=== PATIENT | male | born 1970 | race Caucasian/White ===

== ENCOUNTER 2019-06-14 08:45 | Outpatient (RCR) | payer MEDICAID, OTHER, SELFPAY ==
--- NOTE | 2019-03-23 14:20 | PTOPEVAL ---
PHYSICAL THERAPY EVALUATION AND PLAN OF CARE Thank you for referring this patient to [facility]. Rivera is scheduled to be seen 2x/week for 4 weeks to participated in PT. Please review, sign, date and return this plan of care ELIZABETH. I agree with and certify that the following plan of care is medically necessary. Referring Physician Date Attending Provider: Isidro Gupta MD Therapy Assessment Status Assessment Status Assessment Status Evaluation Outpatient Past Medical History Cardiovascular History Hx Hypercholesterolemia Yes: adverstatin Hx Other Cardiac Disorders Yes: pericardectomy Musculoskeletal History Hx Joint Replacement Yes: bilateral hip and right knee 2019 Evaluation Information Problem Diagnosis right TKA Onset 03/08/19 Subjective Information Rivera is here following right Query Text:As Reported By Patient/ TKA s/p 2 weeks. He is here Family today with a straight cane, but agrees he could probably continue to use his wheeled walker. He had both hips replaced within the year. He does have a home exercise program from the hospital that he has been performing but it is very painful to do. Self Report Pain Assessment Right Knee(s) Reported Pain Level 8 Radicular Pain Location stiff Pain Frequency Acute Other Pain Description 8 Current Pain Intensity 3 Lowest Pain Intensity 9 Pain Relief Interventions Used By Ice Patient Knee Range of Motion Right Knee Flexion Range of Motion - Active 76 Knee Flexion Range of Motion - Passive 89 Knee Extension Range of Motion - Active -15 Query Text: Hip Strength Right Hip Flexion Strength 4+ Good + Hip Extension Strength 4- Good - Hip Abduction Strength 4- Good - Knee Strength Right Knee Flexion Strength 3- Fair - Knee Extension Strength 4- Good - Edema Assessment Location Right Knee(s) Type Non-Pitting Edema Degree 2+ (2-4 mm) Extremity Circumference Assessment Location Right Body Part Knee Site Descriptor ([place]) suprapatellar Circumference (cm) 45 Noninvolved Side Circumference (cm) 44 Gait Assessment Ambulation Assistive Devices Cane Weight Bearing Status - Left Full Weight Bearing Status - Right As Tolerated Maintains Weight Bearing Status Yes Ambulation Distance throughout gym, states easier Query
--- NOTE | 2019-04-03 10:22 | PCPTNOTE ---
Patient called & cancelled scheduled appointment this date due to weather.
--- NOTE | 2019-04-13 11:25 | PCPTNOTE ---
Patient called & cancelled scheduled appointment this date stating he was unable to make it
--- NOTE | 2019-04-20 10:13 | PTOPEVAL ---
PHYSICAL THERAPY PLAN OF CARE UPDATE AND PROGRESS REPORT Thank you for referring this patient to [facility]. Rivera is progressing toward his goals. He will continue PT 2x/week for 3 weeks with reassess. Please review, sign, date and return this plan of care ELIZABETH. I agree with and certify that the following plan of care is medically necessary. Referring Physician Date Attending Provider: Isidro Gupta MD Re-evaluation Outpatient Past Medical History Cardiovascular History Hx Hypercholesterolemia Yes: adverstatin Hx Other Cardiac Disorders Yes: pericardectomy Musculoskeletal History Hx Joint Replacement Yes: bilateral hip and right knee 2019 Evaluation Information Problem Diagnosis right TKA Onset 03/08/19 Subjective Information Rivera is here following right Query Text:As Reported By Patient/ TKA s/p 6 weeks. Continues to Family report significant pain, especially medial aspect of knee and either side of knee cap. States he no longer uses cane or walker. due to severe morning pain with inability to bear weight without forcing it, I recommend using a walker or a cane for the first several minutes in the morning while the knee pain eases. Pain Scale Pain Scale Used Numeric (1 - 10) Self Report Pain Assessment Right Knee(s) Reported Pain Level 6 Pain Description Aching,Soreness,Tightness Pain Aggravating Factors Exercise/Activity Pain Behaviors Grimacing,Guarding Pain Score Pain Score 6: Self Report Knee Range of Motion Right Knee Flexion Range of Motion - Active 102 Knee Flexion Range of Motion - Passive 104 Knee Extension Range of Motion - Active -10 Query Text: Hip Strength Right Hip Flexion Strength 4+ Good + Hip Extension Strength 4- Good - Hip Abduction Strength 4- Good - Knee Strength Right Knee Flexion Strength 3- Fair - Knee Extension Strength 4+ Good + Palpation Assessment Palpation Palpation significant myofascial restrction throughout right knee, especially medial aspect of knee and medial gastroc head Gait Assessment Gait Pattern Assessment Gait Pattern Trendelenburg Gait Other Gait Observations decreased right knee extension ; improves
--- NOTE | 2019-05-10 09:55 | PTOPEVAL ---
PHYSICAL THERAPY PLAN OF CARE UPDATE AND PROGRESS REPORT Thank you for referring this patient to [facility]. Hold PT at this time. Consult with surgeon for further goals to be addressed. Please review, sign, date and return this plan of care ELIZABETH. I agree with and certify that the following plan of care is medically necessary. Referring Physician Date Attending Provider: Isidro Gupta MD Re-evaluation Outpatient Past Medical History Cardiovascular History Hx Hypercholesterolemia Yes: adverstatin Hx Other Cardiac Disorders Yes: pericardectomy Musculoskeletal History Hx Joint Replacement Yes: bilateral hip and right knee 2019 Evaluation Information Problem Diagnosis right TKA Onset 03/08/19 Subjective Information Rivera is here following right Query Text:As Reported By Patient/ TKA s/p 9 weeks. Reports that Family most functional tasks are becoming easier with only limitation to function in decreased right knee flexion. Significant amount of pain and stiffness reported in the morning that eases throughout the day. Right Knee(s) Reported Pain Level 4 Pain Description Aching,Soreness,Tightness Pain Aggravating Factors Exercise/Activity Pain Behaviors Grimacing Interventions Used By Clinicians Exercise,Joint Mobilization, Mobilization,Myofascial Release Pain Score 4: Self Report Additional Pain Score Comments still really stiff in the mornings, but after a few hours it eases and feels better. Knee Range of Motion Right Knee Flexion Range of Motion - Active 107 Knee Flexion Range of Motion - Passive 111 Knee Extension Range of Motion - Active -5 Query Text: Hip Strength Right Hip Flexion Strength 5 Normal Hip Extension Strength 4 Good Hip Abduction Strength 4+ Good + Knee Strength Right Knee Flexion Strength 4+ Good + Knee Extension Strength 4- Good - Knee Strength Comments continues to have fair to moderate right quadriceps contraction; increases contraction with looking at leg; instructed to perform toe walking and heel walking Palpation moderate myofascial restrction of right qudariceps and
--- NOTE | 2019-05-23 15:31 | PCPTNOTE ---
It has been 2 weeks since patient's last re-assessment. He was to return to surgeon to determine if further goals needed to be met. We have not heard from surgeon or from patient and this account will be discharged.
--- NOTE | 2019-06-05 16:46 | PTOPEVAL ---
PHYSICAL THERAPY PLAN OF CARE UPDATE AND PROGRESS REPORT Thank you for referring this patient to [facility]. Rivera will be seen in PT 1x/week for 3 week for emphasis on right quadriceps strengthening. Please review, sign, date and return this plan of care ELIZABETH. I agree with and certify that the following plan of care is medically necessary. Referring Physician Date Attending Provider: Isidro Gupta MD Re-evaluation Outpatient Past Medical History Cardiovascular History Hx Hypercholesterolemia Yes: adverstatin Hx Other Cardiac Disorders Yes: pericardectomy Musculoskeletal History Hx Joint Replacement Yes: bilateral hip and right knee 2019 Evaluation Information Problem Diagnosis right TKA Onset 03/08/19 Subjective Information Rivera is here following right Query Text:As Reported By Patient/ TKA s/p 13 weeks. 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 Reports feeling sharp pains or other discomfort in the knee when carrying moderate to heavy items. Self Report Pain Assessment Right Knee(s) Reported Pain Level 3 Pain Description Aching,Tightness Pain Aggravating Factors Exercise/Activity Pain Behaviors Grimacing Interventions Used By Clinicians Dry Needling,Exercise,Joint Mobilization Additional Pain Comments pain is mostly at left of patella Knee Range of Motion Right Knee Flexion Range of Motion - Active 102 Knee Extension Range of Motion - Active -5 Query Text: Hip Strength Right Hip Flexion Strength 5 Normal Hip Extension Strength 4+ Good + Hip Abduction Strength 4+ Good + Knee Strength Right Knee Flexion Strength 4+ Good + Knee Extension Strength 4 Good Palpation Assessment Palpation Palpation moderate myofascial restrction of right qudariceps and anterior tibialis - no change Gait Assessment Ambulation Assistive Devices Cane Weight Bearing Status - Left Full Weight Bearing Status - Right As Tolerated Maintains Weight Bearing Status Yes Ambulation Distance throughout gym, states easier Query Text:(Feet) to walk after treatment Gait Pattern Assessment Gait Pattern Trendelenburg Gait Other Gait Observations decreased right knee extension
--- NOTE | 2019-06-19 07:53 | PCPTNOTE ---
Patient called & cancelled scheduled appointment this date due to fever.
--- NOTE | 2019-06-28 08:35 | PCPTNOTE ---
This treatment is being continued on visit number [id number]. Please see documentation on both accounts to view progress. Completed interventions, outcomes, and problems have been marked as Inactive to facilitate the copying of the Care plan routine for recurring accounts.
== END 2019-06-14 23:59 | disposition home or self-care (01) ==
LOC: ANHPT 08:45
PROVIDERS: PCP Internal Medicine; Visit Provider Orthopaedic Surgery
DX: Z47.1 Aftercare following joint replacement surgery (principal); Z96.651 Presence of right artificial knee joint; G89.29 Other chronic pain
CPT/HCPCS: 97110; 97112; 97140; 97161

== ENCOUNTER 2019-06-28 08:00 | Outpatient (RCR) | payer OTHER, SELFPAY ==
--- NOTE | 2019-06-28 08:32 | PTOPEVAL ---
PHYSICAL THERAPY DISCHARGE REPORT Thank you for referring this patient to [facility]. Please review, sign, date and return this discharge report. I agree with and certify that the following plan of care is medically necessary. Referring Physician Date Attending Provider: Isidro Gupta MD Outpatient Past Medical History Cardiovascular History Hx Hypercholesterolemia Yes: adverstatin Hx Other Cardiac Disorders Yes: pericardectomy Musculoskeletal History Hx Joint Replacement Yes: bilateral hip and right knee 2019 Diagnosis right TKA Onset 03/08/19 Subjective Information Rivera reports today that he Query Text:As Reported By Patient/ feels great. He is ready for Family discharge at this time. Pain Assessment Right Knee Reported Pain Level 2 Current Pain Intensity 2 Lowest Pain Intensity 0 Greatest Pain Intensity 4 Knee Range of Motion Right Knee Flexion Range of Motion - Active 108 Knee Extension Range of Motion - Active 5 Query Text: Lower Extremity Muscle Strength Testing Hip Strength Right Hip Flexion Strength 5 Normal Hip Extension Strength 4+ Good + Hip Abduction Strength 4+ Good + Knee Strength Right Knee Flexion Strength 5 Normal Knee Extension Strength 5 Normal Gait Assessment Ambulation Assistive Devices None Weight Bearing Status - Left Full Weight Bearing Status - Right Full Gait Pattern Trendelenburg Gait Gait Pattern Observed Trunk Lateral Lean - Right Other Gait Observations continues to have mild right Trendelenburg - could be residual effect of right OSKAR Stair Climbing Assessment Stair Climbing Assessment Stair Climbing Assistive Devices None Maintains Weight Bearing Status Yes Number of Steps Climbed (Steps) 4 Number of Repetitions (Repetitions) 7 Technique Alternating Steps Stair Climbing Direction Both Up and Down Stair Climbing Ability Independent Clinical Summary Rivera is a 48 yo male 15 weeks s/p right TKA. Rivera demonstrates today that his strength has improved significantly in the last several weeks in that he is able to use the RLE more independently of the left. He is able to perform right unilateral sit>stand with small assist of hand, whereas 3 weeks ago he was unble at
--- NOTE | 2019-06-28 08:34 | PCPTNOTE ---
The treatment documented on this account is a continuation of the treatment documented on visit number [id number]. Please see documentation on both accounts to view progress. The Plan of Care has been transitioned and updated within the new V#. I have addressed and agree with the discipline specific Problems, Interventions, and Goals for the current certification period. Completed interventions, outcomes, and problems have been marked as Inactive to facilitate the copying of the Care plan routine for recurring accounts.
== END 2019-06-29 10:03 | disposition home or self-care (01) ==
LOC: ANHPT 08:00
PROVIDERS: PCP Internal Medicine; Visit Provider Orthopaedic Surgery
DX: M17.11 Unilateral primary osteoarthritis, right knee (principal)
CPT/HCPCS: 97110

== ENCOUNTER 2020-02-16 09:27 | Outpatient (CLI) | payer OTHER, SELFPAY ==
[2020-02-16 10:02] LABS: Alanine Aminotransferase 37 U/L (4-50); Albumin Level 4.2 g/dL (3.5-5.1); Alkaline Phosphatase 143 U/L (38-126); Anion Gap 11 mmol/L (8-16); Aspartate Amino Transferase 33 U/L (17-59); Bilirubin,Total 0.5 mg/dL (0.2-1.3); Blood Urea Nitrogen 17 mg/dL (9-20); Carbon Dioxide 25 mmol/L (22-30); Chloride 103 mmol/L (98-107); Cholesterol 133 mg/dL (0-200); Estimated Glomerular Filt Rate > 60; Glucose 109 mg/dL (75-110); HDL Direct 42 mg/dL; Potassium 3.9 mmol/L (3.4-5.0); Sodium 139 mmol/L (137-145); Triglycerides 132 mg/dL (<150)
[2020-02-16 10:12] LABS: LDL Cholesterol Direct 66 mg/dL
== END 2020-02-16 09:28 | disposition home or self-care (01) ==
PROVIDERS: PCP Internal Medicine; Visit Provider Internal Medicine Cardiovascular Disease
DX: E78.49 Other hyperlipidemia (principal)
CPT/HCPCS: 36415; 80053; 80061

== ENCOUNTER 2021-12-15 16:48 | Inpatient (IN) | payer MEDICARE, MEDICAID, SELFPAY ==
--- NOTE | ~2021-12-15 | US_ITS ---
EXAMINATION: US venous doppler [facility] DATE: 12/18/2021 13:04 INDICATION: Lower limb pain TECHNIQUE: Grayscale ultrasound images without and with compression and Doppler ultrasound images of the bilateral lower extremity veins were obtained. COMPARISON: None. FINDINGS: The visualized portions of right common femoral vein, profunda (deep) femoral vein, femoral vein, pop liteal vein, posterior tibial veins, peroneal veins, gastrocnemius vein and greater saphenous vein ou tflow are patent. The visualized portions of left common femoral vein, profunda femoral vein, femoral vein, popliteal v ein, posterior tibial veins, peroneal veins, gastrocnemius vein and greater saphenous vein outflow ar e patent. IMPRESSION: 1. No deep venous thrombosis in either lower limb. Reviewed, dictated and finalized at location A.
--- NOTE | ~2021-12-15 | CT_ITS ---
EXAMINATION: CT drain retroperitoneal DATE: 12/16/2021 14:54 INDICATION: Left psoas muscle abscess. TECHNIQUE: The procedure including the risks, benefits, and alternatives was discussed with the patie nt. Risks discussed included bleeding and infection. The patient understood the risks and benefits an d agreed to proceed. The patient was confirmed to be receiving appropriate antibiotic coverage. The skin overlying the abdomen was prepped and draped in usual sterile fashion. Anesthetic was administe red with 1% lidocaine subcutaneously. The patient slept throughout the procedure, and sedation was no t administered. An 18 gauge trochar needle was inserted into the left psoas abscess with CT guidance. The needle was exchanged over a wire for 6 Georgian, 8 Georgian, and 9 Georgian dilators and then for an 8 .5 Georgian pigtail catheter. The catheter was stitched to the skin, and a sterile dressing was applied . The mA was adjusted according to patient size. Iterative reconstruction technique was employed. The dose-length product was 327.83 mGy-cm. There were no immediate complications. FINDINGS: CT images demonstrate the catheter within the left psoas abscess. 7 mL fluid was aspirated for testing. IMPRESSION: 1. Successful CT-guided left psoas abscess drainage. 2. 7 mL opaque, pink fluid was sent for aerobic and anaerobic cultures. Reviewed, dictated and finalized at location A.
--- NOTE | ~2021-12-15 | XR_ITS ---
EXAM: XR hip BI 2V w AP pelvis DATE: 12/15/2021 20:07 HISTORY: back/hip pain since wednesday last week,pain more to rt side . COMPARISON: None available. FINDINGS: Bilateral uncomplicated hip arthroplasties. Normal mineralization. No fracture or dislocati on. Heterotopic bone adjacent to the right greater trochanter. Heterotopic bone versus old fracture o r postsurgical fragment adjacent to the left acetabulum. No lytic or blastic lesion. Degenerative patt nges in the lower lumbar spine. No erosion or periosteal change. Soft tissues within normal limits. IMPRESSION: No acute osseous finding in the pelvis or bilateral hips. Uncomplicated bilateral hip art hroplasties. Reviewed, dictated and finalized at location K. IMPRESSION: No acute osseous finding in the pelvis or bilateral hips. Uncomplic ated bilateral hip arthroplasties.
--- NOTE | ~2021-12-15 | CT_ITS ---
EXAMINATION: CTA chest DATE: 12/17/2021 10:37 INDICATION: Leukocytosis. TECHNIQUE: Computed tomographic angiography (CTA) of the chest was performed with 100 mL Omnipaque-35 0 intravenous contrast. Automated exposure control and iterative reconstruction technique were employ ed. The dose-length product was 638.77 mGy-cm. Maximum intensity projection 3D-reconstructions of the aorta and other arteries were constructed by the technologist on a separate workstation. COMPARISON: Chest CT 07/12/2016 FINDINGS: There is mild emphysema. The lungs demonstrate mild atelectasis. No pleural effusion. There is right atrial and right ventricular enlargement of the heart. There are coronary artery calcificat ions. No pericardial effusion. There are pericardial calcifications. There is mild aortic atheroscler osis. Main pulmonary artery is enlarged, consistent with pulmonary arterial hypertension. There is a small sliding hiatal hernia. There is a 2.4 cm mass containing fat in right adrenal gland, consistent with a myelolipoma. Median sternotomy wires are noted. There is bilateral gynecomastia. There is a s ubxiphoid ventral hernia containing fat. There is mild thoracic spondylosis. IMPRESSION: 1. Mild emphysema. 2. Chronic calcific pericarditis. 3. Right ventricular and right atrial enlargement of the heart. Reviewed, dictated and finalized at location A.
--- NOTE | ~2021-12-15 | CT_ITS ---
EXAMINATION: CT abdomen pelvis w con DATE: 12/15/2021 21:51 INDICATION: psoas abscess? TECHNIQUE: Computed tomography (CT) of the abdomen and pelvis was performed with 100 mL Omnipaque-350 intravenous contrast. Automated exposure control and iterative reconstruction technique were employe d. The dose-length product was 1347.11 mGy-cm. COMPARISON: CT lumbar spine, same date. FINDINGS: Lower thorax: Lungs are mostly obscured by motion artifact. Pericardial calcification. Coronary arter y calcification. Bilateral gynecomastia. Small hiatal hernia. Liver: Normal. Biliary/Gallbladder: No bile duct dilation. Pancreas: No mass or duct dilation. Spleen: Normal. Adrenals:No mass. Kidneys: Bilateral perinephric stranding. No suspicious mass or hydronephrosis. GI tract: No small or large bowel dilation. Normal appendix. Diverticulosis without diverticulitis. Mesentery/Peritoneum: No ascites, mass, or free air. Retroperitoneum: No mass. Atherosclerotic abdominal aortic and/or arterial calcifications. Pelvis: Left iliac lymphadenopathy. Otherwise the pelvic organs are within normal limits. Soft Tissues: 3.0 x 2.4 x 5.1 cm lobular low-density collection in the left inferior psoas muscle at the level of the sacroiliac joints with subtle rim enhancement. Bones: No acute osseous finding. IMPRESSION: 3.0 x 2.4 x 5.1 cm left psoas muscle abscess, with adjacent lymphadenopathy. Reviewed, dictated and finalized at [facility] K.
--- NOTE | ~2021-12-15 | CT_ITS ---
EXAMINATION: CT lumbar spine wo con DATE: 12/15/2021 20:18 INDICATION: low back pain radiating down the left leg . TECHNIQUE: Computed tomography (CT) of the lumbar spine was performed without intravenous contrast. A utomated exposure control and iterative reconstruction technique were employed. The dose-length produ ct was 1383.95 mGy-cm. COMPARISON: None. FINDINGS: Small hiatal hernia. Asymmetric enlargement and surrounding inflammatory change of the left psoas muscle. Enlarged left iliac lymph nodes. Prominent right pelvic lymph nodes. Adrenal hyperplas ia. Atherosclerotic calcifications. 5 nonrib-bearing lumbar-type vertebral bodies. Pedicles intact. N ormal vertebral body alignment. Vertebral body heights preserved. Multilevel degenerative disc diseas e. Multilevel moderate and severe facet arthropathy in the lower lumbar spine. IMPRESSION: 1. No acute fracture or traumatic malalignment in the lumbar spine. 2. Left psoas enlargement and inflammation with adjacent lymphadenopathy. Recommend CT abdomen pelvis with contrast to exclude psoas abscess. Reviewed, dictated and finalized at location K. IMPRESSION: 1. No acute fracture or traumatic malalignment in the lumbar spine. 2. Left psoas enlargement and inflammation with adjacent lymphadenopathy. Recom mend CT abdomen pelvis with contrast to exclude psoas abscess.
--- NOTE | ~2021-12-15 | CT_ITS ---
EXAMINATION: CT pelvis w con DATE: 12/18/2021 14:03 INDICATION: Left lower quadrant abdominal pain. TECHNIQUE: Computed tomography (CT) of the pelvis was performed with 100 mL Omnipaque 350 intravenous contrast. Automated exposure control and iterative reconstruction technique were employed. The dose- length product was 875.34 mGy-cm. COMPARISON: CT abdomen and pelvis 12/15/2021 FINDINGS: There are no dilated loops of bowel. There is diverticulosis of the colon without evidence of diverticulitis. Left iliopsoas muscle is larger than the right. There is a percutaneous drain in l eft psoas muscle. There are mildly enlarged bilateral common iliac and right external iliac lymph nod es. There is an umbilical hernia containing fat. There is no free intraperitoneal fluid. There are bi lateral total hip arthroplasties. IMPRESSION: 1. Asymmetric enlargement of left iliopsoas muscle with percutaneous drain in left psoas muscle. No s ignificant residual drainable fluid identified. 2. Mild pelvic lymphadenopathy, likely reactive. Reviewed, dictated and finalized at location A. IMPRESSION: 1. Asymmetric enlargement of left iliopsoas muscle with percutaneous drain in l eft psoas muscle. No significant residual drainable fluid identified. 2. Mild pelvic lymphadenopathy, likely reactive.
--- NOTE | ~2021-12-15 | MR_ITS ---
EXAMINATION: MR lumbar spine wo/w con, MR pelvis wo/w con DATE: 12/18/2021 18:33 INDICATION: Psoas abscess with worsening bacteremia. Weak legs. TECHNIQUE: 1. Magnetic resonance imaging (MRI) of the lumbar spine was performed without and with 20 mL Multihan ce intravenous contrast. Sequences included sagittal T2-weighted FSE, sagittal T2-weighted FS FSE, an d sagittal and axial T1-weighted FSE. Postcontrast sequences included axial T2-weighted FSE, sagittal T1-weighted FSE, and axial and sagittal T1-weighted FS FSE. 2. MRI of the pelvis performed without and with the identical 20 mL MultiHance intravenous contrast b olus. Sequences included axial, sagittal and coronal T1-weighted FSE and fluid sensitive FSE STIR, ax ial T1-weighted FS FSE and postcontrast axial, sagittal and coronal T1-weighted FS FSE. COMPARISON: Lumbar spine CT dated 12/15/[address] pelvis dated 12/18/2021 FINDINGS: Evaluation is limited by breathing degrees of motion artifact and the majority of the sequences of lilia th the lumbar spine and pelvis. Lumbar spine: 2 mm retrolisthesis L3 on L4 and L4 on L5 vertebral body heights are normal. Mild disc height loss at L3-L4 and L4-L5. No abnormal increased is signal or enhancement to suggest discitis. The conus medul lance terminates at T12. There is normal signal in the caudal spinal cord. Prominent epidural lipomatosis throughout the mid to lower lumbar spine. There is edema and enhanceme nt throughout the epidural fat. This results in severe central canal stenosis with effacement of the CSF signal surrounding the nerve roots beginning at L2 and extending throughout the remainder of the more caudal central canal. There are small nonenhancing regions within the posterior epidural fat, th e largest at the level of L3 which measures 1.5 cm craniocaudally and 6 x 6 mm maximal orthogonal dim ensions suspicious for either epidural abscess or fat necrosis. Smaller potential abscesses are seen more caudally in the posterior epidural fat at the level of L4 measuring 1.5 cm craniocaudally by 4 x 4 mm and 9 x 3 x 3 mm at the level of L5-S1. Aside from the thickened and edematous epidural there is only a mild contribution to the stenosis res ulting from disc bulges at L3-L4 and L4-L5. Multilevel moderate to severe lumbar facet osteoarthritis . There is moderate neural from stenosis bilaterally at L3-L4, mild to moderate bilateral neural fora oleg stenosis at L4-L5 and mild bilateral neural foraminal stenosis at L1-L2 and L2-L3. There is asymmetric enlargement of the left psoas muscle with prominent edema and enhancement extendi ng along the medial side of the muscle belly surrounding a collapsed nonenhancing abscess cavity with in which is coiled the loop of a left lower quadrant abscess drain. This is better appreciated on the images of the pelvis. There is additional prominent muscular edema and enhancement bilateral lower l umbar paraspinal musculature. On the right this surrounds a nonenhancing T2 hyperintense abscess loca erica along the posterior margin of the right L4-L5 facet joint. The abscess measures 4.8 cm craniocaud ally and 2.7 x 1.3 cm in maximal transaxial dimensions. On the left this surrounds an additional 2.1 x 1.1 x 1.0 cm abscess positioned slightly lateral to the left L4-L5 facet joint. There are small landry nt effusions at the bilateral L4-L5 facet joints. There is marrow edema and enhancement involving the articular processes at both sides of both the left and right L4-L5 facet joints and extending into t he left and right pedicles of both L4 and L5 which along with erosion of the articular cortices at th e left L4-L5 facet joint evident on prior CT is concerning for osteomyelitis. Edema and enhancement c onsistent with myositis involving small portions of the contralateral right psoas muscle in the bilat eral iliac is muscles but without additional abscesses. Mild rim enhancement surro
[2021-12-15 16:50] VITALS: BP 111/74; PULSE 98; RESP 20; TEMP 36.7; O2SAT 99
[2021-12-15] MEDS: diazePAM INJ (*CRX) 10 MG/2 ML SYRINGE 5 MG IV PUSH (19:18)
[2021-12-15] MEDS: KETOROLAC 15 MG/ML VIAL (*BKC) IV PUSH (19:19)
--- NOTE | 2021-12-15 19:31 | ED.BACK ---
HPI - Back Pain/Injury General Chief Complaint: Back Pain/Injury Stated Complaint: back pain Time Seen by Provider: 12/15/21 18:31 Source: patient Mode of arrival: EMS Limitations: no limitations History of Present Illness HPI Narrative: This is a 51 year old male that presents to the ER for low back pain x 5 days. Reports last Wednesday he was lifting a lot of logs. Reports he has had low back pain radiating into the left leg since. Denies bowel/bladder incontinence, or saddle anesthesia. Related Data Home Medications Medication Instructions Recorded Confirmed sertraline 100 mg tablet 100 mg PO DAILY 04/17/19 12/16/21 bupropion HCl 200 mg tablet,12 hr 200 mg PO DAILY 12/16/21 12/16/21 sustained-release diazepam 5 mg tablet 10 mg PO BID 12/16/21 12/16/21 lamotrigine 200 mg tablet 200 mg PO DAILY 12/16/21 12/16/21 trazodone 50 mg tablet 50 mg PO PRN insomnia 12/16/21 12/16/21 Allergies Allergy/AdvReac Type Severity Reaction Status Date / Time No Known Allergies Allergy Verified 12/15/21 19:20 [facility] Past Medical History Medical History COPD (chronic obstructive pulmonary disease) Drug addiction Hyperlipidemia due to dietary fat intake Liver cirrhosis Measles uncomplicated Mumps uncomplicated Osteoarthritis involving multiple joints on both sides of body Pericarditis in diseases classified elsewhere Sleep apnea Surgical History Surgical History H/O hernia repair Hip joint replacement status History of total right knee replacement Total knee replacement status Family History Family History (Updated 12/16/21 @ 00:53 by Leigha Valadez RN) Other Adopted Social History Social History Smoking status: Current every day smoker Tobacco type: cigarettes Additional smoking assessment comments: smokes a pack a week, smoked since 13 years old Alcohol intake: never Substance use: current Substance use type: marijuana Spiritual care concerns: No Course Consultations Consultation #1: Spoke with hospitalist about patient and work-up who accepts admission Date: 12/15/21 Vital Signs Vital signs: Vital Signs Temperature 98.0 F 12/15/21 16:50 Pulse Rate 98 12/15/21 16:50 Respiratory Rate 20 12/15/21 16:50 Blood Pressure 111/74 12/15/21 16:50 Pulse Oximetry 99 12/15/21 16:50 Oxygen Delivery Room Air 12/15/21 16:50 Temperature 102.7 F H 12/16/21 00:55 Pulse Rate 98 12/16/21 00:55 Respiratory Rate 18 12/16/21 00:55 Blood Pressure 126/70 12/16/21 00:55 Pulse Oximetry 97 12/16/21 00:55 Oxygen Delivery Room Air 12/15/21 16:50 MDM - Back Pain/Injury MDM Narrative Medical decision making narrative: Patient presents to the ER for low back pain present over the last 5 days. Patient is afebrile and nontoxic appearing. He is neurologically intact. CT scan of the lumbar spine was obtained to further evaluation due to patient's level of pain. This showed findings concerning for a psoas abscess. Blood work was obtained. CBC showed leukocytosis to 20.2. Inflammatory markers were quite elevated as well. Patient was also noted to be hyponatremic with sodium of 124. Patient was hydrated with IV fluids. Blood cultures were drawn. Patient started on IV antibiotics. Patient will be admitted for further management with IV antibiotics and possible drainage by IR. Spoke with hospitalist about patient and work-up who accepts admission Lab Data Attestation: I reviewed the patient's lab results. Result diagrams: 12/15/21 20:54 12/15/21 20:54 Labs: Lab Results 12/15/21 12/15/21 Range/Units 20:54 20:54 WBC 20.2 H (4.5-10.0) K/mm3 RBC 4.42 L (4.6-6.20) M/mm3 Hgb 13.5 L (14.0-18.0) g/dL Hct 38.4 L (42.0-52.0) % MCV 86.9 (80-100) fl MCH 30.5 (26-34
[2021-12-15 21:08] LABS: Basophils Absolute Auto 0.1 K/mm3 (0.0-0.1); Basophils Percent Auto 0.4 % (0.2-1.2); Eosinophils Percent Auto 0.2 % (0-4.4); Hematocrit 38.4 % (42.0-52.0); Hemoglobin 13.5 g/dL (14.0-18.0); Immature Granulocyte Absolute 0.19 K/mm3 (0.00-0.031); Immature Granulocyte Percent A 0.9 % (0-0.5); Lymphocytes Absolute Auto 1.64 K/mm3 (0.9-3.2); Lymphocytes Percent Auto 8.1 % (18.3-44.2); Mean Corpuscular HGB Conc 35.2 g/dl (32-36); Mean Corpuscular Hemoglobin 30.5 pg (26-34); Mean Corpuscular Volume 86.9 fl (80-100); Mean Platelet Volume 10.6 fl (7.4-10.4); Monocytes Absolute Auto 2.9 K/mm3 (0.1-0.6); Monocytes Percent Auto 14.2 % (2.6-8.5); Neutrophils Absolute Auto 15.3 K/mm3 (1.3-6.7); Neutrophils Percent Auto 76.2 % (45.5-73.1); Platelet Count Result 225 k/mm3 (150-375); Red Blood Count 4.42 M/mm3 (4.6-6.20); Red Cell Distribution Width 14.3 % (11.5-14.5); White Blood Count 20.2 K/mm3 (4.5-10.0)
[2021-12-15 21:22] LABS: Alanine Aminotransferase 41 U/L (6-50); Albumin Level 3.6 g/dL (3.5-5.1); Alkaline Phosphatase 162 U/L (38-126); Anion Gap 11 mmol/L (8-16); Aspartate Amino Transferase 37 U/L (17-59); Bilirubin,Total 1.6 mg/dL (0.2-1.3); Blood Urea Nitrogen 23 mg/dL (9-20); Calcium 8.7 mg/dL (8.4-10.2); Carbon Dioxide 26 mmol/L (22-30); Chloride 87 mmol/L (98-107); Estimated CRCL calculation 88 ml/min; Estimated Glomerular Filt Rate > 60; Glucose 118 mg/dL (65-110); Potassium 3.5 mmol/L (3.4-5.0); Sodium 124 mmol/L (137-145)
[2021-12-15 21:34] LABS: CRP 26.5 mg/dL (<1.0); Creatine Kinase 108 U/L (55-170)
[2021-12-15 21:49] LABS: Erythrocyte Sedimentation Rate 80 mm/hr (0-20)
[2021-12-15] MEDS: SODIUM CHLORIDE 0.9% IV 1,000 ML 999 ML IV CONT (22:24)
--- NOTE | 2021-12-15 23:10 | PC.NURSE ---
report given to KELIN Mcdowell
[2021-12-15] MEDS: MORPHINE SULFATE (*CRX) 4 MG/ML INJ IV PUSH (23:47)
[2021-12-16] VITALS (7 sets, daily range): BP systolic 126–154; BP diastolic 70–93; PULSE 80–143; RESP 14–20; TEMP 36.3–39.3; O2SAT 91–100
--- NOTE | 2021-12-16 | ECHO_ITS ---
Patient Info Name: Rivera Aguilar Age: 51 years : 1970 Gender: Male Ht: 68 in Wt: 230 lbs BSA: 2.28 m2 HR: 97 bpm BP: 143 / 71 mmHg Technical Quality: Fair Exam Date: 12/16/2021 1:16 PM Exam Location: [facility] Patient Status: Inpatient Admit Date: 12/15/2021 Staff Ordering Physician: Gordo Renteria Business Systems Analyst: Zaynab Nguyen RDCS Attending Provider: Cecilia Dodge MD Referring Physician: Dexter ALVARES; Exam Type: CA echo doppler color flow Study Info Indications R00.0 - Tachycardia, unspecified Complete two-dimensional, color flow and Doppler transthoracic echocardiogram is performed. Summary 1. Complete two-dimensional, color flow and Doppler transthoracic echocardiogram is performed. 2. Left ventricular chamber dimension is normal. 3. Left ventricular systolic function is normal, estimated at 65-70%. 4. The left ventricular diastolic function is normal. 5. E/e' 8 is minimally elevated. 6. There is trace tricuspid valve regurgitation. Left Ventricle E/e' 8 is minimally elevated. Left ventricular chamber dimension is normal. Left ventricular systolic function is normal, estimated at 65-70%. The left ventricular diastolic function is normal. Right Ventricle Right ventricular systolic function is normal and with normal TAPSE 1.7 cm.. Right ventricular chamber dimension is normal. Left Atria Left atrial chamber dimension is normal. Right Atria Right atrial chamber dimension is normal. Aortic Valve The aortic valve is trileaflet. There is no aortic valve stenosis. There is no aortic valve regurgitation. Pulmonic Valve There is no pulmonic regurgitation. Mitral Valve There is no mitral valve stenosis. There is no mitral valve regurgitation. Tricuspid Valve RVSP is not calculated due to an inadequate TR jet. There is trace tricuspid valve regurgitation. Pericardium/Pleural There is no pericardial effusion. Inferior Vena Cava Normal inferior vena cava with >50% collapse upon inspiration consistent with normal right atrial pressure, 5 mmHg. Aorta The aortic root size at the sinus of Valsalva is normal. Left Ventricular Outflow Tract Name Value Normal LVOT 2D LVOT Diameter 2.3 cm Mitral Valve Name Value Normal MV Doppler MV Decel [place] 499 cm/s2 MV PHT 49 ms MV Area (PHT) 4.5 cm2 4.0-5.0 MV Diastolic Function MV E Peak Velocity 84 cm/s MV A Peak Velocity 79 cm/s MV E/A 1.1 MV Decel Time 168 ms MV Annular TDI MV E/e' (Septal) 7.8 <=8.0 MV E/e' (Lateral)
--- NOTE | 2021-12-16 00:38 | PM.IMHP ---
H&P: HPI History of Present Illness Date/Time: 12/16/21 00:38 Chief Complaint: lower back pain Narrative: This is a 51-year-old male with past medical history significant for tobacco dependence, COPD/ emphysema, dyslipidemia, liver cirrhosis, degenerative joint disease. patient presents to the emergency room due to lower back pain with radiation bilaterally down to his calves, patient denies any fevers, rigors, chills, night sweats, denies any incontinence or urinary retention or fecal retention, no gait instability, no focal weakness, no area of numbness, patient has been his usual state of health up to until this point this has been going on now for the last 2-3 days. Preliminary workup was significant for a leukocyte count of 20,000. lumbar x-ray: IMPRESSION: 1. No acute fracture or traumatic malalignment in the lumbar spine. 2. Left psoas enlargement and inflammation with adjacent lymphadenopathy. Recommend CT abdomen pelvis with contrast to exclude psoas abscess. CT abdomen and pelvis: IMPRESSION: 3.0 x 2.4 x 5.1 cm left psoas muscle abscess, with adjacent lymphadenopathy. Review of Systems Review of Systems: lower back pain with radiation bilaterally to the Botox and then down to his calves Constitutional: Constitutional: Denies body ache(s), Denies chills, Denies fever(s), Denies malaise, Denies night sweats, Denies poor appetite and Denies weakness Eyes: Eyes: Denies change in vision ENT: Denies dysphagia, Denies vertigo, Denies dizziness, Denies odynophagia and Denies sore throat Cardiovascular: Cardiovascular: Denies chest pain, Denies syncope, Denies irregular heart rhythm, Denies lightheadedness, Denies palpitations and Denies dyspnea on exertion Respiratory: Respiratory: Denies chest congestion, Denies cough, Denies excessive phlegm production, Denies pain on inspiration, Denies dyspnea, Denies dyspnea on exertion and Denies wheezing Gastrointestinal: Gastrointestinal: Denies abdominal pain, Denies dyspepsia, Denies heartburn, Denies diarrhea, Denies nausea and Denies vomiting Genitourinary: Genitourinary: Denies dysuria Musculoskeletal: Musculoskeletal: Reports abnormal gait, Reports back pain, Reports muscle cramps and Denies muscle weakness Integumentary/Breasts: Skin/Breast: Denies rash Neurologic: Denies abnormal gait, Denies vertigo, Denies dizziness, Denies frequent falls, Denies focal weakness, Denies Sensory deficit (Neuro) and Denies paresthesias Psychiatric: Psychiatric: Reports no additional psychiatric complaints and Reports as per HPI Endocrine: Endocrine: Denies cold intolerance, Denies flushing, Denies heat intolerance, Denies polyphagia, Denies polydipsia, Denies polyuria and Denies palpitations Hematologic/Lymphatic: Hematologic/Lymphatic: Reports no additional hematologic/lymphatic complaints and Reports as per HPI Allergic/Immunologic: Allergic/Immunologic: Reports no additional allergic/immunologic complaints and Reports as per HPI PMFSH Past Medical History Medical History (Updated 12/16/21 @ 04:32 by Cecilia Dodge MD) COPD (chronic obstructive pulmonary disease) Drug addiction Hyperlipidemia due to dietary fat intake Liver cirrhosis Measles uncomplicated Mumps uncomplicated Osteoarthritis involving multiple joints on both sides of body Pericarditis in diseases classified elsewhere Sleep apnea Surgical History Surgical History H/O hernia repair Hip joint replacement status History of total right knee replacement Total knee replacement status Family History Family History (Updated 12/16/21 @ 00:53 by Leigha Valadez RN) Other Adopted Social History Social History Smoking status: Current every day smoker Tobacco type: cigarettes Additional smoking assessment comments: smokes a pack a week, smoked since 13 years old Alcohol intake: never
--- NOTE | 2021-12-16 00:50 | ADMGEN ---
This patient, Rivera Aguilar, was admitted to 3 [facility] Surg Room 302-01. Patient/family oriented to hospital policies and general routines including ID bracelet, bed and alarms, visiting hours, pain management, procedures, bathroom and other care routines, personal items, smoking policy, room service/diet, and visiting hours. Information on how to activate the Rapid Response Team has been discussed. Patient/Family are encouraged to report perceived risks to care and to ask questions if they do not understand what they are told or what they should do.
[2021-12-16] MEDS: HYDROmorphone HCL INJ (*CRX) 1 MG/ML SYR IV PUSH ×4 (01:09→20:28)
[2021-12-16] MEDS: ACETAMINOPHEN 500 MG TABLET 1000 MG PO (01:09)
[2021-12-16 01:44] LABS: Lactic Acid Reflex 1.1 mmol/L (0.7-2.0)
[2021-12-16 05:45] LABS: Basophils Absolute Auto 0.1 K/mm3 (0.0-0.1); Basophils Percent Auto 0.4 % (0.2-1.2); Eosinophils Absolute Auto 0.1 K/mm3 (0-0.3); Eosinophils Percent Auto 0.6 % (0-4.4); Hematocrit 38.3 % (42.0-52.0); Hemoglobin 13.2 g/dL (14.0-18.0); Immature Granulocyte Absolute 0.29 K/mm3 (0.00-0.031); Immature Granulocyte Percent A 1.4 % (0-0.5); Lymphocytes Absolute Auto 1.69 K/mm3 (0.9-3.2); Lymphocytes Percent Auto 8.3 % (18.3-44.2); Mean Corpuscular HGB Conc 34.5 g/dl (32-36); Mean Corpuscular Hemoglobin 30.3 pg (26-34); Mean Corpuscular Volume 87.8 fl (80-100); Mean Platelet Volume 10.9 fl (7.4-10.4); Monocytes Percent Auto 14.9 % (2.6-8.5); Neutrophils Absolute Auto 15.1 K/mm3 (1.3-6.7); Neutrophils Percent Auto 74.4 % (45.5-73.1); Platelet Count Result 229 k/mm3 (150-375); Red Blood Count 4.36 M/mm3 (4.6-6.20); Red Cell Distribution Width 14.4 % (11.5-14.5); White Blood Count 20.3 K/mm3 (4.5-10.0)
[2021-12-16 06:01] LABS: Anion Gap 12 mmol/L (8-16); Blood Urea Nitrogen 20 mg/dL (9-20); Calcium 8.7 mg/dL (8.4-10.2); Carbon Dioxide 26 mmol/L (22-30); Chloride 90 mmol/L (98-107); Estimated CRCL calculation 98 ml/min; Estimated Glomerular Filt Rate > 60; Glucose 96 mg/dL (65-110); Potassium 3.5 mmol/L (3.4-5.0); Sodium 128 mmol/L (137-145)
[2021-12-16] MEDS: HYDROmorphone HCL INJ (*CRX) 1 MG/ML SYR IM (06:09)
[2021-12-16] MEDS: SERTRALINE HCL 50 MG TABLET 200 MG PO (08:42)
[2021-12-16] MEDS: diazePAM (*CRX) 5 MG TABLET PO ×2 (08:42→17:27)
[2021-12-16] MEDS: lamoTRIgine 100 MG TABLET 200 MG PO (08:43)
[2021-12-16] MEDS: buPROPion HCL SR (12HR) 100 MG TABCR 200 MG PO (08:43)
--- NOTE | 2021-12-16 10:05 | PM.CNGS ---
Assessment and Plan Assessment and plan (1) Psoas abscess, left: Code(s): K68.12 - Psoas muscle abscess Status: Acute Assessment and Plan: CT scan reviewed with the Radiologist. There is a small fluid collection in the left psoas muscle that could be an abscess or hematoma or a sterile fluid collection. There is adjacent iliac lymphadenopathy that is likely reactive, but no adjacent sources of infection that would suggest this is a secondary abscess. There is high suspicion for infection considering his significant leukocytosis and fever. The Radiologist feels this is amenable to drainage and they will attempt aspirating the fluid and potentially putting a drain in place if possible. He will send cultures if possible. Agree with IV Primaxin and Vancomycin for empiric therapy. Etiology for the primary psoas abscess is still unclear. He denies trauma to this area. He denies IV drug use or any known immunocompromising conditions. Discussed with Hospitalist that they could consider evaluating him for immunocompromising conditions. No obvious risk factors noted. (2) Sepsis: Code(s): A41.9 - Sepsis, unspecified organism Status: Acute Assessment and Plan: Criteria met with tachycardia, fever, and leukocytosis. Source possibly psoas abscess. Echo also ordered. Continue with IV abx and plan as mentioned above. Blood cultures pending. Trend labs. (3) COPD (chronic obstructive pulmonary disease): Code(s): J44.9 - Chronic obstructive pulmonary disease, unspecified Status: Acute (4) Smoking: Code(s): F17.200 - Nicotine dependence, unspecified, uncomplicated Status: Acute Assessment and Plan: Encouraged cessation. (5) Sleep apnea: Code(s): G47.30 - Sleep apnea, unspecified Status: Acute (6) Coronary artery disease: Code(s): I25.10 - Atherosclerotic heart disease of [place] coronary artery without angina pectoris Status: Acute (7) Acute hyponatremia: Code(s): E87.1 - Hypo-osmolality and hyponatremia Status: Acute (8) Obesity: Code(s): E66.9 - Obesity, unspecified Status: Acute Plan I have discussed the patient's case and plan of care with Dr. Alba. Thank you for allowing us to see the patient in consultation and we will continue to follow along with you. History of Present Illness Consult details Consult date: 12/16/21 Reason for consult: other (Psoas abscess) Requesting physician: Gordo Renteria APN-C Narrative: This is a 51-year-old man with a history of COPD, ALFRED, tobacco abuse, and osteoarthritis involving multiple joints, who presented to the ER last night with complaints of left hip pain radiating down his left leg. He reports 6 days ago he did a lot of manual labor outside helping cut down a tree and move limbs/branches. He primarily was dragging and lifting branches and limbs to move them on the ground. Later that night, he noticed left hip pain and was walking with a limp. He reports this felt worse into the following day and his friend even reported his left back appeared swollen. He was unable to help with the manual labor the next day due to the pain. His pain progressively worsened. He did feel feverish, but did not take his temperature, 4-5 days ago. To note, the patient had received Valium, Lamictal and IV Dilaudid prior to my arrival and is drowsy. He can answer questions appropriately, but would fall asleep multiple times during our conversation. He also stated he hasn't slept well in multiple days due to the pain. Last night, he eventually came into the ER because the pain was progressively worsening and he was no longer able to get in or out of a car or walk without significant pain. Labs showed a WBC count 20,200 and CRP 26.5. hip and pelvis x-ray show no acute osseous findings in the pelvis or bilateral hips. Uncomplicated bilateral hip arthroplasties noted. CT of the lumbar spine shows no acute fracture or
[2021-12-16 10:29] LABS: INR 1.3; Prothrombin Time 15.6 Seconds (11.1-14.7)
[2021-12-16] MEDS: HYDROmorphone HCL INJ (*CRX) 1 MG/ML SYR 0.5 MG IV PUSH (10:32)
--- NOTE | 2021-12-16 11:09 | ECG_ITS ---
Measurements Intervals [place] Rate: 104 P: 61 LA: 148 QRS: 84 QRSD: 101 T: 27 QT: 325 QTc: 428 Interpretive Statements SINUS TACHYCARDIA ABNORMAL RHYTHM ECG NO PREVIOUS ECG AVAILABLE FOR COMPARISON Electronically Signed On 12-16-2021 11:44:24 CDT by Carlos Valencia M.D.
--- NOTE | 2021-12-16 11:30 | PM.IMPN ---
Progress Note: A&P Assessment and Plan (1) Psoas abscess, left: Code(s): K68.12 - Psoas muscle abscess Status: Acute Assessment and Plan: CT shows 3.0 x 2.4 x 5.1 cm left psoas muscle abscess, with adjacent lymphadenopathy. IV antibiotics vancomycin, change to pramaxin Q6H cultures in progress, need to consult the drainage as well IR to drain abscess in a.m. General surgery consult thank you for your help WBC elevated at 20.3 Trend labs De-escalate as cultures result Pain medication on board supportive care ESR 45, CRP 30.9, HIV pending echo EF of 65-70% with diastolic dysfunction (2) Acute hyponatremia: Code(s): E87.1 - Hypo-osmolality and hyponatremia Status: Acute Assessment and Plan: Na 124 on arrival, currently 128 IV fluids given in the ED hypovolemic hyponatremia Trend labs continue to monitor (3) Sepsis: Code(s): A41.9 - Sepsis, unspecified organism Status: Acute Assessment and Plan: Patient meets SIRS criteria with tachycardia, leukocytosis, fever Source of infection is an abscess in the hip Blood cultures pending White blood cell count 20.3 Trend labs Fluids given in the ED and continuous fluids Antibiotics: Primaxin and vanc Deescalate per culture results (4) Obesity: Code(s): E66.9 - Obesity, unspecified Status: Acute Assessment and Plan: lifestyle and diet modifications Technical Sales Consultant consult (5) Coronary artery disease: Code(s): I25.10 - Atherosclerotic heart disease of [place] coronary artery without angina pectoris Status: Acute Assessment and Plan: No chest pain Stable (6) Smoking: Code(s): F17.200 - Nicotine dependence, unspecified, uncomplicated Status: Acute Assessment and Plan: nicotine patch as needed Smoking cessation education (7) Sleep apnea: Code(s): G47.30 - Sleep apnea, unspecified Status: Acute Assessment and Plan: unclear if patient uses CPAP at nighttime Trend resp status (8) COPD (chronic obstructive pulmonary disease): Code(s): J44.9 - Chronic obstructive pulmonary disease, unspecified Status: Acute Assessment and Plan: stable Consider nebs if indicated (9) Osteoarthritis involving multiple joints on both sides of body: Code(s): M15.9 - Polyosteoarthritis, unspecified Status: Acute Assessment and Plan: Tylenol p.r.n. Time Spent With Patient Time with patient: Greater than 35 minutes Subjective Date/time seen: 12/16/21 1130 Interval history: 12/16/211129 Patient is a lot of pain today. Patient is thrashing around the bed and just very upset. He states that he is having a lot of pain in his back. He does have an open wound to his sternum which she stated has been like that since he had open-heart surgery in 2017. He denies any trauma or injection in his hip that would cause the abscess. 12/16/21? 00:38 ?This is a 51-year-old male with past medical history significant for tobacco dependence, COPD/ emphysema, dyslipidemia, liver cirrhosis, degenerative joint disease. patient presents to the emergency room due to lower back pain with radiation bilaterally down to his calves,? patient denies any fevers, rigors, chills, night sweats,? denies any incontinence or urinary retention or fecal retention, no gait instability, no focal weakness, no area of numbness, patient has been his usual state of health up to? until this point this has been going on now for the last 2-3 days.? Preliminary workup was significant for a leukocyte count of 20,000. ?lumbar x-ray: IMPRESSION: 1. No acute fracture or traumatic malalignment in the lumbar spine. 2. Left psoas enlargement and inflammation with adjacent lymphadenopathy. Recommend CT abdomen pelvis with contrast to exclude psoas absc
--- NOTE | 2021-12-16 11:30 | P.PNIM_ITS ---
Progress Note: A&P Assessment and Plan (1) Psoas abscess, left: Code(s): K68.12 - Psoas muscle abscess Status: Acute Assessment and Plan: * CT shows 3.0 x 2.4 x 5.1 cm left psoas muscle abscess, with adjacent lymphadenopathy. * IV antibiotics vancomycin, change to pramaxin Q6H * cultures in progress, need to consult the drainage as well * IR to drain abscess in a.m. * General surgery consult thank you for your help * WBC elevated at 20.3 * Trend labs * De-escalate as cultures result * Pain medication on board * supportive care * ESR 45, CRP 30.9, HIV pending * echo EF of 65-70% with diastolic dysfunction (2) Acute hyponatremia: Code(s): E87.1 - Hypo-osmolality and hyponatremia Status: Acute Assessment and Plan: * Na 124 on arrival, currently 128 * IV fluids given in the ED * hypovolemic hyponatremia * Trend labs * continue to monitor (3) Sepsis: Code(s): A41.9 - Sepsis, unspecified organism Status: Acute Assessment and Plan: * Patient meets SIRS criteria with tachycardia, leukocytosis, fever * Source of infection is an abscess in the hip * Blood cultures pending * White blood cell count 20.3 * Trend labs * Fluids given in the ED and continuous fluids * Antibiotics: Primaxin and vanc * Deescalate per culture results (4) Obesity: Code(s): E66.9 - Obesity, unspecified Status: Acute Assessment and Plan: * lifestyle and diet modifications * Environmental Conflict Manager consult (5) Coronary artery disease: Code(s): I25.10 - Atherosclerotic heart disease of [place] coronary artery without angina pectoris Status: Acute Assessment and Plan: * No chest pain * Stable (6) Smoking: Code(s): F17.200 - Nicotine dependence, unspecified, uncomplicated Status: Acute Assessment and Plan: * nicotine patch as needed * Smoking cessation education (7) Sleep apnea: Code(s): G47.30 - Sleep apnea, unspecified Status: Acute Assessment and Plan: * unclear if patient uses CPAP at nighttime * Trend resp status (8) COPD (chronic obstructive pulmonary disease): Code(s): J44.9 - Chronic obstructive pulmonary disease, unspecified Status: Acute Assessment and Plan: * stable * Consider nebs if indicated (9) Osteoarthritis involving multiple joints on both sides of body: Code(s): M15.9 - Polyosteoarthritis, unspecified Status: Acute Assessment and Plan: * Tylenol p.r.n. Time Spent With Patient Time with patient: Greater than 35 minutes Subjective Date/time seen: 12/16/21 1130 Interval history: 12/16/21 113 Patient is a lot of pain today. Patient is thrashing around the bed and just very upset. He states that he is having a lot of pain in his back. He does hav e an open wound to his sternum which she stated has been like that since he had open-heart surgery in 2017. He denies any trauma or injection in his hip that would cause the abscess. 12/16/21? 00:38 ?This is a 51-year-old male with past medical history significant for tobacco dependence, COPD/ emphysema, dyslipidemia, liver cirrhosis, degenerative joint disease. patient presents to the emergency room due to lower back pain with radiation bilaterally d
[2021-12-16] MEDS: KETOROLAC 30 MG/ML VIAL (*BKC) IV PUSH ×2 (12:14→19:36)
[2021-12-16 12:16] LABS: Erythrocyte Sedimentation Rate 45 mm/hr (0-20)
[2021-12-16 12:51] LABS: CRP 30.9 mg/dL (<1.0)
--- NOTE | 2021-12-16 13:56 | WPDMODSED ---
Moderate Sedation Note-Pt Data Patient Data Diagnosis: Left psoas abscess. Present Complaint: Left psoas abscess. Procedure to be performed/Plan: CT-guided left psoas abscess drainage. Allergies Allergy/AdvReac Type Severity Reaction Status Date / Time No Known Allergies Allergy Verified 12/16/21 03:17 Home Medications Medication Instructions Recorded Confirmed Type sertraline 100 mg tablet 200 mg PO DAILY 04/17/19 12/16/21 History bupropion HCl 200 mg tablet,12 hr 200 mg PO DAILY 12/16/21 12/16/21 History sustained-release diazepam 5 mg tablet 5 mg PO BID 12/16/21 12/16/21 History lamotrigine 200 mg tablet 200 mg PO DAILY 12/16/21 12/16/21 History trazodone 50 mg tablet 50 mg PO PRN insomnia 12/16/21 12/16/21 History Current Medications: Active Medications Bupropion HCl (Bupropion Hcl Sr (12hr) 100 Mg Tabcr) 200 mg PO DAILY [facility] Last Admin: 12/16/21 08:43 Dose: 200 mg Diazepam (Diazepam (*Crx) 5 Mg Tablet) 5 mg PO BID [facility] Last Admin: 12/16/21 08:42 Dose: 5 mg Hydromorphone HCl (Hydromorphone Hcl Inj (*Crx) 1 Mg/Ml Syr) 0.5 mg IV PUSH Q3H PRN PRN Reason: Pain Rated 7-10 Vancomycin HCl (Vancomycin 1,500 Mg/D5w 500 Ml) 1,500 mg in 500 mls @ 333.333 mls/hr IVPB Q12H [facility] Last Admin: 12/16/21 12:17 Dose: 333.33 mls/hr Imipenem/Cilastatin Sodium (Primaxin 500 Mg/Ns 100 Ml) 500 mg in 100 mls @ 300 mls/hr IVPB Q6H [facility] Lamotrigine (Lamotrigine 100 Mg Tablet) 200 mg PO DAILY [facility] Last Admin: 12/16/21 08:43 Dose: 200 mg Perflutren Lipid Microsphere (Perflutren Lipid Microspheres 1.5 Ml Vial Diluted To 10 Ml Total Volume) 0 ml IV PUSH ONCE PRN; Protocol PRN Reason: adequate visualization Sertraline HCl (Sertraline Hcl 50 Mg Tablet) 200 mg PO DAILY [facility] Last Admin: 12/16/21 08:42 Dose: 200 mg Trazodone HCl (Trazodone Hcl 50 Mg Tablet) 50 mg PO HS PRN PRN Reason: Sleep Sedation/Anesthesia: No previous sedation/anesthesia problems (including family history). [facility] Past Medical History Medical History COPD (chronic obstructive pulmonary disease) Drug addiction Hyperlipidemia due to dietary fat intake Liver cirrhosis Measles uncomplicated Mumps uncomplicated Osteoarthritis involving multiple joints on both sides of body Pericarditis in diseases classified elsewhere Sleep apnea Surgical History Surgical History H/O hernia repair Right inguinal hernia repair Hip joint replacement status Bilateral total hip arthroplasty 2017 History of pericardiectomy History of total right knee replacement 2019 Family History Family History Other Adopted Social History Social History Smoking status: Current every day smoker Tobacco type: cigarettes Additional smoking assessment comments: smokes a pack a week, smoked since 13 years old Alcohol intake: never Substance use: current Substance use type: marijuana Other substance usage details: Hx polysubstance drug use over 20 yrs ago, no IV drug use Spiritual care concerns: No Mod Sed Physical Exam Physical Exam Pre Procedural Exam: Normal: Lungs, Heart Rate, Heart Rhythm and Abdomen and Variation: Appearance (Obese.) Hours since solid foods: 2 Hours since liquid intake: 2 Mallampati Classification: class II Internal Medicine - PN: Obj Da Vital Signs Vital Signs: Vital Signs - 24 hr 12/15/21 16:50 12/16/21 01:09 12/16/21 00:55 Temperature 36.7 C 39.3 C H 39.3 C H Pulse Rate 98 98 Respiratory Rate 20 18 Blood Pressure 111/74 126/70 Pulse Oximetry 99 97 Oxygen Delivery Room Air 12/16/21 02:09 12/16/21 02:15 12/16/21 05:25 Temperature 37.6 C H 37.4 C Pulse Rate 143 H Respiratory Rate 18 Blood Pressure 143/71 H Pulse Oximetry 94 Oxygen Delivery Room Air 12/16/21 08:0
--- NOTE | 2021-12-16 15:44 | SUR.OPER ---
1345: This Rn in for moderate sedation for radiology. Pt intermittently falling asleep. 1400. Time Out completed. 1431. Procedure started. Pt in attitude of sleep, snoring loudly. Dr injecting lidocaine, pt does not arouse. 1433. This rn requested by physician to stay down in procedure area. 1445. Pt continues to require no medication for pain.
[2021-12-16] MEDS: polyethylene glycoL 3350 17 GM POWD.PACK PO (16:38)
[2021-12-17] VITALS (7 sets, daily range): BP systolic 123–164; BP diastolic 73–101; PULSE 83–90; RESP 14–25; TEMP 35.9–37.1; O2SAT 91–95
[2021-12-17] MEDS: HYDROmorphone HCL INJ (*CRX) 1 MG/ML SYR IV PUSH ×5 (00:39→22:59)
[2021-12-17] MEDS: KETOROLAC 30 MG/ML VIAL (*BKC) IV PUSH ×4 (02:05→22:40)
[2021-12-17 06:32] LABS: Basophils Absolute Auto 0.1 K/mm3 (0.0-0.1); Basophils Percent Auto 0.4 % (0.2-1.2); Eosinophils Absolute Auto 0.2 K/mm3 (0-0.3); Eosinophils Percent Auto 0.8 % (0-4.4); Hematocrit 35.9 % (42.0-52.0); Hemoglobin 12.3 g/dL (14.0-18.0); Immature Granulocyte Absolute 0.78 K/mm3 (0.00-0.031); Immature Granulocyte Percent A 3.5 % (0-0.5); Lymphocytes Absolute Auto 1.62 K/mm3 (0.9-3.2); Lymphocytes Percent Auto 7.3 % (18.3-44.2); Mean Corpuscular HGB Conc 34.3 g/dl (32-36); Mean Corpuscular Hemoglobin 30.4 pg (26-34); Mean Corpuscular Volume 88.6 fl (80-100); Monocytes Absolute Auto 2.2 K/mm3 (0.1-0.6); Monocytes Percent Auto 9.8 % (2.6-8.5); Neutrophils Absolute Auto 17.5 K/mm3 (1.3-6.7); Neutrophils Percent Auto 78.2 % (45.5-73.1); Platelet Count Result 248 k/mm3 (150-375); Red Blood Count 4.05 M/mm3 (4.6-6.20); Red Cell Distribution Width 14.6 % (11.5-14.5); White Blood Count 22.3 K/mm3 (4.5-10.0)
[2021-12-17 07:00] LABS: Alanine Aminotransferase 30 U/L (6-50); Albumin Level 3.1 g/dL (3.5-5.1); Alkaline Phosphatase 180 U/L (38-126); Anion Gap 11 mmol/L (8-16); Aspartate Amino Transferase 32 U/L (17-59); Bilirubin,Total 1.1 mg/dL (0.2-1.3); Blood Urea Nitrogen 17 mg/dL (9-20); Calcium 8.4 mg/dL (8.4-10.2); Carbon Dioxide 28 mmol/L (22-30); Chloride 88 mmol/L (98-107); Estimated CRCL calculation 123 ml/min; Estimated Glomerular Filt Rate > 60; Glucose 102 mg/dL (65-110); Magnesium 2.5 mg/dL (1.6-2.3); Potassium 3.4 mmol/L (3.4-5.0); Sodium 127 mmol/L (137-145)
[2021-12-17 07:35] LABS: CRP 29.4 mg/dL (<1.0)
[2021-12-17 07:48] LABS: Erythrocyte Sedimentation Rate 133 mm/hr (0-20)
[2021-12-17] MEDS: lamoTRIgine 100 MG TABLET 200 MG PO (08:52)
[2021-12-17] MEDS: SERTRALINE HCL 50 MG TABLET 200 MG PO (08:52)
[2021-12-17] MEDS: diazePAM (*CRX) 5 MG TABLET PO ×2 (08:52→16:37)
[2021-12-17] MEDS: buPROPion HCL SR (12HR) 100 MG TABCR 200 MG PO (08:52)
--- NOTE | 2021-12-17 09:51 | PM.PNGS ---
Progress Note: A&P Assessment and Plan (1) Psoas abscess, left: Code(s): K68.12 - Psoas muscle abscess Status: Acute Assessment and Plan: S/p perc drainage by Radiology yesterday. Minimal output, as expected. Cultures pending. Continue IV Primaxin/Vancomycin. Monitor drain output. (2) Sepsis: Code(s): A41.9 - Sepsis, unspecified organism Status: Acute Assessment and Plan: WBC up to 22,000. No fevers overnight. Blood cx pending. Abscess cx pending. Discussed with the Hospitalist evaluating for other potential sources of his sepsis. Continue broad-spectrum IV antibiotics. Subjective Subjective Date/Time Seen: 12/17/21 09:51 Patient reports: no new complaints, still having pain (Left lower back and hip pain), flatus, no bowel movement and afebrile (since 1:00 am 12/16/21) Interval history: Patient seen and examined. Sleeping when entering the room but arousable. Still having same pain as yesterday. Feels the Dilaudid is not helping, but toradol is giving some relief. No fevers overnight. Review of Systems Review of Systems: All systems reviewed & are unremarkable except as noted in HPI and below Exam Const: General: no acute distress and diaphoretic Orientation/consciousness: patient oriented x3 GI: Inspection: non-distended GI Palp: Yes Soft to palpation, Yes Tenderness to palpation present (GI) (LLQ), No Guarding due to palpation present (GI) and No Rebound tenderness present Auscultation: normal bowel sounds Other: LLQ perc drain with [place]/pink drainage Objective Data Vital Signs Vital Signs: Vital Signs - 24 hr 12/16/21 16:51 12/16/21 21:41 12/16/21 20:00 Temperature 97.3 F L 99.0 F Pulse Rate 80 95 Respiratory Rate 20 14 Blood Pressure 139/93 H 154/93 H Pulse Oximetry 100 91 Oxygen Delivery Room Air 12/16/21 22:00 12/17/21 01:50 12/17/21 05:00 Temperature Pulse Rate 95 88 84 Respiratory Rate 17 16 16 Blood Pressure Pulse Oximetry 94 92 92 Oxygen Delivery Autopap Autopap Autopap 12/17/21 05:42 12/17/21 08:00 Temperature 98.0 F Pulse Rate 83 Respiratory Rate 14 Blood Pressure 123/73 Pulse Oximetry 94 Oxygen Delivery Room Air Intake/Output Intake/Output: Intake & Output 12/14/21 12/15/21 12/16/21 12/17/21 23:59 23:59 23:59 23:59 Intake Total 1100 3700 1370 Output Total 300 400 Balance 1100 3400 970 Meds/Results Medications: Active Medications Generic Name Dose Route Start Last Admin Trade Name Freq PRN Reason Stop Dose Admin Hydrocodone Bitart/Acetaminophen 1 tab 12/17/21 09:49 Hydrocodone/Acetaminophen (*Crx) 5-325 Mg Tablet PO Q4H PRN Pain Rated 4-6 Hydrocodone Bitart/Acetaminophen 1 tab 12/17/21 09:49 Hydrocodone/Acetaminophen (*Crx) 7.5-325 Mg Tablet PO Q4H PRN Pain Rated 7-10 Bupropion HCl 200 mg 12/16/21 09:00 12/17/21 08:52 Bupropion Hcl Sr (12hr) 100 Mg Tabcr PO 200 mg DAILY [facility] Administration Diazepam 5 mg 12/16/21 09:00 12/17/21 08:52 Diazepam (*Crx) 5 Mg Tablet PO 5 mg BID [facility] Administration Vancomycin HCl 1,500 mg in 500 mls @ 333.333 mls/hr 12/16/21 11:00 12/16/21 23:46 Vancomycin 1,500 Mg/D5w 500 Ml IVPB Infused Q12H [facility] Infusion Imipenem/Cilastatin Sodium 500 mg in 100 mls @ 300 mls/hr 12/16/21 12:00 12/17/21 05:29 Primaxin 500 Mg/Ns 100 Ml IVPB Infused Q6H [facility] Infusion Ketorolac Tromethamine 30 mg 12/16/21 16:54 12/17/21 08:53 Ketorolac 30 Mg/Ml Vial (*Bkc) IV PUSH 30 mg Q6H PRN Administration Pain Rated 4-6 Lamotrigine 200 mg 12/16/21 09:00 12/17/21 08:52 Lamotrigine 100 Mg Tablet PO 200 mg DAILY [facility] Administration Perflutren Lipid Microsphere 0 ml 12/16/21 11:09 Perflutren Lipid Microspheres 1.5 Ml Vial Diluted To 10 Ml Total Volume IV PUSH ONCE PRN adequate visualization Protocol Sertraline HCl 200 mg 12/16/21 09:00 12/17/21 08:52 Sertraline Hcl 50 Mg Tabl
--- NOTE | 2021-12-17 10:00 | PM.IMPN ---
Progress Note: A&P Assessment and Plan (1) Psoas abscess, left: Code(s): K68.12 - Psoas muscle abscess Status: Acute Assessment and Plan: CT shows 3.0 x 2.4 x 5.1 cm left psoas muscle abscess, with adjacent lymphadenopathy. IV antibiotics vancomycin, change to pramaxin Q6H cultures in progress, need to consult the drainage as well Drain placed and draining a brown/reddish fluid General surgery consult thank you for your help WBC elevated at 22.3 Trend labs De-escalate as cultures result Pain medication on board supportive care ESR 45, CRP 30.9, HIV pending echo EF of 65-70% with diastolic dysfunction (2) Sepsis: Code(s): A41.9 - Sepsis, unspecified organism Status: Acute Assessment and Plan: Patient meets SIRS criteria with tachycardia, leukocytosis, fever Source of infection is an abscess in the hip Blood cultures gram positive cocci in clusters in both bottles Abscess drainage culture preliminary moderate gram positive cocci in cluster White blood cell count 22.3 Trend labs Fluids given in the ED and continuous fluids Antibiotics: Primaxin and vanc continued Deescalate per culture results (3) Bacteremia: Code(s): R78.81 - Bacteremia Status: Acute Assessment and Plan: Blood cultures show gram positive cocci in clusters both bottles Continue IV antibiotics Change IV antibiotics to sensitivities Will need termite treater antibiotics Trend labs Get repeat blood cultures in the am Probably need a picc line (4) Acute hyponatremia: Code(s): E87.1 - Hypo-osmolality and hyponatremia Status: Acute Assessment and Plan: Na 124 on arrival, currently 12 IV fluids given in the ED hypovolemic hyponatremia Trend labs continue to monitor Consider fluids (5) Obesity: Code(s): E66.9 - Obesity, unspecified Status: Acute Assessment and Plan: lifestyle and diet modifications [place] consult (6) Coronary artery disease: Code(s): I25.10 - Atherosclerotic heart disease of [place] coronary artery without angina pectoris Status: Acute Assessment and Plan: No chest pain Stable (7) Smoking: Code(s): F17.200 - Nicotine dependence, unspecified, uncomplicated Status: Acute Assessment and Plan: nicotine patch as needed Smoking cessation education (8) Sleep apnea: Code(s): G47.30 - Sleep apnea, unspecified Status: Acute Assessment and Plan: unclear if patient uses CPAP at nighttime Trend resp status (9) COPD (chronic obstructive pulmonary disease): Code(s): J44.9 - Chronic obstructive pulmonary disease, unspecified Status: Acute Assessment and Plan: stable Consider nebs if indicated (10) Osteoarthritis involving multiple joints on both sides of body: Code(s): M15.9 - Polyosteoarthritis, unspecified Status: Acute Assessment and Plan: Tylenol p.r.n. Time Spent With Patient Time with patient: Greater than 35 minutes Subjective Date/time seen: 12/17/21 10:00 Interval history: 12/17/21 1000 Patient was resting when he was talked to. He stated that he is still having a lot of pain. He also is diaphoretic, however does not seem to be a problem that was noted. CTA of the chest does not show any abnormalities. that would introduce an infection. Blood cultures appear to be positive. Will repeat cultures in the am. ESR and CRP are elevated. He did state that he is having some thigh pain. 12/16/21 1130 Patient is a lot of pain today. Patient is thrashing around the bed and just very upset. He states that he is having a lot of pain in his back. He does have an open wound to his sternum which she stated has been like that since he had open-heart surgery in 2017. He denies any tr
--- NOTE | 2021-12-17 10:00 | P.PNIM_ITS ---
Progress Note: A&P Assessment and Plan (1) Psoas abscess, left: Code(s): K68.12 - Psoas muscle abscess Status: Acute Assessment and Plan: * CT shows 3.0 x 2.4 x 5.1 cm left psoas muscle abscess, with adjacent lymphadenopathy. * IV antibiotics vancomycin, change to pramaxin Q6H * cultures in progress, need to consult the drainage as well * Drain placed and draining a brown/reddish fluid * General surgery consult thank you for your help * WBC elevated at 22.3 * Trend labs * De-escalate as cultures result * Pain medication on board * supportive care * ESR 45, CRP 30.9, HIV pending * echo EF of 65-70% with diastolic dysfunction (2) Sepsis: Code(s): A41.9 - Sepsis, unspecified organism Status: Acute Assessment and Plan: * Patient meets SIRS criteria with tachycardia, leukocytosis, fever * Source of infection is an abscess in the hip * Blood cultures gram positive cocci in clusters in both bottles * Abscess drainage culture preliminary moderate gram positive cocci in cluster * White blood cell count 22.3 * Trend labs * Fluids given in the ED and continuous fluids * Antibiotics: Primaxin and vanc continued * Deescalate per culture results (3) Bacteremia: Code(s): R78.81 - Bacteremia Status: Acute Assessment and Plan: * Blood cultures show gram positive cocci in clusters both bottles * Continue IV antibiotics * Change IV antibiotics to sensitivities * Will need [facility] antibiotics * Trend labs * Get repeat blood cultures in the am * Probably need a picc line (4) Acute hyponatremia: Code(s): E87.1 - Hypo-osmolality and hyponatremia Status: Acute Assessment and Plan: * Na 124 on arrival, currently 12 * IV fluids given in the ED * hypovolemic hyponatremia * Trend labs * continue to monitor * Consider fluids (5) Obesity: Code(s): E66.9 - Obesity, unspecified Status: Acute Assessment and Plan: * lifestyle and diet modifications * [employer] consult (6) Coronary artery disease: Code(s): I25.10 - Atherosclerotic heart disease of [place] coronary artery without angina pectoris Status: Acute Assessment and Plan: * No chest pain * Stable (7) Smoking: Code(s): F17.200 - Nicotine dependence, unspecified, uncomplicated Status: Acute Assessment and Plan: * nicotine patch as needed * Smoking cessation education (8) Sleep apnea: Code(s): G47.30 - Sleep apnea, unspecified Status: Acute Assessment and Plan: * unclear if patient uses CPAP at nighttime * Trend resp status (9) COPD (chronic obstructive pulmonary disease): Code(s): J44.9 - Chronic obstructive pulmonary disease, unspecified Status: Acute Assessment and Plan: * stable * Consider nebs if indicated (10) Osteoarthritis involving multiple joints on both sides of body: Code(s): M15.9 - Polyosteoarthritis, unspecified Status: Acute Assessment and Plan: * Tylenol p.r.n. Time Spent With Patient Time with patient: Greater than 35 minutes Subjective Date/time seen: 12/17/21 10:00 Interval history: 12/17/21 1000 Patient was resting when he was talk
[2021-12-17 10:57] LABS: Vancomycin Trough 5.1 ug/mL (10.0-20.0)
[2021-12-17] MEDS: polyethylene glycoL 3350 17 GM POWD.PACK PO (11:07)
[2021-12-17 12:44] LABS: Hepatitis B Surface Antigen Negative (Negative)
[2021-12-17 12:50] LABS: HAV RESULT Negative (Negative); Hepatitis B Core IgM Result Negative (Negative)
[2021-12-17 13:01] LABS: Hepatitis C Virus Antibody Negative (Negative)
[2021-12-17] MEDS: HYDROcodone/acetaminophen (*CRX) 7.5-325 MG TABLET 1 TAB PO ×2 (13:49→21:31)
[2021-12-17] MEDS: MORPHINE SULFATE (*CRX) 2 MG/ML INJ IV PUSH ×2 (16:37→20:18)
--- NOTE | 2021-12-17 21:27 | PC.NURSE ---
called pharmacy for pt trazodone 50 mg po HS
[2021-12-17] MEDS: traZODone HCL 50 MG TABLET PO (22:41)
--- NOTE | 2021-12-17 22:55 | PC.NURSE ---
MD Lopez called r/t pt pain and restlessness, pt has had multiple medication for pain and restlessness without relief, MD Lopez to place hydromorphone order. Awaiting order from MD Lopez.
--- NOTE | 2021-12-17 23:34 | PC.NURSE ---
pt declining cpap, placed on 2l nc r/t sleep apnea
[2021-12-18] VITALS (12 sets, daily range): BP systolic 130–179; BP diastolic 78–107; PULSE 88–95; RESP 16–24; TEMP 36.4–37.6; O2SAT 92–99
[2021-12-18] MEDS: MORPHINE SULFATE (*CRX) 2 MG/ML INJ IV PUSH ×3 (04:23→20:32)
[2021-12-18] MEDS: HYDROmorphone HCL INJ (*CRX) 1 MG/ML SYR IV PUSH (05:23)
[2021-12-18 05:44] LABS: Basophils Absolute Auto 0.1 K/mm3 (0.0-0.1); Basophils Percent Auto 0.4 % (0.2-1.2); Eosinophils Absolute Auto 0.1 K/mm3 (0-0.3); Eosinophils Percent Auto 0.5 % (0-4.4); Hematocrit 34.9 % (42.0-52.0); Hemoglobin 12.4 g/dL (14.0-18.0); Immature Granulocyte Absolute 1.25 K/mm3 (0.00-0.031); Immature Granulocyte Percent A 4.9 % (0-0.5); Lymphocytes Absolute Auto 1.61 K/mm3 (0.9-3.2); Lymphocytes Percent Auto 6.4 % (18.3-44.2); Mean Corpuscular HGB Conc 35.5 g/dl (32-36); Mean Corpuscular Hemoglobin 30.9 pg (26-34); Mean Platelet Volume 10.6 fl (7.4-10.4); Monocytes Absolute Auto 1.7 K/mm3 (0.1-0.6); Monocytes Percent Auto 6.6 % (2.6-8.5); Neutrophils Absolute Auto 20.5 K/mm3 (1.3-6.7); Neutrophils Percent Auto 81.2 % (45.5-73.1); Platelet Count Result 310 k/mm3 (150-375); Red Blood Count 4.01 M/mm3 (4.6-6.20); Red Cell Distribution Width 14.3 % (11.5-14.5); White Blood Count 25.3 K/mm3 (4.5-10.0)
[2021-12-18 06:02] LABS: Alanine Aminotransferase 28 U/L (6-50); Albumin Level 3.2 g/dL (3.5-5.1); Alkaline Phosphatase 203 U/L (38-126); Anion Gap 11 mmol/L (8-16); Aspartate Amino Transferase 27 U/L (17-59); Bilirubin,Total 0.9 mg/dL (0.2-1.3); Blood Urea Nitrogen 13 mg/dL (9-20); Calcium 8.3 mg/dL (8.4-10.2); Carbon Dioxide 28 mmol/L (22-30); Chloride 87 mmol/L (98-107); Estimated CRCL calculation 142 ml/min; Estimated Glomerular Filt Rate > 60; Glucose 117 mg/dL (65-110); Magnesium 2.3 mg/dL (1.6-2.3); Potassium 3.6 mmol/L (3.4-5.0); Sodium 126 mmol/L (137-145)
--- NOTE | 2021-12-18 06:04 | PC.NURSE ---
called to report Na 126 to MD Lopez this morning awaiting call back
[2021-12-18] MEDS: ACETAMINOPHEN 325 MG TABLET 650 MG PO ×2 (06:32→22:52)
--- NOTE | 2021-12-18 06:45 | PC.NURSE ---
wbc trending up Md Jose to review chair
[2021-12-18] MEDS: polyethylene glycoL 3350 17 GM POWD.PACK PO (09:25)
[2021-12-18] MEDS: lamoTRIgine 100 MG TABLET 200 MG PO (09:25)
[2021-12-18] MEDS: diazePAM (*CRX) 5 MG TABLET PO ×2 (09:25→16:45)
[2021-12-18] MEDS: SODIUM CHLORIDE 0.9% IV 1,000 ML 100 ML IV CONT (09:26)
[2021-12-18] MEDS: buPROPion HCL SR (12HR) 100 MG TABCR 200 MG PO (09:26)
[2021-12-18] MEDS: KETOROLAC 30 MG/ML VIAL (*BKC) IV PUSH ×2 (09:26→20:35)
[2021-12-18] MEDS: SERTRALINE HCL 50 MG TABLET 200 MG PO (09:26)
[2021-12-18] MEDS: TOLNAFTATE 1% POWDER 45 GM BTL 1 APPLIC TOPICAL ×2 (09:29→20:31)
--- NOTE | 2021-12-18 11:52 | PM.PNGS ---
Progress Note: A&P Assessment and Plan (1) Psoas abscess, left: Code(s): K68.12 - Psoas muscle abscess Status: Acute Assessment and Plan: S/p perc drainage by Radiology yesterday. Minimal output, may be able to remove drain in the next few days. Overall left lower back and LLQ abdominal tenderness resolved. Cultures showing staph aureus, sensitivities pending. Continue IV Primaxin/Vancomycin. Monitor drain output. (2) Sepsis: Code(s): A41.9 - Sepsis, unspecified organism Status: Acute Assessment and Plan: WBC slightly up again today. Discussed with Hospitalist who plans to consult ID pharmacist for recommendations. Vancomycin trough also noted to be subtherapeutic. Abscess and blood cx showing staph aureus, sens. pending. Continue broad-spectrum IV antibiotics. Plan I have discussed the patient's case and plan of care with Dr. Alba. Additional Plan Also recommended Orthopedic consultation given the bacteremia with his joint arthroplasties and continued severe joint pain. She plans to consult with ortho. Subjective Subjective Date/Time Seen: 12/18/21 11:52 Patient reports: no new complaints, still having pain (bilateral hips and legs), flatus and afebrile Interval history: Patient seen and examined. Still with complaints of bilateral hip pain and bilateral legs. Previously he felt it was more on the left hip but now feels it is severe bilaterally. Denies any abdominal pain or back pain. Review of Systems Review of Systems: All systems reviewed & are unremarkable except as noted in HPI and below Exam Const: General: comfortable and no acute distress Orientation/consciousness: patient oriented x3 GI: Inspection: non-distended, obesity and visible herniation (soft reducible umbilical hernia) GI Palp: Yes Soft to palpation, No Tenderness to palpation present (GI) and No Guarding due to palpation present (GI) Auscultation: normal bowel sounds Other: LLQ perc drain with serosanguineous drainage Extrem: General: calf tenderness bilaterally and no edema Psych: Mental Status: mental status grossly normal Insight: Fair insight present (Psych) Objective Data Vital Signs Vital Signs: Vital Signs - 24 hr 12/17/21 14:00 12/17/21 22:00 12/17/21 22:40 Temperature 96.6 F L 98.7 F Pulse Rate 85 90 89 Respiratory Rate 18 22 H 25 H Blood Pressure 164/78 H 157/101 H Pulse Oximetry 95 91 93 Oxygen Delivery Autopap Oxygen Flow Rate 12/17/21 20:00 12/18/21 06:32 12/18/21 05:43 Temperature 99.3 F 99.3 F Pulse Rate 89 92 Respiratory Rate 25 H 24 H Blood Pressure 130/104 H Pulse Oximetry 93 99 Oxygen Delivery Nasal Cannula Oxygen Flow Rate 2 12/18/21 06:05 12/18/21 06:27 12/18/21 07:02 Temperature 99.3 F 99.3 F 98.7 F Pulse Rate 92 92 Respiratory Rate 24 H 24 H Blood Pressure 130/104 H 130/104 H Pulse Oximetry 99 99 Oxygen Delivery Autopap Autopap Oxygen Flow Rate 12/18/21 08:00 Temperature Pulse Rate Respiratory Rate Blood Pressure Pulse Oximetry Oxygen Delivery Room Air Oxygen Flow Rate Intake/Output Intake/Output: Intake & Output 12/15/21 12/16/21 12/17/21 12/18/21 23:59 23:59 23:59 23:59 Intake Total 1100 3700 2620 800 Output Total 300 412 525 Balance 1100 3400 2208 275 Meds/Results Medications: Active Medications Generic Name Dose Route Start Last Admin Trade Name Freq PRN Reason Stop Dose Admin Acetaminophen 650 mg 12/18/21 06:09 12/18/21 06:32 Acetaminophen 325 Mg Tablet PO 650 mg Q4H PRN Administration Headache Hydrocodone Bitart/Acetaminophen 1 tab 12/17/21 09:49 Hydrocodone/Acetaminophen (*Crx) 5-325 Mg Tablet PO Q4H PRN Pain Rated 4-6 Hydrocodone Bitart/Acetaminophen 1 tab 12/17/21 09:49 12/17/21 21:31 Hydrocodone/Acetaminophen (*Crx) 7.5-325 Mg Tablet PO 1 tab Q4H PRN Administration Pain Rated 7-10 Bupropion HCl 200 mg 12/16/21 09:00
[2021-12-18] MEDS: fentaNYL CITRATE INJ (*CRX) 100 MCG/2 ML VIAL 50 MCG IV PUSH ×2 (12:22→19:05)
[2021-12-18 13:43] LABS: HIV 1/2 Ab P24 Ag Result Negative (Negative)
--- NOTE | 2021-12-18 15:29 | P.PNIM_ITS ---
Progress Note: A&P Assessment and Plan (1) Psoas abscess, left: Code(s): K68.12 - Psoas muscle abscess Status: Acute Assessment and Plan: * CT shows 3.0 x 2.4 x 5.1 cm left psoas muscle abscess, with adjacent lymphadenopathy. Drained on 12/17/2021, has now grew out Staph aureus. * IV antibiotics vancomycin, and primaxin. Current Vanc is subtherapeutic. * 3 of 4 bottles of blood cultures from the 30 are positive for staph aureus as is the abscess drainage. * Drain placed and draining a brown/reddish fluid, continuing to drain. * General surgery managing. * WBC elevated at 25.3 with left shifted neutrophils. * Trend labs * De-escalate as cultures result * Pain medication on board * supportive care * Elevated CRP, Hepatitis and HIV negative. * echo EF of 65-70% with diastolic dysfunction * Consider TERRI in setting of acute Bacteremia * MRI Pelvis and Lumbar spine are ordered to rule out any further abscess, osteo or diskitis. (2) Sepsis: Code(s): A41.9 - Sepsis, unspecified organism Status: Acute Assessment and Plan: * See plan above in #1. * Not meeting shock. (3) Bacteremia: Code(s): R78.81 - Bacteremia Status: Acute Assessment and Plan: * Will need longterm antibiotics * Trend labs * Get repeat blood cultures in the am * Probably need a picc line * See plan above and interval assessement. (4) Acute hyponatremia: Code(s): E87.1 - Hypo-osmolality and hyponatremia Status: Acute Assessment and Plan: * Na 126 * IV fluids continued * Trend labs * continue to monitor * Consider fluids (5) Obesity: Code(s): E66.9 - Obesity, unspecified Status: Acute Assessment and Plan: * lifestyle and diet modifications * [employer] consult (6) Coronary artery disease: Code(s): I25.10 - Atherosclerotic heart disease of [place] coronary artery without angina pectoris Status: Acute Assessment and Plan: * No chest pain * Stable (7) Smoking: Code(s): F17.200 - Nicotine dependence, unspecified, uncomplicated Status: Acute Assessment and Plan: * nicotine patch as needed * Smoking cessation education (8) Sleep apnea: Code(s): G47.30 - Sleep apnea, unspecified Status: Acute Assessment and Plan: * unclear if patient uses CPAP at nighttime * Trend resp status (9) COPD (chronic obstructive pulmonary disease): Code(s): J44.9 - Chronic obstructive pulmonary disease, unspecified Status: Acute Assessment and Plan: * stable * Consider nebs if indicated (10) Osteoarthritis involving multiple joints on both sides of body: Code(s): M15.9 - Polyosteoarthritis, unspecified Status: Acute Assessment and Plan: * PRN pain meds. Time Spent With Patient Time with patient: Greater than 35 minutes Subjective Date/time seen: 12/18/21 1000 This pt. was examined at the bedside today in interval assessment. Pt. 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 Pt denies any recent drug use and he has negative Hepatitis screen and
--- NOTE | 2021-12-18 15:29 | PM.IMPN ---
Progress Note: A&P Assessment and Plan (1) Psoas abscess, left: Code(s): K68.12 - Psoas muscle abscess Status: Acute Assessment and Plan: CT shows 3.0 x 2.4 x 5.1 cm left psoas muscle abscess, with adjacent lymphadenopathy. Drained on 12/17/2021, has now grew out Staph aureus. IV antibiotics vancomycin, and primaxin. Current Vanc is subtherapeutic. 3 of 4 bottles of blood cultures from the are positive for staph aureus as is the abscess drainage. Drain placed and draining a brown/reddish fluid, continuing to drain. General surgery managing. WBC elevated at 25.3 with left shifted neutrophils. Trend labs De-escalate as cultures result Pain medication on board supportive care Elevated CRP, Hepatitis and HIV negative. echo EF of 65-70% with diastolic dysfunction Consider TERRI in setting of acute Bacteremia MRI Pelvis and Lumbar spine are ordered to rule out any further abscess, osteo or diskitis. (2) Sepsis: Code(s): A41.9 - Sepsis, unspecified organism Status: Acute Assessment and Plan: See plan above in #1. Not meeting shock. (3) Bacteremia: Code(s): R78.81 - Bacteremia Status: Acute Assessment and Plan: Will need correction antibiotics Trend labs Get repeat blood cultures in the am Probably need a picc line See plan above and interval assessement. (4) Acute hyponatremia: Code(s): E87.1 - Hypo-osmolality and hyponatremia Status: Acute Assessment and Plan: Na 126 IV fluids continued Trend labs continue to monitor Consider fluids (5) Obesity: Code(s): E66.9 - Obesity, unspecified Status: Acute Assessment and Plan: lifestyle and diet modifications School Examiner consult (6) Coronary artery disease: Code(s): I25.10 - Atherosclerotic heart disease of [place] coronary artery without angina pectoris Status: Acute Assessment and Plan: No chest pain Stable (7) Smoking: Code(s): F17.200 - Nicotine dependence, unspecified, uncomplicated Status: Acute Assessment and Plan: nicotine patch as needed Smoking cessation education (8) Sleep apnea: Code(s): G47.30 - Sleep apnea, unspecified Status: Acute Assessment and Plan: unclear if patient uses CPAP at nighttime Trend resp status (9) COPD (chronic obstructive pulmonary disease): Code(s): J44.9 - Chronic obstructive pulmonary disease, unspecified Status: Acute Assessment and Plan: stable Consider nebs if indicated (10) Osteoarthritis involving multiple joints on both sides of body: Code(s): M15.9 - Polyosteoarthritis, unspecified Status: Acute Assessment and Plan: PRN pain meds. Time Spent With Patient Time with patient: Greater than 35 minutes Subjective Date/time seen: 12/18/21 1000 This pt. was examined at the bedside today in interval assessment. Pt. 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 Pt denies any recent drug use and he has negative Hepatitis screen and HIV screen. He is in severe distress today in the back of his legs and cannot sit comfortably. He has no loss of bowel or bladder control and no saddle anesthesia, but is screaming out in pain. He currently has a staph aureus bacteremia and abscess of psoas muscle. Cultures have grown out Staph Aureus with Further identification and sensitivity pending. He has been started on Imipenem and Vancomycin, but his Vanc trough is low at 5.1. I have spoken with Samuel, the infectious disease pharmacist and he increased the patient's dose of Vancomycin to 1750 mg Q12, which is more than the 1500 mg daily. In addition, we are still awaiting the
[2021-12-18] MEDS: HYDROcodone/acetaminophen (*CRX) 7.5-325 MG TABLET 1 TAB PO (16:44)
[2021-12-18 18:59] LABS: Appearance Urine Clear (Clear); Bilirubin Urine Negative (Negative); Blood Urine Negative (Negative); Color Urine Yellow (Yellow); Glucose Urine UA Negative (Negative); Ketones Urine Negative (Negative); Leukocyte Esterase Ur Negative LEU/UL (Negative); Nitrate Urine Negative (Negative); Protein Urine Trace mg/dL (Negative)
[2021-12-18 19:05] LABS: Bacteria Urine Trace /hpf; RBC Urine 0-2 /hpf (0-2); WBC Urine 0-3 /hpf
[2021-12-18 19:13] LABS: Add Urine Microscopic? YES
[2021-12-18] MEDS: traZODone HCL 50 MG TABLET PO (20:32)
--- NOTE | 2021-12-18 23:08 | PC.NURSE ---
MD Wong radiology reported pt MRI stating pt has several small abscess with osteomyelitis present as well, recommended neurosurgical consulted, reported MRI finding to MD Hopen this shift. Pt make need transferred to higher level of care hospital.
[2021-12-18 23:15] LABS: Vancomycin Trough < 5.0 ug/mL (10.0-20.0)
--- NOTE | 2021-12-18 23:22 | PC.NURSE ---
report to Isabella in pharmacy that pt vancomycin trough is <5.0
[2021-12-19] VITALS (12 sets, daily range): BP systolic 141–188; BP diastolic 78–107; PULSE 80–92; RESP 17–20; TEMP 35.8–37.2; O2SAT 92–96
--- NOTE | 2021-12-19 00:04 | PC.NURSE ---
called Hopen to report Bc results gram + cocci in anaeorbic bottle.
[2021-12-19] MEDS: KETOROLAC 30 MG/ML VIAL (*BKC) IV PUSH ×3 (02:23→14:18)
[2021-12-19] MEDS: MORPHINE SULFATE (*CRX) 2 MG/ML INJ IV PUSH (02:24)
--- NOTE | 2021-12-19 05:08 | PC.NURSE ---
Hopen to start arranging transfer for pt to another hospital, reported elevated bp 188/92 still after fentyl 50 mcg given, pt c/o pain that radiates to bilateral lower extremities. Hopen to adjust pain medication. Instructed to given hydromorphone 1 mg IV push with oxy IR 10mg po
[2021-12-19] MEDS: oxyCODONE HCL (*CRX) 5 MG TAB IR 10 MG PO ×4 (05:17→20:08)
[2021-12-19] MEDS: HYDROmorphone HCL INJ (*CRX) 1 MG/ML SYR IV PUSH ×3 (05:17→13:06)
--- NOTE | 2021-12-19 05:21 | PC.NURSE ---
pt to transfer to [facility] per MD Doss
[2021-12-19] MEDS: SODIUM CHLORIDE 0.9% IV 1,000 ML 100 ML IV CONT ×2 (05:33→17:32)
--- NOTE | 2021-12-19 06:01 | PC.NURSE ---
bp 187/86 92 hr reported to MD Doss requesting prn hydralizine, pt resting comfortably in bed.
[2021-12-19] MEDS: hydrALAZINE HCL 20 MG/ML VIAL 10 MG IV PUSH ×2 (06:19→20:33)
--- NOTE | 2021-12-19 06:35 | PC.NURSE ---
current bp 182/90 hr 92, pt resting peaceful in bed.
[2021-12-19 06:44] LABS: Basophils Absolute Auto 0.1 K/mm3 (0.0-0.1); Basophils Percent Auto 0.6 % (0.2-1.2); Eosinophils Absolute Auto 0.2 K/mm3 (0-0.3); Eosinophils Percent Auto 0.8 % (0-4.4); Hematocrit 35.2 % (42.0-52.0); Hemoglobin 11.9 g/dL (14.0-18.0); Immature Granulocyte Percent A 4.7 % (0-0.5); Lymphocytes Absolute Auto 2.04 K/mm3 (0.9-3.2); Lymphocytes Percent Auto 9.5 % (18.3-44.2); Mean Corpuscular HGB Conc 33.8 g/dl (32-36); Mean Corpuscular Hemoglobin 30.1 pg (26-34); Mean Corpuscular Volume 88.9 fl (80-100); Mean Platelet Volume 10.5 fl (7.4-10.4); Monocytes Absolute Auto 1.4 K/mm3 (0.1-0.6); Monocytes Percent Auto 6.5 % (2.6-8.5); Neutrophils Absolute Auto 16.7 K/mm3 (1.3-6.7); Neutrophils Percent Auto 77.9 % (45.5-73.1); Platelet Count Result 395 k/mm3 (150-375); Red Blood Count 3.96 M/mm3 (4.6-6.20); Red Cell Distribution Width 14.6 % (11.5-14.5); White Blood Count 21.4 K/mm3 (4.5-10.0)
--- NOTE | 2021-12-19 06:46 | PC.NURSE ---
rechecked bp now 167/83 hr 90
--- NOTE | 2021-12-19 06:48 | PM.EVENT ---
Event Note Event Note Event Note: 12/19/2021 at 6:50 a.m. Nursing staff has called me around 11:00 p.m. to notify me that the patient had epidural abscesses and osteomyelitis on MRI in that radiology recommended neurology consult. Nursing staff then called me back around 430 in the morning stating that the patient was having uncontrolled blood pressures with blood pressures in the 180 systolic. They are requesting antihypertensive medications. On further questioning nursing staff told me that the patient was having intractable back pain and was writhing in bed. The patient was on fentanyl 15 mcg Q 3 hours and morphine 2 mg IV Q 4 hours as well as Toradol. The patient's pain was still intractable at that time. I felt the patient's blood pressure is likely elevated due to his uncontrolled pain. I entered orders for dilaudid 1 mg q.2 hours and oxycodone 10 mg p.o. q.4 hours. Given the patient's intractable pain I did review the MRI which actually stated multiple epidural abscesses. However there was a mention of severe central canal stenosis which was not communicated to me. The radiologist had actually recommended neurosurgery evaluation. We do have neuro surgical services here but typically we do not have the capability of handling this type of case here intervention. I subsequently began working on possible transfer to [facility]. I was able to discuss patient's case with Dr. Wallace from the neurosurgical service and Dr. Leiva from the hospitalist service. The hospitalist service has accepted the patient in transfer however a waiting list is approximately 30 patient's lung in it may take couple of days for the patient to be transferred. The patient's blood pressures did remain elevated despite adequate pain control with patient resting comfortably after oxycodone and Dilaudid. Subsequently hydralazine 10 mg q.4 hours has been ordered as needed for systolic blood pressures greater than 160. 30 minutes spent in critical care activities. This case had a high probability of a clinically significant, sudden, or life threatening deterioration of this patient's condition which required my full and direct attention, intervention and personal management.
--- NOTE | 2021-12-19 06:50 | PC.NURSE ---
informed DO Doss of pt current bp 167/83 after hydralazine, DO Doss stated pt has accepting physician at [facility]. DO Doss state [facility] might take several days for transfer.
[2021-12-19 07:01] LABS: Lactic Acid Reflex 0.8 mmol/L (0.7-2.0)
[2021-12-19 07:16] LABS: Alanine Aminotransferase 26 U/L (6-50); Alkaline Phosphatase 191 U/L (38-126); Anion Gap 7 mmol/L (8-16); Aspartate Amino Transferase 30 U/L (17-59); Bilirubin,Total 0.7 mg/dL (0.2-1.3); Blood Urea Nitrogen 13 mg/dL (9-20); Calcium 8.2 mg/dL (8.4-10.2); Carbon Dioxide 30 mmol/L (22-30); Chloride 92 mmol/L (98-107); Estimated CRCL calculation 142 ml/min; Estimated Glomerular Filt Rate > 60; Glucose 131 mg/dL (65-110); Magnesium 2.5 mg/dL (1.6-2.3); Potassium 3.5 mmol/L (3.4-5.0); Sodium 129 mmol/L (137-145)
[2021-12-19 07:29] LABS: CRP 21.1 mg/dL (<1.0)
[2021-12-19 07:38] LABS: Erythrocyte Sedimentation Rate 93 mm/hr (0-20)
--- NOTE | 2021-12-19 07:46 | PM.PNGS ---
Progress Note: A&P Assessment and Plan (1) Psoas abscess, left: Code(s): K68.12 - Psoas muscle abscess Status: Acute Assessment and Plan: Drain in place with minimal output. Follow up imaging shows psoas abscess adequately drained. I reviewed the MRI, agree with Neurosurgery eval. Continue antibiotics per Hospitalist. Will see prn for drain care/removal. (2) Sepsis: Code(s): A41.9 - Sepsis, unspecified organism Status: Acute (3) Bacteremia: Code(s): R78.81 - Bacteremia Status: Acute Subjective Subjective Date/Time Seen: 12/19/21 07:46 Interval history: Still having hip and leg pain. Says he feels miserable. Exam GI: Inspection: non-distended and obesity GI Palp: Yes Soft to palpation, No Tenderness to palpation present (GI), No Guarding due to palpation present (GI) and No Rebound tenderness present Auscultation: normal bowel sounds Other: Pigtail drain with minimal purulent output. No abdominal pain. Objective Data Vital Signs Vital Signs: Vital Signs - 24 hr 12/18/21 08:00 12/18/21 14:00 12/18/21 19:23 Temperature 36.4 C L Pulse Rate 94 94 Respiratory Rate 18 18 Blood Pressure 153/78 H Pulse Oximetry 96 96 Oxygen Delivery Room Air Room Air 12/18/21 20:25 12/18/21 22:28 12/18/21 22:52 Temperature 37.6 C H 37.6 C H Pulse Rate 95 88 Respiratory Rate 16 17 Blood Pressure 179/107 H Pulse Oximetry 97 92 Oxygen Delivery Autopap 12/18/21 23:11 12/18/21 23:24 12/19/21 00:06 Temperature 37.6 C H 37.2 C 37.2 C Pulse Rate 88 88 Respiratory Rate 17 17 Blood Pressure 179/107 H 179/107 H Pulse Oximetry 92 92 Oxygen Delivery Autopap Autopap 12/19/21 04:54 12/19/21 05:12 12/19/21 06:00 Temperature 37.0 C 37.0 C Pulse Rate 89 89 92 Respiratory Rate 18 18 Blood Pressure 188/92 H 188/92 H 187/86 H Pulse Oximetry 96 96 Oxygen Delivery Autopap 12/19/21 06:07 12/19/21 06:34 12/19/21 06:46 Temperature 37.0 C Pulse Rate 92 92 90 Respiratory Rate 18 Blood Pressure 187/86 H 182/90 H 167/83 H Pulse Oximetry 96 Oxygen Delivery Autopap Intake/Output Intake/Output: Intake & Output 12/16/21 12/17/21 12/18/21 12/19/21 23:59 23:59 23:59 23:59 Intake Total 3700 2620 2540 1450 Output Total 204 252 1349 1030 Balance 3400 2208 915 420 Meds/Results Medications: Active Medications Generic Name Dose Route Start Last Admin Trade Name Freq PRN Reason Stop Dose Admin Acetaminophen 650 mg 12/18/21 06:09 12/18/21 22:52 Acetaminophen 325 Mg Tablet PO 650 mg Q4H PRN Administration Headache Bupropion HCl 200 mg 12/16/21 09:00 12/18/21 09:26 Bupropion Hcl Sr (12hr) 100 Mg Tabcr PO 200 mg DAILY FRANTZ Administration Diazepam 5 mg 12/16/21 09:00 12/18/21 16:45 Diazepam (*Crx) 5 Mg Tablet PO 5 mg BID FRANTZ Administration Hydralazine HCl 10 mg 12/19/21 06:04 12/19/21 06:19 Hydralazine Hcl 20 Mg/Ml Vial IV PUSH 10 mg Q4H PRN Administration Blood Pressure - High Hydromorphone HCl 1 mg 12/19/21 05:09 12/19/21 05:17 Hydromorphone Hcl Inj (*Crx) 1 Mg/Ml Syr IV PUSH 1 mg Q2H PRN Administration Pain Rated 7-10 Imipenem/Cilastatin Sodium 500 mg in 100 mls @ 300 mls/hr 12/16/21 12:00 12/19/21 05:00 Primaxin 500 Mg/Ns 100 Ml IVPB 300 mls/hr Q6H FRANTZ Administration Sodium Chloride 1,000 mls @ 100 mls/hr 12/18/21 08:30 12/19/21 05:33 Normal Saline Iv IV CONT 100 mls/hr .Q10H RFANTZ Administration Vancomycin HCl 1,750 mg in 500 mls @ 250 mls/hr 12/19/21 06:00 12/19/21 05:33 Vancomycin 1,750 Mg/D5w 500 Ml IVPB 250 mls/hr Q8H FRANTZ Administration Ketorolac Tromethamine 30 mg 12/16/21 16:54 12/19/21 02:23 Ketorolac 30 Mg/Ml Vial (*[facility]) IV PUSH 30 mg Q6H PRN Administration Pain Rated 4-6 Lamotrigine 200 mg 12/16/21 09:00 12/18/21 09:25 Lamotrigine 100 Mg Tablet PO 200 mg DAILY FRANTZ Administration Morphine Sulfat
[2021-12-19] MEDS: buPROPion HCL SR (12HR) 100 MG TABCR 200 MG PO (08:07)
[2021-12-19] MEDS: diazePAM (*CRX) 5 MG TABLET PO ×2 (08:12→17:32)
[2021-12-19] MEDS: SERTRALINE HCL 50 MG TABLET 200 MG PO (08:12)
[2021-12-19] MEDS: lamoTRIgine 100 MG TABLET 200 MG PO (08:12)
[2021-12-19] MEDS: polyethylene glycoL 3350 17 GM POWD.PACK PO (08:12)
[2021-12-19] MEDS: TOLNAFTATE 1% POWDER 45 GM BTL 1 APPLIC TOPICAL ×2 (08:13→20:09)
--- NOTE | 2021-12-19 08:14 | P.PNIM_ITS ---
Progress Note: A&P Assessment and Plan (1) Psoas abscess, left: Code(s): K68.12 - Psoas muscle abscess Status: Acute Assessment and Plan: * CT shows 3.0 x 2.4 x 5.1 cm left psoas muscle abscess, with adjacent lymphadenopathy. Drained on 12/17/2021, has now grew out Staph aureus. * IV antibiotics vancomycin, and primaxin. Current Vanc is subtherapeutic. * 3 of 4 bottles of blood cultures from the 30 are positive for staph aureus as is the abscess drainage. * Drain placed and draining a brown/reddish fluid, continuing to drain. * General surgery managing. * WBC elevated at 25.3 with left shifted neutrophils. * Trend labs * De-escalate as cultures result * Pain medication on board * supportive care * Elevated CRP, Hepatitis and HIV negative. * echo EF of 65-70% with diastolic dysfunction * Consider TERRI in setting of acute Bacteremia * MRI Pelvis and Lumbar spine are ordered to rule out any further abscess, osteo or diskitis. 12/19: change abx to oxacillin, d/c vanc + primaxin, repeat blood cultures in 1-2 days (2) Sepsis: Code(s): A41.9 - Sepsis, unspecified organism Status: Acute Assessment and Plan: * See plan above in #1. * Not meeting shock criteria (3) Bacteremia: Code(s): R78.81 - Bacteremia Status: Acute Assessment and Plan: * Will need long term care pharmacist antibiotics * Trend labs * Get repeat blood cultures * Probably need a picc line * See plan above and interval assessement. (4) Acute hyponatremia: Code(s): E87.1 - Hypo-osmolality and hyponatremia Status: Acute Assessment and Plan: Sodium improved to 129, continue to monitor (5) Obesity: Code(s): E66.9 - Obesity, unspecified Status: Acute Assessment and Plan: * lifestyle and diet modifications * Manager Plan consult (6) Coronary artery disease: Code(s): I25.10 - Atherosclerotic heart disease of [place] coronary artery without angina pectoris Status: Acute Assessment and Plan: * No chest pain * Stable (7) Smoking: Code(s): F17.200 - Nicotine dependence, unspecified, uncomplicated Status: Acute Assessment and Plan: * nicotine patch as needed * Smoking cessation education (8) Sleep apnea: Code(s): G47.30 - Sleep apnea, unspecified Status: Acute Assessment and Plan: Stable (9) COPD (chronic obstructive pulmonary disease): Code(s): J44.9 - Chronic obstructive pulmonary disease, unspecified Status: Acute Assessment and Plan: * stable * Consider nebs if indicated (10) Osteoarthritis involving multiple joints on both sides of body: Code(s): M15.9 - Polyosteoarthritis, unspecified Status: Acute Assessment and Plan: * PRN pain meds. Subjective Date/time seen: 12/19/21 08:14 Interval history: Patient states he is still in significant back and lower extremity pain. No overnight events noted. No chest pain or shortness of breath. No nausea, vomiting or diarrhea. No fevers or chills. Review of Systems Review of Systems: 12 point review of systems was assessed and was negative except as noted in the HPI Exam Narrative: General: No acute distress, alert an
--- NOTE | 2021-12-19 08:14 | PM.IMPN ---
Progress Note: A&P Assessment and Plan (1) Psoas abscess, left: Code(s): K68.12 - Psoas muscle abscess Status: Acute Assessment and Plan: CT shows 3.0 x 2.4 x 5.1 cm left psoas muscle abscess, with adjacent lymphadenopathy. Drained on 12/17/2021, has now grew out Staph aureus. IV antibiotics vancomycin, and primaxin. Current Vanc is subtherapeutic. 3 of 4 bottles of blood cultures from the are positive for staph aureus as is the abscess drainage. Drain placed and draining a brown/reddish fluid, continuing to drain. General surgery managing. WBC elevated at 25.3 with left shifted neutrophils. Trend labs De-escalate as cultures result Pain medication on board supportive care Elevated CRP, Hepatitis and HIV negative. echo EF of 65-70% with diastolic dysfunction Consider TERRI in setting of acute Bacteremia MRI Pelvis and Lumbar spine are ordered to rule out any further abscess, osteo or diskitis. 12/19: change abx to oxacillin, d/c vanc + primaxin, repeat blood cultures in 1-2 days (2) Sepsis: Code(s): A41.9 - Sepsis, unspecified organism Status: Acute Assessment and Plan: See plan above in #1. Not meeting shock criteria (3) Bacteremia: Code(s): R78.81 - Bacteremia Status: Acute Assessment and Plan: Will need press tender long goods antibiotics Trend labs Get repeat blood cultures Probably need a picc line See plan above and interval assessement. (4) Acute hyponatremia: Code(s): E87.1 - Hypo-osmolality and hyponatremia Status: Acute Assessment and Plan: Sodium improved to 129, continue to monitor (5) Obesity: Code(s): E66.9 - Obesity, unspecified Status: Acute Assessment and Plan: lifestyle and diet modifications Assistance Coordinator consult (6) Coronary artery disease: Code(s): I25.10 - Atherosclerotic heart disease of [place] coronary artery without angina pectoris Status: Acute Assessment and Plan: No chest pain Stable (7) Smoking: Code(s): F17.200 - Nicotine dependence, unspecified, uncomplicated Status: Acute Assessment and Plan: nicotine patch as needed Smoking cessation education (8) Sleep apnea: Code(s): G47.30 - Sleep apnea, unspecified Status: Acute Assessment and Plan: Stable (9) COPD (chronic obstructive pulmonary disease): Code(s): J44.9 - Chronic obstructive pulmonary disease, unspecified Status: Acute Assessment and Plan: stable Consider nebs if indicated (10) Osteoarthritis involving multiple joints on both sides of body: Code(s): M15.9 - Polyosteoarthritis, unspecified Status: Acute Assessment and Plan: PRN pain meds. Subjective Date/time seen: 12/19/21 08:14 Interval history: Patient states he is still in significant back and lower extremity pain. No overnight events noted. No chest pain or shortness of breath. No nausea, vomiting or diarrhea. No fevers or chills. Review of Systems Review of Systems: 12 point review of systems was assessed and was negative except as noted in the HPI Exam Narrative: General: No acute distress, alert and oriented per baseline HEENT: Atraumatic, normocephalic, mucous membranes moist CV: Regular rate and rhythm, S1, S2 Lungs: Clear to auscultation bilaterally, no rales or crackles noted, no wheezes, good air entry Abdomen: Soft, nontender, nondistended Extremities: Normal to inspection Skin: No rashes noted, no lesions or wounds seen Psych: Euthymic, normal affect Objective Data Vital Signs Vital Signs: Vital Signs - 24 hr 12/18/21 14:00 12/18/21 19:23 12/18/21 20:25 Temperature 97.5 F L 99.7 F H Pulse Rate 94 94 95 Respiratory Rate 18 18 16 Blood Pressure 153/78 H 179/107 H Pulse Oximetry 96 96 97 Oxygen Delivery Room Air
--- NOTE | 2021-12-19 08:57 | IDPHARM ---
Subjective Pharmacy was consulted by Lennie Doss regarding infectious diseases for Rivera Aguilar. Rivera Aguilar is a 51 year old M with concerns regarding an MSSA bloodstream infection. Background The patient is currently receiving Imipenem/cilastatin and Vancomycin. The patient's blood cultures show MSSA and repeat blood cultures remain positive. The source may be an SSTI and echo did not show vegetation per recent discussion with previous provider, but psoas abscess is also positive for staphylococcus aureus (sensitivities pending). Patient's Vancomycin troughs are currently subtherapeutic. Assessment/Recommendation/Discussion Discussed with provider about switching therapy to target MSSA with oxacillin which has been seen to be more effective than vancomycin to clear MSSA infections. Oxacillin IVPB 2g q4h. Repeat bcx this weekend perhaps after 24-48 hour of oxacillin to see this agent's efficacy. Thank you for the interesting consult. Danny Peoples, PharmD Infectious Disease/Antimicrobial Stewardship Pharmacist 12/19/21; 0857
[2021-12-19] MEDS: OXACILLIN SODIUM 2 GM in SODIUM CHLORIDE 0.9% IV 100 ML IVPB ×4 (10:31→20:09)
--- NOTE | 2021-12-19 12:16 | PM.CNCAR ---
Assessment and Plan Assessment and plan (1) Bacteremia: Code(s): R78.81 - Bacteremia Status: Acute Assessment and Plan: On antibiotics as per hospitalist. Echo on 12/16/21 does not show any obvious valve infection or valve involvement but it is not the best images either. Obtain TERRI on Wednesday (Wednesday is Labor day) if he is still present as he may be transferred to [facility] due to osteomyelitis and nerve root involvement with abscess. (2) Coronary artery disease: Code(s): I25.10 - Atherosclerotic heart disease of [place] coronary artery without angina pectoris Status: Acute Assessment and Plan: Stable. (3) Smoking: Code(s): F17.200 - Nicotine dependence, unspecified, uncomplicated Status: Acute Assessment and Plan: Counseled regarding smoking cessation. (4) Hyperlipidemia due to dietary fat intake: Code(s): E78.49 - Other hyperlipidemia Status: Acute Assessment and Plan: Advise to maintain a low saturated fat diet. (5) Sepsis: Code(s): A41.9 - Sepsis, unspecified organism Status: Acute Assessment and Plan: Management as per hospitalist. History of Present Illness History of Present Illness Consult date/time: 12/19/21 12:16 Reason For Visit: Psoas abscess Narrative: Patient is a 51 yr old man who is my regular cardiology patient presents to ER for back pain. He has a history of CAD, constrictive pericarditis s/p pericardiectomy, dyslipidemia, ALFRED on CPAP, COPD, smoking. States that 9 days ago he was helping a friend chop wood and loading it up when he noted lower back pain. He thought it was just because of activity itself. But discomfort increased and different from his usual lower back pains. It was found he has a left psoas abscess that appears to extend involving his facet joints and nerve root. Catheter drain left lower quadrant in place. Blood cultures show staph aureus. He is using CPAP every night for entire night and sleeping well with it and has no daytime sleepiness. He had both hips replaced in last 12 months and right knee replaced in Feb 2019.? He is able to walk 1000 feet now after knee surgery. He is down to 2 cigarettes per day from 2 ppd.? Nicotine patches caused a rash. He is taking Welbutrin. Denies chest pain, sob, palpitations, edema. Cardiovascular Procedures Furnishings Conservator:: Cath (BJC: LM 30-35%, LAD 30-35% prox-mid portion, LCx <30% stenosis and has 60% bridging mid and mild briding in distal portion, RCA with <30% stenosis; constrictive pericarditis physiology.) - 01/18/2017 CV Surgery (BJC: Pericardiectomy for constrictive pericarditis.) - 01/2017 Echo/MUGA:: Echo (EF 55%, occ bowing of septum toward LV, grade I diastolic dysfunction, mild TR.) - 08/10/2016 Electrophysiology:: EKG (Sinus rhythm, RAD, rsr' in v1 or v2, consider rvh or right vcd, borderline st-t wave abnormality- inferior leads.) - 12/13/2017 Stress Tests:: MPI (Lexiscan myoview: Negative for ischemia.) - 02/17/2018 Sleep Study (Titration study for ALFRED.) - 01/19/2018 Review of Systems Review of Systems: All systems reviewed & are unremarkable except as noted in HPI and below Constitutional: Constitutional: Reports as per HPI and Reports fatigue Cardiovascular: Cardiovascular: Reports as per HPI, Denies chest pain and Denies leg edema Respiratory: Respiratory: Reports as per HPI and Denies dyspnea Gastrointestinal: Gastrointestinal: Reports as per HPI and Denies abdominal pain Genitourinary: Genitourinary: Reports as per HPI and Denies dysuria Musculoskeletal: Musculoskeletal: Reports as per HPI and Reports back pain Neurologic: Reports as per HPI, Denies dizziness and Denies syncope [facility] Past Medical History Medical History COPD (chronic obstructive pulmonary disease) Drug addiction Hyperlipidemia due to dietary fat intake Liver cirrhosis Measles uncomplicated Mumps uncomplicated Osteoa
--- NOTE | 2021-12-19 16:37 | WPDCN ---
Assessment and Plan Assessment and plan (1) Psoas abscess, left: Code(s): K68.12 - Psoas muscle abscess Status: Acute Plan Rivera Aguilar is a very pleasant 51-year-old male who presents with sepsis, bacteremia, multifocal psoas abscess as well as concern for spinal epidural abscess. The patient has severe low back and lower extremity pain consistent with the finding of multifocal spinal stenosis. The patient has at least some degree of epidural lipomatosis which is likely chronic. His infection is likely aggravating claudicatory and radicular findings. Fortunately the patient has no objective weakness on examination and that there is no urgent need for consideration of surgery. The patient's symptoms will likely improve with intravenous antibiotic management I fully agree with the current plans that include percutaneous drainage of the larger psoas abscess. I agree with intravenous antibiotics. I agree that the infectious disease team should be consulted to optimize dosing with attention paid to involvement of the neuro axis. I support consideration of transfer to a [facility] particularly for consultation with Infectious Disease as well as Infectious Disease for follow-up as the patient will likely need long-term intravenous antibiotic management and follow-up serial clinical radiographic assessment. The patient has had white blood cell count and ESR testing. His white blood cell count is trending downward which is promising. Plans for [facility] on Wednesday if the patient has not been transferred are appropriate. Patient would likely benefit for from LSO brace placement. if this cannot be obtained over the holiday weekend please consult our service and we can assist with obtaining a brace for the patient. As the patient has been in the hospital for now 4 days and has a normal neurological exam and has been on intravenous antibiotics for several days, the likelihood of acute neurological deterioration is small but serial neurological examination should still be performed on at least a daily basis. Please contact our team if the patient remains in the hospital and experiences any significant deterioration over the coming days. Dr. Kelli Saucedo will be covering on-call for our team over the weekend HPI Data of Consult Date/Time: 12/19/21 16:37 Requesting Physician: Shavonne Lopez DO Primary Care Provider: Terrell Muñoz DO Consult Narrative Narrative: Rivera Aguilar is a 51-year-old man who presented to the emergency department with left back and left hip pain on December 15, 2021.? At presentation the patient noted low back and lower extremity pain. A CT showed evidence of a left psoas abscess.? He had signs of sepsis with tachycardia, elevated white blood count, and fevers.? He has been admitted to the hospital for further treatment.? He was started on broad-spectrum IV antibiotics and staph aureus has been isolated from his blood.? The patient was found to have a psoas abscess on imaging and general surgery was consulted. Ultimately he underwent a percutaneous drainage of the psoas abcess. He has also had MR imaging of the [facility] spine performed on December 18, 2021. I have personally reviewed this study as well as its report. There are changes with multifocal psoas abscesses. There is also multifocal spinal stenosis in the setting of congenital spinal stenosis and significant epidural lipomatosis. There are some enhancing changes that are concerning for at least some degree of epidural abscess as well. There is significant motion artifact on the MRI study, however, it is difficult to determine the extent, fully, of abscess involvement versus epidural lipomatosis. Importantly the patient does not note lower extremity weakness. He has significant low back pain, particularly with motion, and he notes severe pain in both lower extremities. He denies lower extremity sensory change. He denies lower extremity w
[2021-12-20] MEDS: oxyCODONE HCL (*CRX) 5 MG TAB IR 10 MG PO ×4 (00:05→12:11)
[2021-12-20] MEDS: OXACILLIN SODIUM 2 GM in SODIUM CHLORIDE 0.9% IV 100 ML IVPB ×5 (00:06→16:43)
[2021-12-20] MEDS: traZODone HCL 50 MG TABLET PO (00:06)
[2021-12-20 04:20] VITALS: PULSE 76; RESP 16; O2SAT 94
[2021-12-20] MEDS: SODIUM CHLORIDE 0.9% IV 1,000 ML 100 ML IV CONT ×2 (04:21→16:18)
[2021-12-20 04:27] VITALS: BP 138/93; PULSE 86; RESP 16; TEMP 36.5; O2SAT 96
[2021-12-20] MEDS: KETOROLAC 30 MG/ML VIAL (*BKC) IV PUSH ×3 (04:45→18:34)
[2021-12-20] MEDS: HYDROmorphone HCL INJ (*CRX) 2 MG/ML VIAL 1.5 MG IV PUSH ×3 (04:45→09:33)
--- NOTE | 2021-12-20 04:52 | PC.NURSE ---
[facility] Rn at transfer center informed this shift, pt remains on waiting list at this time. [phone]
[2021-12-20] MEDS: diazePAM (*CRX) 5 MG TABLET PO ×2 (07:55→16:42)
[2021-12-20] MEDS: SERTRALINE HCL 50 MG TABLET 200 MG PO (07:55)
[2021-12-20] MEDS: lamoTRIgine 100 MG TABLET 200 MG PO (07:55)
[2021-12-20] MEDS: buPROPion HCL SR (12HR) 100 MG TABCR 200 MG PO (07:55)
[2021-12-20] MEDS: polyethylene glycoL 3350 17 GM POWD.PACK PO (07:56)
[2021-12-20] MEDS: TOLNAFTATE 1% POWDER 45 GM BTL 1 APPLIC TOPICAL ×2 (07:56→21:30)
[2021-12-20] MEDS: LOSARTAN POTASSIUM 25 MG TABLET PO (08:42)
--- NOTE | 2021-12-20 08:43 | PM.PNCARD ---
Progress Note: A&P Assessment and Plan (1) Bacteremia: Code(s): R78.81 - Bacteremia Status: Acute Assessment and Plan: On antibiotics as per hospitalist. Transthoracic echo on 12/16/21 does not show any obvious valve infection or valve involvement but it is not the best images either. Obtain TERRI on Wednesday (Wednesday is Labor day) if he is still present as he may be transferred to [facility] due to osteomyelitis and nerve root involvement with abscess. (2) Sepsis: Code(s): A41.9 - Sepsis, unspecified organism Status: Acute (3) Psoas abscess, left: Code(s): K68.12 - Psoas muscle abscess Status: Acute Assessment and Plan: He is having severe pain in his back. Nurse is aware. Needs immediate evaluation by neurosurgeon if it is due to osteomyelitis/nerve involvement. (4) Coronary artery disease: Code(s): I25.10 - Atherosclerotic heart disease of [place] coronary artery without angina pectoris Status: Acute Assessment and Plan: Stable. (5) Smoking: Code(s): F17.200 - Nicotine dependence, unspecified, uncomplicated Status: Acute Assessment and Plan: Counseled regarding smoking cessation. (6) Hyperlipidemia due to dietary fat intake: Code(s): E78.49 - Other hyperlipidemia Status: Acute Assessment and Plan: Advise to maintain a low saturated fat diet. (7) Hypertension: Code(s): I10 - Essential (primary) hypertension Status: Acute Assessment and Plan: He has been hypertensive for last several days. Start Losartan 25 mg daily. Subjective Date/time seen: 12/20/21 08:43 Patient is having severe lower back pain currently, writhing in bed. No chest pain or sob. Exam Const: General: cooperative, in distress and anxious Resp: Auscultation: clear to auscultation bilaterally, no crackles, no rales, no rhonchi and no wheezes Cardio: Jugular venous distension: no JVD Rate: regular rate Rhythm: regular rhythm Heart sounds: no murmurs GI: GI Palp: No abdominal tenderness and Yes Soft to palpation Neuro: General: oriented to person, oriented to place and oriented to time Extrem: Right lower extremity: no edema Left lower extremity: no edema Objective Data Vital Signs Vital Signs: Vital Signs - 24 hr 12/19/21 14:00 12/19/21 19:01 12/19/21 20:34 Temperature 96.4 F L Pulse Rate 92 92 90 Respiratory Rate 18 18 Blood Pressure 150/78 H 166/82 H Pulse Oximetry 94 94 Oxygen Delivery Room Air 12/19/21 22:00 12/19/21 23:45 12/20/21 04:27 Temperature 97.0 F L 97.7 F Pulse Rate 80 80 86 Respiratory Rate 20 17 16 Blood Pressure 141/81 H 138/93 H Pulse Oximetry 94 94 96 Oxygen Delivery Autopap 12/20/21 04:20 Temperature Pulse Rate 76 Respiratory Rate 16 Blood Pressure Pulse Oximetry 94 Oxygen Delivery Autopap Intake/Output Intake/Output: Intake & Output 12/17/21 12/18/21 12/19/21 12/20/21 23:59 23:59 23:59 23:59 Intake Total 2620 2540 3250 1750 Output Total 412 1625 2480 400 Balance 2208 653 232 2400 Meds/Results Medications: Active Medications Generic Name Dose Route Start Last Admin [facility] PRN Reason Stop Dose Admin Acetaminophen 650 mg 12/18/21 06:09 12/18/21 22:52 Acetaminophen 325 Mg Tablet PO 650 mg Q4H PRN Administration Headache Bupropion HCl 200 mg 12/16/21 09:00 12/20/21 07:55 Bupropion Hcl Sr (12hr) 100 Mg Tabcr PO 200 mg DAILY FRANTZ Administration Diazepam 5 mg 12/16/21 09:00 12/20/21 07:55 Diazepam (*Crx) 5 Mg Tablet PO 5 mg BID FRANTZ Administration Hydralazine HCl 10 mg 12/19/21 06:04 12/19/21 20:33 Hydralazine Hcl 20 Mg/Ml Vial IV PUSH 10 mg Q4H PRN Administration Blood Pressure - High Hydromorphone HCl 1.5 mg 12/19/21 13:30 12/20/21 06:21 Hydromorphone Hcl Inj (*Crx) 2 Mg/Ml Vial IV PUSH 1.5 mg Q2H PRN Administration Pain Rated 7-10 Sodium Chloride 1,000 mls @ 100 mls
[2021-12-20 14:00] VITALS: BP 156/80; PULSE 84; RESP 20; TEMP 36.4; O2SAT 96
--- NOTE | 2021-12-20 15:06 | P.PNIM_ITS ---
Progress Note: A&P Assessment and Plan (1) Psoas abscess, left: Code(s): K68.12 - Psoas muscle abscess Status: Acute Assessment and Plan: * CT shows 3.0 x 2.4 x 5.1 cm left psoas muscle abscess, with adjacent lymphadenopathy. Drained on 12/17/2021, has now grew out Staph aureus. * IV antibiotics vancomycin, and primaxin. Current Vanc is subtherapeutic. * 3 of 4 bottles of blood cultures from the 30 are positive for staph aureus as is the abscess drainage. * Drain placed and draining a brown/reddish fluid, continuing to drain. * General surgery managing. * WBC elevated at 25.3 with left shifted neutrophils. * Trend labs * De-escalate as cultures result * Pain medication on board * supportive care * Elevated CRP, Hepatitis and HIV negative. * echo EF of 65-70% with diastolic dysfunction * Consider TERRI in setting of acute Bacteremia * MRI Pelvis and Lumbar spine are ordered to rule out any further abscess, osteo or diskitis. 12/19: Change abx to oxacillin, d/c vanc + primaxin, repeat blood cultures in 1-2 days 12/20: Leukocytosis increasing after switching to oxacillin, will switch back to vancomycin and reassess tomorrow. Patient experiencing significant pain, will schedule Percocet 10 mg every 8 hours and have Dilaudid 1 mg every 2 hours for breakthrough pain available, also added a Lidoderm patch today. (2) Sepsis: Code(s): A41.9 - Sepsis, unspecified organism Status: Acute Assessment and Plan: * See plan above in #1. * Not meeting shock criteria (3) Bacteremia: Code(s): R78.81 - Bacteremia Status: Acute Assessment and Plan: * Will need adjunct faculty for medical terminology antibiotics * Trend labs * Get repeat blood cultures * Probably need a picc line * See plan above and interval assessement. (4) Acute hyponatremia: Code(s): E87.1 - Hypo-osmolality and hyponatremia Status: Acute Assessment and Plan: BMP pending (5) Obesity: Code(s): E66.9 - Obesity, unspecified Status: Acute Assessment and Plan: * lifestyle and diet modifications * [employer] consult (6) Coronary artery disease: Code(s): I25.10 - Atherosclerotic heart disease of [place] coronary artery without angina pectoris Status: Acute Assessment and Plan: * No chest pain * Stable (7) Smoking: Code(s): F17.200 - Nicotine dependence, unspecified, uncomplicated Status: Acute Assessment and Plan: * nicotine patch as needed * Smoking cessation education (8) Sleep apnea: Code(s): G47.30 - Sleep apnea, unspecified Status: Acute Assessment and Plan: Stable (9) COPD (chronic obstructive pulmonary disease): Code(s): J44.9 - Chronic obstructive pulmonary disease, unspecified Status: Acute Assessment and Plan: * stable * Consider nebs if indicated (10) Osteoarthritis involving multiple joints on both sides of body: Code(s): M15.9 - Polyosteoarthritis, unspecified Status: Acute Assessment and Plan: * PRN pain meds. Plan DVT prophylaxis with SCDs GI prophylaxis not indicated Code status full code Subjective Date/time seen: 12/20/21 15:06 Interval history: Patient states he is still in significant back and lo
--- NOTE | 2021-12-20 15:06 | PM.IMPN ---
Progress Note: A&P Assessment and Plan (1) Psoas abscess, left: Code(s): K68.12 - Psoas muscle abscess Status: Acute Assessment and Plan: CT shows 3.0 x 2.4 x 5.1 cm left psoas muscle abscess, with adjacent lymphadenopathy. Drained on 12/17/2021, has now grew out Staph aureus. IV antibiotics vancomycin, and primaxin. Current Vanc is subtherapeutic. 3 of 4 bottles of blood cultures from the are positive for staph aureus as is the abscess drainage. Drain placed and draining a brown/reddish fluid, continuing to drain. General surgery managing. WBC elevated at 25.3 with left shifted neutrophils. Trend labs De-escalate as cultures result Pain medication on board supportive care Elevated CRP, Hepatitis and HIV negative. echo EF of 65-70% with diastolic dysfunction Consider TERRI in setting of acute Bacteremia MRI Pelvis and Lumbar spine are ordered to rule out any further abscess, osteo or diskitis. 12/19: Change abx to oxacillin, d/c vanc + primaxin, repeat blood cultures in 1-2 days 12/20: Leukocytosis increasing after switching to oxacillin, will switch back to vancomycin and reassess tomorrow. Patient experiencing significant pain, will schedule Percocet 10 mg every 8 hours and have Dilaudid 1 mg every 2 hours for breakthrough pain available, also added a Lidoderm patch today. (2) Sepsis: Code(s): A41.9 - Sepsis, unspecified organism Status: Acute Assessment and Plan: See plan above in #1. Not meeting shock criteria (3) Bacteremia: Code(s): R78.81 - Bacteremia Status: Acute Assessment and Plan: Will need local intermodal truck driver antibiotics Trend labs Get repeat blood cultures Probably need a picc line See plan above and interval assessement. (4) Acute hyponatremia: Code(s): E87.1 - Hypo-osmolality and hyponatremia Status: Acute Assessment and Plan: BMP pending (5) Obesity: Code(s): E66.9 - Obesity, unspecified Status: Acute Assessment and Plan: lifestyle and diet modifications Tailor Helper consult (6) Coronary artery disease: Code(s): I25.10 - Atherosclerotic heart disease of [place] coronary artery without angina pectoris Status: Acute Assessment and Plan: No chest pain Stable (7) Smoking: Code(s): F17.200 - Nicotine dependence, unspecified, uncomplicated Status: Acute Assessment and Plan: nicotine patch as needed Smoking cessation education (8) Sleep apnea: Code(s): G47.30 - Sleep apnea, unspecified Status: Acute Assessment and Plan: Stable (9) COPD (chronic obstructive pulmonary disease): Code(s): J44.9 - Chronic obstructive pulmonary disease, unspecified Status: Acute Assessment and Plan: stable Consider nebs if indicated (10) Osteoarthritis involving multiple joints on both sides of body: Code(s): M15.9 - Polyosteoarthritis, unspecified Status: Acute Assessment and Plan: PRN pain meds. Plan DVT prophylaxis with SCDs GI prophylaxis not indicated Code status full code Subjective Date/time seen: 12/20/21 15:06 Interval history: Patient states he is still in significant back and lower extremity pain. No overnight events noted. No chest pain or shortness of breath. No nausea, vomiting or diarrhea. No fevers or chills. Review of Systems Review of Systems: 12 point review of systems was assessed and was negative except as noted in the HPI Exam Narrative: General: Slurred speech, still in acute pain, alert and oriented per baseline HEENT: Atraumatic, normocephalic, mucous membranes moist CV: Regular rate and rhythm, S1, S2 Lungs: Clear to auscultation bilaterally, no rales or crackles noted, no wheezes, good air entry Abdomen: Soft, nontender, nondistended Extremities: Normal to inspect
[2021-12-20] MEDS: oxyCODONE/ACETAMINOPHEN (*CRX) 10-325 MG TABLET 1 TAB PO ×2 (15:14→21:29)
[2021-12-20] MEDS: LIDOCAINE 5% PATCH 1 PATCH TRANSDERM (15:14)
[2021-12-20 16:14] LABS: Basophils Absolute Auto 0.2 K/mm3 (0.0-0.1); Basophils Percent Auto 0.6 % (0.2-1.2); Eosinophils Absolute Auto 0.2 K/mm3 (0-0.3); Eosinophils Percent Auto 0.9 % (0-4.4); Hematocrit 35.9 % (42.0-52.0); Immature Granulocyte Absolute 1.33 K/mm3 (0.00-0.031); Immature Granulocyte Percent A 5.2 % (0-0.5); Lymphocytes Absolute Auto 1.97 K/mm3 (0.9-3.2); Lymphocytes Percent Auto 7.7 % (18.3-44.2); Mean Corpuscular HGB Conc 33.4 g/dl (32-36); Mean Corpuscular Hemoglobin 29.6 pg (26-34); Mean Corpuscular Volume 88.6 fl (80-100); Mean Platelet Volume 9.9 fl (7.4-10.4); Monocytes Absolute Auto 1.7 K/mm3 (0.1-0.6); Monocytes Percent Auto 6.6 % (2.6-8.5); Neutrophils Absolute Auto 20.3 K/mm3 (1.3-6.7); Platelet Count Result 439 k/mm3 (150-375); Red Blood Count 4.05 M/mm3 (4.6-6.20); Red Cell Distribution Width 14.9 % (11.5-14.5); White Blood Count 25.7 K/mm3 (4.5-10.0)
[2021-12-20 16:27] LABS: Alanine Aminotransferase 26 U/L (6-50); Albumin Level 2.9 g/dL (3.5-5.1); Alkaline Phosphatase 181 U/L (38-126); Anion Gap 7 mmol/L (8-16); Aspartate Amino Transferase 36 U/L (17-59); Bilirubin,Total 0.6 mg/dL (0.2-1.3); Blood Urea Nitrogen 13 mg/dL (9-20); Calcium 8.1 mg/dL (8.4-10.2); Carbon Dioxide 28 mmol/L (22-30); Chloride 95 mmol/L (98-107); Estimated CRCL calculation 123 ml/min; Estimated Glomerular Filt Rate > 60; Glucose 114 mg/dL (65-110); Potassium 3.9 mmol/L (3.4-5.0); Sodium 130 mmol/L (137-145)
[2021-12-20] MEDS: HYDROmorphone HCL INJ (*CRX) 2 MG/ML VIAL 1 MG IV PUSH ×2 (18:34→21:29)
[2021-12-20 21:35] VITALS: BP 177/86; PULSE 84; RESP 16; TEMP 37.1; O2SAT 98
[2021-12-20 23:00] VITALS: PULSE 80; RESP 14; O2SAT 97
[2021-12-21] MEDS: HYDROmorphone HCL INJ (*CRX) 2 MG/ML VIAL 1 MG IV PUSH ×6 (00:59→20:42)
[2021-12-21] MEDS: KETOROLAC 30 MG/ML VIAL (*BKC) IV PUSH ×4 (02:38→20:43)
[2021-12-21] MEDS: oxyCODONE/ACETAMINOPHEN (*CRX) 10-325 MG TABLET 1 TAB PO ×3 (05:15→22:17)
[2021-12-21] MEDS: hydrALAZINE HCL 20 MG/ML VIAL 10 MG IV PUSH (05:42)
[2021-12-21 06:00] VITALS: BP 209/109; PULSE 88; RESP 20; TEMP 36.9; O2SAT 93
[2021-12-21 06:21] LABS: Basophils Absolute Auto 0.1 K/mm3 (0.0-0.1); Basophils Percent Auto 0.6 % (0.2-1.2); Eosinophils Absolute Auto 0.2 K/mm3 (0-0.3); Eosinophils Percent Auto 1.1 % (0-4.4); Hematocrit 36.6 % (42.0-52.0); Immature Granulocyte Absolute 1.13 K/mm3 (0.00-0.031); Immature Granulocyte Percent A 5.8 % (0-0.5); Lymphocytes Percent Auto 8.7 % (18.3-44.2); Mean Corpuscular HGB Conc 32.8 g/dl (32-36); Mean Corpuscular Hemoglobin 30.3 pg (26-34); Mean Corpuscular Volume 92.4 fl (80-100); Mean Platelet Volume 10.1 fl (7.4-10.4); Monocytes Absolute Auto 1.1 K/mm3 (0.1-0.6); Monocytes Percent Auto 5.5 % (2.6-8.5); Neutrophils Absolute Auto 15.3 K/mm3 (1.3-6.7); Neutrophils Percent Auto 78.3 % (45.5-73.1); Platelet Count Result 446 k/mm3 (150-375); Red Blood Count 3.96 M/mm3 (4.6-6.20); White Blood Count 19.5 K/mm3 (4.5-10.0)
[2021-12-21 06:35] LABS: Alanine Aminotransferase 26 U/L (6-50); Albumin Level 3.1 g/dL (3.5-5.1); Alkaline Phosphatase 179 U/L (38-126); Anion Gap 12 mmol/L (8-16); Aspartate Amino Transferase 40 U/L (17-59); Bilirubin,Total 0.7 mg/dL (0.2-1.3); Blood Urea Nitrogen 11 mg/dL (9-20); Calcium 7.8 mg/dL (8.4-10.2); Carbon Dioxide 31 mmol/L (22-30); Chloride 90 mmol/L (98-107); Estimated CRCL calculation 142 ml/min; Estimated Glomerular Filt Rate > 60; Glucose 105 mg/dL (65-110); Potassium 3.8 mmol/L (3.4-5.0); Sodium 133 mmol/L (137-145)
--- NOTE | 2021-12-21 07:25 | PM.IMPN ---
Progress Note: A&P Assessment and Plan (1) Psoas abscess, left: Code(s): K68.12 - Psoas muscle abscess Status: Acute Assessment and Plan: Left psoas abscess with epidural lipomatosis (suspected to be chronic), cx showing zavala sensitive s. aureus, s/p perc drain placement 12/17 by IR, seen by general surgery + neurosurgery who recommended LSO brace. MRI showed possible osteomyelitis, septic arthritis at L4-L5, with extension of infection into S1 nerve root and into right piriformis muscle. 12/19: Change abx to oxacillin, d/c vanc + primaxin, repeat blood cultures in 1-2 days 12/20: Leukocytosis increasing after switching to oxacillin, will switch back to vancomycin and reassess tomorrow. Patient experiencing significant pain, will schedule Percocet 10 mg every 8 hours and have Dilaudid 1 mg every 2 hours for breakthrough pain available, also added a Lidoderm patch today. 12/21: Still awaiting bed at [facility], accepted by Dr Wallace, neurosurgery, and Dr Garcia, hospitalist, confirmed patient still on waiting list. Seen by our NS team, ok to wait, MRI reviewed, cont current management with vanc. Repeat blood cx ordered yesterday are pending. Pelvic/Lumbar MRI Findings: 1. Left lower quadrant percutaneous abscess drain catheter within a collapsed abscess cavity in the medial aspect of the left psoas muscle with prominent surrounding myositis. Line 2. Additional small abscesses in the posterior paraspinal musculature of both the left and right at the level of the L4-L5 facet joints where there are small effusions, cortical erosions at the left facet joint and marrow signal changes at the bilateral posterior elements and extending to bilateral pedicles of both L4 and L5 concerning for associated septic arthritis and osteomyelitis. 3. Severe central canal stenosis with effacement of the CSF signal surrounding the central canal beginning at L2 and extending caudally with only mild contribution from the small disc bulges at L3-L4 and L4-L5 and due primarily to epidural lipomatosis likely accentuated by edema within the epidural fat. There are also likely small epidural abscesses in the epidural fat posterior to the thecal sac at the level of L3 through L5-S1. 4. Additional extension of infection along the right S1 nerve root with additional small abscess surrounding the exiting nerve root anterior to the right S1 neural foramen and with additional masses extend caudally along the right piriformis muscle. (2) Bacteremia: Code(s): R78.81 - Bacteremia Status: Acute Assessment and Plan: See above (3) Acute hyponatremia: Code(s): E87.1 - Hypo-osmolality and hyponatremia Status: Acute Assessment and Plan: Stable, sodium 133 today (4) Obesity: Code(s): E66.9 - Obesity, unspecified Status: Acute Assessment and Plan: Outpatient management recommended (5) Coronary artery disease: Code(s): I25.10 - Atherosclerotic heart disease of [place] coronary artery without angina pectoris Status: Acute Assessment and Plan: Stable (6) Smoking: Code(s): F17.200 - Nicotine dependence, unspecified, uncomplicated Status: Acute Assessment and Plan: Nicotine patch prn, smoking cessation encouraged (7) Sleep apnea: Code(s): G47.30 - Sleep apnea, unspecified Status: Acute Assessment and Plan: Stable (8) COPD (chronic obstructive pulmonary disease): Code(s): J44.9 - Chronic obstructive pulmonary disease, unspecified Status: Acute Assessment and Plan: Stable, continue nebs (9) Osteoarthritis involving multiple joints on both sides of body: Code(s): M15.9 - Polyosteoarthritis, unspecified Status: Acute Assessment and Plan: Cont pain meds, pain moderately controlled 12/21: Currently taking percocet 10 mg Q8h scheduled + dilaudid 1 mg Q2h prn breakthrough
[2021-12-21 07:41] VITALS: BP 171/89; PULSE 87; O2SAT 93
[2021-12-21] MEDS: LIDOCAINE 5% PATCH 1 PATCH TRANSDERM (08:17)
[2021-12-21] MEDS: polyethylene glycoL 3350 17 GM POWD.PACK PO (08:21)
[2021-12-21] MEDS: buPROPion HCL SR (12HR) 100 MG TABCR 200 MG PO (08:22)
[2021-12-21] MEDS: SERTRALINE HCL 50 MG TABLET 200 MG PO (08:23)
[2021-12-21] MEDS: lamoTRIgine 100 MG TABLET 200 MG PO (08:23)
[2021-12-21] MEDS: TOLNAFTATE 1% POWDER 45 GM BTL 1 APPLIC TOPICAL ×2 (08:24→22:17)
[2021-12-21] MEDS: LOSARTAN POTASSIUM 100 MG TABLET PO (08:24)
[2021-12-21] MEDS: diazePAM (*CRX) 5 MG TABLET PO ×2 (08:26→16:55)
--- NOTE | 2021-12-21 08:29 | PM.PNCARD ---
Progress Note: A&P Assessment and Plan (1) Bacteremia: Code(s): R78.81 - Bacteremia Status: Acute Assessment and Plan: On antibiotics as per hospitalist. Transthoracic echo on 12/16/21 does not show any obvious valve infection or valve involvement but it is not the best images either. Obtain TERRI on Wednesday (Wednesday is Labor day) if he is still present as he may be transferred to [facility] due to osteomyelitis and nerve root involvement with abscess. (2) Sepsis: Code(s): A41.9 - Sepsis, unspecified organism Status: Acute (3) Psoas abscess, left: Code(s): K68.12 - Psoas muscle abscess Status: Acute Assessment and Plan: He is having severe pain in his back. Nurse is aware. Needs immediate evaluation by neurosurgeon if it is due to osteomyelitis/nerve involvement. (4) Coronary artery disease: Code(s): I25.10 - Atherosclerotic heart disease of [place] coronary artery without angina pectoris Status: Acute Assessment and Plan: Stable. (5) Smoking: Code(s): F17.200 - Nicotine dependence, unspecified, uncomplicated Status: Acute Assessment and Plan: Counseled regarding smoking cessation. (6) Hyperlipidemia due to dietary fat intake: Code(s): E78.49 - Other hyperlipidemia Status: Acute Assessment and Plan: Advise to maintain a low saturated fat diet. (7) Hypertension: Code(s): I10 - Essential (primary) hypertension Status: Acute Assessment and Plan: very high BP likely due to severe back pain. He has been hypertensive for last several days. Started Losartan 25 mg daily. Increase Losartan 100 mg daily. Hydralazine 10 mg IV q 4 HR prn for SBP>160. Subjective Date/time seen: 12/21/21 08:29 He has 10/10 lower back pain but looks more comfortable today than yesterday. No chest pain or sob. Exam Const: General: cooperative, in distress and anxious Resp: Auscultation: clear to auscultation bilaterally, no crackles, no rales, no rhonchi and no wheezes Cardio: Jugular venous distension: no JVD Rate: regular rate Rhythm: regular rhythm Heart sounds: no murmurs GI: GI Palp: No abdominal tenderness and Yes Soft to palpation Neuro: General: oriented to person, oriented to place and oriented to time Extrem: Right lower extremity: no edema Left lower extremity: no edema Objective Data Vital Signs Vital Signs: Vital Signs - 24 hr 12/20/21 14:00 12/20/21 21:35 12/20/21 23:00 Temperature 97.6 F 98.7 F Pulse Rate 84 84 80 Respiratory Rate 20 16 14 Blood Pressure 156/80 H 177/86 H Pulse Oximetry 96 98 97 Oxygen Delivery Autopap 12/21/21 06:00 12/21/21 07:41 Temperature 98.4 F Pulse Rate 88 87 Respiratory Rate 20 Blood Pressure 209/109 H 171/89 H Pulse Oximetry 93 93 Oxygen Delivery Intake/Output Intake/Output: Intake & Output 12/18/21 12/19/21 12/20/21 12/21/21 23:59 23:59 23:59 23:59 Intake Total 2540 3250 3990 Output Total 1625 2480 400 2400 Balance 120 438 0721 -2400 Meds/Results Medications: Active Medications Generic Name Dose Route Start Last Admin Trade Name Freq PRN Reason Stop Dose Admin Bupropion HCl 200 mg 12/16/21 09:00 12/21/21 08:22 Bupropion Hcl Sr (12hr) 100 Mg Tabcr PO 200 mg DAILY FRANTZ Administration Diazepam 5 mg 12/16/21 09:00 12/21/21 08:26 Diazepam (*Crx) 5 Mg Tablet PO 5 mg BID FRANTZ Administration Hydralazine HCl 10 mg 12/19/21 06:04 12/21/21 05:42 Hydralazine Hcl 20 Mg/Ml Vial IV PUSH 10 mg Q4H PRN Administration Blood Pressure - High Hydromorphone HCl 1 mg 12/20/21 14:51 12/21/21 08:13 Hydromorphone Hcl Inj (*Crx) 2 Mg/Ml Vial IV PUSH 1 mg Q2H PRN Administration Pain Rated 7-10 Sodium Chloride 1,000 mls @ 100 mls/hr 12/18/21 08:30 12/20/21 16:18 Normal Saline Iv IV CONT 100 mls/hr .Q10H FRANTZ Administration Vancomycin HCl 1,750 mg in 500 mls @ 250 mls/hr 12/20/21 18:00
--- NOTE | 2021-12-21 11:36 | PC.NURSE ---
Called Dr. Orellana to let her know about Toradol needing renewed on 12/21/21 at 1130. Over the phone told me to renew medication. Kidney function looks stable at this time.
[2021-12-21] MEDS: SODIUM CHLORIDE 0.9% IV 1,000 ML 100 ML IV CONT (13:51)
[2021-12-21 14:10] VITALS: BP 119/78; PULSE 86; RESP 18; TEMP 36.4; O2SAT 95
[2021-12-21 16:56] LABS: Vancomycin Trough 14.2 ug/mL (10.0-20.0)
[2021-12-21 21:52] VITALS: BP 181/92; PULSE 83; RESP 16; TEMP 36.6; O2SAT 96
[2021-12-22] MEDS: traZODone HCL 50 MG TABLET PO ×2 (00:21→23:18)
[2021-12-22] MEDS: HYDROmorphone HCL INJ (*CRX) 2 MG/ML VIAL 1 MG IV PUSH ×7 (00:22→23:20)
[2021-12-22 01:08] VITALS: PULSE 72; RESP 15; O2SAT 96
[2021-12-22] MEDS: KETOROLAC 30 MG/ML VIAL (*BKC) IV PUSH ×3 (02:49→14:38)
[2021-12-22 03:28] VITALS: PULSE 72; RESP 16; O2SAT 94
[2021-12-22 05:36] VITALS: BP 149/68; PULSE 82; RESP 14; TEMP 36.1; O2SAT 94
[2021-12-22 06:04] LABS: Basophils Absolute Auto 0.1 K/mm3 (0.0-0.1); Basophils Percent Auto 0.5 % (0.2-1.2); Eosinophils Absolute Auto 0.3 K/mm3 (0-0.3); Eosinophils Percent Auto 1.9 % (0-4.4); Hematocrit 33.8 % (42.0-52.0); Hemoglobin 11.3 g/dL (14.0-18.0); Immature Granulocyte Absolute 0.97 K/mm3 (0.00-0.031); Immature Granulocyte Percent A 5.9 % (0-0.5); Lymphocytes Absolute Auto 2.03 K/mm3 (0.9-3.2); Lymphocytes Percent Auto 12.3 % (18.3-44.2); Mean Corpuscular HGB Conc 33.4 g/dl (32-36); Mean Corpuscular Hemoglobin 29.9 pg (26-34); Mean Corpuscular Volume 89.4 fl (80-100); Mean Platelet Volume 9.7 fl (7.4-10.4); Monocytes Percent Auto 6.3 % (2.6-8.5); Neutrophils Absolute Auto 12.1 K/mm3 (1.3-6.7); Neutrophils Percent Auto 73.1 % (45.5-73.1); Platelet Count Result 474 k/mm3 (150-375); Red Blood Count 3.78 M/mm3 (4.6-6.20); Red Cell Distribution Width 14.7 % (11.5-14.5); White Blood Count 16.6 K/mm3 (4.5-10.0)
[2021-12-22] MEDS: oxyCODONE/ACETAMINOPHEN (*CRX) 10-325 MG TABLET 1 TAB PO ×3 (06:12→20:25)
[2021-12-22 06:23] LABS: Alanine Aminotransferase 22 U/L (6-50); Albumin Level 2.8 g/dL (3.5-5.1); Alkaline Phosphatase 162 U/L (38-126); Anion Gap 6 mmol/L (8-16); Aspartate Amino Transferase 49 U/L (17-59); Bilirubin,Total 0.5 mg/dL (0.2-1.3); Blood Urea Nitrogen 13 mg/dL (9-20); Calcium 8.3 mg/dL (8.4-10.2); Carbon Dioxide 28 mmol/L (22-30); Chloride 95 mmol/L (98-107); Estimated CRCL calculation 123 ml/min; Estimated Glomerular Filt Rate > 60; Glucose 130 mg/dL (65-110); Potassium 3.6 mmol/L (3.4-5.0); Sodium 129 mmol/L (137-145)
[2021-12-22] MEDS: SODIUM CHLORIDE 0.9% IV 1,000 ML 100 ML IV CONT (08:10)
[2021-12-22] MEDS: LIDOCAINE 5% PATCH 1 PATCH TRANSDERM (08:17)
--- NOTE | 2021-12-22 08:17 | PM.PNCARD ---
Progress Note: A&P Assessment and Plan (1) Bacteremia: Code(s): R78.81 - Bacteremia Status: Acute Assessment and Plan: On antibiotics as per hospitalist. Transthoracic echo on 12/16/21 does not show any obvious valve infection or valve involvement but it is not the best images either. Obtain TERRI on Wednesday (Wednesday is Labor day) if he is still present as he may be transferred to [facility] due to osteomyelitis and nerve root involvement with abscess. Obtain TERRI in AM to r/o endocarditis. (2) Sepsis: Code(s): A41.9 - Sepsis, unspecified organism Status: Acute (3) Psoas abscess, left: Code(s): K68.12 - Psoas muscle abscess Status: Acute Assessment and Plan: He is having severe pain in his back. Nurse is aware. Needs immediate evaluation by neurosurgeon if it is due to osteomyelitis/nerve involvement. (4) Coronary artery disease: Code(s): I25.10 - Atherosclerotic heart disease of [place] coronary artery without angina pectoris Status: Acute Assessment and Plan: Stable. (5) Smoking: Code(s): F17.200 - Nicotine dependence, unspecified, uncomplicated Status: Acute Assessment and Plan: Counseled regarding smoking cessation. (6) Hyperlipidemia due to dietary fat intake: Code(s): E78.49 - Other hyperlipidemia Status: Acute Assessment and Plan: Advise to maintain a low saturated fat diet. (7) Hypertension: Code(s): I10 - Essential (primary) hypertension Status: Acute Assessment and Plan: Very high BP likely due to severe back pain. He has been hypertensive for last several days. Started Losartan 25 mg daily. Increase Losartan 100 mg daily. Increase Hydralazine 12 mg IV q 4 HR prn for SBP>160. Subjective Date/time seen: 12/22/21 08:17 Reports lower back pain is slightly better at 9/10 intensity. No chest pain or sob. Exam Const: General: cooperative, in distress and anxious Resp: Auscultation: clear to auscultation bilaterally, no crackles, no rales, no rhonchi and no wheezes Cardio: Jugular venous distension: no JVD Rate: regular rate Rhythm: regular rhythm Heart sounds: no murmurs GI: GI Palp: No abdominal tenderness and Yes Soft to palpation Neuro: General: oriented to person, oriented to place and oriented to time Extrem: Right lower extremity: no edema Left lower extremity: no edema Objective Data Vital Signs Vital Signs: Vital Signs - 24 hr 12/21/21 14:10 12/21/21 21:52 12/22/21 01:08 Temperature 97.5 F L 97.9 F Pulse Rate 86 83 72 Respiratory Rate 18 16 15 Blood Pressure 119/78 181/92 H Pulse Oximetry 95 96 96 Oxygen Delivery Autopap 12/22/21 03:28 12/22/21 05:36 Temperature 96.9 F L Pulse Rate 72 82 Respiratory Rate 16 14 Blood Pressure 149/68 H Pulse Oximetry 94 94 Oxygen Delivery Autopap Intake/Output Intake/Output: Intake & Output 12/19/21 12/20/21 12/21/21 12/22/21 23:59 23:59 23:59 23:59 Intake Total 3250 3990 4650 750 Output Total 2480 400 3175 800 Balance 770 3590 1475 -50 Meds/Results Medications: Active Medications Generic Name Dose Route Start Last Admin Trade Name Freq PRN Reason Stop Dose Admin Bupropion HCl 200 mg 12/16/21 09:00 12/21/21 08:22 Bupropion Hcl Sr (12hr) 100 Mg Tabcr PO 200 mg DAILY FRANTZ Administration Diazepam 5 mg 12/16/21 09:00 12/21/21 16:55 Diazepam (*Crx) 5 Mg Tablet PO 5 mg BID FRANTZ Administration Hydralazine HCl 10 mg 12/19/21 06:04 12/21/21 05:42 Hydralazine Hcl 20 Mg/Ml Vial IV PUSH 10 mg Q4H PRN Administration Blood Pressure - High Hydromorphone HCl 1 mg 12/20/21 14:51 12/22/21 06:13 Hydromorphone Hcl Inj (*Crx) 2 Mg/Ml Vial IV PUSH 1 mg Q2H PRN Administration Pain Rated 7-10 Sodium Chloride 1,000 mls @ 100 mls/hr 12/18/21 08:30 12/22/21 08:10 Normal Saline Iv IV CONT 100 mls/hr .Q10H FRANTZ Administration Vancomycin HCl 2,000 mg in 5
[2021-12-22] MEDS: polyethylene glycoL 3350 17 GM POWD.PACK PO (08:20)
[2021-12-22] MEDS: SERTRALINE HCL 50 MG TABLET 200 MG PO (08:22)
[2021-12-22] MEDS: diazePAM (*CRX) 5 MG TABLET PO ×2 (08:22→16:39)
[2021-12-22] MEDS: LOSARTAN POTASSIUM 100 MG TABLET PO (08:22)
[2021-12-22] MEDS: buPROPion HCL SR (12HR) 100 MG TABCR 200 MG PO (08:22)
[2021-12-22] MEDS: TOLNAFTATE 1% POWDER 45 GM BTL 1 APPLIC TOPICAL ×2 (08:23→20:25)
[2021-12-22] MEDS: lamoTRIgine 100 MG TABLET 200 MG PO (08:23)
--- NOTE | 2021-12-22 09:13 | PM.IMPN ---
Progress Note: A&P Assessment and Plan (1) Psoas abscess, left: Code(s): K68.12 - Psoas muscle abscess Status: Acute Assessment and Plan: Left psoas abscess with epidural lipomatosis (suspected to be chronic), cx showing zavala sensitive s. aureus, s/p perc drain placement 12/17 by IR, seen by general surgery + neurosurgery who recommended LSO brace. MRI showed possible osteomyelitis, septic arthritis at L4-L5, with extension of infection into S1 nerve root and into right piriformis muscle. 12/19: Change abx to oxacillin, d/c vanc + primaxin, repeat blood cultures in 1-2 days 12/20: Leukocytosis increasing after switching to oxacillin, will switch back to vancomycin and reassess tomorrow. Patient experiencing significant pain, will schedule Percocet 10 mg every 8 hours and have Dilaudid 1 mg every 2 hours for breakthrough pain available, also added a Lidoderm patch today. 12/21: Still awaiting bed [facility], accepted by Dr Wallace, neurosurgery, and Dr Garcia, hospitalist, confirmed patient still on waiting list. Seen by our NS team, ok to wait, MRI reviewed, cont current management with vanc. Repeat blood cx ordered yesterday are pending. 12/22: Bed pending at [facility]. Cont current management, no changes in patient status. Leuk continues to improve on vancomycin. Trough 14.2. Previous trough was 5 and less than 5, leukocytosis seems to be improving with adequate vanc coverage for now. Pelvic/Lumbar MRI Findings: 1. Left lower quadrant percutaneous abscess drain catheter within a collapsed abscess cavity in the medial aspect of the left psoas muscle with prominent surrounding myositis. Line 2. Additional small abscesses in the posterior paraspinal musculature of both the left and right at the level of the L4-L5 facet joints where there are small effusions, cortical erosions at the left facet joint and marrow signal changes at the bilateral posterior elements and extending to bilateral pedicles of both L4 and L5 concerning for associated septic arthritis and osteomyelitis. 3. Severe central canal stenosis with effacement of the CSF signal surrounding the central canal beginning at L2 and extending caudally with only mild contribution from the small disc bulges at L3-L4 and L4-L5 and due primarily to epidural lipomatosis likely accentuated by edema within the epidural fat. There are also likely small epidural abscesses in the epidural fat posterior to the thecal sac at the level of L3 through L5-S1. 4. Additional extension of infection along the right S1 nerve root with additional small abscess surrounding the exiting nerve root anterior to the right S1 neural foramen and with additional masses extend caudally along the right piriformis muscle. (2) Bacteremia: Code(s): R78.81 - Bacteremia Status: Acute Assessment and Plan: See above (3) Acute hyponatremia: Code(s): E87.1 - Hypo-osmolality and hyponatremia Status: Acute Assessment and Plan: Sodium decreased to 129 from 133 yesterday, suspect patient is a little on the dry side, will give gentle hydration today and recheck tomorrow (4) Obesity: Code(s): E66.9 - Obesity, unspecified Status: Acute Assessment and Plan: Outpatient management recommended (5) Coronary artery disease: Code(s): I25.10 - Atherosclerotic heart disease of [place] coronary artery without angina pectoris Status: Acute Assessment and Plan: Stable (6) Smoking: Code(s): F17.200 - Nicotine dependence, unspecified, uncomplicated Status: Acute Assessment and Plan: Nicotine patch prn, smoking cessation encouraged (7) Sleep apnea: Code(s): G47.30 - Sleep apnea, unspecified Status: Acute Assessment and Plan: Stable (8) COPD (chronic obstructive pulmonary disease): Code(s): J44.9 - Chronic obstructive pulmonary disease, unspecified Status: Acute Ass
[2021-12-22] MEDS: SODIUM CHLORIDE 0.9% IV 1,000 ML 75 ML IV CONT (13:17)
[2021-12-22 14:11] VITALS: BP 150/84; PULSE 85; RESP 18; TEMP 36.8; O2SAT 97
[2021-12-22 17:58] LABS: Vancomycin Trough 20.8 ug/mL (10.0-20.0)
[2021-12-22 21:28] VITALS: BP 158/90; PULSE 90; RESP 16; TEMP 36.4; O2SAT 95
[2021-12-22 22:50] VITALS: PULSE 88; RESP 17; O2SAT 95
[2021-12-23] VITALS (12 sets, daily range): BP systolic 146–169; BP diastolic 68–98; PULSE 81–93; RESP 13–24; TEMP 36.1–36.6; O2SAT 92–98
[2021-12-23] MEDS: KETOROLAC 30 MG/ML VIAL (*BKC) IV PUSH ×3 (00:56→20:12)
[2021-12-23] MEDS: HYDROmorphone HCL INJ (*CRX) 2 MG/ML VIAL 1 MG IV PUSH ×3 (02:34→12:07)
[2021-12-23] MEDS: SODIUM CHLORIDE 0.9% IV 1,000 ML 75 ML IV CONT ×2 (02:35→09:14)
[2021-12-23] MEDS: oxyCODONE/ACETAMINOPHEN (*CRX) 10-325 MG TABLET 1 TAB PO ×4 (02:35→20:12)
[2021-12-23 05:53] LABS: Basophils Absolute Auto 0.1 K/mm3 (0.0-0.1); Basophils Percent Auto 0.4 % (0.2-1.2); Eosinophils Absolute Auto 0.3 K/mm3 (0-0.3); Eosinophils Percent Auto 1.7 % (0-4.4); Hemoglobin 11.7 g/dL (14.0-18.0); Immature Granulocyte Absolute 0.57 K/mm3 (0.00-0.031); Immature Granulocyte Percent A 3.5 % (0-0.5); Lymphocytes Absolute Auto 1.81 K/mm3 (0.9-3.2); Lymphocytes Percent Auto 11.3 % (18.3-44.2); Mean Corpuscular HGB Conc 32.5 g/dl (32-36); Mean Corpuscular Hemoglobin 29.9 pg (26-34); Mean Corpuscular Volume 92.1 fl (80-100); Mean Platelet Volume 9.7 fl (7.4-10.4); Monocytes Absolute Auto 1.1 K/mm3 (0.1-0.6); Neutrophils Absolute Auto 12.2 K/mm3 (1.3-6.7); Neutrophils Percent Auto 76.1 % (45.5-73.1); Platelet Count Result 497 k/mm3 (150-375); Red Blood Count 3.91 M/mm3 (4.6-6.20); Red Cell Distribution Width 14.8 % (11.5-14.5); White Blood Count 16.1 K/mm3 (4.5-10.0)
[2021-12-23 06:09] LABS: Alanine Aminotransferase 23 U/L (6-50); Albumin Level 2.9 g/dL (3.5-5.1); Alkaline Phosphatase 160 U/L (38-126); Anion Gap 11 mmol/L (8-16); Aspartate Amino Transferase 33 U/L (17-59); Bilirubin,Total 0.4 mg/dL (0.2-1.3); Blood Urea Nitrogen 15 mg/dL (9-20); Calcium 8.2 mg/dL (8.4-10.2); Carbon Dioxide 31 mmol/L (22-30); Chloride 94 mmol/L (98-107); Estimated CRCL calculation 98 ml/min; Estimated Glomerular Filt Rate > 60; Glucose 93 mg/dL (65-110); Potassium 4.2 mmol/L (3.4-5.0); Sodium 136 mmol/L (137-145)
--- NOTE | 2021-12-23 08:02 | PM.IMPN ---
Progress Note: A&P Assessment and Plan (1) Psoas abscess, left: Code(s): K68.12 - Psoas muscle abscess Status: Acute Assessment and Plan: Left psoas abscess with epidural lipomatosis (suspected to be chronic), cx showing zavala sensitive s. aureus, s/p perc drain placement 12/17 by IR, seen by general surgery + neurosurgery who recommended LSO brace. MRI showed possible osteomyelitis, septic arthritis at L4-L5, with extension of infection into S1 nerve root and into right piriformis muscle. 12/19: Change abx to oxacillin, d/c vanc + primaxin, repeat blood cultures in 1-2 days 12/20: Leukocytosis increasing after switching to oxacillin, will switch back to vancomycin and reassess tomorrow. Patient experiencing significant pain, will schedule Percocet 10 mg every 8 hours and have Dilaudid 1 mg every 2 hours for breakthrough pain available, also added a Lidoderm patch today. 12/21: Still awaiting bed at [facility], accepted by Dr Wallace, neurosurgery, and Dr Garcia, hospitalist, confirmed patient still on waiting list. Seen by our NS team, ok to wait, MRI reviewed, cont current management with vanc. Repeat blood cx ordered yesterday are pending. 12/22: Bed pending at [facility]. Cont current management, no changes in patient status. Leuk continues to improve on vancomycin. Trough 14.2. Previous trough was 5 and less than 5, leukocytosis seems to be improving with adequate vanc coverage for now. 12/23: Bed pending at [facility], confirmed still on waiting list. TERRI planned for today. Cont current management, improving. Pelvic/Lumbar MRI Findings: 1. Left lower quadrant percutaneous abscess drain catheter within a collapsed abscess cavity in the medial aspect of the left psoas muscle with prominent surrounding myositis. Line 2. Additional small abscesses in the posterior paraspinal musculature of both the left and right at the level of the L4-L5 facet joints where there are small effusions, cortical erosions at the left facet joint and marrow signal changes at the bilateral posterior elements and extending to bilateral pedicles of both L4 and L5 concerning for associated septic arthritis and osteomyelitis. 3. Severe central canal stenosis with effacement of the CSF signal surrounding the central canal beginning at L2 and extending caudally with only mild contribution from the small disc bulges at L3-L4 and L4-L5 and due primarily to epidural lipomatosis likely accentuated by edema within the epidural fat. There are also likely small epidural abscesses in the epidural fat posterior to the thecal sac at the level of L3 through L5-S1. 4. Additional extension of infection along the right S1 nerve root with additional small abscess surrounding the exiting nerve root anterior to the right S1 neural foramen and with additional masses extend caudally along the right piriformis muscle. (2) Bacteremia: Code(s): R78.81 - Bacteremia Status: Acute Assessment and Plan: See above (3) Acute hyponatremia: Code(s): E87.1 - Hypo-osmolality and hyponatremia Status: Acute Assessment and Plan: 12/22: Sodium decreased to 129 from 133 yesterday, suspect patient is a little on the dry side, will give gentle hydration today and recheck tomorrow 12/23: Sodium improved to 136 with cont IVF, monitor (4) Obesity: Code(s): E66.9 - Obesity, unspecified Status: Acute Assessment and Plan: Outpatient management recommended (5) Coronary artery disease: Code(s): I25.10 - Atherosclerotic heart disease of [place] coronary artery without angina pectoris Status: Acute Assessment and Plan: Stable (6) Smoking: Code(s): F17.200 - Nicotine dependence, unspecified, uncomplicated Status: Acute Assessment and Plan: Nicotine patch prn, smoking cessation encouraged (7) Sleep apnea: Code(s): G47.30 - Sleep apnea, unspecified Status: Acute Assessment and
[2021-12-23] MEDS: LIDOCAINE 5% PATCH 1 PATCH TRANSDERM (08:04)
[2021-12-23] MEDS: diazePAM (*CRX) 5 MG TABLET PO ×2 (09:14→17:41)
[2021-12-23] MEDS: SERTRALINE HCL 50 MG TABLET 200 MG PO (09:14)
[2021-12-23] MEDS: buPROPion HCL SR (12HR) 100 MG TABCR 200 MG PO (09:15)
[2021-12-23] MEDS: LOSARTAN POTASSIUM 100 MG TABLET PO (09:15)
[2021-12-23] MEDS: lamoTRIgine 100 MG TABLET 200 MG PO (09:15)
--- NOTE | 2021-12-23 09:24 | PM.PNCARD ---
Progress Note: A&P Assessment and Plan (1) Bacteremia: Code(s): R78.81 - Bacteremia Status: Acute Assessment and Plan: On antibiotics as per hospitalist. Transthoracic echo on 12/16/21 does not show any obvious valve infection or valve involvement but it is not the best images either. TERRI on 12/23/21 shows no endocarditis. (2) Sepsis: Code(s): A41.9 - Sepsis, unspecified organism Status: Acute (3) Psoas abscess, left: Code(s): K68.12 - Psoas muscle abscess Status: Acute Assessment and Plan: He is having severe pain in his back. Needs immediate evaluation by neurosurgeon if it is due to osteomyelitis/nerve involvement. (4) Coronary artery disease: Code(s): I25.10 - Atherosclerotic heart disease of [place] coronary artery without angina pectoris Status: Acute Assessment and Plan: Stable. (5) Smoking: Code(s): F17.200 - Nicotine dependence, unspecified, uncomplicated Status: Acute Assessment and Plan: Counseled regarding smoking cessation. (6) Hyperlipidemia due to dietary fat intake: Code(s): E78.49 - Other hyperlipidemia Status: Acute Assessment and Plan: Advise to maintain a low saturated fat diet. (7) Hypertension: Code(s): I10 - Essential (primary) hypertension Status: Acute Assessment and Plan: High BP likely due to severe back pain. He has been hypertensive for last several days. On Losartan 100 mg daily. Increased Hydralazine 12 mg IV q 4 HR prn for SBP>160. Subjective Date/time seen: 12/23/21 09:24 Reports 10/10 lower back pain. No chest pain or sob. Exam Const: General: cooperative, in distress and anxious Resp: Auscultation: clear to auscultation bilaterally, no crackles, no rales, no rhonchi and no wheezes Cardio: Jugular venous distension: no JVD Rate: regular rate Rhythm: regular rhythm Heart sounds: no murmurs GI: GI Palp: No abdominal tenderness and Yes Soft to palpation Neuro: General: oriented to person, oriented to place and oriented to time Extrem: Right lower extremity: no edema Left lower extremity: no edema Objective Data Vital Signs Vital Signs: Vital Signs - 24 hr 12/22/21 14:11 12/22/21 21:28 12/23/21 06:00 Temperature 98.3 F 97.5 F L 97.9 F Pulse Rate 85 90 81 Respiratory Rate 18 16 18 Blood Pressure 150/84 H 158/90 H 154/89 H Pulse Oximetry 97 95 95 Oxygen Delivery Oxygen Flow Rate 12/23/21 08:25 12/23/21 08:15 12/23/21 08:30 Temperature Pulse Rate 82 88 85 Respiratory Rate 13 17 19 Blood Pressure 164/87 H 163/89 H 165/92 H Pulse Oximetry 98 98 98 Oxygen Delivery Nasal Cannula Room Air Nasal Cannula Oxygen Flow Rate 3 3 12/23/21 08:36 12/23/21 08:58 12/23/21 08:45 Temperature Pulse Rate 83 84 88 Respiratory Rate 14 14 15 Blood Pressure 159/82 H 169/93 H 156/98 H Pulse Oximetry 98 95 97 Oxygen Delivery Nasal Cannula Room Air Room Air Oxygen Flow Rate 3 Intake/Output Intake/Output: Intake & Output 12/20/21 12/21/21 12/22/21 12/23/21 23:59 23:59 23:59 23:59 Intake Total 3990 4650 3760 2300 Output Total 400 3175 2225 2175 Balance 3590 1475 1535 125 Meds/Results Medications: Active Medications Generic Name Dose Route Start Last Admin Trade Name Freq PRN Reason Stop Dose Admin Bupropion HCl 200 mg 12/16/21 09:00 12/23/21 09:15 Bupropion Hcl Sr (12hr) 100 Mg Tabcr PO 200 mg DAILY FRANTZ Administration Diazepam 5 mg 12/16/21 09:00 12/23/21 09:14 Diazepam (*Crx) 5 Mg Tablet PO 5 mg BID FRANTZ Administration Hydralazine HCl 20 mg 12/22/21 08:19 Hydralazine Hcl 20 Mg/Ml Vial IV PUSH Q4H PRN Blood Pressure - High Hydromorphone HCl 1 mg 12/20/21 14:51 12/23/21 07:49 Hydromorphone Hcl Inj (*Crx) 2 Mg/Ml Vial IV PUSH 1 mg Q2H PRN Administration Pain Rated 7-10 Sodium Chloride 1,000 mls @ 75 mls/hr 12/22/21 09:30 12/23/21 09:14 Normal Saline
--- NOTE | 2021-12-23 09:28 | PC.NURSE ---
Patient to Cardiac labor relations worker for TERRI on 12/23/21 at 0800.
--- NOTE | 2021-12-23 09:30 | ECHO_ITS ---
Patient Info Name: Rivera Aguilar Age: 51 years : 1970 Gender: Male Ht: 68 in Wt: 230 lbs BSA: 2.28 m2 HR: 78 bpm BP: 163 / 89 mmHg Heart Rhythm: Sinus Rhythm Technical Quality: Good Exam Date: 12/23/2021 7:39 AM Exam Location: [facility] Patient Status: Inpatient Admit Date: 12/16/2021 Staff Ordering Physician: Nj Conte DO Riddler Operator: Conchita Diaz RDCS Attending Provider: Shavonne Lopez DO Referring Physician: Dg YANEZ; Exam Type: CA echo transesophageal Study Info Indications - Bacteremia Complete two-dimensional, color flow and Doppler transesophageal study is performed. Procedure Details Risks/benefits/alternative treatment to TERRI discuss with patient and he is agreeable to procedure. He was monitored electrocardiographically, BP, HR and pulse ox throughout the procedure. BP 160's SBP, HR 68 bpm, pulse ox at >95%. He was in sinus rhythm. Cetacaine spray x 2 given to posterior oropharynx. Fentanyl 25 mcg and Versed 1 mg IV given. TERRI probe advanced to oropharynx and he swallowed probe without incident. Agitated saline given x 1. Multiple images at various levels in esophagus obtained. TERRI probe without and no blood noted on TERRI probe tipe. Patient tolerated procedure well with no complications. Summary 1. Transesophageal echocardiogram to assess for endocarditis. 2. Left ventricular chamber dimension is normal. 3. Left ventricular systolic function is normal with an ejection fraction of 60-65%. 4. The left ventricular diastolic function is indeterminate as it was not assessed.. 5. There is trace aortic valve regurgitation. 6. There is mild mitral valve regurgitation. Left Ventricle Left ventricular systolic function is normal with an ejection fraction of 60-65%. The left ventricular diastolic function is indeterminate as it was not assessed.. Transesophageal echocardiogram to assess for endocarditis. Left ventricular chamber dimension is normal. Right Ventricle Right ventricular chamber dimension is normal. Right ventricular systolic function is normal. Left Atria Left atrial chamber dimension is normal. Right Atria Right atrial chamber dimension is normal. Aortic Valve The aortic valve is trileaflet. There is no aortic valve stenosis. There is trace aortic valve regurgitation. No aortic valve vegetation visualized. Pulmonic Valve There is no pulmonic regurgitation. No pulmonic valve vegetation visualized. Mitral Valve There is no mitral valve stenosis. There is mild mitral valve regurgitation. No mitral valve vegetation visualized. Tricuspid Valve There is no tricuspid valve regurgitation. No tricuspid valve vegetation visualized. Pericardium/Pleural There is no pericardial effusion. Inferior Vena Cava Inferior vena cava is not well visualized. Aorta The aortic root size at the sinus of Valsalva is normal. Report Signatures
--- NOTE | 2021-12-23 09:31 | PC.NURSE ---
Patient returned to room from cardiac cathead operator at 0906.
[2021-12-23] MEDS: TOLNAFTATE 1% POWDER 45 GM BTL 1 APPLIC TOPICAL ×2 (11:05→20:12)
[2021-12-23] MEDS: polyethylene glycoL 3350 17 GM POWD.PACK PO (11:06)
--- NOTE | 2021-12-23 11:19 | PCNWS ---
Weekly nutritional screen. Patient is tolerating current heart healthy diet with adequate intake at 75-100% all meals. No weight loss reported. No nutritional needs at this time.
[2021-12-23] MEDS: LORATADINE 10 MG TABLET PO ×2 (14:45→17:41)
[2021-12-23] MEDS: BETAMETHASONE/CLOTRIMAZOLE CR 15 GM TUBE 1 APPLIC TOPICAL ×2 (14:45→20:12)
[2021-12-23] MEDS: traZODone HCL 50 MG TABLET PO (20:13)
[2021-12-23 21:45] LABS: Vancomycin Trough 24.6 ug/mL (10.0-20.0)
[2021-12-24] MEDS: SODIUM CHLORIDE 0.9% IV 1,000 ML 75 ML IV CONT ×2 (00:59→18:12)
[2021-12-24] MEDS: HYDROmorphone HCL INJ (*CRX) 2 MG/ML VIAL 1 MG IV PUSH ×4 (03:08→17:33)
[2021-12-24] MEDS: oxyCODONE/ACETAMINOPHEN (*CRX) 10-325 MG TABLET 1 TAB PO ×4 (03:09→20:53)
[2021-12-24 05:56] LABS: Basophils Absolute Auto 0.1 K/mm3 (0.0-0.1); Basophils Percent Auto 0.4 % (0.2-1.2); Eosinophils Absolute Auto 0.3 K/mm3 (0-0.3); Hematocrit 35.7 % (42.0-52.0); Hemoglobin 11.4 g/dL (14.0-18.0); Immature Granulocyte Absolute 0.36 K/mm3 (0.00-0.031); Immature Granulocyte Percent A 2.4 % (0-0.5); Lymphocytes Absolute Auto 1.87 K/mm3 (0.9-3.2); Lymphocytes Percent Auto 12.6 % (18.3-44.2); Mean Corpuscular HGB Conc 31.9 g/dl (32-36); Mean Corpuscular Hemoglobin 29.6 pg (26-34); Mean Corpuscular Volume 92.7 fl (80-100); Mean Platelet Volume 9.4 fl (7.4-10.4); Neutrophils Absolute Auto 11.2 K/mm3 (1.3-6.7); Neutrophils Percent Auto 75.6 % (45.5-73.1); Platelet Count Result 541 k/mm3 (150-375); Red Blood Count 3.85 M/mm3 (4.6-6.20); Red Cell Distribution Width 14.7 % (11.5-14.5); White Blood Count 14.8 K/mm3 (4.5-10.0)
[2021-12-24 06:00] VITALS: BP 166/96; PULSE 83; RESP 18; TEMP 37.2; O2SAT 96
--- NOTE | 2021-12-24 06:00 | PC.NURSE ---
Pt had complaints of pain most of the night. Pt has rash on bottom of unknown origin. Pt restless early on. Will continue to monitor pt.
[2021-12-24 06:30] LABS: Alanine Aminotransferase 21 U/L (6-50); Albumin Level 2.9 g/dL (3.5-5.1); Alkaline Phosphatase 183 U/L (38-126); Anion Gap 8 mmol/L (8-16); Aspartate Amino Transferase 26 U/L (17-59); Bilirubin,Total 0.3 mg/dL (0.2-1.3); Blood Urea Nitrogen 12 mg/dL (9-20); Calcium 8.4 mg/dL (8.4-10.2); Carbon Dioxide 27 mmol/L (22-30); Chloride 99 mmol/L (98-107); Estimated CRCL calculation 98 ml/min; Estimated Glomerular Filt Rate > 60; Glucose 118 mg/dL (65-110); Sodium 134 mmol/L (137-145)
--- NOTE | 2021-12-24 07:56 | PM.PNCARD ---
Progress Note: A&P Assessment and Plan (1) Bacteremia: Code(s): R78.81 - Bacteremia Status: Acute Assessment and Plan: On antibiotics as per hospitalist. Transthoracic echo on 12/16/21 does not show any obvious valve infection or valve involvement but it is not the best images either. TERRI on 12/23/21 shows no endocarditis. (2) Sepsis: Code(s): A41.9 - Sepsis, unspecified organism Status: Acute (3) Psoas abscess, left: Code(s): K68.12 - Psoas muscle abscess Status: Acute Assessment and Plan: He is having severe pain in his back. (4) Coronary artery disease: Code(s): I25.10 - Atherosclerotic heart disease of [place] coronary artery without angina pectoris Status: Acute Assessment and Plan: Stable. (5) Smoking: Code(s): F17.200 - Nicotine dependence, unspecified, uncomplicated Status: Acute Assessment and Plan: Counseled regarding smoking cessation. (6) Hyperlipidemia due to dietary fat intake: Code(s): E78.49 - Other hyperlipidemia Status: Acute Assessment and Plan: Advise to maintain a low saturated fat diet. (7) Hypertension: Code(s): I10 - Essential (primary) hypertension Status: Acute Assessment and Plan: High BP likely due to severe back pain. Does not normally have hypertension prior to admission. On Losartan 100 mg daily. Increased Hydralazine 12 mg IV q 4 HR prn for SBP>160. Subjective Date/time seen: 12/24/21 07:56 Reports lower back pain at 9/10 in intensity. No chest pain or sob. Exam Const: General: cooperative, in distress and anxious Resp: Auscultation: clear to auscultation bilaterally, no crackles, no rales, no rhonchi and no wheezes Cardio: Jugular venous distension: no JVD Rate: regular rate Rhythm: regular rhythm Heart sounds: no murmurs GI: GI Palp: No abdominal tenderness and Yes Soft to palpation Neuro: General: oriented to person, oriented to place and oriented to time Extrem: Right lower extremity: no edema Left lower extremity: no edema Objective Data Vital Signs Vital Signs: Vital Signs - 24 hr 12/23/21 08:25 12/23/21 08:15 12/23/21 08:30 Temperature Pulse Rate 82 88 85 Respiratory Rate 13 17 19 Blood Pressure 164/87 H 163/89 H 165/92 H Pulse Oximetry 98 98 98 Oxygen Delivery Nasal Cannula Room Air Nasal Cannula Oxygen Flow Rate 3 3 12/23/21 08:36 12/23/21 08:58 12/23/21 08:45 Temperature Pulse Rate 83 84 88 Respiratory Rate 14 14 15 Blood Pressure 159/82 H 169/93 H 156/98 H Pulse Oximetry 98 95 97 Oxygen Delivery Nasal Cannula Room Air Room Air Oxygen Flow Rate 3 12/23/21 09:32 12/23/21 14:00 12/23/21 20:12 Temperature 96.9 F L 97.7 F Pulse Rate 87 88 Respiratory Rate 24 H 14 Blood Pressure 169/85 H 146/68 H Pulse Oximetry 96 92 Oxygen Delivery Room Air Oxygen Flow Rate 12/23/21 22:00 12/23/21 23:15 12/24/21 06:00 Temperature 97.5 F L 98.9 F Pulse Rate 93 86 83 Respiratory Rate 16 18 18 Blood Pressure 166/87 H 166/96 H Pulse Oximetry 98 96 96 Oxygen Delivery Autopap Oxygen Flow Rate Intake/Output Intake/Output: Intake & Output 12/21/21 12/22/21 12/23/21 12/24/21 23:59 23:59 23:59 23:59 Intake Total 4650 3760 6090 550 Output Total 3175 2225 3825 1600 Balance 1475 4707 2265 1050 Meds/Results Medications: Active Medications Generic Name Dose Route Start Last Admin Trade Name Freq PRN Reason Stop Dose Admin Bupropion HCl 200 mg 12/16/21 09:00 12/23/21 09:15 Bupropion Hcl Sr (12hr) 100 Mg Tabcr PO 200 mg DAILY FRANTZ Administration Clotrimazole 1 applic 12/23/21 12:55 12/23/21 20:12 Betamethasone/Clotrimazole Cr 15 Gm Tube TOPICAL 1 applic Q12HR FRANTZ Administration Diazepam 5 mg 12/16/21 09:00 12/23/21 17:41 Diazepam (*Crx) 5 Mg Tablet PO 5 mg BID FRANTZ Administration Hydralazine HCl 20 mg 12/22/21 08:19 Hydralazine Hcl 20 Mg/Ml Via
[2021-12-24] MEDS: polyethylene glycoL 3350 17 GM POWD.PACK PO (08:07)
[2021-12-24] MEDS: SERTRALINE HCL 50 MG TABLET 200 MG PO (08:08)
[2021-12-24] MEDS: BETAMETHASONE/CLOTRIMAZOLE CR 15 GM TUBE 1 APPLIC TOPICAL ×2 (08:08→20:54)
[2021-12-24] MEDS: LORATADINE 10 MG TABLET PO ×2 (08:09→16:42)
[2021-12-24] MEDS: buPROPion HCL SR (12HR) 100 MG TABCR 200 MG PO (08:09)
[2021-12-24] MEDS: LOSARTAN POTASSIUM 100 MG TABLET PO (08:09)
[2021-12-24] MEDS: diazePAM (*CRX) 5 MG TABLET PO ×2 (08:09→16:42)
[2021-12-24] MEDS: lamoTRIgine 100 MG TABLET 200 MG PO (08:09)
[2021-12-24] MEDS: TOLNAFTATE 1% POWDER 45 GM BTL 1 APPLIC TOPICAL ×2 (08:10→20:54)
[2021-12-24] MEDS: KETOROLAC 30 MG/ML VIAL (*BKC) IV PUSH ×2 (09:53→17:33)
[2021-12-24 14:08] VITALS: BP 164/95; PULSE 88; RESP 16; TEMP 36.9; O2SAT 95
--- NOTE | 2021-12-24 19:17 | PM.IMPN ---
Progress Note: A&P Assessment and Plan (1) Psoas abscess, left: Code(s): K68.12 - Psoas muscle abscess Status: Acute (2) Bacteremia: Code(s): R78.81 - Bacteremia Status: Acute (3) Acute hyponatremia: Code(s): E87.1 - Hypo-osmolality and hyponatremia Status: Acute (4) Obesity: Code(s): E66.9 - Obesity, unspecified Status: Acute (5) Coronary artery disease: Code(s): I25.10 - Atherosclerotic heart disease of [place] coronary artery without angina pectoris Status: Acute (6) Smoking: Code(s): F17.200 - Nicotine dependence, unspecified, uncomplicated Status: Acute (7) Sleep apnea: Code(s): G47.30 - Sleep apnea, unspecified Status: Acute (8) COPD (chronic obstructive pulmonary disease): Code(s): J44.9 - Chronic obstructive pulmonary disease, unspecified Status: Acute (9) Osteoarthritis involving multiple joints on both sides of body: Code(s): M15.9 - Polyosteoarthritis, unspecified Status: Acute (10) Morbilliform rash: Code(s): R21 - Rash and other nonspecific skin eruption Status: Acute Plan 12/24/21 improving cont abx drain w minimal output elevated bp persistently since admission despite Losartan add amlodipine 5 improve pain control tylenol/5/10 cont pt/ot am labs Subjective Date/time seen: 12/24/21 19:17 pain improved since admission but still present and severe, no other complaints Review of Systems Review of Systems: All systems reviewed & are unremarkable except as noted in HPI and below Exam Narrative: General: Resting comfortably, alert and oriented x3 HEENT: Atraumatic, normocephalic, mucous membranes moist CV: Regular rate and rhythm, S1, S2 Lungs: Clear to auscultation bilaterally, no rales or crackles noted, no wheezes, good air entry Abdomen: Soft, nontender, nondistended, L sided drain present w serosanguineous output Extremities: Normal to inspection Psych: Euthymic, normal affect Objective Data Vital Signs Vital Signs: Vital Signs - 24 hr 12/23/21 20:12 12/23/21 22:00 12/23/21 23:15 Temperature 97.5 F L Pulse Rate 93 86 Respiratory Rate 16 18 Blood Pressure 166/87 H Pulse Oximetry 98 96 Oxygen Delivery Room Air Autopap 12/24/21 06:00 12/24/21 14:08 Temperature 98.9 F 98.5 F Pulse Rate 83 88 Respiratory Rate 18 16 Blood Pressure 166/96 H 164/95 H Pulse Oximetry 96 95 Oxygen Delivery Intake/Output Intake/Output: Intake & Output 12/21/21 12/22/21 12/23/21 12/24/21 23:59 23:59 23:59 23:59 Intake Total 4650 3760 6090 4180 Output Total 3175 2225 3825 3810 Balance 1475 1535 2265 370 Meds/Results Medications: Active Medications Generic Name Dose Route Start Last Admin Trade Name Freq PRN Reason Stop Dose Admin Bupropion HCl 200 mg 12/16/21 09:00 12/24/21 08:09 Bupropion Hcl Sr (12hr) 100 Mg Tabcr PO 200 mg DAILY FRANTZ Administration Clotrimazole 1 applic 12/23/21 12:55 12/24/21 08:08 Betamethasone/Clotrimazole Cr 15 Gm Tube TOPICAL 1 applic Q12HR FRANTZ Administration Diazepam 5 mg 12/16/21 09:00 12/24/21 16:42 Diazepam (*Crx) 5 Mg Tablet PO 5 mg BID FRANTZ Administration Hydralazine HCl 20 mg 12/22/21 08:19 Hydralazine Hcl 20 Mg/Ml Vial IV PUSH Q4H PRN Blood Pressure - High Hydromorphone HCl 1 mg 12/20/21 14:51 12/24/21 17:33 Hydromorphone Hcl Inj (*Crx) 2 Mg/Ml Vial IV PUSH 1 mg Q2H PRN Administration Pain Rated 7-10 Sodium Chloride 1,000 mls @ 75 mls/hr 12/22/21 09:30 12/24/21 18:12 Normal Saline Iv IV CONT 75 mls/hr .[id number] FRANTZ Administration Vancomycin HCl 2,000 mg in 500 mls @ 250 mls/hr 12/24/21 04:00 12/24/21 17:08 Vancomycin 2,000 Mg/D5w 500 Ml IVPB Infused Q12H FRANTZ Infusion Ketorolac Tromethamine 30 mg 12/16/21 16:54 12/24/21 17:33 Ketorolac 30 Mg/Ml Vial (*Bk) IV PUSH 30 mg Q6H PRN Administration
[2021-12-24] MEDS: traZODone HCL 50 MG TABLET PO (20:53)
[2021-12-24 21:09] VITALS: BP 164/87; PULSE 88; RESP 17; TEMP 36.1; O2SAT 99
[2021-12-24 22:30] VITALS: PULSE 88; RESP 14; O2SAT 98
[2021-12-25 02:35] VITALS: PULSE 81; RESP 17; O2SAT 98
[2021-12-25] MEDS: oxyCODONE/ACETAMINOPHEN (*CRX) 10-325 MG TABLET 1 TAB PO ×4 (03:04→15:17)
--- NOTE | 2021-12-25 04:51 | PC.NURSE ---
Pt continues to have pain. Pt slept for about 4 hours and then woke up in pain. Pt was given PO pain medication. Pt was upset that IV pain medication had been discontinued. Will continue to monitor pt.
[2021-12-25 06:00] VITALS: BP 174/86; PULSE 85; RESP 17; TEMP 36.4; O2SAT 100
[2021-12-25 06:15] LABS: Basophils Absolute Auto 0.1 K/mm3 (0.0-0.1); Basophils Percent Auto 0.4 % (0.2-1.2); Eosinophils Absolute Auto 0.2 K/mm3 (0-0.3); Eosinophils Percent Auto 1.7 % (0-4.4); Hematocrit 34.2 % (42.0-52.0); Hemoglobin 11.2 g/dL (14.0-18.0); Immature Granulocyte Absolute 0.19 K/mm3 (0.00-0.031); Immature Granulocyte Percent A 1.4 % (0-0.5); Lymphocytes Absolute Auto 1.74 K/mm3 (0.9-3.2); Lymphocytes Percent Auto 13.2 % (18.3-44.2); Mean Corpuscular HGB Conc 32.7 g/dl (32-36); Mean Corpuscular Hemoglobin 29.6 pg (26-34); Mean Corpuscular Volume 90.5 fl (80-100); Mean Platelet Volume 9.5 fl (7.4-10.4); Monocytes Percent Auto 7.5 % (2.6-8.5); Neutrophils Percent Auto 75.8 % (45.5-73.1); Platelet Count Result 554 k/mm3 (150-375); Red Blood Count 3.78 M/mm3 (4.6-6.20); Red Cell Distribution Width 14.5 % (11.5-14.5); White Blood Count 13.2 K/mm3 (4.5-10.0)
[2021-12-25 06:26] LABS: Alanine Aminotransferase 21 U/L (6-50); Albumin Level 3.2 g/dL (3.5-5.1); Alkaline Phosphatase 153 U/L (38-126); Anion Gap 12 mmol/L (8-16); Aspartate Amino Transferase 26 U/L (17-59); Bilirubin,Total 0.3 mg/dL (0.2-1.3); Blood Urea Nitrogen 10 mg/dL (9-20); Calcium 8.6 mg/dL (8.4-10.2); Carbon Dioxide 28 mmol/L (22-30); Chloride 97 mmol/L (98-107); Estimated CRCL calculation 88 ml/min; Estimated Glomerular Filt Rate > 60; Glucose 123 mg/dL (65-110); Potassium 4.3 mmol/L (3.4-5.0); Sodium 137 mmol/L (137-145)
--- NOTE | 2021-12-25 08:14 | PM.PNCARD ---
Progress Note: A&P Assessment and Plan (1) Bacteremia: Code(s): R78.81 - Bacteremia Status: Acute Assessment and Plan: On antibiotics as per hospitalist. Transthoracic echo on 12/16/21 does not show any obvious valve infection or valve involvement but it is not the best images either. TERRI on 12/23/21 shows no endocarditis. Await transfer to U once bed available. (2) Sepsis: Code(s): A41.9 - Sepsis, unspecified organism Status: Acute (3) Psoas abscess, left: Code(s): K68.12 - Psoas muscle abscess Status: Acute Assessment and Plan: He is having severe pain in his back. (4) Coronary artery disease: Code(s): I25.10 - Atherosclerotic heart disease of [place] coronary artery without angina pectoris Status: Acute Assessment and Plan: Stable. (5) Smoking: Code(s): F17.200 - Nicotine dependence, unspecified, uncomplicated Status: Acute Assessment and Plan: Counseled regarding smoking cessation. (6) Hyperlipidemia due to dietary fat intake: Code(s): E78.49 - Other hyperlipidemia Status: Acute Assessment and Plan: Advise to maintain a low saturated fat diet. (7) Hypertension: Code(s): I10 - Essential (primary) hypertension Status: Acute Assessment and Plan: High BP likely due to severe back pain. Does not normally have hypertension prior to admission. On Losartan 100 mg daily. Started on Amlodipine 5 mg daily. Increased Hydralazine 12 mg IV q 4 HR prn for SBP>160. Monitor BP closely as BP may drop once back pain relieved. Subjective Date/time seen: 12/25/21 08:14 Reports severe lower back pain at 9/10. No chest pain or sob. Exam Const: General: cooperative, in distress and anxious Resp: Auscultation: clear to auscultation bilaterally, no crackles, no rales, no rhonchi and no wheezes Cardio: Jugular venous distension: no JVD Rate: regular rate Rhythm: regular rhythm Heart sounds: no murmurs GI: GI Palp: No abdominal tenderness and Yes Soft to palpation Neuro: General: oriented to person, oriented to place and oriented to time Extrem: Right lower extremity: no edema Left lower extremity: no edema Objective Data Vital Signs Vital Signs: Vital Signs - 24 hr 12/24/21 14:08 12/24/21 21:09 12/24/21 22:01 Temperature 98.5 F 96.9 F L Pulse Rate 88 88 Respiratory Rate 16 17 Blood Pressure 164/95 H 164/87 H Pulse Oximetry 95 99 Oxygen Delivery Autopap 12/24/21 22:30 12/25/21 02:35 12/25/21 06:00 Temperature 97.6 F Pulse Rate 88 81 85 Respiratory Rate 14 17 17 Blood Pressure 174/86 H Pulse Oximetry 98 98 100 Oxygen Delivery Autopap Autopap Intake/Output Intake/Output: Intake & Output 12/22/21 12/23/21 12/24/21 12/25/21 23:59 23:59 23:59 23:59 Intake Total 3760 6090 4180 1600 Output Total 2225 3825 3810 2700 Balance 1535 2265 370 -1100 Meds/Results Medications: Active Medications Generic Name Dose Route Start Last Admin Trade Name Freq PRN Reason Stop Dose Admin Amlodipine Besylate 5 mg 12/25/21 09:00 Amlodipine Besylate 5 Mg Tablet PO QAM FRANTZ Bupropion HCl 200 mg 12/16/21 09:00 12/24/21 08:09 Bupropion Hcl Sr (12hr) 100 Mg Tabcr PO 200 mg DAILY FRANTZ Administration Clotrimazole 1 applic 12/23/21 12:55 12/24/21 20:54 Betamethasone/Clotrimazole Cr 15 Gm Tube TOPICAL 1 applic Q12HR FRANTZ Administration Diazepam 5 mg 12/16/21 09:00 12/24/21 16:42 Diazepam (*Crx) 5 Mg Tablet PO 5 mg BID FRANTZ Administration Hydralazine HCl 10 mg 12/24/21 19:29 Hydralazine Hcl 20 Mg/Ml Vial IV PUSH Q4H PRN Blood Pressure - High SBP>180 Sodium Chloride 1,000 mls @ 75 mls/hr 12/22/21 09:30 12/24/21 18:12 Normal Saline Iv IV CONT 75 mls/hr .[id number] FRANTZ Administration Vancomycin HCl 2,000 mg in 500 mls @ 250 mls/hr 12/24/21 04:00 12/25/21 05:04 Vancomycin 2,000 Mg/D5w 500 Ml IVPB Infused
[2021-12-25] MEDS: amLODIPine BESYLATE 5 MG TABLET PO (08:58)
[2021-12-25] MEDS: SERTRALINE HCL 50 MG TABLET 200 MG PO (08:59)
[2021-12-25] MEDS: BETAMETHASONE/CLOTRIMAZOLE CR 15 GM TUBE 1 APPLIC TOPICAL ×2 (08:59→20:47)
[2021-12-25] MEDS: LOSARTAN POTASSIUM 100 MG TABLET PO (08:59)
[2021-12-25] MEDS: LORATADINE 10 MG TABLET PO ×2 (08:59→16:19)
[2021-12-25] MEDS: lamoTRIgine 100 MG TABLET 200 MG PO (08:59)
[2021-12-25] MEDS: buPROPion HCL SR (12HR) 100 MG TABCR 200 MG PO (08:59)
[2021-12-25] MEDS: diazePAM (*CRX) 5 MG TABLET PO ×2 (08:59→16:19)
[2021-12-25] MEDS: polyethylene glycoL 3350 17 GM POWD.PACK PO (09:00)
[2021-12-25] MEDS: TOLNAFTATE 1% POWDER 45 GM BTL 1 APPLIC TOPICAL ×2 (09:00→20:47)
[2021-12-25] MEDS: SODIUM CHLORIDE 0.9% IV 1,000 ML 75 ML IV CONT (09:06)
[2021-12-25] MEDS: MORPHINE SULFATE (*CRX) 2 MG/ML INJ IV PUSH ×2 (13:18→23:24)
[2021-12-25 14:00] VITALS: BP 163/90; PULSE 96; RESP 17; TEMP 36.2; O2SAT 97
[2021-12-25 15:50] LABS: Vancomycin Trough 17.8 ug/mL (10.0-20.0)
--- NOTE | 2021-12-25 15:50 | PM.IMPN ---
Progress Note: A&P Assessment and Plan (1) Psoas abscess, left: Code(s): K68.12 - Psoas muscle abscess Status: Acute (2) Bacteremia: Code(s): R78.81 - Bacteremia Status: Acute (3) Acute hyponatremia: Code(s): E87.1 - Hypo-osmolality and hyponatremia Status: Acute (4) Obesity: Code(s): E66.9 - Obesity, unspecified Status: Acute (5) Coronary artery disease: Code(s): I25.10 - Atherosclerotic heart disease of [place] coronary artery without angina pectoris Status: Acute (6) Smoking: Code(s): F17.200 - Nicotine dependence, unspecified, uncomplicated Status: Acute (7) Sleep apnea: Code(s): G47.30 - Sleep apnea, unspecified Status: Acute (8) COPD (chronic obstructive pulmonary disease): Code(s): J44.9 - Chronic obstructive pulmonary disease, unspecified Status: Acute (9) Osteoarthritis involving multiple joints on both sides of body: Code(s): M15.9 - Polyosteoarthritis, unspecified Status: Acute (10) Morbilliform rash: Code(s): R21 - Rash and other nonspecific skin eruption Status: Acute Plan 12/24/21 improving cont abx drain w minimal output elevated bp persistently since admission despite Losartan add amlodipine 5 improve pain control tylenol/5/10 cont pt/ot am labs 12/25/21 pt remains on wait list, POC reviewed w in house neurosurgeon tx is TSLO brace better pain control muscle relaxer + high potency narcotic and may require DEXTRINE MIXER PT/OT encourage mobilization cont current care neuro checks q shift Subjective Date/time seen: 12/25/21 15:50 pt in excruciating pain, morphine 2mg IV x now dose given pt on percocet 5/10 regimen w morphine x Breakthrough call placed to neurosurg to review POC in light of failed transfer Review of Systems Review of Systems: All systems reviewed & are unremarkable except as noted in HPI and below Exam Narrative: General: Resting comfortably, alert and oriented x3 HEENT: Atraumatic, normocephalic, mucous membranes moist CV: Regular rate and rhythm, S1, S2 Lungs: Clear to auscultation bilaterally, no rales or crackles noted, no wheezes, good air entry Abdomen: Soft, nontender, nondistended, L sided drain present w serosanguineous output Extremities: Normal to inspection Psych: Euthymic, normal affect Objective Data Vital Signs Vital Signs: Vital Signs - 24 hr 12/24/21 21:09 12/24/21 22:01 12/24/21 22:30 Temperature 96.9 F L Pulse Rate 88 88 Respiratory Rate 17 14 Blood Pressure 164/87 H Pulse Oximetry 99 98 Oxygen Delivery Autopap Autopap 12/25/21 02:35 12/25/21 06:00 12/25/21 14:00 Temperature 97.6 F 97.2 F L Pulse Rate 81 85 96 Respiratory Rate 17 17 17 Blood Pressure 174/86 H 163/90 H Pulse Oximetry 98 100 97 Oxygen Delivery Autopap Intake/Output Intake/Output: Intake & Output 12/22/21 12/23/21 12/24/21 12/25/21 23:59 23:59 23:59 23:59 Intake Total 3760 6090 4180 3062 Output Total 2225 3825 3810 4600 Balance 1535 2263 370 1536 Meds/Results Medications: Active Medications Generic Name Dose Route Start Last Admin Trade Name Freq PRN Reason Stop Dose Admin Amlodipine Besylate 5 mg 12/25/21 09:00 12/25/21 08:58 Amlodipine Besylate 5 Mg Tablet PO 5 mg QAM FRANTZ Administration Bupropion HCl 200 mg 12/16/21 09:00 12/25/21 08:59 Bupropion Hcl Sr (12hr) 100 Mg Tabcr PO 200 mg DAILY FRANTZ Administration Clotrimazole 1 applic 12/23/21 12:55 12/25/21 08:59 Betamethasone/Clotrimazole Cr 15 Gm Tube TOPICAL 1 applic Q12HR FRANTZ Administration Diazepam 5 mg 12/16/21 09:00 12/25/21 08:59 Diazepam (*Crx) 5 Mg Tablet PO 5 mg BID FRANTZ Administration Hydralazine HCl 10 mg 12/24/21 19:29 Hydralazine Hcl 20 Mg/Ml Vial IV PUSH Q4H PRN Blood Pressure - High SBP>180 Hydromorphone HCl 2 mg 12/25/21 15:47 Hydromorphone Hcl (*Crx) 2 Mg T
--- NOTE | 2021-12-25 15:53 | PM.PNGS ---
Progress Note: A&P Assessment and Plan (1) Psoas abscess, left: Code(s): K68.12 - Psoas muscle abscess Status: Acute Assessment and Plan: Adequately drained. Most recent CT scan showing no residual fluid collection in this area. Minimal drain output over the past few days. I removed the percutaneous drain at the bedside today. Will sign off at this point. Call with any surgical questions or concerns. (2) Sepsis: Code(s): A41.9 - Sepsis, unspecified organism Status: Acute (3) Bacteremia: Code(s): R78.81 - Bacteremia Status: Acute Plan I have discussed the patient's case and plan of care with Dr. Alba. Subjective Subjective Date/Time Seen: 12/25/21 14:53 Patient reports: afebrile Interval history: Patient complaining of left lower back pain. Reports some soreness near the left lower quadrant perc drain. No other complaints at this time. Review of Systems Review of Systems: All systems reviewed & are unremarkable except as noted in HPI and below Exam Const: General: no acute distress Orientation/consciousness: patient oriented x3 GI: Inspection: non-distended GI Palp: Yes Soft to palpation, No Tenderness to palpation present (GI) and No Guarding due to palpation present (GI) Auscultation: normal bowel sounds Other: LLQ Pigtail drain with scant serosanguineous drainage in bag. Dressing and suture removed. I then removed the percutaneous drain at the bedside with no complications. Gauze and Tegaderm dressing applied. Extrem: General: normal to inspection Psych: Mental Status: mental status grossly normal Objective Data Vital Signs Vital Signs: Vital Signs - 24 hr 12/24/21 21:09 12/24/21 22:01 12/24/21 22:30 Temperature 96.9 F L Pulse Rate 88 88 Respiratory Rate 17 14 Blood Pressure 164/87 H Pulse Oximetry 99 98 Oxygen Delivery Autopap Autopap 12/25/21 02:35 12/25/21 06:00 12/25/21 14:00 Temperature 97.6 F 97.2 F L Pulse Rate 81 85 96 Respiratory Rate 17 17 17 Blood Pressure 174/86 H 163/90 H Pulse Oximetry 98 100 97 Oxygen Delivery Autopap Intake/Output Intake/Output: Intake & Output 12/22/21 12/23/21 12/24/21 12/25/21 23:59 23:59 23:59 23:59 Intake Total 3760 6082 4180 3062 Output Total 3913 9478 3040 3374 Balance 1534 5026 633 -7739 Meds/Results Medications: Active Medications Generic Name Dose Route Start Last Admin Trade Name Freq PRN Reason Stop Dose Admin Amlodipine Besylate 5 mg 12/25/21 09:00 12/25/21 08:58 Amlodipine Besylate 5 Mg Tablet PO 5 mg QAM FRANTZ Administration Bupropion HCl 200 mg 12/16/21 09:00 12/25/21 08:59 Bupropion Hcl Sr (12hr) 100 Mg Tabcr PO 200 mg DAILY FRANTZ Administration Clotrimazole 1 applic 12/23/21 12:55 12/25/21 08:59 Betamethasone/Clotrimazole Cr 15 Gm Tube TOPICAL 1 applic Q12HR FRANTZ Administration Diazepam 5 mg 12/16/21 09:00 12/25/21 08:59 Diazepam (*Crx) 5 Mg Tablet PO 5 mg BID FRANTZ Administration Hydralazine HCl 10 mg 12/24/21 19:29 Hydralazine Hcl 20 Mg/Ml Vial IV PUSH Q4H PRN Blood Pressure - High SBP>180 Hydromorphone HCl 2 mg 12/25/21 15:47 Hydromorphone Hcl (*Crx) 2 Mg Tablet PO Q4H PRN Pain Rated 7-10 Hydromorphone HCl 1 mg 12/25/21 15:47 Hydromorphone Hcl (*Crx) 1 Mg Tablet PO Q4H PRN Pain Rated 4-6 Sodium Chloride 1,000 mls @ 75 mls/hr 12/22/21 09:30 12/25/21 09:06 Normal Saline Iv IV CONT 75 mls/hr .[id number] FRANTZ Administration Vancomycin HCl 2,000 mg in 500 mls @ 250 mls/hr 12/24/21 04:00 12/25/21 05:04 Vancomycin 2,000 Mg/D5w 500 Ml IVPB Infused Q12H FRANTZ Infusion Lamotrigine 200 mg 12/16/21 09:00 12/25/21 08:59 Lamotrigine 100 Mg Tablet PO 200 mg DAILY FRANTZ Administration Loratadine 10 mg 12/23/21 12:55 12/25/21 08:59 Loratadine 10 Mg Tablet PO 10 mg BID FRANTZ Administration Losartan Potassium 100 mg 12/21/21 09:00
[2021-12-25] MEDS: HYDROmorphone HCL (*CRX) 1 MG TABLET 2 MG PO ×2 (16:25→20:47)
[2021-12-25] MEDS: traZODone HCL 50 MG TABLET PO (20:52)
[2021-12-25 21:28] VITALS: PULSE 82; RESP 13; O2SAT 95
[2021-12-25 22:00] VITALS: BP 170/98; PULSE 90; RESP 16; TEMP 36.4; O2SAT 95
[2021-12-25] MEDS: hydrALAZINE HCL 20 MG/ML VIAL 10 MG IV PUSH (22:52)
[2021-12-26 01:00] VITALS: BP 155/99; PULSE 99; TEMP 36.4; O2SAT 97
[2021-12-26] MEDS: SODIUM CHLORIDE 0.9% IV 1,000 ML 75 ML IV CONT ×2 (01:05→16:34)
[2021-12-26 02:20] VITALS: PULSE 84; RESP 16; O2SAT 96
--- NOTE | 2021-12-26 05:03 | PC.NURSE ---
Pt having pain tonight. Pt was given PO dilaudid and morphine for breakthrough pain. Hospitalist called to notify of pt continuing to have pain. Kpad was suggested and hospitalist agreed. Pt placed on Kpad and decadron was ordered for pain. Pt is resting more comfortably now. Pt wearing CPAP over night. Pt had visitor at beginning of the shift and both visitor and pt asked if he could go outside to smoke. Pt was educated on hospital policy and on the benefits of quitting smoking. Pt verbalized understanding. Will continue to monitor pt.
[2021-12-26 05:47] LABS: Basophils Absolute Auto 0.1 K/mm3 (0.0-0.1); Basophils Percent Auto 0.5 % (0.2-1.2); Eosinophils Absolute Auto 0.1 K/mm3 (0-0.3); Eosinophils Percent Auto 0.7 % (0-4.4); Hematocrit 37.8 % (42.0-52.0); Hemoglobin 12.2 g/dL (14.0-18.0); Immature Granulocyte Absolute 0.16 K/mm3 (0.00-0.031); Immature Granulocyte Percent A 1.3 % (0-0.5); Lymphocytes Absolute Auto 1.09 K/mm3 (0.9-3.2); Lymphocytes Percent Auto 8.6 % (18.3-44.2); Mean Corpuscular HGB Conc 32.3 g/dl (32-36); Mean Corpuscular Volume 92.9 fl (80-100); Mean Platelet Volume 9.4 fl (7.4-10.4); Monocytes Absolute Auto 0.3 K/mm3 (0.1-0.6); Neutrophils Absolute Auto 11.1 K/mm3 (1.3-6.7); Neutrophils Percent Auto 86.9 % (45.5-73.1); Platelet Count Result 587 k/mm3 (150-375); Red Blood Count 4.07 M/mm3 (4.6-6.20); Red Cell Distribution Width 14.5 % (11.5-14.5); White Blood Count 12.7 K/mm3 (4.5-10.0)
[2021-12-26 06:00] VITALS: BP 171/92; PULSE 97; RESP 18; TEMP 35.9; O2SAT 95
[2021-12-26 06:02] LABS: Alanine Aminotransferase 25 U/L (6-50); Albumin Level 3.6 g/dL (3.5-5.1); Alkaline Phosphatase 172 U/L (38-126); Anion Gap 12 mmol/L (8-16); Aspartate Amino Transferase 29 U/L (17-59); Bilirubin,Total 0.5 mg/dL (0.2-1.3); Blood Urea Nitrogen 9 mg/dL (9-20); Calcium 9.4 mg/dL (8.4-10.2); Carbon Dioxide 26 mmol/L (22-30); Chloride 97 mmol/L (98-107); Estimated CRCL calculation 98 ml/min; Estimated Glomerular Filt Rate > 60; Glucose 158 mg/dL (65-110); Potassium 4.3 mmol/L (3.4-5.0); Sodium 135 mmol/L (137-145)
--- NOTE | 2021-12-26 07:52 | PM.PNCARD ---
Progress Note: A&P Assessment and Plan (1) Bacteremia: Code(s): R78.81 - Bacteremia Status: Acute Assessment and Plan: On antibiotics as per hospitalist. Transthoracic echo on 12/16/21 does not show any obvious valve infection or valve involvement but it is not the best images either. TERRI on 12/23/21 shows no endocarditis. Await transfer to U once bed available. (2) Sepsis: Code(s): A41.9 - Sepsis, unspecified organism Status: Acute (3) Psoas abscess, left: Code(s): K68.12 - Psoas muscle abscess Status: Acute Assessment and Plan: He is having moderate pain in his back. (4) Coronary artery disease: Code(s): I25.10 - Atherosclerotic heart disease of [place] coronary artery without angina pectoris Status: Acute Assessment and Plan: Stable. (5) Smoking: Code(s): F17.200 - Nicotine dependence, unspecified, uncomplicated Status: Acute Assessment and Plan: Counseled regarding smoking cessation. (6) Hyperlipidemia due to dietary fat intake: Code(s): E78.49 - Other hyperlipidemia Status: Acute Assessment and Plan: Advise to maintain a low saturated fat diet. (7) Hypertension: Code(s): I10 - Essential (primary) hypertension Status: Acute Assessment and Plan: High BP likely due to severe back pain. Does not normally have hypertension prior to admission. On Losartan 100 mg daily and increased Amlodipine 10 mg daily. On Hydralazine 10 mg IV q 4 HR prn for SBP>160. Monitor BP closely as BP may drop once back pain relieved. If anticipate going home today, then will start a 3rd BP medication. Start Hydralazine 25 mg PO TID in place of IV Hydralazine. Subjective Date/time seen: 12/26/21 07:52 Drained removed yesterday. Lower back pain improved to 6/10 in intensity. No chest pain or sob. Exam Const: General: cooperative, in distress and anxious Resp: Auscultation: clear to auscultation bilaterally, no crackles, no rales, no rhonchi and no wheezes Cardio: Jugular venous distension: no JVD Rate: regular rate Rhythm: regular rhythm Heart sounds: no murmurs GI: GI Palp: No abdominal tenderness and Yes Soft to palpation Neuro: General: oriented to person, oriented to place and oriented to time Extrem: Right lower extremity: no edema Left lower extremity: no edema Objective Data Vital Signs Vital Signs: Vital Signs - 24 hr 12/25/21 14:00 12/25/21 20:42 12/25/21 21:28 Temperature 97.2 F L Pulse Rate 96 82 Respiratory Rate 17 13 Blood Pressure 163/90 H Pulse Oximetry 97 95 Oxygen Delivery Autopap Autopap 12/26/21 02:20 12/25/21 22:00 12/26/21 01:00 Temperature 97.5 F L 97.5 F L Pulse Rate 84 90 99 Respiratory Rate 16 16 Blood Pressure 170/98 H 155/99 H Pulse Oximetry 96 95 97 Oxygen Delivery Autopap 12/26/21 06:00 Temperature 96.6 F L Pulse Rate 97 Respiratory Rate 18 Blood Pressure 171/92 H Pulse Oximetry 95 Oxygen Delivery Intake/Output Intake/Output: Intake & Output 12/23/21 12/24/21 12/25/21 12/26/21 23:59 23:59 23:59 23:59 Intake Total 6090 4180 5402 1600 Output Total 3825 3810 7100 5450 Balance 2267 529 -[phone] -3834 Meds/Results Medications: Active Medications Generic Name Dose Route Start Last Admin Trade Name Freq PRN Reason Stop Dose Admin Amlodipine Besylate 10 mg 12/26/21 09:00 Amlodipine Besylate 5 Mg Tablet PO QAM FRANTZ Bupropion HCl 200 mg 12/16/21 09:00 12/25/21 08:59 Bupropion Hcl Sr (12hr) 100 Mg Tabcr PO 200 mg DAILY FRANTZ Administration Clotrimazole 1 applic 12/23/21 12:55 12/25/21 20:47 Betamethasone/Clotrimazole Cr 15 Gm Tube TOPICAL 1 applic Q12HR FRANTZ Administration Diazepam 5 mg 12/16/21 09:00 12/25/21 16:19 Diazepam (*Crx) 5 Mg Tablet PO 5 mg BID FRANTZ Administration Hydralazine HCl 10 mg 12/24/21 19:29 12/25/21 22:52 Hydralazine Hcl 20 Mg/Ml Vial IV PUSH 10 m
[2021-12-26] MEDS: SERTRALINE HCL 50 MG TABLET 200 MG PO (08:39)
[2021-12-26] MEDS: polyethylene glycoL 3350 17 GM POWD.PACK PO (08:39)
[2021-12-26] MEDS: amLODIPine BESYLATE 5 MG TABLET 10 MG PO (08:39)
[2021-12-26] MEDS: LORATADINE 10 MG TABLET PO ×2 (08:39→16:35)
[2021-12-26] MEDS: lamoTRIgine 100 MG TABLET 200 MG PO (08:39)
[2021-12-26] MEDS: buPROPion HCL SR (12HR) 100 MG TABCR 200 MG PO (08:39)
[2021-12-26] MEDS: LOSARTAN POTASSIUM 100 MG TABLET PO (08:39)
[2021-12-26] MEDS: BETAMETHASONE/CLOTRIMAZOLE CR 15 GM TUBE 1 APPLIC TOPICAL ×2 (08:40→22:33)
[2021-12-26] MEDS: TOLNAFTATE 1% POWDER 45 GM BTL 1 APPLIC TOPICAL ×2 (08:40→21:05)
[2021-12-26] MEDS: diazePAM (*CRX) 5 MG TABLET PO ×2 (08:41→16:35)
--- NOTE | 2021-12-26 09:35 | PM.IMPN ---
Progress Note: A&P Assessment and Plan (1) Psoas abscess, left: Code(s): K68.12 - Psoas muscle abscess Status: Acute (2) Bacteremia: Code(s): R78.81 - Bacteremia Status: Acute (3) Acute hyponatremia: Code(s): E87.1 - Hypo-osmolality and hyponatremia Status: Acute (4) Obesity: Code(s): E66.9 - Obesity, unspecified Status: Acute (5) Coronary artery disease: Code(s): I25.10 - Atherosclerotic heart disease of [place] coronary artery without angina pectoris Status: Acute (6) Smoking: Code(s): F17.200 - Nicotine dependence, unspecified, uncomplicated Status: Acute (7) Sleep apnea: Code(s): G47.30 - Sleep apnea, unspecified Status: Acute (8) COPD (chronic obstructive pulmonary disease): Code(s): J44.9 - Chronic obstructive pulmonary disease, unspecified Status: Acute (9) Osteoarthritis involving multiple joints on both sides of body: Code(s): M15.9 - Polyosteoarthritis, unspecified Status: Acute (10) Morbilliform rash: Code(s): R21 - Rash and other nonspecific skin eruption Status: Acute Plan 12/24/21 improving cont abx drain w minimal output elevated bp persistently since admission despite Losartan add amlodipine 5 improve pain control tylenol/5/10 cont pt/ot am labs 12/25/21 pt remains on wait list, POC reviewed w in house neurosurgeon tx is TSLO brace better pain control muscle relaxer + high potency narcotic and may require COOPERATIVE MANAGER PT/OT encourage mobilization cont current care neuro checks q shift 12/26/21 waiting for brace spoke w OT and pathology secretary staff will need to call [employer] Supervisor to confirm receipt of order x TLSO pain improved cont current pain regimen mobilize pt today call placed to Dr Muñoz to review dc options Subjective Date/time seen: 12/26/21 09:35 pt reports that he is feeling a lot better today. Still with pain but heating pad last night was a game changer. waiting for TLSO brace and is in agreement to get up w PT Review of Systems Review of Systems: All systems reviewed & are unremarkable except as noted in HPI and below Exam Narrative: General: Resting comfortably, alert and oriented x3 HEENT: Atraumatic, normocephalic, mucous membranes moist CV: Regular rate and rhythm, S1, S2 Lungs: Clear to auscultation bilaterally, no rales or crackles noted, no wheezes, good air entry Abdomen: Soft, nontender, nondistended, LLQ gauze Tegaderm clean dry over sight of removed drain Extremities: Normal to inspection skin: papular macular circular rash noted at sites of tele sticker placements Psych: mood and affect congruent calmer today Objective Data Vital Signs Vital Signs: Vital Signs - 24 hr 12/25/21 14:00 12/25/21 20:42 12/25/21 21:28 Temperature 97.2 F L Pulse Rate 96 82 Respiratory Rate 17 13 Blood Pressure 163/90 H Pulse Oximetry 97 95 Oxygen Delivery Autopap Autopap 12/26/21 02:20 12/25/21 22:00 12/26/21 01:00 Temperature 97.5 F L 97.5 F L Pulse Rate 84 90 99 Respiratory Rate 16 16 Blood Pressure 170/98 H 155/99 H Pulse Oximetry 96 95 97 Oxygen Delivery Autopap 12/26/21 06:00 12/26/21 08:45 Temperature 96.6 F L Pulse Rate 97 Respiratory Rate 18 Blood Pressure 171/92 H Pulse Oximetry 95 Oxygen Delivery Room Air Intake/Output Intake/Output: Intake & Output 12/23/21 12/24/21 12/25/21 12/26/21 23:59 23:59 23:59 23:59 Intake Total 6090 4180 5402 1822 Output Total 3828 3550 7100 5950 Balance 1891 549 [phone] -4659 Meds/Results Medications: Active Medications Generic Name Dose Route Start Last Admin Trade Name Freq PRN Reason Stop Dose Admin Amlodipine Besylate 10 mg 12/26/21 09:00 12/26/21 08:39 Amlodipine Besylate 5 Mg Tablet PO 10 mg QAM FRANTZ Administration Bupropion HCl 200 mg 12/16/21 09:00 12/26/21 08:39 Bupropion Hcl Sr (12hr) 100 Mg Tabcr PO 200 mg DAILY SC
[2021-12-26 14:00] VITALS: BP 145/89; PULSE 98; RESP 18; TEMP 36.6; O2SAT 96
[2021-12-26] MEDS: HYDROmorphone HCL (*CRX) 1 MG TABLET 2 MG PO (18:56)
[2021-12-26 20:52] VITALS: BP 152/90; PULSE 91; RESP 18; TEMP 36.6; O2SAT 96
[2021-12-26] MEDS: MORPHINE SULFATE (*CRX) 2 MG/ML INJ IV PUSH (21:03)
[2021-12-27] MEDS: HYDROmorphone HCL (*CRX) 1 MG TABLET 2 MG PO ×2 (03:05→07:59)
[2021-12-27 06:00] VITALS: BP 152/86; PULSE 85; RESP 18; TEMP 36.2; O2SAT 95
[2021-12-27 06:52] LABS: Basophils Absolute Auto 0.1 K/mm3 (0.0-0.1); Basophils Percent Auto 0.5 % (0.2-1.2); Eosinophils Absolute Auto 0.1 K/mm3 (0-0.3); Eosinophils Percent Auto 1.2 % (0-4.4); Hematocrit 36.9 % (42.0-52.0); Hemoglobin 12.1 g/dL (14.0-18.0); Immature Granulocyte Absolute 0.06 K/mm3 (0.00-0.031); Immature Granulocyte Percent A 0.6 % (0-0.5); Lymphocytes Absolute Auto 2.33 K/mm3 (0.9-3.2); Lymphocytes Percent Auto 22.9 % (18.3-44.2); Mean Corpuscular HGB Conc 32.8 g/dl (32-36); Mean Corpuscular Hemoglobin 30.2 pg (26-34); Mean Platelet Volume 9.5 fl (7.4-10.4); Monocytes Absolute Auto 1.1 K/mm3 (0.1-0.6); Monocytes Percent Auto 10.3 % (2.6-8.5); Neutrophils Absolute Auto 6.6 K/mm3 (1.3-6.7); Neutrophils Percent Auto 64.5 % (45.5-73.1); Platelet Count Result 605 k/mm3 (150-375); Red Blood Count 4.01 M/mm3 (4.6-6.20); Red Cell Distribution Width 14.5 % (11.5-14.5); White Blood Count 10.2 K/mm3 (4.5-10.0)
[2021-12-27 07:06] LABS: Alanine Aminotransferase 21 U/L (6-50); Albumin Level 3.4 g/dL (3.5-5.1); Alkaline Phosphatase 142 U/L (38-126); Anion Gap 12 mmol/L (8-16); Aspartate Amino Transferase 43 U/L (17-59); Bilirubin,Total 0.4 mg/dL (0.2-1.3); Blood Urea Nitrogen 15 mg/dL (9-20); Calcium 8.8 mg/dL (8.4-10.2); Carbon Dioxide 29 mmol/L (22-30); Chloride 97 mmol/L (98-107); Estimated CRCL calculation 81 ml/min; Estimated Glomerular Filt Rate > 60; Glucose 116 mg/dL (65-110); Potassium 3.5 mmol/L (3.4-5.0); Sodium 138 mmol/L (137-145)
[2021-12-27] MEDS: diazePAM (*CRX) 5 MG TABLET PO (07:59)
[2021-12-27] MEDS: lamoTRIgine 100 MG TABLET 200 MG PO (07:59)
[2021-12-27] MEDS: LOSARTAN POTASSIUM 100 MG TABLET PO (07:59)
[2021-12-27] MEDS: LORATADINE 10 MG TABLET PO (08:00)
[2021-12-27] MEDS: amLODIPine BESYLATE 5 MG TABLET 10 MG PO (08:00)
[2021-12-27] MEDS: BETAMETHASONE/CLOTRIMAZOLE CR 15 GM TUBE 1 APPLIC TOPICAL (08:00)
[2021-12-27] MEDS: SERTRALINE HCL 50 MG TABLET 200 MG PO (08:00)
[2021-12-27] MEDS: TOLNAFTATE 1% POWDER 45 GM BTL 1 APPLIC TOPICAL (08:00)
[2021-12-27] MEDS: polyethylene glycoL 3350 17 GM POWD.PACK PO (08:00)
[2021-12-27] MEDS: buPROPion HCL SR (12HR) 100 MG TABCR 200 MG PO (08:00)
--- NOTE | 2021-12-27 09:29 | PM.DS ---
DS: Admitting Diagnosis Discharge Date 12/27/21 Admitting Diagnosis (1) Psoas abscess, left: ?Code(s): K68.12 - Psoas muscle abscess ? ? ? (2) Acute hyponatremia: ?Code(s): E87.1 - Hypo-osmolality and hyponatremia (3) Obesity: ?Code(s): E66.9 - Obesity, unspecified (4) Coronary artery disease: ?Code(s): I25.10 - Atherosclerotic heart disease of [place] coronary artery without angina pectoris (5) Smoking: ?Code(s): F17.200 - Nicotine dependence, unspecified, uncomplicated (6) Sleep apnea: ?Code(s): G47.30 - Sleep apnea, unspecified (7) COPD (chronic obstructive pulmonary disease): ?Code(s): J44.9 - Chronic obstructive pulmonary disease, unspecified (8) Osteoarthritis involving multiple joints on both sides of body: ?Code(s): M15.9 - Polyosteoarthritis, unspecified DS: Discharge Diagnosis Discharge Diagnosis (1) Psoas abscess, left: Code(s): K68.12 - Psoas muscle abscess Status: Acute (2) Bacteremia: Code(s): R78.81 - Bacteremia Status: Acute (3) Acute hyponatremia: Code(s): E87.1 - Hypo-osmolality and hyponatremia Status: Acute (4) Obesity: Code(s): E66.9 - Obesity, unspecified Status: Acute (5) Coronary artery disease: Code(s): I25.10 - Atherosclerotic heart disease of [place] coronary artery without angina pectoris Status: Acute (6) Smoking: Code(s): F17.200 - Nicotine dependence, unspecified, uncomplicated Status: Acute (7) Sleep apnea: Code(s): G47.30 - Sleep apnea, unspecified Status: Acute (8) COPD (chronic obstructive pulmonary disease): Code(s): J44.9 - Chronic obstructive pulmonary disease, unspecified Status: Acute (9) Osteoarthritis involving multiple joints on both sides of body: Code(s): M15.9 - Polyosteoarthritis, unspecified Status: Acute (10) Morbilliform rash: Code(s): R21 - Rash and other nonspecific skin eruption Status: Acute DS: Summary Hospital Course Reason for hospitalization: Chief Complaint: ?lower back pain Narrative: ?This is a 51-year-old male with past medical history significant for tobacco dependence, COPD/ emphysema, dyslipidemia, liver cirrhosis, degenerative joint disease. patient presents to the emergency room due to lower back pain with radiation bilaterally down to his calves,? patient denies any fevers, rigors, chills, night sweats,? denies any incontinence or urinary retention or fecal retention, no gait instability, no focal weakness, no area of numbness, patient has been his usual state of health up to? until this point this has been going on now for the last 2-3 days.? Preliminary workup was significant for a leukocyte count of 20,000. Hospital Course: 12/16/21 ?patient has been started on broad-spectrum antibiotics vancomycin and Zosyn ?cultures in progress ?IR to drain abscess in a.m. ?supportive care ?hypovolemic hyponatremia ?serial BMP ?continue to monitor ?lifestyle and diet modifications ?unchanged ?nicotine patch as needed ?unclear if patient uses CPAP at nighttime ?stable ?Tylenol p.r.n. 12/17/21 CT shows?3.0 x 2.4 x 5.1 cm left psoas muscle abscess, with adjacent lymphadenopathy. IV antibiotics vancomycin, change to pramaxin Q6H cultures in progress, need to consult the drainage as well IR to drain abscess in a.m. General surgery consult thank you for your help WBC elevated at 20.3 Trend labs De-escalate as cultures result Pain medication on board supportive care ESR 45, CRP 30.9, HIV pending echo EF of 65-70% with diastolic dysfunction Patient meets SIRS criteria with tachycardia, leukocytosis, fever Source of infection is an abscess in the hip Blood cultures gram positive cocci in clusters in both bottles Abscess drainage culture preliminary moderate gram positive cocci in cluster White blood cell count 22.3 Trend labs Fluids given in the ED and continuo
--- NOTE | 2021-12-27 11:55 | PC.NURSE ---
pt is wanting to leave [facility] due to a friends as stated by pt. MD Elizabeth made aware. this nurse and spoke with pt on concerns for leaving AMA. pt states he is complying but really needs to leave and will be back.
--- NOTE | 2021-12-27 12:53 | PC.NURSE ---
Patient was notified per floor RN that medications were left prior to leaving facility. Patient returned call. This nurse verified with patient the medications that were left behind. 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 This nurse notified patient medications would be locked medication room in a sealed bag. Patient voiced understanding.
== END 2021-12-27 11:54 | disposition left against medical advice (07) | DRG 871 ==
LOC: ANHED 19:05 → ANH3MEDSUR 23:39
PROVIDERS: Internal Medicine Cardiovascular Disease; Nurse Practitioner; Nurse Practitioner Adult Health; Nurse Practitioner Family; Physician Assistant; Student in an Organized Health Care Education/Training Program; Admitting Provider Internal Medicine; Emergency Provider Emergency Medicine; PCP Internal Medicine; Visit Provider Hospitalist
PROC: (CPT 93312; principal; 2021-12-23 08:15)
DX: A41.01 Sepsis due to Methicillin susceptible Staphylococcus aureus (principal); K68.12 Psoas muscle abscess; E87.1 Hypo-osmolality and hyponatremia; E66.9 Obesity, unspecified; Z68.35 Body mass index [BMI] 35.0-35.9, adult; I25.10 Atherosclerotic heart disease of native coronary artery without angina pectoris; G47.30 Sleep apnea, unspecified; M15.9 Polyosteoarthritis, unspecified; K74.60 Unspecified cirrhosis of liver; J43.9 Emphysema, unspecified; E78.5 Hyperlipidemia, unspecified; Z96.651 Presence of right artificial knee joint; Z96.643 Presence of artificial hip joint, bilateral; F17.210 Nicotine dependence, cigarettes, uncomplicated; L25.1 Unspecified contact dermatitis due to drugs in contact with skin; T49.8X5A Adverse effect of other topical agents, initial encounter
CPT/HCPCS: 36415; 49406; 71275; 72131; 72158; 72193; 72197; 73521; 74177; 80048; 80053; 80074; 80202; 81001; 82550; 83605; 83735; 85025; 85610; 85652; 85730; 86140; 86703; 87040; 87070; 87075; 87147; 87186; 87205; 93005; 93306; 93312; 93320; 93325; 93970; 96365; 96367; 96372; 96375; 96376; 99285; A9270; A9577; C1729; C1769; G0378; G0432; J0131; J0360; J0692; J0743; J1100; J1170; J1885; J2250; J2270; J2310; J2543; J2700; J3010; J3360; J3370; J7030; J7040; Q9967

== ENCOUNTER 2021-12-29 10:44 | Inpatient (IN) | payer MEDICARE, MEDICAID, SELFPAY ==
--- NOTE | ~2021-12-29 | XR_ITS ---
EXAMINATION: XR chest PICC line DATE: 12/31/2021 14:36 INDICATION: PICC line placement TECHNIQUE: frontal view of the chest was obtained. COMPARISON: Chest radiograph dated 11/15/2016 FINDINGS: Left upper extremity peripherally inserted central venous catheter (PICC) tip at the caudal superior vena cava. Lungs are clear with no focal airspace opacities, pulmonary edema, pleural effusion or pn eumothorax. Heart size is normal. Curvilinear pericardial calcification projecting along the pulmonar y outflow tract. Median sternotomy wires and mediastinal surgical clips are seen, likely from prior c oronary artery bypass grafting. Old healed lateral left clavicle fracture. IMPRESSION: 1. Left PICC line tip at the caudal superior vena cava. 2. No acute cardiopulmonary disease. Reviewed, dictated and finalized at location A.
[2021-12-29 10:57] VITALS: BP 166/98; PULSE 113; RESP 15; TEMP 36.3; O2SAT 100
--- NOTE | 2021-12-29 11:35 | ED.SKABFB ---
HPI - Skin/Abscess/Foreign Bdy General Chief complaint: Skin/Abscess/Foreign Body Stated complaint: absess on back- recently admitted Time Seen by Provider: 12/29/21 11:35 Source: patient Mode of arrival: ambulatory Limitations: no limitations History of Present Illness HPI narrative: The patient is a 51-year-old male with a PMH of psoas abscess, osteomyelitis, COPD/ emphysema, liver cirrhosis, degenerative joint disease, presenting to the emergency department after he left AMA from this facility 2 days previous due to a family emergency. Patient states that he has been doing well past 48 hours. Patient denies any fever, chills, nausea or vomiting. He states he has been wearing his brace since discharge. Related Data Home Medications Medication Instructions Recorded Confirmed sertraline 100 mg tablet 200 mg PO DAILY 04/17/19 12/29/21 bupropion HCl 200 mg tablet,12 hr 200 mg PO DAILY 12/16/21 12/29/21 sustained-release diazepam 5 mg tablet 5 mg PO BID 12/16/21 12/16/21 lamotrigine 200 mg tablet 200 mg PO DAILY 12/16/21 12/29/21 trazodone 50 mg tablet 50 mg PO PRN insomnia 12/16/21 12/29/21 Allergies Allergy/AdvReac Type Severity Reaction Status Date / Time No Known Allergies Allergy Verified 12/16/21 03:17 Review of Systems Review of Systems: CONSTITUTIONAL: Denies fever, chills, or sweats. EYES: Denies visual changes, redness, or discharge. ENT: Denies rhinorrhea, congestion, sore throat, or otalgia. CARDIOVASCULAR: Denies chest pain, palpitations, or edema. RESPIRATORY: Denies cough or dyspnea. GASTROINTESTINAL: Denies abdominal pain, nausea, vomiting, or diarrhea. GENITOURINARY: Denies dysuria or hematuria. SKIN: Denies rash or itching. MUSCULOSKELETAL: Reports back pain without significant joint pain or myalgias NEUROLOGIC: Denies headache, numbness, or weakness. [facility] Past Medical History Medical History Anxiety Bipolar disorder Chronic obstructive pulmonary disease Drug addiction Hyperlipidemia Liver cirrhosis Osteoarthritis involving multiple joints on both sides of body Pericarditis in diseases classified elsewhere Sleep apnea Tobacco use Surgical History Surgical History (Updated 12/29/21 @ 14:35 by Tequila Rees PA-C) History of arthroplasty of right knee History of bilateral hip arthroplasty (2017) History of pericardiectomy (2017) History of right inguinal hernia repair (2019) Family History Family History Other Adopted Social History Social History (Updated 12/29/21 @ 14:36 by Tequila Rees PA-C) Social History: Surrogate medical decision maker: Code status: Full code. Smoking status: Current every day smoker Tobacco type: cigarettes Additional smoking assessment comments: smokes a pack a week, smoked since 13 years old Alcohol intake: never Substance use: current Substance use type: marijuana Other substance usage details: Hx polysubstance drug use over 20 yrs ago, no IV drug use Spiritual care concerns: No Exam Narrative: GENERAL: Awake, alert, conversant HEAD: Normocephalic, atraumatic. EYES: PERRLA and EOMI. ENT: Nares clear, no rhinorrhea or epistaxis. Mucous membranes moist. NECK: Supple. CHEST: No respiratory distress, breathing even and non labored HEART: Regular rate, sinus rhythm Thorax: TLSO brace in place ABDOMEN:Non distended, non tender EXTREMITIES: Normal range of motion. No edema. SKIN: Warm, dry, no rash. NEURO:No focal deficits. Alert and oriented x3 Course Vital Signs Vital signs: Vital Signs Temperature 36.3 C L 12/29/21 10:57 Pulse Rate 113 H 12/29/21 10:57 Respiratory Rate 15 12/29/21 10:57 Blood Pressure 166/98 H 12/29/21 10:57 Pulse Oximetry 100 12/29/21 10:57 Temperature 36.3 C L 12/29/21 10:57 Pulse Rate 102 H 12/29/21 15:08 Respiratory Rate 16 12/29/21 15:08 Blood Pressure 152/89 H 12/29/21 15:08 Pulse Oxi
[2021-12-29 13:27] LABS: Basophils Absolute Auto 0.1 K/mm3 (0.0-0.1); Basophils Percent Auto 0.7 % (0.2-1.2); Eosinophils Absolute Auto 0.1 K/mm3 (0-0.3); Eosinophils Percent Auto 0.5 % (0-4.4); Hematocrit 41.6 % (42.0-52.0); Hemoglobin 13.6 g/dL (14.0-18.0); Immature Granulocyte Absolute 0.06 K/mm3 (0.00-0.031); Immature Granulocyte Percent A 0.5 % (0-0.5); Lymphocytes Percent Auto 21.2 % (18.3-44.2); Mean Corpuscular HGB Conc 32.7 g/dl (32-36); Mean Corpuscular Hemoglobin 29.9 pg (26-34); Mean Corpuscular Volume 91.4 fl (80-100); Mean Platelet Volume 9.2 fl (7.4-10.4); Monocytes Absolute Auto 1.1 K/mm3 (0.1-0.6); Monocytes Percent Auto 8.3 % (2.6-8.5); Neutrophils Absolute Auto 8.8 K/mm3 (1.3-6.7); Neutrophils Percent Auto 68.8 % (45.5-73.1); Platelet Count Result 661 k/mm3 (150-375); Red Blood Count 4.55 M/mm3 (4.6-6.20); Red Cell Distribution Width 14.6 % (11.5-14.5); White Blood Count 12.7 K/mm3 (4.5-10.0)
[2021-12-29 13:41] LABS: Anion Gap 16 mmol/L (8-16); Blood Urea Nitrogen 24 mg/dL (9-20); CRP 7.3 mg/dL (<1.0); Calcium 10.1 mg/dL (8.4-10.2); Carbon Dioxide 25 mmol/L (22-30); Chloride 98 mmol/L (98-107); Estimated CRCL calculation 70 ml/min; Estimated Glomerular Filt Rate 58; Glucose 125 mg/dL (65-110); Potassium 3.9 mmol/L (3.4-5.0); Sodium 139 mmol/L (137-145)
[2021-12-29 14:14] LABS: Erythrocyte Sedimentation Rate 74 mm/hr (0-20)
[2021-12-29 15:08] VITALS: BP 152/89; PULSE 102; RESP 16; O2SAT 98
--- NOTE | 2021-12-29 15:40 | ADMGEN ---
This patient, Rivera Aguilar, was admitted to Medical Room 349-01. Patient/family oriented to hospital policies and general routines including ID bracelet, bed and alarms, visiting hours, pain management, procedures, bathroom and other care routines, personal items, smoking policy, room service/diet, and visiting hours. Information on how to activate the Rapid Response Team has been discussed. Patient/Family are encouraged to report perceived risks to care and to ask questions if they do not understand what they are told or what they should do.
[2021-12-29 15:54] VITALS: BMI 33.0
[2021-12-29 15:55] VITALS: BP 147/92; PULSE 101; RESP 18; TEMP 36.6; O2SAT 100
--- NOTE | 2021-12-29 16:00 | PM.IMHP ---
H&P: HPI History of Present Illness Date/Time: 12/29/21 16:00 Chief Complaint: Needs IV antibiotics. Narrative: This is a pleasant 51-year-old male with obstructive sleep apnea, anxiety, bipolar disorder, and remote history of polysubstance abuse (he was never an IV drug user) who was recently admitted to the hospital with left iliopsoas abscess and methicillin sensitive Staph aureus bacteremia who presented to the emergency department via private vehicle with reports that he needs IV antibiotics. He left against medical advice 2 days ago on 12/27/2021 due to a family emergency. He returned today as he knows he needs to have long-term antibiotics to clear the infection. His chart was reviewed and during his stay he underwent percutaneous drainage of that abscess which grew out MSSA, also found in blood cultures obtained on admission. The drain was removed several days ago and he has had no complications with regards to that. He was evaluated by Dr. Kelli Mccray (neurosurgery) who reviewed the MRI of his lumbar spine with findings of multifocal psoas abscesses, multifocal spinal stenosis in the setting of congenital spinal stenosis, and significant epidural lipomatosis. She remarks that there were some enhancing changes concerning for at least some degree of epidural abscess as well though there was significant motion artifact. the patient gives no history to suggest the exact source of infection; no joint pain or swelling.TERRI was unremarkable. Given the complexity of his case, she suggested he be transferred to [facility] to be evaluated by the neurosurgical team there and he remained on the waiting list until he left against medical advice. he has been doing quite well the last couple of days and is managing his pain with doses of Tylenol here and there. He has not had any fever, chills, or sweats. His appetite has been good without nausea and vomiting. He is ambulating without issue and he has no lower extremity weakness or sensory changes. He is voiding and having regular bowel movements without issue although he has occasional constipation. Review of Systems Review of Systems: Twelve systems were reviewed and are negative except for as per HPI. [facility] Past Medical History Medical History Anxiety Bipolar disorder Chronic obstructive pulmonary disease Hyperlipidemia Liver cirrhosis Obstructive sleep apnea on CPAP Osteoarthritis involving multiple joints on both sides of body Pericarditis (2017) Status post pericardiectomy at [facility]. Polysubstance abuse Clean for over 20 years. No history of IV drug use. Tobacco use Surgical History Surgical History (Updated 12/29/21 @ 14:35 by Tequila Rees PA-C) History of arthroplasty of right knee History of bilateral hip arthroplasty (2017) History of pericardiectomy (2017) History of right inguinal hernia repair (2019) Family History Family History Other Adopted Social History Social History (Updated 12/29/21 @ 14:36 by Tequila Rees PA-C) Social History: Surrogate medical decision maker: Code status: Full code. Smoking status: Current every day smoker Additional smoking assessment comments: smokes a pack a week, smoked since 13 years old Alcohol intake: never Substance use: current Substance use type: marijuana Other substance usage details: Hx polysubstance drug use over 20 yrs ago, no IV drug use Spiritual care concerns: No Meds Home Medications and Allergies Home Medications Medication Instructions Recorded Confirmed Type sertraline 100 mg tablet 200 mg PO DAILY 04/17/19 12/29/21 History bupropion HCl 200 mg tablet,12 hr 200 mg PO DAILY 12/16/21 12/29/21 History sustained-release diazepam 5 mg tablet 5 mg PO BID 12/16/21 12/16/21 History lamotrigine 200 mg tablet 200 mg PO DAILY 12/16/21 12/29/21 History trazodone 50 mg tablet 50 mg PO PRN
[2021-12-29] MEDS: OXACILLIN SODIUM 2 GM in SODIUM CHLORIDE 0.9% IV 100 ML IVPB ×3 (16:19→23:26)
[2021-12-29 16:39] VITALS: BMI 33.0
--- NOTE | 2021-12-29 17:28 | PCRCNOTE ---
Rt spoke with patient abut home CPAP. Patient states they have a home CPAP unit they use, however they do not want to use our in house CPAP unit tonight. RT informed patient to call if mind was changed.
[2021-12-29 22:00] VITALS: BP 163/97; PULSE 110; RESP 18; TEMP 37; O2SAT 100
[2021-12-29] MEDS: diazePAM (*CRX) 5 MG TABLET PO (22:22)
[2021-12-29] MEDS: traZODone HCL 50 MG TABLET PO (22:43)
[2021-12-30] MEDS: OXACILLIN SODIUM 2 GM in SODIUM CHLORIDE 0.9% IV 100 ML IVPB (03:57)
[2021-12-30 06:00] VITALS: BP 121/68; PULSE 89; RESP 16; TEMP 37; O2SAT 96
[2021-12-30] MEDS: lamoTRIgine 100 MG TABLET 200 MG PO (08:30)
[2021-12-30] MEDS: SERTRALINE HCL 50 MG TABLET 200 MG PO (08:30)
[2021-12-30] MEDS: buPROPion HCL SR (12HR) 100 MG TABCR 200 MG PO (08:30)
[2021-12-30 10:04] LABS: Basophils Absolute Auto 0.1 K/mm3 (0.0-0.1); Basophils Percent Auto 0.9 % (0.2-1.2); Eosinophils Absolute Auto 0.2 K/mm3 (0-0.3); Eosinophils Percent Auto 1.8 % (0-4.4); Hematocrit 37.4 % (42.0-52.0); Hemoglobin 12.2 g/dL (14.0-18.0); Immature Granulocyte Absolute 0.05 K/mm3 (0.00-0.031); Immature Granulocyte Percent A 0.6 % (0-0.5); Lymphocytes Absolute Auto 1.69 K/mm3 (0.9-3.2); Lymphocytes Percent Auto 20.7 % (18.3-44.2); Mean Corpuscular HGB Conc 32.6 g/dl (32-36); Mean Corpuscular Volume 92.1 fl (80-100); Mean Platelet Volume 9.2 fl (7.4-10.4); Monocytes Absolute Auto 0.7 K/mm3 (0.1-0.6); Monocytes Percent Auto 8.1 % (2.6-8.5); Neutrophils Absolute Auto 5.5 K/mm3 (1.3-6.7); Neutrophils Percent Auto 67.9 % (45.5-73.1); Platelet Count Result 545 k/mm3 (150-375); Red Blood Count 4.06 M/mm3 (4.6-6.20); Red Cell Distribution Width 14.5 % (11.5-14.5); White Blood Count 8.2 K/mm3 (4.5-10.0)
[2021-12-30 10:13] LABS: Anion Gap 10 mmol/L (8-16); Blood Urea Nitrogen 17 mg/dL (9-20); Calcium 9.4 mg/dL (8.4-10.2); Carbon Dioxide 25 mmol/L (22-30); Chloride 99 mmol/L (98-107); Creatine Kinase < 20 U/L (55-170); Estimated CRCL calculation 85 ml/min; Estimated Glomerular Filt Rate > 60; Glucose 186 mg/dL (65-110); Potassium 3.8 mmol/L (3.4-5.0); Sodium 134 mmol/L (137-145)
--- NOTE | 2021-12-30 11:06 | PM.IMPN ---
Progress Note: A&P Assessment and Plan (1) Psoas abscess, left: Code(s): K68.12 - Psoas muscle abscess Status: Acute (2) Bacteremia: Code(s): R78.81 - Bacteremia Status: Acute (3) Acute hyponatremia: Code(s): E87.1 - Hypo-osmolality and hyponatremia Status: Acute (4) Obesity: Code(s): E66.9 - Obesity, unspecified Status: Acute (5) Coronary artery disease: Code(s): I25.10 - Atherosclerotic heart disease of [place] coronary artery without angina pectoris Status: Acute (6) Smoking: Code(s): F17.200 - Nicotine dependence, unspecified, uncomplicated Status: Acute (7) Sleep apnea: Code(s): G47.30 - Sleep apnea, unspecified Status: Acute (8) COPD (chronic obstructive pulmonary disease): Code(s): J44.9 - Chronic obstructive pulmonary disease, unspecified Status: Acute (9) Osteoarthritis involving multiple joints on both sides of body: Code(s): M15.9 - Polyosteoarthritis, unspecified Status: Acute (10) Morbilliform rash: Code(s): R21 - Rash and other nonspecific skin eruption Status: Acute Plan 12/24/21 improving cont abx drain w minimal output elevated bp persistently since admission despite Losartan add amlodipine 5 improve pain control tylenol/5/10 cont pt/ot am labs 12/25/21 pt remains on wait list, POC reviewed w in house neurosurgeon tx is TSLO brace better pain control muscle relaxer + high potency narcotic and may require PIGSKIN TRIMMER PT/OT encourage mobilization cont current care neuro checks q shift 12/26/21 waiting for brace spoke w OT and administrative secretary staff will need to call [employer] to confirm receipt of order x TLSO pain improved cont current pain regimen mobilize pt today call placed to Dr Muñoz to review dc options 12/27/21 repeat blood cultures negative since 12/20/21 TSLO brace delivered and fitted on pt pt has decided to leave AMA this morning because he has urgent matters he must attend to he is requested to return to ER for readmission because he needs abx x 6 weeks, and pain management to improve 12/29/21 PT RETURNED TO ER FOR PICC AND ABX Case was discussed with Danny Peoples, PharmD and after reviewing previous cultures and sensitivities, he recommends oxacillin 200 milligrams q.4 hours for 6 weeks. He will need a PICC line placed tomorrow and I have asked care coordination to help get him set up with the appropriate outpatient antibiotics. It may be prudent to discuss case with Neurosurgery to see if they recommend follow-up imaging though at this time he seems to be much improved. His home medications will be reviewed and resumed as appropriate. 12/30/21 repeat BCx NGTD at 24hrs, PICC line nurse managing timing of line placement spoke w pharm ID pt will be treated w Dapto while inpt, plan was to dc him on this medications but CC has been able to successfully arrange continuous infusion of oxacillin for dc. ABX through 01/29/22 back pain improved but becomes 9/10 at night while sleeping in the uncomfortable hospital bed percocet 10/325 q HS PRN pt has appointment w Dr Chaudhry at 12:30pm and will be referred to Dr Rey castrejon pending PICC line placement Subjective Date/time seen: 12/30/21 11:06 feeling much better but back pain improved but becomes 9/10 at night while sleeping in the uncomfortable hospital bed Review of Systems Review of Systems: All systems reviewed & are unremarkable except as noted in HPI and below Exam Narrative: General:? Resting comfortably, alert and oriented x3 HEENT:? Atraumatic, normocephalic, mucous membranes moist CV:? Regular rate and rhythm, S1, S2 Lungs:? Clear to auscultation bilaterally, no rales or crackles noted, no wheezes, good air entry Abdomen:? Soft, nontender, nondistended Extremities:? Normal to inspection Psych:? mood and affect congruent calmer today Objective Data Vital Signs Vital Signs: Vital S
[2021-12-30] MEDS: DAPTOmycin 750 MG in SODIUM CHLORIDE 0.9% IV 50 ML 100 MG IVPB (12:42)
[2021-12-30 14:00] VITALS: BP 114/74; PULSE 68; RESP 18; TEMP 36.4; O2SAT 98
[2021-12-30 20:00] VITALS: PULSE 93; RESP 20; O2SAT 98
[2021-12-30] MEDS: oxyCODONE/ACETAMINOPHEN (*CRX) 10-325 MG TABLET 1 TAB PO (20:51)
[2021-12-30] MEDS: traZODone HCL 50 MG TABLET PO (20:51)
[2021-12-30 22:00] VITALS: BP 139/86; PULSE 93; RESP 20; TEMP 36.7; O2SAT 98
[2021-12-31 06:00] VITALS: BP 130/77; PULSE 76; RESP 16; TEMP 36.7; O2SAT 96
[2021-12-31] MEDS: DAPTOmycin 750 MG in SODIUM CHLORIDE 0.9% IV 50 ML 100 MG IVPB (09:23)
[2021-12-31] MEDS: buPROPion HCL SR (12HR) 100 MG TABCR 200 MG PO (09:24)
[2021-12-31] MEDS: lamoTRIgine 100 MG TABLET 200 MG PO (09:24)
[2021-12-31] MEDS: SERTRALINE HCL 50 MG TABLET 200 MG PO (09:24)
[2021-12-31 09:56] LABS: Basophils Absolute Auto 0.1 K/mm3 (0.0-0.1); Eosinophils Absolute Auto 0.1 K/mm3 (0-0.3); Eosinophils Percent Auto 1.6 % (0-4.4); Hematocrit 38.3 % (42.0-52.0); Hemoglobin 12.3 g/dL (14.0-18.0); Immature Granulocyte Absolute 0.03 K/mm3 (0.00-0.031); Immature Granulocyte Percent A 0.4 % (0-0.5); Lymphocytes Absolute Auto 1.58 K/mm3 (0.9-3.2); Lymphocytes Percent Auto 19.6 % (18.3-44.2); Mean Corpuscular HGB Conc 32.1 g/dl (32-36); Mean Corpuscular Hemoglobin 29.6 pg (26-34); Mean Corpuscular Volume 92.3 fl (80-100); Mean Platelet Volume 9.3 fl (7.4-10.4); Monocytes Absolute Auto 0.5 K/mm3 (0.1-0.6); Monocytes Percent Auto 6.2 % (2.6-8.5); Neutrophils Absolute Auto 5.8 K/mm3 (1.3-6.7); Neutrophils Percent Auto 71.2 % (45.5-73.1); Platelet Count Result 552 k/mm3 (150-375); Red Blood Count 4.15 M/mm3 (4.6-6.20); Red Cell Distribution Width 14.5 % (11.5-14.5); White Blood Count 8.1 K/mm3 (4.5-10.0)
[2021-12-31 10:21] LABS: Anion Gap 12 mmol/L (8-16); Blood Urea Nitrogen 17 mg/dL (9-20); Calcium 9.5 mg/dL (8.4-10.2); Carbon Dioxide 24 mmol/L (22-30); Chloride 100 mmol/L (98-107); Estimated CRCL calculation 86 ml/min; Estimated Glomerular Filt Rate > 60; Glucose 214 mg/dL (65-110); Potassium 3.8 mmol/L (3.4-5.0); Sodium 136 mmol/L (137-145)
[2021-12-31 14:00] VITALS: BP 129/87; PULSE 95; RESP 18; TEMP 36.8; O2SAT 97
--- NOTE | 2021-12-31 16:05 | PM.IMPN ---
Progress Note: A&P Assessment and Plan (1) Psoas abscess, left: Code(s): K68.12 - Psoas muscle abscess Status: Acute (2) Bacteremia: Code(s): R78.81 - Bacteremia Status: Acute (3) Acute hyponatremia: Code(s): E87.1 - Hypo-osmolality and hyponatremia Status: Acute (4) Obesity: Code(s): E66.9 - Obesity, unspecified Status: Acute (5) Coronary artery disease: Code(s): I25.10 - Atherosclerotic heart disease of [place] coronary artery without angina pectoris Status: Acute (6) Smoking: Code(s): F17.200 - Nicotine dependence, unspecified, uncomplicated Status: Acute (7) Sleep apnea: Code(s): G47.30 - Sleep apnea, unspecified Status: Acute (8) COPD (chronic obstructive pulmonary disease): Code(s): J44.9 - Chronic obstructive pulmonary disease, unspecified Status: Acute (9) Osteoarthritis involving multiple joints on both sides of body: Code(s): M15.9 - Polyosteoarthritis, unspecified Status: Acute (10) Morbilliform rash: Code(s): R21 - Rash and other nonspecific skin eruption Status: Acute (11) Hyperglycemia: Code(s): R73.9 - Hyperglycemia, unspecified Status: Acute Plan 12/27/21 repeat blood cultures negative since 12/20/21 TSLO brace delivered and fitted on pt pt has decided to leave AMA this morning because he has urgent matters he must attend to he is requested to return to ER for readmission because he needs abx x 6 weeks, and pain management to improve 12/29/21 PT RETURNED TO ER FOR PICC AND ABX Case was discussed with Danny Peoples, RubenD and after reviewing previous cultures and sensitivities, he recommends oxacillin 200 milligrams q.4 hours for 6 weeks. He will need a PICC line placed tomorrow and I have asked care coordination to help get him set up with the appropriate outpatient antibiotics. It may be prudent to discuss case with Neurosurgery to see if they recommend follow-up imaging though at this time he seems to be much improved. His home medications will be reviewed and resumed as appropriate. 12/30/21 repeat BCx NGTD at 24hrs, PICC line nurse managing timing of line placement spoke w pharm ID pt will be treated w Dapto while inpt, plan was to dc him on this medications but CC has been able to successfully arrange continuous infusion of oxacillin for dc. ABX through 01/29/22 back pain improved but becomes 9/10 at night while sleeping in the uncomfortable hospital bed percocet 10/325 q HS PRN pt has appointment w Dr Chaudhry at 12:30pm and will be referred to Dr Rey castrejon pending PICC line placement 12/31/21 Repeat blood cultures remained negative at 48 hours. PICC line has been placed. He received daptomycin this morning. His next dose of antibiotics (oxacillin) will be tomorrow morning. Home health will be delivering antibiotics tomorrow at 3:00 p.m.. Will hold patient tonight with dose of oxacillin at 7:00 a.m. and again at 11:00 a.m.. Discharge after 11:00 a.m. dose. White count is normal. Glucose is elevated. Will check A1c. Will start sliding scale protocol. Discussed with the primary care doctor. Subjective Date/time seen: 12/31/21 16:05 Interval history: 51yo male with bipolar disorder, COPD, ALFRED and tobacco abuse who was recently admitted for iliopsoas muscle and paraspinal abscess and signed out against medical advise who returns for IV antibiotics. Assuming care. Chart reviewed. Patient does have a brace in the room. Oxacillin was approved. He did receive a PICC line today. He feels well. He denies any leg weakness. He has been up ambulating to the bathroom. No back pain. No chest pain or shortness of breath. He has been off antibiotics for about a day and half. Exam Narrative: AF 98.2 129/87 95 18 97% ra Gen - NARD Chest - CTA bilaterally, nml RR CV - RRR S1/S2 Abd - Soft, NT/ND, Positive BS Ext - No pedal edema Neuro
[2021-12-31 16:53] LABS: Glucose Point of Care 100 mg/dl (65-105)
[2021-12-31 19:19] LABS: Hemoglobin A1C 5.8 % (<5.7)
[2021-12-31 19:39] VITALS: BP 133/86; PULSE 89; RESP 18; TEMP 37.2; O2SAT 100
[2021-12-31 20:00] VITALS: PULSE 89; RESP 18; O2SAT 100
[2021-12-31] MEDS: CENTRAL LINE FLUSH 10 ML IV PUSH (20:15)
[2021-12-31] MEDS: traZODone HCL 50 MG TABLET PO (20:15)
[2021-12-31] MEDS: oxyCODONE/ACETAMINOPHEN (*CRX) 10-325 MG TABLET 1 TAB PO (20:15)
[2021-12-31 20:56] LABS: Glucose Point of Care 125 mg/dl (65-105)
[2022-01-01 06:00] VITALS: BP 158/88; PULSE 86; RESP 18; TEMP 36.1; O2SAT 97
[2022-01-01] MEDS: CENTRAL LINE FLUSH 10 ML IV PUSH (06:47)
[2022-01-01] MEDS: OXACILLIN SODIUM 2 GM in SODIUM CHLORIDE 0.9% IV 100 ML IVPB ×2 (06:48→11:05)
[2022-01-01 08:01] LABS: Glucose Point of Care 100 mg/dl (65-105)
[2022-01-01] MEDS: lamoTRIgine 100 MG TABLET 200 MG PO (08:19)
[2022-01-01] MEDS: SERTRALINE HCL 50 MG TABLET 200 MG PO (08:19)
[2022-01-01] MEDS: buPROPion HCL SR (12HR) 100 MG TABCR 200 MG PO (08:19)
--- NOTE | 2022-01-01 10:13 | PM.DS ---
DS: Admitting Diagnosis Discharge Date 01/01/22 Admitting Diagnosis Psoas abscess DS: Discharge Diagnosis Discharge Diagnosis (1) Psoas abscess, left: Code(s): K68.12 - Psoas muscle abscess Status: Acute (2) Paraspinal abscess: Code(s): M46.20 - Osteomyelitis of vertebra, site unspecified Status: Acute (3) Osteomyelitis: Code(s): M86.9 - Osteomyelitis, unspecified Status: Acute (4) Bacteremia due to methicillin susceptible Staphylococcus aureus (MSSA): Code(s): R78.81 - Bacteremia; B95.61 - Methicillin susceptible Staphylococcus aureus infection as the cause of diseases classified elsewhere Status: Acute (5) Acute hyponatremia: Code(s): E87.1 - Hypo-osmolality and hyponatremia Status: Acute (6) Obesity: Code(s): E66.9 - Obesity, unspecified Status: Acute (7) Coronary artery disease: Code(s): I25.10 - Atherosclerotic heart disease of [place] coronary artery without angina pectoris Status: Acute (8) Smoking: Code(s): F17.200 - Nicotine dependence, unspecified, uncomplicated Status: Acute (9) Sleep apnea: Code(s): G47.30 - Sleep apnea, unspecified Status: Acute (10) COPD (chronic obstructive pulmonary disease): Code(s): J44.9 - Chronic obstructive pulmonary disease, unspecified Status: Acute (11) Osteoarthritis involving multiple joints on both sides of body: Code(s): M15.9 - Polyosteoarthritis, unspecified Status: Acute (12) Morbilliform rash: Code(s): R21 - Rash and other nonspecific skin eruption Status: Acute (13) Hyperglycemia: Code(s): R73.9 - Hyperglycemia, unspecified Status: Acute DS: Summary Hospital Course Reason for hospitalization: 51yo male with bipolar disorder, COPD, ALFRED and tobacco abuse who was recently admitted for iliopsoas muscle and paraspinal abscess and signed out against medical advise who returns for IV antibiotics. Please see H&P for details. Hospital Course: Patient was recently admitted to the hospital with left iliopsoas abscess and methicillin sensitive Staph aureus bacteremia who presented to the emergency department via private vehicle with reports that he needs IV antibiotics. He underwent percutaneous drainage of that abscess which grew out MSSA and also found in blood cultures obtained on admission. The drain was removed and he has had no complications with regards to that. He was evaluated by Dr. Kelli Mccray (neurosurgery) who reviewed the MRI of his lumbar spine with findings of multifocal psoas abscesses, multifocal spinal stenosis in the setting of congenital spinal stenosis, and significant epidural lipomatosis. She remarks that there were some enhancing changes concerning for at least some degree of epidural abscess as well though there was significant motion artifact. the patient gives no history to suggest the exact source of infection; no joint pain or swelling.TERRI was unremarkable. Given the complexity of his case, she suggested he be transferred to [facility] to be evaluated by the neurosurgical team there and he remained on the waiting list until he left against medical advice. He did have a LSO brace delivered and fitted before he signed out. He left against medical advice on 12/27/2021 due to a family emergency and returned on 12/29/21 as he knows he needs to have long-term antibiotics to clear the infection. BCx collected and were negative to date. WBC was 12.7K but normalized. Case was discussed with Danny Peoples, RubenD and after reviewing previous cultures and sensitivities, he recommended oxacillin 200 milligrams q.4 hours for 6 weeks. He was on Daptomycin because of frequency required but able to secure oxacillin continuous infusion at home. PICC line was placed. There was an attempt to transfer from the ED but again, no beds available. Patient had minimal back pain. He has been up walking in
== END 2022-01-01 11:45 | disposition home health service (06) | DRG 372 ==
LOC: ANHED 12:54 → ANH3MED 14:14
PROVIDERS: Admitting Provider Hospitalist; Emergency Provider Emergency Medicine; PCP Internal Medicine; Visit Provider Internal Medicine
DX: K68.12 Psoas muscle abscess (principal); E87.1 Hypo-osmolality and hyponatremia; R78.81 Bacteremia; M46.26 Osteomyelitis of vertebra, lumbar region; J44.9 Chronic obstructive pulmonary disease, unspecified; K74.60 Unspecified cirrhosis of liver; E78.5 Hyperlipidemia, unspecified; M15.9 Polyosteoarthritis, unspecified; G47.30 Sleep apnea, unspecified; F17.210 Nicotine dependence, cigarettes, uncomplicated; F41.9 Anxiety disorder, unspecified; F31.9 Bipolar disorder, unspecified; F19.21 Other psychoactive substance dependence, in remission; Z96.643 Presence of artificial hip joint, bilateral; Z96.651 Presence of right artificial knee joint
CPT/HCPCS: 36415; 36569; 80048; 82550; 82948; 83036; 85025; 85652; 86140; 87040; 96365; 96366; 96375; 96376; 99285; A9270; C1751; G0378; J0878; J2700

== ENCOUNTER 2022-01-21 12:37 | Outpatient (RCR) | payer MEDICARE, MEDICAID, SELFPAY ==
[2022-01-07 12:30] LABS: Alanine Aminotransferase 34 U/L (6-50); Alkaline Phosphatase 201 U/L (38-126); Anion Gap 13 mmol/L (8-16); Aspartate Amino Transferase 47 U/L (17-59); Basophils Absolute Auto 0.1 K/mm3 (0.0-0.1); Basophils Percent Auto 1.1 % (0.2-1.2); Bilirubin,Total 0.6 mg/dL (0.2-1.3); Blood Urea Nitrogen 15 mg/dL (9-20); Carbon Dioxide 26 mmol/L (22-30); Chloride 102 mmol/L (98-107); Eosinophils Absolute Auto 0.3 K/mm3 (0-0.3); Eosinophils Percent Auto 4.5 % (0-4.4); Estimated Glomerular Filt Rate > 60; Glucose 106 mg/dL (65-110); Hematocrit 35.9 % (42.0-52.0); Hemoglobin 11.5 g/dL (14.0-18.0); Immature Granulocyte Absolute 0.03 K/mm3 (0.00-0.031); Immature Granulocyte Percent A 0.4 % (0-0.5); Lymphocytes Absolute Auto 2.03 K/mm3 (0.9-3.2); Lymphocytes Percent Auto 27.4 % (18.3-44.2); Mean Corpuscular Hemoglobin 29.8 pg (26-34); Mean Platelet Volume 10.2 fl (7.4-10.4); Monocytes Absolute Auto 0.9 K/mm3 (0.1-0.6); Monocytes Percent Auto 12.6 % (2.6-8.5); Platelet Count Result 376 k/mm3 (150-375); Potassium 3.8 mmol/L (3.4-5.0); Red Blood Count 3.86 M/mm3 (4.6-6.20); Red Cell Distribution Width 14.9 % (11.5-14.5); Sodium 141 mmol/L (137-145); White Blood Count 7.4 K/mm3 (4.5-10.0)
[2022-01-14 12:48] LABS: Mean Corpuscular HGB Conc 32.4 g/dl (32-36); Mean Corpuscular Hemoglobin 30.1 pg (26-34); Mean Corpuscular Volume 93.2 fl (80-100); Mean Platelet Volume 10.4 fl (7.4-10.4); Platelet Count Result 419 k/mm3 (150-375); Red Blood Count 3.65 M/mm3 (4.6-6.20); Red Cell Distribution Width 15.3 % (11.5-14.5); White Blood Count 6.5 K/mm3 (4.5-10.0)
[2022-01-14 13:06] LABS: Alanine Aminotransferase 25 U/L (6-50); Albumin Level 3.8 g/dL (3.5-5.1); Alkaline Phosphatase 196 U/L (38-126); Anion Gap 11 mmol/L (8-16); Aspartate Amino Transferase 38 U/L (17-59); Bilirubin,Total 0.5 mg/dL (0.2-1.3); Blood Urea Nitrogen 12 mg/dL (9-20); Calcium 8.7 mg/dL (8.4-10.2); Carbon Dioxide 25 mmol/L (22-30); Chloride 102 mmol/L (98-107); Estimated Glomerular Filt Rate > 60; Glucose 95 mg/dL (65-110); Potassium 3.7 mmol/L (3.4-5.0); Sodium 138 mmol/L (137-145)
[2022-01-16 07:28] LABS: Basophils Absolute Auto 0.1 K/mm3 (0.0-0.1); Basophils Percent Auto 0.8 % (0.2-1.2); Eosinophils Absolute Auto 0.4 K/mm3 (0-0.3); Eosinophils Percent Auto 5.6 % (0-4.4); Immature Granulocyte Absolute 0.01 K/mm3 (0.00-0.031); Immature Granulocyte Percent A 0.2 % (0-0.5); Lymphocytes Absolute Auto 1.73 K/mm3 (0.9-3.2); Lymphocytes Percent Auto 26.7 % (18.3-44.2); Monocytes Absolute Auto 0.8 K/mm3 (0.1-0.6); Monocytes Percent Auto 12.2 % (2.6-8.5); Neutrophils Absolute Auto 3.5 K/mm3 (1.3-6.7); Neutrophils Percent Auto 54.5 % (45.5-73.1)
[2022-01-21 12:59] LABS: Alanine Aminotransferase 21 U/L (6-50); Alkaline Phosphatase 171 U/L (38-126); Anion Gap 10 mmol/L (8-16); Aspartate Amino Transferase 34 U/L (17-59); Bilirubin,Total 0.6 mg/dL (0.2-1.3); Blood Urea Nitrogen 14 mg/dL (9-20); Calcium 9.2 mg/dL (8.4-10.2); Carbon Dioxide 25 mmol/L (22-30); Chloride 102 mmol/L (98-107); Estimated Glomerular Filt Rate > 60; Glucose 102 mg/dL (65-110); Potassium 4.3 mmol/L (3.4-5.0); Sodium 137 mmol/L (137-145)
[2022-01-21 13:00] LABS: Basophils Absolute Auto 0.1 K/mm3 (0.0-0.1); Eosinophils Absolute Auto 0.3 K/mm3 (0-0.3); Eosinophils Percent Auto 4.5 % (0-4.4); Hematocrit 35.1 % (42.0-52.0); Hemoglobin 11.4 g/dL (14.0-18.0); Immature Granulocyte Absolute 0.02 K/mm3 (0.00-0.031); Immature Granulocyte Percent A 0.3 % (0-0.5); Lymphocytes Absolute Auto 2.05 K/mm3 (0.9-3.2); Lymphocytes Percent Auto 29.6 % (18.3-44.2); Mean Corpuscular HGB Conc 32.5 g/dl (32-36); Mean Corpuscular Hemoglobin 30.1 pg (26-34); Mean Corpuscular Volume 92.6 fl (80-100); Mean Platelet Volume 10.5 fl (7.4-10.4); Monocytes Absolute Auto 0.8 K/mm3 (0.1-0.6); Monocytes Percent Auto 10.8 % (2.6-8.5); Neutrophils Absolute Auto 3.7 K/mm3 (1.3-6.7); Neutrophils Percent Auto 53.8 % (45.5-73.1); Platelet Count Result 403 k/mm3 (150-375); Red Blood Count 3.79 M/mm3 (4.6-6.20); Red Cell Distribution Width 15.3 % (11.5-14.5); White Blood Count 6.9 K/mm3 (4.5-10.0)
== END 2022-04-07 23:59 | disposition home or self-care (01) ==
LOC: HOME HLTH 12:37
PROVIDERS: PCP Internal Medicine; Visit Provider Internal Medicine
DX: R78.81 Bacteremia (principal); K86.1 Other chronic pancreatitis
CPT/HCPCS: 80053; 85025

== ENCOUNTER 2022-01-28 13:57 | Emergency (ER) | payer MEDICARE, MEDICAID, SELFPAY ==
--- NOTE | ~2022-01-28 | US_ITS ---
EXAMINATION: US venous doppler UE DATE: 01/28/2022 15:14 INDICATION: Erythema and swelling associated with a left upper extremity PICC TECHNIQUE: Grayscale ultrasound images without and with compression and Doppler ultrasound images of the left upper extremity veins were obtained. COMPARISON: None. FINDINGS: Several images are labeled A such as LEFT SUBCL A PROX which is an annotation error and should be V for vein. Acute thrombus in the left basilic vein. Left upper extremity PICC, likely inserted in to the left basilic vein. The visualized portions of the left internal jugular vein, subclavian vein, axillary vein, brachial veins, cephalic vein, radial vein, and ulnar vein are patent. IMPRESSION: Acute left basilic vein thrombus. Results reported telephonically to Mo Wong APRN by Dr. Gutierres at 3:30 PM on 01/28/2022. Reviewed, dictated and finalized at location K. IMPRESSION: Acute left basilic vein thrombus. Results reported telephonically to Mo Wong APRN by Dr. Gutierres at 3:30 P M on 01/28/2022.
[2022-01-28 13:59] VITALS: BP 174/92; PULSE 101; RESP 16; TEMP 36.8; O2SAT 100
--- NOTE | 2022-01-28 14:27 | ED.GENADULT ---
HPI - General Adult General Chief complaint: Unspecified Stated complaint: infected PICC line Time Seen by Provider: 01/28/22 14:13 Source: patient Mode of arrival: ambulatory Limitations: no limitations History of Present Illness HPI narrative: Patient presents complaints of redness to states redness has been present for approximately 1 week and is slightly sore but states is not painful. He denies difficulty moving his arm or increased pain while doing so. Patient is receiving antibiotic therapy for spinal epidural abscess. Has 1 week denies other problems or complaints at this time. Related Data Home Medications Medication Instructions Recorded Confirmed sertraline 100 mg tablet 200 mg PO DAILY 04/17/19 01/06/22 bupropion HCl 200 mg tablet,12 hr 200 mg PO DAILY 12/16/21 01/06/22 sustained-release lamotrigine 200 mg tablet 200 mg PO DAILY 12/16/21 01/06/22 trazodone 50 mg tablet 50 mg PO PRN insomnia 12/16/21 01/06/22 Allergies Allergy/AdvReac Type Severity Reaction Status Date / Time No Known Allergies Allergy Verified 01/28/22 14:01 Review of Systems Review of Systems: CONSTITUTIONAL: Denies fever, chills, or sweats. EYES: Denies visual changes, redness, or discharge. ENT: Denies rhinorrhea, congestion, sore throat, or otalgia. CARDIOVASCULAR: Denies chest pain, palpitations, or edema. RESPIRATORY: Denies cough or dyspnea. GASTROINTESTINAL: Denies abdominal pain, nausea, vomiting, or diarrhea. GENITOURINARY: Denies dysuria or hematuria. SKIN: Denies rash or itching. Redness to PICC line insertion site. MUSCULOSKELETAL: Denies back pain, joint pain, or myalgia. NEUROLOGIC: Denies headache, numbness, or weakness. PSYCHIATRIC: Denies anxiety or depression. All systems reviewed & are unremarkable except as noted in HPI and below PMFSH Past Medical History Medical History Anxiety Bipolar disorder Chronic obstructive pulmonary disease Hyperlipidemia Liver cirrhosis Obstructive sleep apnea on CPAP Osteoarthritis involving multiple joints on both sides of body Pericarditis (2017) Status post pericardiectomy at [facility]. Polysubstance abuse Clean for over 20 years. No history of IV drug use. Tobacco use Surgical History Surgical History History of arthroplasty of right knee History of bilateral hip arthroplasty (2017) History of pericardiectomy (2017) History of right inguinal hernia repair (2019) Family History Family History Other Adopted Social History Social History Social History: Surrogate medical decision maker: Code status: Full code. Smoking packs per day: 0.5 Smoking cigarettes per day: 10.0 Smoking status: Current every day smoker Alcohol intake: never Substance use: current Substance use type: marijuana Other substance usage details: Hx polysubstance drug use over 20 yrs ago, no IV drug use Spiritual care concerns: No Exam Narrative: GENERAL: Well-appearing, well-nourished, and in no acute distress. HEAD: Normocephalic, atraumatic. EYES: PERRLA and EOMI. ENT: Nares clear, no rhinorrhea or epistaxis. Mucous membranes moist. NECK: Supple. CHEST: Clear to auscultation. No respiratory distress. HEART: Regular rate and rhythm. No murmur heard. Normal peripheral pulses. ABDOMEN: Soft, nontender, nondistended, normal active bowel sounds. EXTREMITIES: Normal range of motion. No edema. PICC line LT medial arm with erythema and nodule localized to insertion site. Slightly tender palpation. No excess heat to palpation. Movement LUE unaffected and causes no pain to area. SKIN: Warm, dry, no rash. NEURO: No focal deficits. Alert and oriented x3. PSYCH: Normal mood and affect. Course Vital Signs Vital signs: Vital Signs Temperature 36.8 C 01/28/22 13:59 Pulse Rate 101 H
[2022-01-28 15:20] LABS: Basophils Absolute Auto 0.1 K/mm3 (0.0-0.1); Basophils Percent Auto 0.9 % (0.2-1.2); Eosinophils Absolute Auto 0.3 K/mm3 (0-0.3); Eosinophils Percent Auto 4.5 % (0-4.4); Hematocrit 33.7 % (42.0-52.0); Hemoglobin 11.2 g/dL (14.0-18.0); Immature Granulocyte Absolute 0.01 K/mm3 (0.00-0.031); Immature Granulocyte Percent A 0.1 % (0-0.5); Lymphocytes Absolute Auto 1.88 K/mm3 (0.9-3.2); Lymphocytes Percent Auto 27.4 % (18.3-44.2); Mean Corpuscular HGB Conc 33.2 g/dl (32-36); Mean Corpuscular Hemoglobin 29.6 pg (26-34); Mean Corpuscular Volume 89.2 fl (80-100); Mean Platelet Volume 9.5 fl (7.4-10.4); Monocytes Percent Auto 15.1 % (2.6-8.5); Neutrophils Absolute Auto 3.6 K/mm3 (1.3-6.7); Platelet Count Result 296 k/mm3 (150-375); Red Blood Count 3.78 M/mm3 (4.6-6.20); Red Cell Distribution Width 15.2 % (11.5-14.5); White Blood Count 6.9 K/mm3 (4.5-10.0)
[2022-01-28 15:30] LABS: Alanine Aminotransferase 23 U/L (6-50); Alkaline Phosphatase 171 U/L (38-126); Anion Gap 12 mmol/L (8-16); Aspartate Amino Transferase 27 U/L (17-59); Bilirubin,Total 0.4 mg/dL (0.2-1.3); Blood Urea Nitrogen 14 mg/dL (9-20); Calcium 8.8 mg/dL (8.4-10.2); Carbon Dioxide 25 mmol/L (22-30); Chloride 102 mmol/L (98-107); Estimated CRCL calculation 109 ml/min; Estimated Glomerular Filt Rate > 60; Glucose 93 mg/dL (65-110); Potassium 3.6 mmol/L (3.4-5.0); Sodium 139 mmol/L (137-145)
== END 2022-01-28 16:05 | disposition home or self-care (01) ==
PROVIDERS: Emergency Provider Nurse Practitioner; PCP Internal Medicine
DX: T82.868A Thrombosis due to vascular prosthetic devices, implants and grafts, initial encounter (principal); I82.622 Acute embolism and thrombosis of deep veins of left upper extremity; E78.5 Hyperlipidemia, unspecified; J44.9 Chronic obstructive pulmonary disease, unspecified; K74.60 Unspecified cirrhosis of liver; I31.9 Disease of pericardium, unspecified; M19.90 Unspecified osteoarthritis, unspecified site; F31.9 Bipolar disorder, unspecified; F41.9 Anxiety disorder, unspecified; Z96.643 Presence of artificial hip joint, bilateral; Z96.651 Presence of right artificial knee joint; F17.210 Nicotine dependence, cigarettes, uncomplicated; Y84.8 Other medical procedures as the cause of abnormal reaction of the patient, or of later complication, without mention of misadventure at the time of the procedure
CPT/HCPCS: 36415; 80053; 85025; 93971; 99284

== ENCOUNTER 2022-02-05 08:12 | Emergency (ER) | payer MEDICARE, MEDICAID, SELFPAY ==
--- NOTE | ~2022-02-05 | US_ITS ---
EXAMINATION: US venous doppler UE LT DATE: 02/05/2022 10:04 INDICATION: Left upper extremity swelling TECHNIQUE: Grayscale ultrasound images without and with compression and Doppler ultrasound images of the left upper extremity veins were obtained. COMPARISON: 01/28/2022. FINDINGS: There is persistent thrombosis of the basilic vein. The left internal jugular vein, subclavian vein, axillary vein, brachial veins, cephalic vein, radial vein, and ulnar vein are patent. IMPRESSION: 1. Persistent thrombosis of the basilic vein. Reviewed, dictated and finalized at location B.
[2022-02-05 08:16] VITALS: BP 153/80; PULSE 92; RESP 18; TEMP 36.5; O2SAT 100
--- NOTE | 2022-02-05 10:07 | ED.GENADULT ---
HPI - General Adult General Chief complaint: Unspecified Stated complaint: infected picc line Time Seen by Provider: 02/05/22 08:52 History of Present Illness HPI narrative: 51-year-old male presents the emergency room for evaluation of purulent drainage around his PICC line. Patient states back in November he was diagnosed with multiple staph infections around his spine, for which she has been receiving regular antibiotic infusions through PICC line that was inserted into his left arm. Reports a week ago was evaluated for a lump at the insertion site of his PICC line, it was determined at that time that he had a blood clot. Patient was started on Eliquis. Patient is now complaining of yellowish-green purulent drainage coming from the PICC line insertion site that began yesterday. Related Data Home Medications Medication Instructions Recorded Confirmed sertraline 100 mg tablet 200 mg PO DAILY 04/17/19 01/06/22 bupropion HCl 200 mg tablet,12 hr 200 mg PO DAILY 12/16/21 01/06/22 sustained-release lamotrigine 200 mg tablet 200 mg PO DAILY 12/16/21 01/06/22 Allergies Allergy/AdvReac Type Severity Reaction Status Date / Time No Known Allergies Allergy Verified 02/05/22 08:21 Review of Systems Review of Systems: CONSTITUTIONAL: Denies fever, chills, or sweats. EYES: Denies visual changes, redness, or discharge. ENT: Denies rhinorrhea, congestion, sore throat, or otalgia. CARDIOVASCULAR: Denies chest pain, palpitations, or edema. RESPIRATORY: Denies cough or dyspnea. GASTROINTESTINAL: Denies abdominal pain, nausea, vomiting, or diarrhea. GENITOURINARY: Denies dysuria or hematuria. SKIN: Denies rash or itching. MUSCULOSKELETAL: Denies back pain, joint pain, or myalgia. NEUROLOGIC: Denies headache, numbness, dizziness, or weakness. PSYCHIATRIC: Denies anxiety or depression. [facility] Past Medical History Medical History Anxiety Bipolar disorder Chronic obstructive pulmonary disease Hyperlipidemia Liver cirrhosis Obstructive sleep apnea on CPAP Osteoarthritis involving multiple joints on both sides of body Pericarditis (2017) Status post pericardiectomy at [facility]. Polysubstance abuse Clean for over 20 years. No history of IV drug use. Tobacco use Surgical History Surgical History History of arthroplasty of right knee History of bilateral hip arthroplasty (2017) History of pericardiectomy (2017) History of right inguinal hernia repair (2019) Family History Family History Other Adopted Social History Social History Social History: Surrogate medical decision maker: Code status: Full code. Smoking packs per day: 0.5 Smoking cigarettes per day: 10.0 Smoking status: Current every day smoker Alcohol intake: former Substance use: current Substance use type: marijuana Other substance usage details: Hx polysubstance drug use over 20 yrs ago, no IV drug use Spiritual care concerns: No Exam Narrative: GENERAL: Well-appearing, well-nourished, no physical limitations, and in no acute distress. HEAD: Normocephalic, atraumatic. EYES: Conjunctivae normal, PERRLA and EOMI. CHEST: Clear to auscultation. No respiratory distress. No wheezes rales or rhonchi. HEART: Regular rate and rhythm. No murmur heard. Normal peripheral pulses. BACK: No CVA tenderness; No cervical/thoracic/lumbar tenderness, step-offs, bony abnormality; FROM EXTREMITIES: Normal range of motion. No edema. No clubbing or cyanosis SKIN: LUE: Yellowish-green drainage noted at the insertion site of the PICC line. Erythematous quarter sized indurated subdermal mass just proximal to the PICC line NEURO: No focal deficits. Alert and oriented x3. MAEW. CN's II-XI intact bilaterally, normal gait PSYCH: Cooperative. Normal mood and affect. Course Vital Signs
--- NOTE | 2022-02-05 10:17 | PC.NURSE ---
ultrasound at bedside for additional images.
[2022-02-05 11:05] LABS: Basophils Absolute Auto 0.1 K/mm3 (0.0-0.1); Basophils Percent Auto 0.7 % (0.2-1.2); Eosinophils Absolute Auto 0.4 K/mm3 (0-0.3); Eosinophils Percent Auto 5.3 % (0-4.4); Hematocrit 39.5 % (42.0-52.0); Hemoglobin 12.8 g/dL (14.0-18.0); Immature Granulocyte Absolute 0.02 K/mm3 (0.00-0.031); Immature Granulocyte Percent A 0.3 % (0-0.5); Lymphocytes Percent Auto 28.9 % (18.3-44.2); Mean Corpuscular HGB Conc 32.4 g/dl (32-36); Mean Corpuscular Volume 92.7 fl (80-100); Mean Platelet Volume 9.6 fl (7.4-10.4); Monocytes Absolute Auto 0.7 K/mm3 (0.1-0.6); Monocytes Percent Auto 10.7 % (2.6-8.5); Neutrophils Absolute Auto 3.8 K/mm3 (1.3-6.7); Neutrophils Percent Auto 54.1 % (45.5-73.1); Platelet Count Result 363 k/mm3 (150-375); Red Blood Count 4.26 M/mm3 (4.6-6.20); Red Cell Distribution Width 15.4 % (11.5-14.5); White Blood Count 6.9 K/mm3 (4.5-10.0)
[2022-02-05 11:19] LABS: Anion Gap 10 mmol/L (8-16); Blood Urea Nitrogen 14 mg/dL (9-20); Calcium 9.2 mg/dL (8.4-10.2); Carbon Dioxide 28 mmol/L (22-30); Chloride 101 mmol/L (98-107); Estimated CRCL calculation 97 ml/min; Estimated Glomerular Filt Rate > 60; Glucose 108 mg/dL (65-110); Potassium 4.2 mmol/L (3.4-5.0); Sodium 139 mmol/L (137-145)
== END 2022-02-05 13:45 | disposition left against medical advice (07) ==
PROVIDERS: Emergency Provider Nurse Practitioner Family; PCP Internal Medicine
DX: T80.212A Local infection due to central venous catheter, initial encounter (principal); K68.12 Psoas muscle abscess; J44.9 Chronic obstructive pulmonary disease, unspecified; E78.5 Hyperlipidemia, unspecified; K74.60 Unspecified cirrhosis of liver; G47.33 Obstructive sleep apnea (adult) (pediatric); F41.9 Anxiety disorder, unspecified; F31.9 Bipolar disorder, unspecified; Z96.651 Presence of right artificial knee joint; Z96.643 Presence of artificial hip joint, bilateral; F17.210 Nicotine dependence, cigarettes, uncomplicated; Z79.01 Long term (current) use of anticoagulants; Y84.8 Other medical procedures as the cause of abnormal reaction of the patient, or of later complication, without mention of misadventure at the time of the procedure
CPT/HCPCS: 36415; 80048; 85025; 87040; 87070; 87077; 87186; 87205; 93971; 99284

== ENCOUNTER 2022-03-16 16:23 | Outpatient (CLI) | payer MEDICARE, MEDICAID, SELFPAY ==
--- NOTE | ~2022-03-16 | CT_ITS ---
EXAMINATION: CT abdomen pelvis w con DATE: 03/16/2022 16:55 INDICATION: pain in buttock, low back TECHNIQUE: Computed tomography (CT) of the abdomen and pelvis was performed with 100 mL Omnipaque-350 intravenous contrast. Automated exposure control and iterative reconstruction technique were employe d. The dose-length product was 1628.00 mGy-cm. COMPARISON: CT abdomen pelvis 12/15/2021, 11/06/2013, and 06/07/2012; CT pelvis 12/18/2021; CT chest 2021. FINDINGS: Lower thorax: 8 mm left lower lobe pulmonary nodule, probably similar in size to the most recent prio r abdomen and pelvis study noting that the prior examination was limited due to motion artifact in th e lungs. Pericardial and coronary artery calcification. Small hiatal hernia. Liver: Normal. Biliary/Gallbladder: Gallbladder is normal. No bile duct dilation. Pancreas: No mass or duct dilation. Spleen: Normal. Adrenals: Stable small right adrenal myolipoma. Stable mild stranding around the left adrenal gland, likely extending from the left renal compartment. Kidneys: No mass, stone, or hydronephrosis. Unchanged mild perinephric stranding, slightly greater on the left. GI tract: No small or large bowel dilation. Normal appendix. Diverticulosis without diverticulitis. Mesentery/Peritoneum: No ascites, mass, or free air. Stable central mesenteric edema. Retroperitoneum: No mass. Atherosclerotic abdominal aortic and/or arterial calcifications. Specifical ly there is no psoas mass or rim-enhancing fluid collection. Pelvis: Pelvic contents obscured by artifact from the bilateral hip arthroplasties. Soft Tissues: Subxiphoid and periumbilical fat-containing hernias. Persistent iliac lymphadenopathy. Bones: No acute osseous finding. Bilateral hip arthroplasties, incompletely visualized, without evid ent complication IMPRESSION: No acute process detected in the abdomen or pelvis. 8mm left lower lobe pulmonary nodule, grossly sta ble over the last 3 months, recommend follow-up low-dose chest CT in 3-9 months. Other chronic and in cidental findings detailed above. Reviewed, dictated and finalized at location K. CTOR INSTRUMENTATION IMPRESSION: No acute process detected in the abdomen or pelvis. 8mm left lower lobe pulmona ry nodule, grossly stable over the last 3 months, recommend follow-up low-dose chest CT in 3-9 months. Other chronic and incidental findings detailed above.
[2022-03-16 17:18] LABS: Basophils Absolute Auto 0.1 K/mm3 (0.0-0.1); Basophils Percent Auto 0.8 % (0.2-1.2); Eosinophils Absolute Auto 0.2 K/mm3 (0-0.3); Eosinophils Percent Auto 2.9 % (0-4.4); Hemoglobin 14.4 g/dL (14.0-18.0); Immature Granulocyte Absolute 0.03 K/mm3 (0.00-0.031); Immature Granulocyte Percent A 0.4 % (0-0.5); Lymphocytes Absolute Auto 2.61 K/mm3 (0.9-3.2); Lymphocytes Percent Auto 31.7 % (18.3-44.2); Mean Corpuscular HGB Conc 32.7 g/dl (32-36); Mean Corpuscular Hemoglobin 29.9 pg (26-34); Mean Corpuscular Volume 91.5 fl (80-100); Neutrophils Absolute Auto 4.3 K/mm3 (1.3-6.7); Neutrophils Percent Auto 52.2 % (45.5-73.1); Platelet Count Result 291 k/mm3 (150-375); Red Blood Count 4.81 M/mm3 (4.6-6.20); Red Cell Distribution Width 14.6 % (11.5-14.5); White Blood Count 8.2 K/mm3 (4.5-10.0)
[2022-03-16 17:45] LABS: Erythrocyte Sedimentation Rate 17 mm/hr (0-20)
== END 2022-03-16 16:24 | disposition home or self-care (01) ==
LOC: ANHIMG 16:24
PROVIDERS: PCP Internal Medicine; Visit Provider Internal Medicine
DX: M54.50 Low back pain, unspecified (principal); K68.12 Psoas muscle abscess
CPT/HCPCS: 36415; 74177; 85025; 85652; Q9967

== ENCOUNTER 2022-04-14 13:54 | Outpatient (CLI) | payer MEDICARE, MEDICAID, SELFPAY ==
--- NOTE | ~2022-04-14 | MR_ITS ---
EXAMINATION: MR pelvis wo/w con DATE: 04/14/2022 14:53 INDICATION: TECHNIQUE: Magnetic resonance imaging (MRI) of the pelvis was performed without intravenous contrast. Sequences of the pelvis included axial and coronal T2-weighted SS FSE, coronal 2D FIESTA, axial T1-w eighted FSPGR, axial dual-echo T1-weighted FSPGR and axial T1 weighted LAVA. Postcontrast sequences i ncluded a time course axial T1-weighted LAVA as well as coronal T1-weighted LAVA. COMPARISON: CT dated 03/16/2022 and MRI dated 12/18/2021 FINDINGS: The previously seen left psoas abscess has resolved, the left psoas muscle now appearing centered raysa ntical to the right. An additional small abscess in the right piriformis muscle along the exiting rig ht S1 nerve root has also resolved and also now appears normal and symmetric with the left piriformis muscle. There is persistent enhancement surrounding the bilateral L3-L4 and L4-L5 facet joints. The prior sma ll periarticular abscesses at the posterior and lateral margins of the right L3-L4 facet joints have resolved as has a likely prior epidural abscess posteriorly at L3. There is residual marrow edema and enhancement involving the superior and inferior articular processes at the right L3-L4 facet joint a nd of the superior and inferior articular processes at the left L4-L5 facet joint. There is associate d cortical erosions and osteolysis evident at both of these facet joints on the prior CT dated 2021 consistent with osteomyelitis. Remaining bone marrow signal in the visualized lumbar spine and t hroughout the pelvis is normal. There is epidural enhancement in the central canal beginning at L3 an d extending caudally into the sacrum and which extends peripherally along the exiting nerve roots at the neural foramina. No epidural abscesses.. Bladder is normal. Prostatomegaly. Visualized portions of the bowels are unremarkable. No free fluid in the pelvis. Postoperative change of bilateral total hip arthroplasties with associated metallic ma gnetic field artifact which obscures the immediately adjacent bone and soft tissues. IMPRESSION: 1. Resolution of prior abscesses in the left psoas muscle and right piriformis muscle. No new abscess es identified. 2. Persistent epidural enhancement in the lower lumbar spine with resolution of a suspected prior epi dural abscess posteriorly at L3. 3. Persistent marrow edema and enhancement along the articular processes at the left L3-L4 and right L4-L5 facet joints where there were no erosions in osteolysis evident on CT dated 03/16/2022 which is equivocal for either treated recent osteolysis versus ongoing osteomyelitis. This would be best asse ssed with serial CT imaging to assess for progressive osteolysis. Reviewed, dictated and finalized at location A. H SUPPORT WORKER IMPRESSION: 1. Resolution of prior abscesses in the left psoas muscle and right piriformis muscle. No new abscesses identified. 2. Persistent epidural enhancement in the lower lumbar spine with resolution of a suspected prior epidural abscess posteriorly at L3. 3. Persistent marrow edema and enhancement along the articular processes at the left L3-L4 and right L4-L5 facet joints where there were no erosions in osteol ysis evident on CT dated 03/16/2022 which is equivocal for either treated recen t osteolysis versus ongoing osteomyelitis. This would be best assessed with ser ial CT imaging to assess for progressive osteolysis.
== END 2022-04-14 13:55 | disposition home or self-care (01) ==
LOC: ANHIMG 13:55
PROVIDERS: PCP Internal Medicine; Visit Provider Internal Medicine
DX: K68.12 Psoas muscle abscess (principal); M79.18 Myalgia, other site
CPT/HCPCS: 72197; A9577

== ENCOUNTER → 2022-05-19 10:35 | Outpatient (CLI) | payer MEDICARE, MEDICAID, SELFPAY ==
--- NOTE | ~2022-05-19 | MR_ITS ---
EXAMINATION: MR lumbar spine wo/w con DATE: 05/19/2022 11:35 INDICATION: Back pain . TECHNIQUE: Magnetic resonance imaging (MRI) of the lumbar spine was performed without and with 20 mL MultiHance intravenous contrast. Sequences included sagittal T2-weighted FSE, sagittal T2-weighted FS FSE, sagittal T1-weighted FSE, and axial T2-weighted FSE. COMPARISON: 12/18/2021 FINDINGS: Interval left psoas drain removal. Interval resolution or near complete resolution of the l eft psoas abscess. Significantly decreased size of the paraspinal abscesses at the level of L4-5. Dec reasing abnormal signal in the posterior elements of L4 and L5 and in the left L4-5 facet capsule. Ne ar-complete interval resolution of the epidural abscesses. Decreased abnormal signal along the S1 ner ve root and interval improvement of the associated right S1 neural foramen and piriformis abscess, no ting this area is less well visualized. The last fully formed and hydrated disc is designated L5-S1. The marrow signal is benign and homogenous. Conus terminates at T12-L1. Epidural lipomatosis, beginni ng at the L2 level and extending inferiorly. Clumping of inferior nerve roots. Multilevel loss of dis c height and hydration. The following disc levels are specifically discussed: T11-T12: Minimal bulge. There is mild facet joint osteoarthritis. There is no neural foraminal stenos is. There is no central canal stenosis. T12-L1: The disc does not extend beyond the endplate margin. There is mild facet joint osteoarthritis . There is no neural foraminal stenosis. There is no central canal stenosis. L1-L2: Minimal disc bulge. There is moderate facet joint osteoarthritis. There is no neural foraminal stenosis. There is no central canal stenosis. L2-L3: Mild diffuse disc bulge. There is mild facet joint osteoarthritis. There is mild bilateral duyen ral foraminal stenosis. There is no central canal stenosis. L3-L4: Moderate diffuse bulge. There is severe facet joint osteoarthritis. There is moderate bilatera l neural foraminal stenosis. There is severe central canal stenosis. L4-L5: Moderate diffuse bulge. There is severe facet joint osteoarthritis. There is severe bilateral neural foraminal stenosis. There is severe central canal stenosis. L5-S1: Mild bulge. There is moderate facet joint osteoarthritis. There is mild bilateral neural daniel inal stenosis. There is no central canal stenosis. IMPRESSION: Overall improving left psoas abscess, epidural abscesses, paraspinal abscesses at L4-5, left L4-5 fac et joint septic arthritis, right S1 nerve root involvement/abscess, and findings of L4 and L5 osteomy elitis Severe central canal stenosis at L3-4 and L4-5. Severe bilateral neural foraminal narrowing at L4-5. Lumbar arachnoiditis. Epidural lipomatosis. Reviewed, dictated and finalized at location K. ING TUB OPERATOR IMPRESSION: Overall improving left psoas abscess, epidural abscesses, paraspinal abscesses at L4-5, left L4-5 facet joint septic arthritis, right S1 nerve root involvemen t/abscess, and findings of L4 and L5 osteomyelitis Severe central canal stenosi s at L3-4 and L4-5. Severe bilateral neural foraminal narrowing at L4-5. Lumbar arachnoiditis. Epidural lipomatosis.
== END ==
PROVIDERS: PCP Internal Medicine; Visit Provider Neurological Surgery
DX: M54.9 Dorsalgia, unspecified (principal); K68.12 Psoas muscle abscess; G06.2 Extradural and subdural abscess, unspecified; M46.56 Other infective spondylopathies, lumbar region; M48.061 Spinal stenosis, lumbar region without neurogenic claudication
CPT/HCPCS: 72158; A9577

== ENCOUNTER 2022-06-10 11:27 | Outpatient (RCR) | payer MEDICARE, MEDICAID, SELFPAY | END 2022-06-10 11:31 | disposition home or self-care (01) | LOC: ANHPT 11:27 | PROVIDERS: PCP Internal Medicine; Visit Provider Internal Medicine | DX: R29.898 Other symptoms and signs involving the musculoskeletal system (principal); K68.12 Psoas muscle abscess | CPT/HCPCS: 99199 ==

== ENCOUNTER 2023-06-17 12:33 | Outpatient (CLI) | payer MEDICARE, MEDICAID, SELFPAY ==
[2023-06-17 13:19] LABS: Basophils Absolute Auto 0.1 K/mm3 (0.0-0.1); Basophils Percent Auto 0.7 % (0.2-1.2); Eosinophils Absolute Auto 0.3 K/mm3 (0-0.3); Eosinophils Percent Auto 3.8 % (0-4.4); Hematocrit 45.4 % (42.0-52.0); Hemoglobin 14.8 g/dL (14.0-18.0); Immature Granulocyte Absolute 0.03 K/mm3 (0.00-0.031); Immature Granulocyte Percent A 0.4 % (0-0.5); Lymphocytes Absolute Auto 2.49 K/mm3 (0.9-3.2); Lymphocytes Percent Auto 35.5 % (18.3-44.2); Mean Corpuscular HGB Conc 32.6 g/dl (32-36); Mean Corpuscular Hemoglobin 30.5 pg (26-34); Mean Corpuscular Volume 93.4 fl (80-100); Mean Platelet Volume 10.4 fl (7.4-10.4); Monocytes Absolute Auto 0.7 K/mm3 (0.1-0.6); Monocytes Percent Auto 10.5 % (2.6-8.5); Neutrophils Absolute Auto 3.4 K/mm3 (1.3-6.7); Neutrophils Percent Auto 49.1 % (45.5-73.1); Platelet Count Result 246 k/mm3 (150-375); Red Blood Count 4.86 M/mm3 (4.6-6.20); Red Cell Distribution Width 13.9 % (11.5-14.5)
[2023-06-17 13:28] LABS: Alanine Aminotransferase 34 U/L (6-50); Albumin Level 4.4 g/dL (3.5-5.1); Alkaline Phosphatase 112 U/L (38-126); Anion Gap 6 mmol/L (8-16); Aspartate Amino Transferase 31 U/L (17-59); Bilirubin,Total 0.7 mg/dL (0.2-1.3); Blood Urea Nitrogen 14 mg/dL (9-20); Calcium 9.2 mg/dL (8.4-10.2); Carbon Dioxide 30 mmol/L (22-30); Chloride 102 mmol/L (98-107); Cholesterol 238 mg/dL (0-200); Estimated Glomerular Filt Rate > 60; Glucose 111 mg/dL (65-110); HDL Direct 45 mg/dL; Potassium 4.2 mmol/L (3.4-5.0); Sodium 138 mmol/L (137-145); Triglycerides 269 mg/dL (<150)
[2023-06-17 13:32] LABS: Hemoglobin A1C 5.8 % (<5.7)
[2023-06-17 13:38] LABS: LDL Cholesterol Direct 138 mg/dL
[2023-06-17 13:46] LABS: Appearance Urine Clear (Clear); Bacteria Urine None Seen /hpf; Bilirubin Urine Negative (Negative); Blood Urine Negative (Negative); Color Urine Yellow (Yellow); Glucose Urine UA Negative (Negative); Ketones Urine Negative (Negative); Leukocyte Esterase Ur Negative LEU/UL (NEGATIVE); Nitrate Urine Negative (Negative); Non Pathogenic Casts 0-2; Protein Urine 2+ mg/dL (Negative); RBC Urine 0-2 /hpf (0-2); Squamous Epithelial Cell Urine None seen /hpf (Few); Urobilinogen Urine 0.2 mg/dL (<2.0); WBC Urine 0-5 /hpf (0-3)
[2023-06-17 13:50] LABS: Add Urine Microscopic? YES
[2023-06-17 13:58] LABS: Prostate Specific Antigen 15.1 ng/mL (< OR = 4.0)
[2023-06-21 22:18] LABS: Apolipoprotein B 124 mg/dL (<90)
== END 2023-06-17 12:34 | disposition home or self-care (01) ==
PROVIDERS: PCP Internal Medicine; Visit Provider Internal Medicine
DX: E78.5 Hyperlipidemia, unspecified (principal); Z12.5 Encounter for screening for malignant neoplasm of prostate; I10 Essential (primary) hypertension; I25.10 Atherosclerotic heart disease of native coronary artery without angina pectoris; R73.9 Hyperglycemia, unspecified; J44.9 Chronic obstructive pulmonary disease, unspecified; R35.81 Nocturnal polyuria; G47.30 Sleep apnea, unspecified; E78.49 Other hyperlipidemia
CPT/HCPCS: 36415; 80053; 80061; 81001; 82172; 83036; 84153; 84443; 85025; G0103

== ENCOUNTER 2023-07-19 09:57 | Outpatient (CLI) | payer MEDICARE, MEDICAID, SELFPAY ==
[2023-07-19 17:42] LABS: Prostate Specific Antigen 15.2 ng/mL (< OR = 4.0)
== END 2023-07-19 09:58 | disposition home or self-care (01) ==
LOC: ANHGOSHLAB 10:00
PROVIDERS: PCP Internal Medicine; Visit Provider Internal Medicine
DX: R97.20 Elevated prostate specific antigen [PSA] (principal)
CPT/HCPCS: 36415; 84153

== ENCOUNTER 2023-07-23 10:04 | Outpatient (CLI) | payer MEDICARE, MEDICAID, SELFPAY ==
--- NOTE | ~2023-07-23 | CT_ITS ---
EXAMINATION: CT lung screening DATE: 07/23/2023 10:27 INDICATION: Z87.891 - Personal history of nicotine dependence TECHNIQUE: Computed tomography (CT) of the chest was performed without intravenous contrast. Addition al 3D reconstructions utilizing coronal maximum intensity projection (MIP) were performed. Automated exposure control and iterative reconstruction technique were employed. The dose-length product was 31 4.29 mGy-cm. COMPARISON: Report from study dated 03/16/2022. No prior images available for comparison. FINDINGS: 7 x 5 mm nodule in the anterobasilar segment of the left lower lobe. Mild discoid atelectasis in the superior segment of the left lower lobe reportedly measuring 8 mm on the prior study. No pneumonia, p ulmonary edema or pleural effusion. Heart size is normal. Pericardial calcifications about the base o f the heart which could be seen with constrictive pericarditis. No pericardial effusion. Atherosclero tic coronary artery calcifications. Prior median sternotomy. Thoracic aorta is normal in caliber. Con cified subcarinal lymph node consistent with old granulomatous disease. No pathologically enlarged th oracic lymphadenopathy. Bilateral gynecomastia. 9 mm macroscopic fat attenuation right adrenal myelol ipoma. Small fat-containing infra xiphoid ventral hernia. Mild thoracic spondylosis. IMPRESSION: 1. Lung-RADS category 2: Benign appearance or behavior. Continue annual screening with noncontrast lo w-dose chest CT in 12 months. 2. Pericardial calcific lesions which can be seen with constrictive pericarditis. Reviewed, dictated and finalized at location A. IMPRESSION: 1. Lung-RADS category 2: Benign appearance or behavior. Continue annual screeni ng with noncontrast low-dose chest CT in 12 months. 2. Pericardial calcific lesions which can be seen with constrictive pericarditi s.
== END 2023-07-23 10:05 | disposition home or self-care (01) ==
PROVIDERS: PCP Internal Medicine; Visit Provider Internal Medicine
DX: Z12.2 Encounter for screening for malignant neoplasm of respiratory organs (principal); Z87.891 Personal history of nicotine dependence
CPT/HCPCS: 71271

== ENCOUNTER 2023-07-28 08:05 | Outpatient (CLI) | payer MEDICARE, MEDICAID, SELFPAY | END 2023-07-28 08:06 | disposition home or self-care (01) | LOC: ANHPFT 08:07 | PROVIDERS: PCP Internal Medicine; Visit Provider Internal Medicine | DX: J44.9 Chronic obstructive pulmonary disease, unspecified (principal) | CPT/HCPCS: 94375; 94726; 94729 ==

== ENCOUNTER 2023-10-27 10:01 | Outpatient (CLI) | payer MEDICARE, MEDICAID, SELFPAY ==
[2023-10-27 10:40] LABS: Alanine Aminotransferase 31 U/L (6-50); Albumin Level 4.3 g/dL (3.5-5.1); Alkaline Phosphatase 108 U/L (38-126); Anion Gap 11 mmol/L (4-12); Aspartate Amino Transferase 31 U/L (17-59); Bilirubin,Total 0.8 mg/dL (0.2-1.3); Blood Urea Nitrogen 15 mg/dL (9-20); Carbon Dioxide 23 mmol/L (22-30); Chloride 103 mmol/L (98-107); Cholesterol 242 mg/dL (0-200); Estimated Glomerular Filt Rate > 60; Glucose 103 mg/dL (65-110); HDL Direct 42 mg/dL; Sodium 137 mmol/L (137-145); Triglycerides 208 mg/dL (<150)
[2023-10-27 10:52] LABS: LDL Cholesterol Direct 147 mg/dL
== END 2023-10-27 10:02 | disposition home or self-care (01) ==
LOC: ANHLAB 10:03
PROVIDERS: PCP Internal Medicine; Visit Provider Internal Medicine Cardiovascular Disease
DX: E78.5 Hyperlipidemia, unspecified (principal)
CPT/HCPCS: 36415; 80053; 80061

== ENCOUNTER 2023-12-09 14:01 | Outpatient (CLI) | payer MEDICARE, MEDICAID, SELFPAY ==
[2023-12-09 14:54] LABS: Alanine Aminotransferase 47 U/L (6-50); Albumin Level 4.2 g/dL (3.5-5.1); Alkaline Phosphatase 130 U/L (38-126); Anion Gap 9 mmol/L (4-12); Aspartate Amino Transferase 35 U/L (17-59); Bilirubin,Total 0.9 mg/dL (0.2-1.3); Blood Urea Nitrogen 15 mg/dL (9-20); Calcium 9.1 mg/dL (8.4-10.2); Carbon Dioxide 25 mmol/L (22-30); Chloride 102 mmol/L (98-107); Cholesterol 106 mg/dL (0-200); Estimated Glomerular Filt Rate > 60; Glucose 101 mg/dL (65-110); HDL Direct 34 mg/dL; Potassium 4.1 mmol/L (3.4-5.0); Sodium 136 mmol/L (137-145); Triglycerides 71 mg/dL (<150)
[2023-12-09 15:04] LABS: LDL Cholesterol Direct 57 mg/dL
== END 2023-12-09 14:02 | disposition home or self-care (01) ==
PROVIDERS: PCP Internal Medicine; Visit Provider Internal Medicine Cardiovascular Disease
DX: E78.5 Hyperlipidemia, unspecified (principal)
CPT/HCPCS: 36415; 80053; 80061

== ENCOUNTER 2025-02-19 07:32 | Outpatient (CLI) | payer MEDICARE, MEDICAID, SELFPAY ==
--- OUTSIDE RECORDS SUMMARY | 2025-02-19 07:35 | XMS_ITS | Patient Health Record ---
Author Organization [facility] Address [address] [place] [address] Care Team Providers Care Program Administrator Name Role Phone Mitchell Schulz Primary Care Provider [phone] Allergies No Known Allergies Reason For Referral No Information Medications Medication SIG (Take, Route, Frequency, Duration) Notes Start Date End Date Status buPROPion HCl ER (SR) 200 MG TAKE 1 TABLET BY MOUTH TWICE DAILY; Duration: 90 days Please remind client to schedule f/u apt. Thanks! Active Topiramate 50 MG TAKE 0.5 TABLET BY MOUTH TWICE A DAY; Duration: 90 days Active diazePAM 5 MG 1 tablet as needed Orally Twice a day; Duration: 90 days 01/05/2023 Active lamoTRIgine 200 MG TAKE 1 TABLET BY MOUTH EVERY DAY; Duration: 90 days Active Sertraline HCl 100 MG 2 tablets Orally Once a day; Duration: 90 days Active traZODone HCl 50 MG TAKE 1 TABLET BY MOUTH EVERY DAY AT BEDTIME NEEDED; Duration: 90 days Active Social History Tobacco Use: Social History Observation Description Date Details (start date - stop date) Current Smoker NA - NA Sex Assigned At : Social History Observation Description Sex Assigned At Male Dont use, Tobacco Use/Smoking Question Answer Notes Are you a current every day smoker Additional Findings: Tobacco User Moderate cigar ette smoker (10-19 cigs/day) Problems Problem Type SNOMED Code ICD Code Onset Dates Problem Status W/U Status Risk Notes Problem Bipolar II disorder (22608726) Bipolar II disorder (F31.81) Active confirmed Problem Generalized anxiety disorder (48229624) TONY (generalized anxiety disorder) (F41.1) Active confirmed Problem Binge eating disorder (858617549) Binge eating disorder (F50.81) Active confirmed Plan Of Treatment No Information Insurance Providers Payer Name Payer Address Payer Phone Subscriber Number Group Number Insured Name Patient Relationship to Insured Coverage Start Date Coverage End Date MEDICARE PART A [address] [place] [phone] [id number] Jeff Rivera Self - patient is the insured 2 MEDICAID [address] [place] [id number] Rivera Aguilar Self - patient is the insured 1 [employer] [address] [place] [address] [id number] Rivera Aguilar Self - patient is the insured 1 [employer] [address] [place] [address] [id number] Rivera Aguilar Self - patient is the insured 1 Medical (General) History Medical History History ICD Code COPD ALFRED with CPAP Surgical History Surgery Date(Month/Year) Open heart surgery (pericardisis) 2017 Hip replacements 2017, 2018 Right knee replacement 2020 Hospitalization History Reason Date(Month/Year) Septic Shock- [facility] 11/2021
--- OUTSIDE RECORDS SUMMARY | 2025-02-19 07:36 | XMS_ITS | Encounter Summary ---
Author Organization [facility] Address [address] [place] [address] Care Team Providers Care Manufacturing Specialist Name Role Phone Terrell Muñoz DO Primary Care Provider Reason for Visit * Reason Comments Refill Request Encounter Details Date Type Department Care Team ([facility] Contact Info) Description 12/24/2024 Refill [facility] [address] [place] [address] Kingsley Hidalgo MD [address] [place], [place] [phone] Refill Request Social History Tobacco Use Types Packs/Day Years Used Date Smoking Tobacco: Some Days Cigarettes Last attempted to quit: 09/24/2016 Smokeless Tobacco: Never Alcohol Use Standard Drinks/Week Comments No 0 (1 standard drink = 0.6 oz pur e alcohol) PHQ-2 Answer Date Recorded Patient Health Questionnaire-2 Score 0 10/13/2024 Sex and Gender Information Value Date Recorded Sex Assigned at Male 09/21/2023 4:20 AM CDT Legal Sex Male 5:25 PM DIATHERMY EQUIPMENT REPAIRER Gender Identity Male 09/21/2023 4:20 AM CDT Sexual Orientation Bisexual 09/21/2023 4: 20 AM CDT documented as of this encounter Plan of Treatment Upcoming Encounters Date Type Department Care Team ([facility] Contact Info) Description 03/07/2025 9:40 AM DIATHERMY EQUIPMENT REPAIRER Hospital Encounter [facility] [address] [place], [place] [phone] 03/27/2025 1:40 PM DIATHERMY EQUIPMENT REPAIRER Office Visit [facility] - Endocrinology [address] [place] [address], [place] [address] Rach Casillas MD [address] [place] [address] [address]L [place] [phone] 05/11/2025 9:20 AM DIATHERMY EQUIPMENT REPAIRER Appointment [facility] [address] [facility], 2nd [place] [address] 05/11/2025 9:40 AM DIATHERMY EQUIPMENT REPAIRER Office Visit [facility] - Hematology/Oncology [address] [place] [phone] Loyd Graham MD [address] [place] [phone] 05/23/2025 10:30 AM DIATHERMY EQUIPMENT REPAIRER Office Visit [facility] - Urology [address] [facility] [address] [place] [phone] Demar Escalante MD [address] [place] [address] 2L [place] [address] 08/07/2025 8:30 AM CDT Appointment [facility] [address] [place] [address] Kingsley Hidalgo MD [address] [place] [address] 12/31/2025 1:40 PM CDT Office Visit [facility] - Endocrinology [address] [place] [address], [place] [phone] Rach Casillas MD [address] [place] [address] [address] [place] [phone] documented as of this encounter Visit Diagnoses Not on filedocumented in this encounter Care Teams Manufacturing Specialist Relationship Specialty Start Date End Date Terrell Muñoz DO PCP - General 08/07/16 documented as of this encounter
--- OUTSIDE RECORDS SUMMARY | 2025-02-19 07:36 | XMS_ITS ---
Author Organization [facility] Address [address] [facility] [place] [address] Care Team Providers Care Ecological Risk Assessor Name Role Phone Terrell Muñoz DO Primary Care Provider Active Problems Problem Noted Date Diagnosed Date Hot flashes 02/09/2025 Male hypogonadism 06/20/2024 Adrenal nodule 03/30/2024 H/O pericardiectomy 03/30/2024 Primary hypertension 03/30/2024 Depression 03/30/2024 Anxiety 03/30/2024 Prostate cancer 03/07/2024 Epidural abscess 12/19/2021 Alcoholic cirrhosis of liver without ascites Current Treatment and Therapy Plans PROSTATE REC (LEUPROLIDE (LUPRON OR ELIGARD)) Q6 MONTHS* Plan Start Date: 03/09/2024 Plan Provider:Loyd Graham MD Linked Problems Prostate cancer (HCC) Treatment Medications Current Day (Day 1 , Cycle 2 - Planned for 02/21/2025) Next Day (Day 1, Cycle 3 - Planned for 08/08/2025) leuprolide (Eligard 6 Month) leuprolide (Eligard 6 Month) injection 45 mg leuprolide (Eligard 6 Month) injection 45 mg Past Treatment and Therapy Plans No past plan information found. Radiation Treatments * Course C1:PROS+LN 03/30/2024 - 05/01/2024 Treatment Period Energy Fraction Dose Fractions Total Dose Plans Planned #Pros+LN 03/30/2024 - 05/01/2024 20 / 2 0 6,000 cGy Reference Points Delivered PTV_6000 03/30/2024 - 05/01/2024 6,000 cGy Lifetime Dose Tracking * Chemical Lifetime Dose Automatic Entry Manual Entr y CTDI(vol) 575 mGy 575 mGy 0 mGy Dose Length Product 1,588 mGy-cm 1,588 mGy-cm 0 mGy-cm
--- OUTSIDE RECORDS SUMMARY | 2025-02-19 07:36 | XMS_ITS | Encounter Summary ---
Author Organization [facility] Address [address] [place] [address] Care Team Providers Care Pulp House Supervisor Name Role Phone Terrell Muñoz DO Primary Care Provider Reason for Visit * Reason Onset Date Comments MEDICATION REFILL 06/28/2024 Encounter Details Date Type Department Care Team (Late Contact Info) Description 06/28/2024 Refill [facility] - Hematology/Oncology [address] [place] [phone] Loyd Graham MD [address] [place] [phone] MEDICATION REFILL Social History Tobacco Use Types Packs/Day Years Used Date Smoking Tobacco: Some Days Cigarettes Last attempted to quit: 09/24/2016 Smokeless Tobacco: Never Alcohol Use Standard Drinks/Week Comments No 0 (1 standard drink = 0.6 oz pur e alcohol) PHQ-2 Answer Date Recorded Patient Health Questionnaire-2 Score 2 01/27/2024 Sex and Gender Information Value Date Recorded Sex Assigned at Male 09/21/2023 4:20 AM CDT Legal Sex Male 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 PM WOOD PRESERVING PLANT LABORER Gender Identity Male 09/21/2023 4:20 AM CDT Sexual Orientation Bisexual 09/21/2023 4: 20 AM CDT documented as of this encounter Plan of Treatment Upcoming Encounters Date Type Department Care Team (Late Contact Info) Description 03/07/2025 9:40 AM WOOD PRESERVING PLANT LABORER Hospital Encounter [facility] [address] [place] [address] 03/27/2025 1:40 PM WOOD PRESERVING PLANT LABORER Office Visit [facility] - Endocrinology [address] [place] [address] Rach Casillas MD [address] [place] [address] 2L [place] [address] 05/11/2025 9:20 AM WOOD PRESERVING PLANT LABORER Appointment [facility] [address] [facility], 2nd [place] [address] 05/11/2025 9:40 AM WOOD PRESERVING PLANT LABORER Office Visit [facility] - Hematology/Oncology [address] [place] [phone] Loyd Graham MD [address] [place] [phone] 05/23/2025 10:30 AM WOOD PRESERVING PLANT LABORER Office Visit [facility] - Urology [address] [place] [phone] Demar Escalante MD [facility] 2L [place] [address] 08/07/2025 8:30 AM CDT Appointment [facility] [address] [place] [address] Kingsley Hidalgo MD [facility] [place] [address] 12/31/2025 1:40 PM CDT Office Visit [facility] - Endocrinology [address] [place] [address], [place] [address] Rach Casillas MD [address] [place] [address] [address] [place] [address] documented as of this encounter Visit Diagnoses Diagnosis Prostate cancer (HCC) Malignant neoplasm of prostate documented in this encounter Care Teams Pulp House Supervisor Relationship Specialty Start Date End Date Terrell Muñoz DO PCP - General 08/07/16 documented as of this encounter
--- OUTSIDE RECORDS SUMMARY | 2025-02-19 07:36 | XMS_ITS | Encounter Summary ---
Author Organization [facility] Address [address] [facility] [facility] [place] [address] Care Team Providers Care Marine Scientist Name Role Phone Terrell Muñoz DO Primary Care Provider [phone] Encounter Details Date Type Department Care Team (Late Contact Info) Description 12/22/2024 Results Follow-Up [facility] - Endocrinology [address] [place] [address], [facility] [place] [phone] Rach Casillas MD [address] [place] [phone] Social History Tobacco Use Types Packs/Day Years [...] AM CDT Legal Sex Male 5:25 PM PLAQUE MAKER Gender Identity Male 09/21/2023 4:20 AM CDT Sexual Orientation Bisexual 09/21/2023 4: 20 AM CDT documented as of this encounter Plan of Treatment Upcoming Encounters Date Type Department Care Team (Late Contact Info) Description 03/07/2025 9:40 AM PLAQUE MAKER Hospital Encounter [facility] [address] [place] [address] 03/27/2025 1:40 PM PLAQUE MAKER [facility] [address] [facility], [place] [address] Rach Casillas MD [address] [place] [address] 2L [place] [phone] 05/11/2025 9:20 AM PLAQUE MAKER Appointment [facility] [address] [facility], 2nd [place] [address] 05/11/2025 9:40 AM PLAQUE MAKER Office Visit [facility] - Hematology/Oncology [address] [place] [phone] Loyd Graham MD [address] [place] [phone] 05/23/2025 10:30 AM PLAQUE MAKER Office Visit [facility] - Urology [address] [facility] [address] [place] [phone] Demar Escalante MD [facility] 2L DIV [place] [address] 08/07/2025 8:30 AM CDT Appointment [facility] [address] [place] [address] Kingsley Hidalgo MD [address] [place] [address] 12/31/2025 1:40 PM CDT [facility] [address] [place] [address], [place] [phone] Rach Casillas MD [address] [place] [address] 2L [place] [phone] documented as of this encounter Visit Diagnoses Not on filedocumented in this encounter Care Teams Marine Scientist Relationship Specialty Start Date End Date Terrell Muñoz DO PCP - General 08/07/16 documented as of this encounter
--- OUTSIDE RECORDS SUMMARY | 2025-02-19 07:36 | XMS_ITS | Clinical Summary ---
Author Organization [facility] Address [address] [place] [address] Care Team Providers Care Transportation Attendant Name Role Phone Unavailable Primary Care Provider Unavailabl e Social History Tobacco Use Types Packs/Day Years Used Date Smoking Tobacco: Never Assessed Sex and Gender Information Value Date Recorded Sex Assigned at Not on file Legal Sex Male 7:07 PM CDT Gender Identity Not on file Sexual Orientation Not on file Plan of Treatment Health Maintenance Due Date Last Done Comments Colorectal Cancer Screening Colonoscopy (10 Years) 1968 Annual Physical 12/10/1971 Hepatitis C 1986 DTaP, Tdap and Td Vaccines ( 1 - Tdap) 12/10/1987 Hepatitis B Vaccines (1 of 3 - 19+ 3-dose series) 12/10/1987 Pneumococcal Vaccine: 50+ Ye ars (1 of 1 - PCV) 2018 Zoster Vaccines (1 of 2) 2018 COVID-19 Vaccine (2024-2 6 season) 2024 Influenza Adult (#1) 2025 Hepatitis A Vaccines Aged Out No long er eligible based on patient's age to complete this topic Meningococcal B Vaccine Aged Out No l onger eligible based on patient's age to complete this topic Meningococcal Vaccine Aged Out No timothy leland eligible based on patient's age to complete this topic RSV Immunizations Under 20 Months Aged Out No longer eligible based on patient's age to complete this topic
--- OUTSIDE RECORDS SUMMARY | 2025-02-19 07:36 | XMS_ITS | Clinical Summary ---
Author Organization [facility] Address [address] [place] [address] Care Team Providers Care Aerospace Project Engineer Name Role Phone Terrell Muñoz DO Primary Care Provider Source Comments [facility],non-owned Affiliates and Associated Physician Practices is amultiple site organization consisting of ambulatory clinics and hospital sitesin [place], [place], [place] and [place]. This disclosure is being madepursuant to the Care Everywhere program and may not contain all information available regarding this patient. Last updated 18.[facility] Allergies No known active allergies Medications * Be aware that medications may not be up to date on this document. Alwaysverify current medications with the patient. tamsulosin (Flomax) 0.4 MG capsule 1 (one) capsule 2 times daily 4 Active atorvastatin (Lipitor) 20 MG tablet 4 Active Calcium Carb-Cholecalci ferol (Calcium + Vitamin D3) 600-10 MG-MCG Take 1 (one) tablet by mouth 2 times daily 180 tablet 2 5 Active polyethylene glycol (Nulytely) 420 g solution TAKE DIRECTED BY OFFICE 5 Active potassium chloride ER (K-TAB) 20 MEQ tabletIndicatio ns:Hypokalemia Take 1 (one) tablet by mouth once daily Reasons: Low Amount of Potassium in the Blood 30 tablet 5 Active venlafaxine XR 24hr (Effexor XR) 75 MG capsule Take 1 (one) capsule by mouth once daily Start at half dose, then go to full dose if tolerating. 90 capsule 2 5 Active lisinopril (Prinivil; Zestril) 20 MG tablet Take 1 (one) tablet by mouth once daily Active predniSONE (Deltasone) 5 MG tabletIndicatio ns:Prostate cancer (HCC) Take 1 (one) tablet by mouth once daily 30 tablet 2 5 Active abiraterone (Zytiga) 250 MG tabletIndicatio ns:Prostate cancer (HCC) Take 4 (four) tablets by mouth once daily on an empty stomach 120 tablet 2 5 05/10/19 26 Active topiramate (Topamax) 50 MG tablet TAKE 0.5 TABLET BY MOUTH TWICE A DAY for 90 days 02/02/20 25 Discontinu ed(List Clean-Up) buPROPion SR 12hr (Wellbutrin SR) 200 MG tablet TAKE 1 TABLET BY MOUTH TWICE DAILY for 90 days 02/02/20 25 Discontinu ed(List Clean-Up) predniSONE (Deltasone) 5 MG tabletIndicatio ns:Prostate cancer (HCC) TAKE 1 TABLET BY MOUTH DAILY 30 tablet 2 5 02/10/20 25 Discontinu ed(Reorder ) abiraterone (Zytiga) 250 MG tabletIndicatio ns:Prostate cancer (HCC) Take 4 (four) tablets by mouth once daily on an empty stomach for 90 days 120 tablet 2 5 02/10/20 25 Discontinu ed(Reorder ) Active Problems Problem Noted Date Diagnosed Date Hot flashes 02/09/2025 Male hypogonadism 06/20/2024 Adrenal nodule 03/30/2024 H/O pericardiectomy 03/30/2024 Primary hypertension 03/30/2024 Depression 03/30/2024 Anxiety 03/30/2024 Prostate cancer 03/07/2024 Epidural abscess 12/19/2021 Alcoholic cirrhosis of liver without ascites Encounters Date Type Department Care Team Description 02/09/2025 9:40 AM CDT Office Visit [facility] - Hematology/Oncolog y [address] [place] [phone] Arelis Hooper, STILL WORKER HELPER-TOOL MACHINIST Prostate cancer (HCC) (Primary Dx); Primary hypertension; Depression, unspecified depression type; Anxiety; Hot flashes 02/09/2025 8:57 AM CDT - 02/09/2025 11:59 PM CDT Hospital Encounter [facility] [address] [facility] 2nd [place] [address] Discharge Disposition: Home or Self Care 02/09/2025 Travel 02/08/2025 Orders Only [facility] - Hematology/Oncolog y [address] [place] [phone] Loyd Graham MD Hyperglycemia 02/06/2025 Orders Only [facility] - Hematology/Oncolog y [address] [place] [phone] Loyd Graham MD Prostate cancer (HCC) 02/01/2025 8:29 AM CDT - 02/01/2025 11:59 PM CDT Hospital Encounter [facility] RAD ONC [address] [place] [address] Kingsley Hidalgo MD Discharge Disposition: Home or Self Care 02/01/2025 Telephone [facility] - Hematology/Oncolog y [address] [place] [phone] Loyd Graham MD Hypertension 01/02/2025 Refill [facility]olog [facility] [address] [place] [address] Loyd Graham MD MEDICATION REFILL 01/02/2025 Refill [facility] - Hematology/Oncolog y [address] [place] [phone] Loyd Graham MD Refill Request 12/26/2024 1:40 PM CDT Office Visit [facility] - Endocrinology [address] [facility] [place] [phone] Rach Casillas MD Adrenal nodule (HCC) (Primary Dx) 12/26/2024 Travel 12/25/2024 Telephone [facility] [address] [place] [address] Georgie Ansari RN General 12/24/2024 Refill [facility] [address] [place] [address] Kingsley Hidalgo MD Refill Request 12/24/2024 Refill [facility] - Hematology/Oncolog y [address] [place] [phone] Loyd Graham MD Refill Request 12/22/2024 Results Follow-Up [facility] - Endocrinology [address] [facility] [place] [address] Rach Casillas MD 12/21/2024 12:58 PM CDT - 12/21/2024 11:59 PM CDT Hospital Encounter [facility] CAT SCAN [address] [place] [phone] Rach Casillas MD Discharge Disposition: Home or Self Care 12/21/2024 Travel 11/28/2024 1:45 PM CDT Procedure visit [facility] - Urology [address] [place] [address] [address] [place] [phone] Demar Escalante MD Microscopic hematuria 11/28/2024 Travel 11/23/2024 Results Follow-Up [facility] - Hematology/Oncolog y [address] [place] [phone] Yael Martinez RN from Last 3 Months Social History Tobacco Use Types Packs/Day Years Used Date Smoking Tobacco: Some Days Cigarettes Last attempted to quit: 09/24/2016 Smokeless Tobacco: Never Tobacco Cessation:Ready to Q uit: Not Asked; Counseling Given: Not Answered Alcohol Use Standard Drinks/Week Comments No 0 (1 standard drink = 0.6 oz pur e alcohol) PHQ-2 Answer Date Recorded Patient Health Questionnaire-2 Score 0 10/13/2024 Sex and Gender Information Value Date Recorded Sex Assigned at Male 09/21/2023 4:20 AM CDT 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 Gender Identity Male 09/21/2023 4:20 AM CDT Sexual Orientation Bisexual 09/21/2023 4: 20 AM CDT Last Filed Vital Signs Vital Sign Reading Time Taken Comments Blood Pressure 162/95 02/09/2025 9:34 AM CDT Pulse 94 02/09/2025 9:34 AM CDT Temperature 36.9 C (98.5 F) 02/09/2025 9:34 AM CDT Respiratory Rate 18 02/09/2025 9:34 AM CDT Oxygen Saturation 95% 02/09/2025 9:34 AM CDT Inhaled Oxygen Concentration - - Weight 117.1 kg (258 lb 1.6 oz) 02/09/2025 9:34 AM CDT Height 175.3 cm (5' 9) 11/28/2024 1:30 PM CDT Body Mass Index 38.11 11/28/2024 1:30 PM CDT Plan of Treatment Upcoming Encounters Date Type Department Care Team (Late st Contact Info) Description 03/07/2025 9:40 AM BOOK JACKET COVER MACHINE OPERATOR Hospital Encounter [facility] [address] [place] [address] 03/27/2025 1:40 PM BOOK JACKET COVER MACHINE OPERATOR Office Visit [facility] - Endocrinology [address] [facility] [place] [phone] Rach Casillas MD [address] [place] [address] [address] [place] [phone] 05/11/2025 9:20 AM BOOK JACKET COVER MACHINE OPERATOR Appointment [facility] [address] [place] [address], 2nd [place] [address] 05/11/2025 9:40 AM BOOK JACKET COVER MACHINE OPERATOR [facility] Hematology/Oncology [address] [place] [phone] Loyd Graham MD [facility] [place] [address] 05/23/2025 10:30 AM BOOK JACKET COVER MACHINE OPERATOR Office Visit [facility] - Urology [address] [place] [address] [address] [place] [phone] Demar Escalante MD [facility] 2L [place] [address] 08/07/2025 8:30 AM CDT Appointment [facility] ONC [address] [place], [place] [phone] Kingsley Hidalgo MD [address] [place] [address] 12/31/2025 1:40 PM CDT Office Visit [facility] - Endocrinology [address] [place] [address], [place] [address] Rach Casillas MD [facility] [place] [phone] Health Maintenance Due Date Last Done Comments COLOGUARD (AGES 45-75) - COLON CA SCREENING 1968 COLON MONITORING 1968 COLONOSCOPY - COLON CA SCREENING 1968 CT COLONOGRAPHY - COLON CA SCREENING 1968 Colorectal Cancer Screening 1968 FIT - COLON CA SCREENING 1968 FLEX SIG - COLON CA SCREENING 1968 MEDICARE AWV 12 MONTHS 1968 HIV SCREENING 12/10/1983 DTAP/TDAP/TD VACCINES (1 - Tdap) 12/10/1987 HEPATITIS B VACCINE (1 of 3 - 19+ 3-dose series) 12/10/1987 PNEUMOCOCCAL VACCINE 50+ (1 of 2 - PCV) 12/10/1987 ZOSTER VACCINE (1 of 2) 2018 COVID-19 VACCINE ( season) 2024 03/13/2024, 01/19/2023, 02/28/2022, Additional history exists INFLUENZA VACCINE (#1) 2024 4, 02/22/2024, 01/19/2023, Additional history exists SCREENING FOR DIABETES 02/10/2028 5, 02/09/2025, 11/22/2024, Additional history exists HEPATITIS C SCREENING Completed 10/23/2016 DEPRESSION SCREENING Completed 10/13/2024, 01/27/20 HIB VACCINE Aged Out No longer eligi ble based on patient's age to complete this topic HPV VACCINE Aged Out No longer eligi ble based on patient's age to complete this topic MENINGOCOCCAL (Group B) VACCINE SHARED DECISION-MAKING Aged Out No longer eligible based on patient's age to complete this topic MENINGOCOCCAL GROUPS A/C/Y/W VACCINE Aged Out No longer eligible based on patient's age to complete this topic Procedures Procedure Name Priority Date/Time Associated Diagnosis Comments COMPREHENSIVE METABOLIC PANEL STAT 02/09/2025 9:11 AM CDT Prostate cancer (HCC) PSA SERIAL STAT 02/09/2025 9:11 AM CDT Prostate cancer (HCC) CBC W AUTO DIFFERENTIAL Routine 02/09/2025 9:11 AM CDT Prostate cancer (HCC) TESTOSTERONE TOTAL MALE Routine 02/09/2025 9:11 AM CDT Prostate cancer (HCC) HEMOGLOBIN A1C Routine 02/09/2025 9:[address] ADRENALS WO CONTRAST Routine 12/21/2024 1:23 PM CDT Adrenal nodule (HCC) Prostate cancer (HCC) H/O pericardiectomy Primary hypertension Male hypogonadism CYTOLOGY NON-SPECTROSCOPIST PANEL (STL) Routine 11/28/2024 2:54 PM CDT Microscopic hematuria URINALYSIS AUTO - POINT OF CARE (AMB) [facility] Routine 11/28/2024 1:48 PM CDT Microscopic hematuria COMPREHENSIVE METABOLIC PANEL Routine 11/22/2024 10:10 AM CDT Hypokalemia HEPATITIS C ANTIBODY Routine 10/23/2016 8:11 AM CDT from Last 3 Months or Most Recently Relevant to Health Maintenance Results * PSA SERIAL (02/09/2025 9:11 AM CDT) PSA Total <0.1 <4.0 ng/mL 02/09/2025 10:11 AM CDT [facility] Blood BLOOD SPECIMEN / Unknown Lab Venipuncture / Unknown 02/09/2025 9:11 AM CDT 02/09/2025 9:15 AM CDT Narrative [facility] - 02/09/2025 10:11 AM CDT PSA values will vary depending on the testing procedure used. Results are not comparable across different test methods. [facility] uses the El Alinity immunoassay test method. us Loyd Graham MD LAB - CHEMISTRY ORDERABLES Final Result Performing Organization Address City/[facility]/ZIP Co de Phone Number [address] [address], [facility] [phone] * HEMOGLOBIN A1C [IN-HOUSE TEST] (02/09/2025 9:11 AM CDT) Hemoglobin A1c 5.6 <=5.6 % 02/09/2025 11:47 AM CDT [facility] Estimated Average Glucose 114 mg/dL 02/09/2025 11:47 AM CDT [facility] Comment: HbA1c Interpretation: Normal : < 5.7% Pre-diabetes: 5.7-6.4% Diabetes: Equal to or greater than 6.5% Test results diagnostic of diabetes should be repeated for confirmation. Treatment target values recommended by ADA and other clinical organizations should be used to evaluate metabolic control in patients. Reference: [place] Diabetes Association, Standards of Care in Diabetes -2020 In patients 70 years and older consider HbA1c target range of 7.0-7.5% (Reference: Grover Mackey, et al. JAMDA. 2012) The Sebia assay for the measurement of HbA1c is a National Glycohemoglobin Standardization Program (NGSP) certified method. Blood BLOOD SPECIMEN WITH EDTA / Unknown Lab Venipuncture / Unknown 02/09/2025 9:11 AM CDT 02/09/2025 9:20 AM CDT us Loyd Graham MD LAB - CHEMISTRY ORDERABLES Final Result Performing Organization Address City/[facility]/ZIP Co de Phone Number [address] [address], [place] [phone] * (ABNORMAL) TESTOSTERONE TOTAL MALE (02/09/2025 9:11 AM CDT) [facility] Testosterone Adult Male <3(L) 300 - 890 ng/dL 02/11/2025 12:30 PM CDT [facility] ([facility]) Comment: INTERPRETIVE INFORMATION: Testosterone by Immunoassay Testosterone immunoassays are both imprecise and inaccurate at low testosterone concentrations, such as those found in children and cisgender females. For these individuals, testing by mass spectrometry is recommended; refer to Testosterone (Adult Females, Children, or Individuals on Testosterone-Suppressing Hormone Therapy) ([facility] test code [id number]). Free or bioavailable testosterone measurements may provide supportive information. For individuals on testosterone hormone therapy, refer to cisgender male reference intervals. No reference intervals have been established for males younger than 14 years or for cisgender females. For a complete set of all established reference intervals, refer to [employer]/Tests/Pub/[id number]. Performed By: [employer] [address] [place] [address] [employer]: Michael Conley MD, PhD CLIA Number: [id number] Blood BLOOD SPECIMEN / Unknown Lab Venipuncture / Unknown 02/09/2025 9:11 AM CDT 02/09/2025 9:14 AM CDT Loyd Graham MD LAB - CHEMISTRY ORDERABLES Final Result [facility] [employer] [facility]) [address] [place] [address], [facility] * CBC W/ DIFFERENTIAL (02/09/2025 9:11 AM CDT) [facility] WBC 7.3 4.0 - 10.7 x10E9/L 02/09/2025 9:35 AM CDT [facility] RBC Count 4.31 4.30 - 5.80 x10E12/L 02/09/2025 9:35 AM CDT [facility] Hemoglobin 13.4 13.3 - 17.5 g/dL 02/09/2025 9:35 AM CDT [facility] Hematocrit 38.7 38.7 - 51.1 % 02/09/2025 9:35 AM CDT [facility] MCV 89.8 80.0 - 98.0 fL 02/09/2025 9:35 AM [facility] MCH 31.1 26.7 - 33.6 pg 02/09/2025 9:35 AM [facility] MCHC 34.6 31.7 - 36.3 g/dL 02/09/2025 9:35 AM [facility] RDW-CV 14.0 11.3 - 14.8 % 02/09/2025 9:35 AM [facility] Platelet Count 252 150 - 420 x10E9/L 02/09/2025 9:35 AM [facility] MPV 11.3 7.8 - 11.4 fL 02/09/2025 9:35 AM [facility] Neutrophil % 69.8 41.0 - 74.0 % 02/09/2025 9:35 AM [facility] Lymphocyte % 17.2 17.0 - 47.0 % 02/09/2025 9:35 AM [facility] Monocyte % 9.1 3.0 - 11.0 % 02/09/2025 9:35 AM [facility] Eosinophil % 3.0 0.0 - 7.0 % 02/09/2025 9:35 AM [facility] Basophil % 0.6 0.0 - 1.6 % 02/09/2025 9:35 AM [facility] Immature Granulocytes % 0.3 0.0 - 1.0 % 02/09/2025 9:35 AM [facility] Neutrophil Absolute 5.07 1.60 - 7.50 x10E9/L 02/09/2025 9:35 AM [facility] Lymphocyte Absolute 1.25 1.00 - 4.40 x10E9/L 02/09/2025 9:35 AM [facility] Monocyte Absolute 0.66 0.15 - 1.00 x10E9/L 02/09/2025 9:35 AM [facility] Eosinophil Absolute 0.22 0.00 - 0.60 x10E9/L 02/09/2025 9:35 AM [facility] Basophil Absolute 0.04 0.00 - 0.13 x10E9/L 02/09/2025 9:35 AM [facility] Blood BLOOD SPECIMEN / Unknown Lab Venipuncture / Unknown 02/09/2025 9:11 AM CDT 02/09/2025 9:20 AM T us Loyd Graham MD LAB - HEMATOLOGY ORDERABLES Mary malou Result [facility] [address] [place] [address], [facility] [phone] * (ABNORMAL) COMPREHENSIVE METABOLIC PANEL (02/09/2025 9:11 AM CDT) Only the most recent of2 resultswithin the time period is included. BUN 13 7 - 26 mg/dL 02/09/2025 9:50 AM [facility] Creatinine 0.94 0.71 - 1.16 mg/dL 02/09/2025 9:50 AM [facility] Sodium 142 136 - 145 mmol/L 02/09/2025 9:50 AM [facility] Potassium 3.6 3.5 - 4.5 mmol/L 02/09/2025 9:50 AM [facility] Chloride 106 98 - 107 mmol/L 02/09/2025 9:50 AM [facility] CO2 27 22 - 29 mmol/L 02/09/2025 9:50 AM [facility] Glucose 142(H) 70 - 99 mg/dL 02/09/2025 9:50 AM [facility] Calcium 9.6 8.4 - 10.2 mg/dL 02/09/2025 9:50 AM [facility] Protein Total 7.3 6.0 - 8.3 g/dL 02/09/2025 9:50 AM [facility] Albumin 3.8 3.4 - 5.0 g/dL 02/09/2025 9:50 AM [facility] Bilirubin Total 0.4 0.2 - 1.2 mg/dL 02/09/2025 9:50 AM [facility] Alkaline Phosphatase 168(H) 40 - 150 U/L 02/09/2025 9:50 AM [facility] ALT 17 5 - 55 U/L 02/09/2025 9:[address] [facility] AST 15 5 - 34 U/L 02/09/2025 9:[address] [facility] Anion Gap 9 6 - 16 02/09/2025 9:50 AM [facility] BUN/Creatinine Ratio 14 7 - 23 02/09/2025 9:[address] [facility] Osmolality Calculated 297(H) 275 - 295 mOsm/kg 02/09/2025 9:50 AM [facility] Albumin/Globulin Ratio 1.1 1.1 - 2.3 02/09/2025 9:50 AM [facility] eGFR by CKD-EPI >90 >=90 mL/min/1.7 3 m2 02/09/2025 9:[address] [facility] Comment:Estimated Glomerular Filtration Rate (eGFR) calculated using the CKD-EPI Creatinine Equation (2020), per the National Kidney Foundation and [place] Society of Nephrology recommendations. Blood BLOOD SPECIMEN / Unknown Lab Venipuncture / Unknown 02/09/2025 9:11 AM CDT 02/09/2025 9:16 AM CDT Loyd Graham MD LAB - CHEMISTRY ORDERABLES Final Result [facility] [address] [place] [address], [facility] [phone] * CT Adrenals Wo Contrast (12/21/2024 1:23 PM CDT) Anatomical Region Laterality Modality Abdomen Computed Tomogra phy 12/21/2024 2:21 PM CDT Impressions 12/22/2024 11:01 AM CDT Impression: 1.Stable bilateral adrenal adenomas. 2.Cholelithiasis. 3.Minimal surface nodularity of the liver may be related to patient's given history of cirrhosis. > Dictated by Geovanni Haji Dr, MD (fixed income trading vice president). > Dictated by Executive Account Manager I, Fermin King have personally reviewed and interpreted this examination/study. > Interpreting Provider: Fermin King on 12/22/2024 11:01 AM Narrative 12/22/2024 11:01 AM CDT PROCEDURE: CT ADRENALS WO CONTRAST, DATE/TIME OF EXAM: 12/21/2024 1:23 PM, LOCATION [facility] INDICATION: E27.9: Adrenal nodule (HCC) C61: Prostate cancer (HCC) Z98.890: H/O pericardiectomy I10: Primary hypertension E29.1: Male hypogonadism ADDITIONAL CLINICAL INFORMATION: Ordering Provider Reason For Exam: Adrenal nodule Technologist Note: Additional: COMPARISON: CT adrenals without contrast 03/09/2024 TECHNIQUE: CT of the abdomen was performed prior to and after the uneventful administration of contrast according to a adrenal protocol. Findings: Lower Chest: Coronary artery calcification noted. Partially visualized pericardial calcifications. Partially visualized sternal sternotomy. Liver: Subtle surface nodularity involving the liver may be related to known cirrhosis. Gallbladder and Bile Ducts: Cholelithiasis. Spleen: Normal. Pancreas: Normal. Adrenals: Redemonstrated mild bilateral nodular thickening. The right adrenal nodule measures 1.5 cm and is 9 HU in density, stable in size from prior. The left adrenal gland measures approximately 1 cm and is -10HU in density. Kidneys: Normal. Gastrointestinal: Diverticulosis without diverticulitis. Otherwise, the stomach and visualized loops of large and small bowel are unremarkable. Normal appendix. Mesentery/Peritoneum/Retroperitoneum: Normal. Vasculature: Atherosclerotic calcification of the aorta and its branch vessels. Bones: Bone windows demonstrate no suspicious lytic or blastic lesions. The visible osseous structures are intact. Degenerative changes are seen in the spine. Soft tissues: Redemonstrated fat-containing epigastric ventral hernia and small umbilical hernia. Procedure Note Fermin King MD - 12/22/2024 PROCEDURE: CT ADRENALS WO CONTRAST, DATE/TIME OF EXAM: 12/21/2024 1:23PM, LOCATION [facility] INDICATION: E27.9: Adrenal nodule (HCC) C61: Prostate cancer (HCC) Z98.890: H/O pericardiectomy I10: Primary hypertension E29.1: Male hypogonadism ADDITIONAL CLINICAL INFORMATION: Ordering Provider Reason For Exam: Adrenal nodule Technologist Note: Additional: COMPARISON: CT adrenals without contrast 03/09/2024 TECHNIQUE: CT of the abdomen was performed prior to and after the uneventful administration of contrast according to a adrenal protocol. Findings: Lower Chest: Coronary artery calcification noted. Partially visualized pericardial calcifications. Partially visualized sternal sternotomy. Liver: Subtle surface nodularity involving the liver may be related to known cirrhosis. Gallbladder and Bile Ducts: Cholelithiasis. Spleen: Normal. Pancreas: Normal. Adrenals: Redemonstrated mild bilateral nodular thickening. The right adrenalnodule measures 1.5 cm and is 9 HU in density, stable in size from prior. Theleft adrenal gland measures approximately 1 cm and is -10HU in density. Kidneys: Normal. Gastrointestinal: Diverticulosis without diverticulitis. Otherwise, the stomach and visualized loops of large and small bowel are unremarkable. Normal appendix. Mesentery/Peritoneum/Retroperitoneum: Normal. Vasculature: Atherosclerotic calcification of the aorta and its branch vessels. Bones: Bone windows demonstrate no suspicious lytic or blastic lesions. The visible osseous structures are intact. Degenerative changes are seen inthe spine. Soft tissues: Redemonstrated fat-containing epigastric ventral hernia and small umbilical hernia. Impression: 1.Stable bilateral adrenal adenomas. 2.Cholelithiasis. 3.Minimal surface nodularity of the liver may be related to patient'sgiven history of cirrhosis. > Dictated by Geovanni Haji Dr, MD (fixed income trading vice president). > Dictated by Executive Account Manager I, Fermin King have personally reviewed and interpreted this examination/study. > Interpreting Provider: Fermin King on 12/22/2024 11:01 AM Rach Casillas MD CT ORDERABLES Final Result * CYTOLOGY NON-SPECTROSCOPIST PANEL (STL) (11/28/2024 2:54 PM CDT) Case Report Medical Cytology Report Case: [id number] Authorizing Provider: Demar Escalante MD Collected: 11/28/2024 02:54 PM Ordering Location: [facility] - Received: 11/29/2024 05:50 AM Urology Pathologist: Nina Shaw MD Specimen: Urine 11/29/2024 9:55 AM CDT [facility] PATH[facility] Specimen Adequacy Adequate cellularity for evaluation. 11/29/2024 9:55 AM CDT U PATHOLOGY [facility] Final Diagnosis Urine, cytology: - Few scattered atypical urothelial cells/clusters present 11/29/2024 9:55 AM CDT [facility]Y LAB at 0955 CDT Clinical History Hematuria 11/29/2024 9:55 AM CDT [facility] Gross Description 1 Pap stained Thin Prep slide from 120 cc of yellow, clear fluid 11/29/2024 9:55 AM CDT U PATHOLOGY LAB Pathologist Location at [facility] 11/29/2024 9:55 AM CDT U PATHOLOGY LAB Disclaimer The performance characteristics of all immunohistochemical and indirect immunofluorescence stains (if any) cited in this report were determined by the Histopathology Laboratory of [facility]. Some of these tests rely on the use of analyte-specific reagents and are subject to specific labeling requirements by the US Food and Drug Administration. Such tests were developed by the Histology Laboratory of [facility] and have not been cleared or approved by the FDA. The FDA has determined that such clearance and approval is not necessary. These tests are used for clinical purposes and should not be regarded as investigational or for research. This laboratory is certified under the Clinical Laboratory Improvement Amendments (CLIA) as qualified to perform high complexity clinical laboratory testing. This case has been personally reviewed and interpreted by the attending (teaching) pathologist. 11/29/2024 9:55 AM CDT U PATHOLOGY LAB Embedded Images 11/29/2024 9:55 AM CDT [facility] Pathology/Cytolo gy URINE / Unknown 11/28/2024 2:54 PM CDT 11/29/2024 5:50 AM CDT Demar Escalante MD LAB - PATHOLOGY/CYTOLOGY ORDERAB LES Final Result [facility] [address] [place] [address], [facility] [phone] * URINALYSIS AUTO - POINT OF CARE (AMB) U (11/28/2024 1:48 PM CDT) Glucose UA neg [facility] [address] Bilirubin UA POCT neg [facility] [address] Ketones UA POCT neg [facility] [address] Specific [place] UA 1.[address] [facility] [address] Blood Urine POCT neg [facility] [address] pH UA 6.0 [facility] [address] Protein UA 2+1.0g/l [facility] [address] Urobilinogen UA 3.5umol/l [facility] [address] Nitrite UA neg [facility] [address] WBC UA neg [facility] [address] Urine URINE / Unknown 11/28/2024 1 :48 PM CDT Demar Escalante MD LAB - POINT OF CARE ORDERABLES F inal Result [facility] [address] [place] [address], [facility] [phone] * HEPATITIS C ANTIBODY (10/23/2016 8:11 AM CDT) Pathologist [facility] Hepatitis C Antibody Non-react [facility] Comment: Hepatitis C Antibody screen indicates no serologic evidence of past or current infection with Hepatitis C Virus. Patients with unexplained liver disease who are immunocompromised or suspected of having acute Hepatitis C infection may benefit from Nucleic Acid Test (ALEX) for Hepatitis C Viral RNA to confirm Hepatitis C status. Blood specimen (specimen) BLOOD SPECIMEN / Unknown 10/23/2016 8:11 AM CDT 10/23/2016 8:58 AM CDT Freddie Gerber MD LAB - CHEMISTRY ORDERABLES Mary l Result [facility] LABORATORY [facility] [address] [place] [address], [facility] [phone] from Last 3 Months or Most Recently Relevant to Health Maintenance Insurance [address] [place], [place] [id number] SERVICES MED[place] MEDICARE MEDICARE Care Teams Aerospace Project Engineer Relationship Specialty Start Date End Date Terrell Muñoz DO PCP - General 08/07/16
[2025-02-19 08:15] LABS: Hematocrit 38.0 % (42.0-52.0); Hemoglobin 12.7 g/dL (14.0-18.0); Immature Granulocyte Percent A 0.6 % (0-0.5); Lymphocytes Absolute Auto 1.33 K/mm3 (0.9-3.2); Mean Corpuscular HGB Conc 33.4 g/dl (32-36); Mean Corpuscular Hemoglobin 30.6 pg (26-34); Mean Corpuscular Volume 91.6 fl (80-100); Nucleated Red Blood Cells Absolute Auto 0.000 K/mm3 (0.0-0.012); Nucleated Red Blood Cells Perc 0.0 % (0.0-0.2); Platelet Count Result 260 k/mm3 (150-375); Red Blood Count 4.15 M/mm3 (4.6-6.20); White Blood Count 6.6 K/mm3 (4.5-10.0)
[2025-02-19 08:32] LABS: Hemoglobin A1C 5.7 % (<5.7)
[2025-02-19 08:33] LABS: Alanine Aminotransferase 25 U/L (6-50); Albumin Level 4.1 g/dL (3.5-5.1); Alkaline Phosphatase 154 U/L (38-126); Anion Gap 6 mmol/L (4-12); Aspartate Amino Transferase 26 U/L (17-59); Bilirubin,Total 0.5 mg/dL (0.2-1.3); Blood Urea Nitrogen 17 mg/dL (9-20); Calcium 8.8 mg/dL (8.4-10.2); Carbon Dioxide 27 mmol/L (22-30); Chloride 107 mmol/L (98-107); Estimated Glomerular Filt Rate > 60; Glucose 104 mg/dL (65-110); Potassium 3.7 mmol/L (3.4-5.0); Sodium 140 mmol/L (137-145); Total Protein 7.6 g/dL (6.3-8.2)
[2025-02-19 08:50] LABS: Free T4 Free Thyroxine 0.85 ng/dL (0.78-2.19)
[2025-02-19 09:02] LABS: Thyroid Stimulating Hormone 3.150 uIU/mL (0.465-4.680)
[2025-02-20 07:08] LABS: Triiodothyronine (T3), Free 3.0 pg/mL (2.0-4.4)
== END 2025-02-19 07:33 | disposition home or self-care (01) ==
PROVIDERS: PCP Internal Medicine
DX: R73.9 Hyperglycemia, unspecified (principal); I10 Essential (primary) hypertension; I25.10 Atherosclerotic heart disease of native coronary artery without angina pectoris; E78.5 Hyperlipidemia, unspecified; C61 Malignant neoplasm of prostate
CPT/HCPCS: 36415; 80053; 83036; 84439; 84443; 84481; 85025

== ENCOUNTER 2025-02-20 22:07 | Inpatient (IN) | payer MEDICARE, MEDICAID, SELFPAY ==
--- NOTE | ~2025-02-20 | XR_ITS ---
XR chest 1V portable INDICATION:SOB . REFERENCE: None FINDINGS: A single AP of the chest demonstrates enlarged heart. There are interstitial groundglass opacities bilaterally. There is no evidence of pneumothorax or pleural effusion. IMPRESSION: Cardiomegaly with pulmonary congestion. Reviewed, dictated and finalized at location S. OSCIENCE DIRECTOR NA
--- NOTE | ~2025-02-20 | CT_ITS ---
EXAMINATION: CTA chest PE abdomen pel DATE: 02/20/2025 23:36 INDICATION: Dyspnea. Distended abdomen. TECHNIQUE: Computed tomography angiography (CTA) of the chest was performed with 100 mL Omnipaque-350 intravenous contrast timed to evaluate the pulmonary arteries. Coronal maximum intensity projection 3D-reconstructions were created by the technologist. Computed tomography (CT) of the abdomen and pelvis was performed with intravenous contrast. Automated exposure control and iterative reconstruction technique were employed. The dose-length product was 1915.23 mGy-cm. COMPARISON: Chest CT 07/23/2023, CT abdomen and pelvis 03/16/2022 FINDINGS: CTA chest: The lungs demonstrate mild atelectasis. No pleural effusion. Cardiomegaly is noted. No pericardial effusion. Calcific pericarditis is noted. Median sternotomy wires are noted. There is bilateral gynecomastia. There is no pulmonary embolus. There is severe cervical spondylosis and moderate thoracic spondylosis. There is mild chronic anterior wedging of multiple lower thoracic vertebral bodies. CT abdomen and pelvis: The liver, gallbladder, spleen, pancreas, and left adrenal gland are normal. There is a 2.0 cm mass in right adrenal gland containing fat, consistent with a myelolipoma. There is cortical thinning of the kidneys. There is diverticulosis of the colon without evidence of diverticul itis. There are no dilated loops of bowel. The appendix is normal. There are no pathologically enlarged lymph nodes. The bladder is distended. There is no free intraperitoneal fluid. There are bilateral total hip arthroplasties. There is moderate lumbar spondylosis. IMPRESSION: 1. No pulmonary embolus. Sensitivity is mildly decreased by motion artifact. 2. Calcific pericarditis. Reviewed, dictated and finalized at location E. ULA BOTTLER
[2025-02-20 22:05] VITALS: BP 160/97; PULSE 94; RESP 22; TEMP 36.7; O2SAT 94
[2025-02-20 22:17] VITALS: O2SAT 89; O2SAT 94
--- NOTE | 2025-02-20 22:20 | ECG_ITS ---
Test Date: 2025-02-20 22:25:49 Measurements Intervals [place] Rate: 85 P: 9 NV: 150 QRS: 79 QRSD: 86 T: 137 QT: 385 QTc: 459 Interpretive Statements SINUS RHYTHM SEPTAL MYOCARDIAL INFARCTION , PROBABLY OLD [40+ ms Q WAVE IN V1/V2] No previous ECG available for comparison Electronically Signed On 02-21-2025 06:38:06 COMPUTER PROGRAMMER CHIEF by Truman Gibson M.D.
--- OUTSIDE RECORDS SUMMARY | 2025-02-20 22:23 | XMS_ITS | Encounter Summary ---
Author Organization [facility] Address [address] [place] [address] Care Team Providers Care Pv Installer Tech Name Role Phone Terrell Muñoz DO Primary Care Provider Reason for Visit * Reason Comments Refill Request Encounter Details Date Type Department Care Team ([facility] Contact Info) Description 12/24/2024 Refill [facility] [address] [place] [address] Kingsley Hidalgo MD [address] [place], [place] [phone] Refill Request Social History Tobacco Use Types [...] AM CDT Legal Sex Male 5:25 PM SUPERVISOR KENNEL Gender Identity Male 09/21/2023 4:20 AM CDT Sexual Orientation Bisexual 09/21/2023 4: 20 AM CDT documented as of this encounter Plan of Treatment Upcoming Encounters Date Type Department Care Team ([facility] Contact Info) Description 03/07/2025 9:40 AM SUPERVISOR KENNEL Hospital Encounter [facility] [address] [place], [place] [phone] 03/27/2025 1:40 PM SUPERVISOR KENNEL Office Visit [facility] - Endocrinology [address] [place] [address], [place] [address] Rach Casillas MD [address] [place] [address] [address] [place] [phone] 05/11/2025 9:20 AM SUPERVISOR KENNEL Appointment [facility] [address] [facility], 2nd [place] [address] 05/11/2025 9:40 AM SUPERVISOR KENNEL Office Visit [facility] - Hematology/Oncology [address] [place] [phone] Loyd Graham MD [address] [place] [phone] 05/23/2025 10:30 AM SUPERVISOR KENNEL Office Visit [facility] - Urology [address] [facility] [address] [place] [phone] Demar Escalante MD [address] [place] [address] 2L [place] [address] 08/07/2025 8:30 AM CDT Appointment [facility] [address] [place] [address] Kingsley Hidalgo MD [address] [place] [address] 12/31/2025 1:40 PM CDT Office Visit [facility] - Endocrinology [address] [place] [address], [place] [phone] Rach Casillas MD [address] [place] [address] [address] [place] [phone] documented as of this encounter Visit Diagnoses Not on filedocumented in this encounter Care Teams Pv Installer Tech Relationship Specialty Start Date End Date Terrell Muñoz DO PCP - General 08/07/16 documented as of this encounter
--- OUTSIDE RECORDS SUMMARY | 2025-02-20 22:23 | XMS_ITS | Clinical Summary ---
Author Organization [facility] Address [address] [place] [address] Care Team Providers Care Welt Sole Layer Name Role Phone Terrell Muñoz DO Primary Care Provider [phone] Source Comments [facility],non-owned Affiliates and Associated Physician Practices is amultiple site organization consisting of ambulatory clinics and hospital sitesin [place], [place], [place] and [place]. This disclosure is being madepursuant to the Care Everywhere program and may not contain all information available regarding this patient. Last updated 18.[facility] Allergies No known active allergies Medications * [...] Visit [facility] - Hematology/Oncolog y [address] [place] [phone] Arelis Hooper, COSMETOLOGIST APPRENTICE-BRAN MIXER Prostate cancer (HCC) (Primary Dx); Primary hypertension; Depression, unspecified depression type; Anxiety; Hot flashes 02/09/2025 8:57 AM CDT - 02/09/2025 11:59 PM CDT Hospital Encounter [facility] [address] [facility], 2nd [place] [address] Discharge Disposition: Home or Self Care 02/09/2025 Travel 02/08/2025 Orders Only [facility] - Hematology/Oncolog y [address] [place] [phone] Loyd Graham MD Hyperglycemia 02/06/2025 Orders Only [facility] - Hematology/Oncolog y [address] [place] [phone] Loyd Graham MD Prostate cancer (HCC) 02/01/2025 8:29 AM CDT - 02/01/2025 11:59 PM CDT Hospital Encounter [facility] [address] [place] [address] Kingsley Hidalgo MD Discharge Disposition: Home or Self Care 02/01/2025 Telephone [facility] - Hematology/Oncolog y [address] [place] [phone] Loyd Graham MD Hypertension 01/02/2025 [facility]ill [facility]olog [facility] [address] [place] [address] Loyd Graham MD MEDICATION REFILL 01/02/2025 Refill [facility]Oncolog y [address] [place] [phone] Loyd Graham MD Refill Request 12/26/2024 1:40 PM CDT Office Visit [facility] - Endocrinology [address] [facility], [place] [phone] Rach Casillas MD Adrenal nodule (HCC) (Primary Dx) 12/26/2024 Travel 12/25/2024 Telephone [facility] [address] [place] [address] Georgie Ansari RN General 12/24/2024 Refill [facility] [address] [place] [address] Kingsley Hidalgo MD Refill Request 12/24/2024 Refill [facility] - Hematology/Oncolog y [address] [place] [phone] Loyd Graham MD Refill Request 12/22/2024 Results Follow-Up [facility] - Endocrinology [address] [facility], [place] [address] Rach Casillas MD 12/21/2024 12:58 PM CDT - 12/21/2024 11:59 PM CDT Hospital Encounter [facility] [address] [place] [phone] Rach Casillas MD Discharge Disposition: Home or Self Care 12/21/2024 Travel 11/28/2024 1:45 PM CDT Procedure visit [facility] - Urology [address] [place] [address] [address] [place] [phone] Demar Escalante MD Microscopic hematuria 11/28/2024 Travel 11/23/2024 Results Follow-Up [facility] - Hematology/Oncolog y [address] [place] [phone] Yael Martinez RN from Last 3 Months [...] AM CDT Legal Sex Male 5:25 PM TICKET WRITER Gender Identity Male 09/21/2023 4:20 AM CDT [...] st Contact Info) Description 03/07/2025 9:40 AM TICKET WRITER Hospital Encounter [facility] [address] [place] [address] 03/27/2025 1:40 PM TICKET WRITER Office Visit [facility] - Endocrinology [address] [facility], [place] [phone] Rach Casillas MD [address] [place] [address] 2L DIV [place] [phone] 05/11/2025 9:20 AM TICKET WRITER Appointment [facility] [address] [place] [address], 2nd [place] [address] 05/11/2025 9:40 AM TICKET WRITER [facility]On[facility] [address] [place] [phone] Loyd Graham MD [facility] [place] [address] 05/23/2025 10:30 AM TICKET WRITER Office Visit [facility] - Urology [address] [place] [address] [address] [place] [address] Demar Escalante MD [facility] [place] 2L DIV OF [place]OLOGIC [place] [address] 08/07/2025 8:30 AM CDT Appointment [facility] [address] [place], [place] [phone] Kingsley Hidalgo MD [address] [place] [address] 12/31/2025 1:40 PM CDT Office Visit [facility] - Endocrinology [address] [place] [address], [place] [address] Rach Casillas MD [facility] DIV [place] [phone] Health Maintenance Due Date Last Done Comments [...] H/O pericardiectomy Primary hypertension Male hypogonadism CYTOLOGY NON-METAL TRIM ERECTOR PANEL (STL) Routine 11/28/2024 2:54 PM CDT [...] <0.1 <4.0 ng/mL 02/09/2025 10:11 AM CDT [facility] Blood BLOOD SPECIMEN / Unknown Lab Venipuncture / Unknown 02/09/2025 9:11 AM CDT 02/09/2025 9:15 AM CDT Narrative [facility] - 02/09/2025 10:11 AM CDT PSA values will vary depending on the testing procedure used. Results are not comparable across different test methods. [facility] uses the [place] Al[place] immunoassay test method. us Loyd Graham MD LAB - CHEMISTRY ORDERABLES Final Result Performing Organization Address City/[facility]/ZIP Co de Phone Number [address] [address], [facility] [phone] * HEMOGLOBIN A1C [IN-HOUSE TEST] (02/09/2025 9:11 AM CDT) Hemoglobin A1c 5.6 <=5.6 % 02/09/2025 11:47 AM CDT [facility] Estimated Average Glucose 114 mg/dL 02/09/2025 11:47 AM CDT [facility] Comment: HbA1c Interpretation: Normal : < 5.7% Pre-diabetes: 5.7-6.4% Diabetes: Equal to or greater than 6.5% Test results diagnostic of diabetes should be repeated for confirmation. Treatment target values recommended by ADA and other clinical organizations should be used to evaluate metabolic control in patients. Reference: [place] Diabetes Association, Standards of Care in Diabetes [...] CHEMISTRY ORDERABLES Final Result Performing Organization Address City/[facility]/ZIP Co de Phone Number [address] [address], [place] [phone] * (ABNORMAL) TESTOSTERONE TOTAL MALE (02/09/2025 9:11 AM CDT) [facility] Testosterone Adult Male <3(L) 300 - 890 ng/dL 02/11/2025 12:30 PM CDT [facility] Comment: INTERPRETIVE INFORMATION: Testosterone by Immunoassay Testosterone immunoassays are both imprecise and inaccurate at low testosterone concentrations, such as those found in children and cisgender females. For these individuals, testing by mass spectrometry is recommended; refer to Testosterone (Adult Females, Children, or Individuals on Testosterone-Suppressing Hormone Therapy) ([facility] test code [id number]). Free or bioavailable testosterone measurements may provide supportive information. For individuals on testosterone hormone therapy, refer to cisgender male reference intervals. No reference intervals have been established for males younger than 14 years or for cisgender females. For a complete set of all established reference intervals, refer to [employer]/Tests/Pub/[id number]. Performed By: [facility] [address] [place] [address] Retanned Leather Roller: Michael Conley MD, PhD CLIA Number: [id number] Blood BLOOD SPECIMEN / Unknown Lab Venipuncture / Unknown 02/09/2025 9:11 AM CDT 02/09/2025 9:14 AM CDT Loyd Graham MD LAB - CHEMISTRY ORDERABLES Final Result [facility]) [address] [place] [address], [facility] * CBC W/ DIFFERENTIAL (02/09/2025 9:11 AM CDT) [facility] WBC 7.3 4.0 - 10.7 x10E9/L 02/09/2025 9:35 AM CDT [facility] RBC Count 4.31 4.30 - 5.80 x10E12/L 02/09/2025 9:35 AM CDT [facility] Hemoglobin 13.4 13.3 - 17.5 g/dL 02/09/2025 9:35 AM CDT [facility] Hematocrit 38.7 38.7 - 51.1 % 02/09/2025 9:35 AM CDT [facility] MCV 89.8 80.0 - 98.0 fL 02/09/2025 9:35 AM [facility] MCH 31.1 26.7 - 33.6 pg 02/09/2025 9:35 AM [facility] MCHC 34.6 31.7 - 36.3 g/dL 02/09/2025 9:35 AM [facility] RDW-CV 14.0 11.3 - 14.8 % 02/09/2025 9:35 AM [facility] Platelet Count 252 150 - 420 x10E9/L 02/09/2025 9:35 AM [facility] MPV 11.3 7.8 - 11.4 fL 02/09/2025 9:35 AM [facility] Neutrophil % 69.8 41.0 - 74.0 % 02/09/2025 9:35 AM [facility] Lymphocyte % 17.2 17.0 - 47.0 % 02/09/2025 9:35 AM [facility] Monocyte % 9.1 3.0 - 11.0 % 02/09/2025 9:35 AM [facility] Eosinophil % 3.0 0.0 - 7.0 % 02/09/2025 9:35 AM [facility] Basophil % 0.6 0.0 - 1.6 % 02/09/2025 9:35 AM [facility] Immature Granulocytes % 0.3 0.0 - 1.0 % 02/09/2025 9:35 AM [facility] Neutrophil Absolute 5.07 1.60 - 7.50 x10E9/L 02/09/2025 9:35 AM [facility] Lymphocyte Absolute 1.25 1.00 - 4.40 x10E9/L 02/09/2025 9:35 AM [facility] Monocyte Absolute 0.66 0.15 - 1.00 x10E9/L 02/09/2025 9:35 AM [facility] Eosinophil Absolute 0.22 0.00 - 0.60 x10E9/L 02/09/2025 9:35 AM [facility] Basophil Absolute 0.04 0.00 - 0.13 x10E9/L 02/09/2025 9:35 AM [facility] Blood BLOOD SPECIMEN / Unknown Lab Venipuncture / Unknown 02/09/2025 9:11 AM CDT 02/09/2025 9:20 AM T us Loyd Graham MD LAB - HEMATOLOGY ORDERABLES Mary malou Result [facility] [address] [place] [address], [facility] [phone] * (ABNORMAL) COMPREHENSIVE METABOLIC PANEL (02/09/2025 9:11 AM CDT) Only the most recent of2 resultswithin the time period is included. BUN 13 7 - 26 mg/dL 02/09/2025 9:50 AM [facility] Creatinine 0.94 0.71 - 1.16 mg/dL 02/09/2025 9:50 AM [facility] Sodium 142 136 - 145 mmol/L 02/09/2025 9:50 AM [facility] Potassium 3.6 3.5 - 4.5 mmol/L 02/09/2025 9:50 AM [facility] Chloride 106 98 - 107 mmol/L 02/09/2025 9:50 AM [facility] CO2 27 22 - 29 mmol/L 02/09/2025 9:50 AM [facility] Glucose 142(H) 70 - 99 mg/dL 02/09/2025 9:50 AM [facility] Calcium 9.6 8.4 - 10.2 mg/dL 02/09/2025 9:50 AM [facility] Protein Total 7.3 6.0 - 8.3 g/dL 02/09/2025 9:50 AM [facility] Albumin 3.8 3.4 - 5.0 g/dL 02/09/2025 9:50 AM [facility] Bilirubin Total 0.4 0.2 - 1.2 mg/dL 02/09/2025 9:50 AM [facility] Alkaline Phosphatase 168(H) 40 - 150 U/L 02/09/2025 9:50 AM [facility] ALT 17 5 - 55 U/L 02/09/2025 9:50 AM [facility] AST 15 5 - 34 U/L 02/09/2025 9:50 AM [facility] Anion Gap 9 6 - 16 02/09/2025 9:50 AM [facility] BUN/Creatinine Ratio 14 7 - 23 02/09/2025 9:50 AM [facility] Osmolality Calculated 297(H) 275 - 295 mOsm/kg 02/09/2025 9:50 AM [facility] Albumin/Globulin Ratio 1.1 1.1 - 2.3 02/09/2025 9:50 AM [facility] eGFR by CKD-EPI >90 >=90 mL/min/1.7 3 m2 02/09/2025 9:50 AM [facility] Comment:Estimated Glomerular Filtration Rate (eGFR) calculated using the CKD-EPI Creatinine Equation (2020), per the National Kidney Foundation and [place] Society of Nephrology recommendations. Blood BLOOD SPECIMEN / Unknown Lab Venipuncture / Unknown 02/09/2025 9:11 AM CDT 02/09/2025 9:16 AM CDT Loyd Graham MD LAB - CHEMISTRY ORDERABLES Final Result [facility] [address] [place] [address], [facility] [phone] * CT Adrenals Wo Contrast (12/21/2024 1:23 PM CDT) Anatomical Region Laterality Modality Abdomen Computed Tomogra phy 12/21/2024 2:21 PM CDT Impressions 12/22/2024 11:01 AM CDT Impression: 1.Stable bilateral adrenal adenomas. 2.Cholelithiasis. 3.Minimal surface nodularity of the liver may be related to patient's given history of cirrhosis. > Dictated by Geovanni Haji Dr, MD (vice president of procurement). > Dictated by Slag Production Worker I, Fermin King have personally reviewed and interpreted this examination/study. > Interpreting Provider: Fermin King on 12/22/2024 11:01 AM Narrative 12/22/2024 11:01 AM CDT PROCEDURE: CT ADRENALS WO CONTRAST, DATE/TIME OF EXAM: 12/21/2024 1:23 PM, LOCATION [facility] INDICATION: E27.9: Adrenal nodule (HCC) C61: Prostate [...] CONTRAST, DATE/TIME OF EXAM: 12/21/2024 1:23PM, LOCATION [facility] INDICATION: E27.9: Adrenal nodule (HCC) C61: Prostate [...] > Dictated by Geovanni Haji Dr, MD (vice president of procurement). > Dictated by Slag Production Worker I, Fermin King have personally reviewed and interpreted this examination/study. > Interpreting Provider: Fermin King on 12/22/2024 11:01 AM Rach Casillas MD CT ORDERABLES Final Result * CYTOLOGY NON-METAL TRIM ERECTOR PANEL (STL) (11/28/2024 2:54 PM CDT) Case Report Medical Cytology Report Case: [id number] Authorizing Provider: Demar Escalante MD Collected: 11/28/2024 02:54 PM Ordering Location: [facility] - Received: 11/29/2024 05:50 AM Urology Pathologist: Nina Shaw MD Specimen: Urine 11/29/2024 9:55 AM CDT [facility] PATH[facility] Specimen Adequacy Adequate cellularity for evaluation. 11/29/2024 9:55 AM CDT [facility] Final Diagnosis Urine, cytology: - Few scattered atypical urothelial cells/clusters present 11/29/2024 9:55 AM CDT [facility] at 0955 CDT Clinical History Hematuria 11/29/2024 9:55 AM CDT [facility] Gross Description 1 Pap stained Thin Prep slide from 120 cc of yellow, clear fluid 11/29/2024 9:55 AM CDT U PATHOLOGY LAB Pathologist Location at [facility] 11/29/2024 9:55 AM CDT U PATHOLOGY LAB Disclaimer The performance characteristics of all immunohistochemical and indirect immunofluorescence stains (if any) cited in this report were determined by the Histopathology Laboratory of [facility]. Some of these tests rely on the use of analyte-specific reagents and are subject to specific labeling requirements by the US Food and Drug Administration. Such tests were developed by the Histology Laboratory of [facility] and have not been cleared or approved [...] LAB Embedded Images 11/29/2024 9:55 AM CDT [facility] Pathology/Cytolo gy URINE / Unknown 11/28/2024 2:54 PM CDT 11/29/2024 5:50 AM CDT Demar Escalante MD LAB - PATHOLOGY/CYTOLOGY ORDERAB LES Final Result [facility] [address] [place] [address], [facility] [phone] * URINALYSIS AUTO - POINT OF CARE (AMB) U (11/28/2024 1:48 PM CDT) Glucose UA neg [facility] [address] Bilirubin UA POCT neg [facility] [address] Ketones UA POCT neg [facility] [address] Specific [place] UA 1.[address] [facility] [address] Blood [...] [facility] [address] [place] [address], [facility] [phone] * HEPATITIS C ANTIBODY (10/23/2016 8:11 AM CDT) Pathologist [facility] Hepatitis C Antibody Non-react [facility] Comment: Hepatitis C Antibody screen indicates no [...] LAB - CHEMISTRY ORDERABLES Mary l Result [facility] [address] [place] [address], [facility] [phone] from Last 3 Months or Most Recently Relevant to Health Maintenance Insurance [address] [place], [place] [id number] SERVICES MEDICAID [place] MED[place] MEDICARE Care Teams Welt Sole Layer Relationship Specialty Start Date End Date Terrell Muñoz DO PCP - General 08/07/16
--- OUTSIDE RECORDS SUMMARY | 2025-02-20 22:23 | XMS_ITS | Clinical Summary ---
Author Organization [facility] Address [address] [place] [address] Care Team Providers Care Devulcanizer Head Name Role Phone Unavailable Primary Care Provider [...]
--- OUTSIDE RECORDS SUMMARY | 2025-02-20 22:23 | XMS_ITS | Encounter Summary ---
Author Organization [facility] Address [address] [place] [address] Care Team Providers Care Pattern Cutter Name Role Phone Terrell Muñoz DO Primary Care Provider Encounter Details Date Type Department Care Team (Late Contact Info) Description 12/22/2024 Results Follow-Up [facility] - Endocrinology [address] [place] [address], [facility] [place] [phone] Rach Casillas MD [address] [place] [phone] Social History Tobacco Use Types Packs/Day [...] AM CDT Legal Sex Male 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 Gender Identity Male 09/21/2023 4:20 AM CDT Sexual Orientation Bisexual 09/21/2023 4: 20 AM CDT documented as of this encounter Plan of Treatment Upcoming Encounters Date Type Department Care Team (Late Contact Info) Description 03/07/2025 9:40 AM VEHICLE OPERATOR Hospital Encounter [facility] [address] [place] [address] 03/27/2025 1:40 PM VEHICLE OPERATOR [facility] - Endocrinology [address] [facility], [place] [address] Rach Casillas MD [address] [place] [address] 2L [place] [phone] 05/11/2025 9:20 AM VEHICLE OPERATOR Appointment [facility] [address] [facility], 2nd [place] [address] 05/11/2025 9:40 AM VEHICLE OPERATOR Office Visit [facility] - Hematology/Oncology [address] [place] [phone] Loyd Graham MD [address] [place] [phone] 05/23/2025 10:30 AM VEHICLE OPERATOR Office Visit [facility] - Urology [address] [facility] [address] [place] [phone] Demar Escalante MD [facility] 2L [place] [address] 08/07/2025 8:30 AM CDT Appointment [facility] [address] [place] [address] Kingsley Hidalgo MD [address] [place] [address] 12/31/2025 1:40 PM CDT Office Visit [facility] - Endocrinology [address] [place] [address], [place] [phone] Rach Casillas MD [address] [place] [address] 2L [place] [phone] documented as of this encounter Visit Diagnoses Not on filedocumented in this encounter Care Teams Pattern Cutter Relationship Specialty Start Date End Date Terrell Muñoz DO PCP - General 08/07/16 documented as of this encounter
--- OUTSIDE RECORDS SUMMARY | 2025-02-20 22:23 | XMS_ITS ---
Author Organization [facility] Address [address] [facility] [place] [address] Care Team Providers Care Tool Inspector Name Role Phone Terrell Muñoz DO Primary [...]
--- OUTSIDE RECORDS SUMMARY | 2025-02-20 22:23 | XMS_ITS | Encounter Summary ---
Author Organization [facility] Address [address] [facility] [place] [address] Care Team Providers Care Public Policy Associate Name Role Phone Terrell Muñoz DO Primary Care Provider Reason for Visit * Reason Onset Date Comments MEDICATION REFILL 06/28/2024 Encounter Details Date Type Department Care Team (Late Contact Info) Description 06/28/2024 Refill [facility] - Hematology/Oncology [address] [place] [phone] Loyd Graham MD [address] [place] [phone] MEDICATION REFILL Social History Tobacco Use Types [...] AM CDT Legal Sex Male 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 ROOM WORKER Gender Identity Male 09/21/2023 4:20 AM CDT Sexual Orientation Bisexual 09/21/2023 4: 20 AM CDT documented as of this encounter Plan of Treatment Upcoming Encounters Date Type Department Care Team (Late Contact Info) Description 03/07/2025 9:40 AM COLORING ROOM WORKER Hospital Encounter [facility] [address] [place] [address] 03/27/2025 1:40 PM COLORING ROOM WORKER Office Visit [facility] - Endocrinology [address] [place] [address] Rach Casillas MD [address] [place] [address] 2L [place] [address] 05/11/2025 9:20 AM COLORING ROOM WORKER Appointment [facility] [address] [facility], 2nd [place] [address] 05/11/2025 9:40 AM COLORING ROOM WORKER Office Visit [facility] - Hematology/Oncology [address] [place] [phone] Loyd Graham MD [address] [place] [phone] 05/23/2025 10:30 AM COLORING ROOM WORKER Office Visit [facility] - Urology [address] [place] [phone] Demar Escalante MD [facility] 2L DIV [place] [address] 08/07/2025 8:30 AM CDT Appointment [facility] [address] [place] [address] Kingsley Hidalgo MD [facility]5 [place] [address] 12/31/2025 1:40 PM CDT Office Visit [facility] - Endocrinology [address] [place] [address], [place] [address] Rach Casillas MD [address] [place] [address] 2L [place] [address] documented as of this encounter Visit Diagnoses Diagnosis Prostate cancer (HCC) Malignant neoplasm of prostate documented in this encounter Care Teams Public Policy Associate Relationship Specialty Start Date End Date Terrell Muñoz DO PCP - General 08/07/16 documented as of this encounter
[2025-02-20 22:31] VITALS: BP 148/96; PULSE 85; RESP 22; O2SAT 95
[2025-02-20 22:56] LABS: Hematocrit 36.1 % (42.0-52.0); Hemoglobin 11.8 g/dL (14.0-18.0); Immature Granulocyte Percent A 0.6 % (0-0.5); Lymphocytes Absolute Auto 0.81 K/mm3 (0.9-3.2); Mean Corpuscular HGB Conc 32.7 g/dl (32-36); Mean Corpuscular Hemoglobin 30.1 pg (26-34); Mean Corpuscular Volume 92.1 fl (80-100); Nucleated Red Blood Cells Absolute Auto 0.000 K/mm3 (0.0-0.012); Nucleated Red Blood Cells Perc 0.0 % (0.0-0.2); Platelet Count Result 235 k/mm3 (150-375); Red Blood Count 3.92 M/mm3 (4.6-6.20); White Blood Count 11.5 K/mm3 (4.5-10.0)
[2025-02-20 23:08] LABS: Alanine Aminotransferase 25 U/L (6-50); Albumin Level 4.0 g/dL (3.5-5.1); Alkaline Phosphatase 151 U/L (38-126); Anion Gap 6 mmol/L (4-12); Aspartate Amino Transferase 25 U/L (17-59); Bilirubin,Total 0.5 mg/dL (0.2-1.3); Blood Urea Nitrogen 13 mg/dL (9-20); Calcium 8.7 mg/dL (8.4-10.2); Carbon Dioxide 25 mmol/L (22-30); Chloride 104 mmol/L (98-107); Estimated CRCL calculation 140 ml/min; Estimated Glomerular Filt Rate > 60; Glucose 132 mg/dL (65-110); Potassium 3.6 mmol/L (3.4-5.0); Sodium 135 mmol/L (137-145); Total Protein 7.2 g/dL (6.3-8.2)
[2025-02-20 23:24] LABS: NT Pro B Type Natriuretic Pept 6380 pg/mL (19.9-100)
[2025-02-21] VITALS (21 sets, daily range): BP systolic 135–180; BP diastolic 57–109; PULSE 68–95; RESP 16–22; TEMP 36.4–36.9; O2SAT 93–100; BMI 38.9
--- NOTE | 2025-02-21 | ECHO_ITS ---
Patient Info Name: Rivera Aguilar Age: 54 years : 1970 Gender: Male Ht: 69 in Wt: 263 lbs BSA: 2.46 m2 HR: 60 bpm BP: 148 / 87 mmHg Technical Quality: Good Exam Date: 02/21/2025 2:42 PM Patient Status: I Admit Date: 02/21/2025 Exam Type: CA echo dop color flow w con Complete two-dimensional, color flow and Doppler transthoracic echocardiogram is performed with contrast to opacify the left ventricle and to improve the deliniation of the left ventricle endocardial borders. Staff Referring Physician: Wilbur Xiao Computer Forensics Analyst: Noy Sage Attending Provider: Gerardo Kaur Oca Contrast/Agitated Saline Contrast/Ag. Saline: Definity Amount: 2.00 ml Summary 1. Definity contrast administered improved wall motion interpretation. 2. Left ventricular chamber dimension is severely enlarged. 3. Left ventricular systolic function is severely globally reduced, estimated at 25-30. 4. The left ventricular diastolic function is grade I diastolic dysfunction. 5. E/e' 15 is elevated. 6. Left atrial chamber dimension is mildly enlarged. 7. There is mild aortic valve sclerosis. 8. There is mild aortic valve regurgitation. 9. There is mild mitral valve regurgitation. 10. Pericardial calcification noted but without other evidence of constrictive pericarditis including ventricular interdependence, dilated inferior vena cava. Left Ventricle E/e' 15 is elevated. Left ventricular chamber dimension is severely enlarged. Left ventricular systolic function is severely globally reduced, estimated at 25-30. The left ventricular diastolic function is grade I diastolic dysfunction. Definity contrast administered improved wall motion interpretation. Right Ventricle Right ventricular chamber dimension is not well visualized. Left Atria Left atrial chamber dimension is mildly enlarged. Right Atria Right atrial chamber dimension is normal. Aortic Valve The aortic valve is trileaflet. There is mild aortic valve sclerosis. There is no aortic valve stenosis. There is mild aortic valve regurgitation. Pulmonic Valve There is no pulmonic regurgitation. Mitral Valve There is no mitral valve stenosis. There is mild mitral valve regurgitation. Tricuspid Valve There is no tricuspid valve regurgitation. Pericardium/Pleural There is no pericardial effusion. Pericardial calcification noted but without other evidence of constrictive pericarditis including ventricular interdependence, dilated inferior vena cava. Inferior Vena Cava Normal inferior vena cava with >50% collapse upon inspiration consistent with normal right atrial pressure, 5 mmHg. Aorta The aortic root size at the sinus of Valsalva is normal. Left Ventricular Outflow Tract Name Value Normal LVOT 2D LVOT Diameter 2.3 cm LVOT Doppler LVOT Peak Velocity 100 cm/s LVOT Peak Gradient 4 mmHg LVOT Mean Gradient 2 mmHg LVOT VTI 22 cm LVOT Stroke Volume 87 ml LVOT CO 5.2 l/min LVOT CI 2.1 l/min/m2 Pulmonic Valve Name Value Normal RVOT Doppler RVOT Peak Velocity 133 cm/s RVOT Peak Gradient 7 mmHg PV Doppler PV Peak Velocity 120 cm/s PV Peak Gradient 6 mmHg Mitral Valve Name Value Normal MV Diastolic Function MV E Peak Velocity 72 cm/s MV A Peak Velocity 106 cm/s MV E/A 0.7 MV Decel Time (PW) 313 ms MV Annular TDI MV E/e' (Septal) 15.1 MV E/e' (Lateral) 15.1 MV E/e' (Average) 15.1 Tricuspid Valve Name Value Normal Estimated PAP/RSVP RA Pressure 5 mmHg <=5 Aortic Valve Name Value Normal AV Doppler AV Peak Velocity 140 cm/s AV Peak Gradient 8 mmHg AV Area (Cont Eq Logan) 2.9 cm2 AV DI (Logan) 0.71 AV Regurgitation 2D LVOT Area 4.0 cm2 Ventricles Name Value Normal LV Dimensions 2D/MM IVS Diastolic Thickness (2D) 0.7 cm 0.6-1.0 LVID Diastole (2D) 5.5 cm 4.2-5.8 LVIW Diastolic Thickness (2D) 1.4 cm 0.6-1.0 LVID Systole (2D) 4.9 cm 2.5-4.0 LVOT Diameter 2.3 cm LV Mass (2D Cubed) 232.37 g 88.00-224.00 LV Mass Index (2D Cubed) 94 g/m2 49-115 Relative Wall Thickness (2D) 0.51 <=0.42 LV Fractional Shortening/Ejection Fraction 2D/MM LV Fractional Shortening (2D) 12 % 25-43 LV EF (2D Teichholz) 25 % LV Diastolic Volume (4C MOD) 203 ml LV EF (4C MOD) 26 % LV Diastolic Volume (2C MOD) 212 ml LV EF (2C MOD) 41 % LV Diastolic Volume (BP MOD) 211 ml 62-150 LV Diastolic Volume Index (BP MOD) 86 ml/m2 34-74 LV Systolic Volume (BP MOD) 142 ml 21-61 LV Systolic Volume Index (BP MOD) 58 ml/m2 11-31 LV EF (BP MOD) 32 % 52-72 LV Diastolic Length (4C) 9.5 cm LV Systolic Length (4C) 8.8 cm LV Stroke Volume (4C MOD) 53 ml Atria Name Value Normal LA Dimensions LA Volume (4C A-L) 49 ml LA Volume (BP A-L) 54 ml RA Dimensions RA Systolic Major Epping Length (4C) 4.9 cm 2.1-2.7 RA Area (4C) 16.2 cm2 <=18.0 Report Signatures
--- NOTE | 2025-02-21 00:56 | ED.GENADULT ---
HPI - General Adult General Chief complaint: Shortness of Breath/Dyspnea Stated complaint: ABD PAIN & DISTENTION W/ SOB Time Seen by Provider: 02/20/25 22:20 History of Present Illness HPI narrative: This is a 54-year-old male undergoing chemotherapy for prostate cancer presenting for difficulty breathing. Patient states her last 4-5 days he has significantly more short of breath, specifically on exertion. He also has abdominal distension. He denies fevers chills chest pain nausea vomiting or diarrhea. Denies history of congestive heart failure. patient known significant weight gain since he started chemotherapy. Patient has a history of pericarditis and underwent pericardiectomy at [facility] in 2016. Related Data Home Medications ?Medication ?Instructions ?Recorded ?Confirmed ?Last Taken ?Type abiraterone 250 mg tablet 1,000 mg PO DAILY 02/05/25 02/08/25 Unknown History prednisone 5 mg tablet 5 mg PO DAILY 02/05/25 02/08/25 Unknown History leuprolide acetate (6 month) 45 mg 45 mg subcut [id number] 02/08/25 02/08/25 Unknown History (6 month) subcutaneous syringe (Eligard) Allergies Allergy/AdvReac Type Severity Reaction Status Date / Time No Known Allergies Allergy Verified 02/20/25 22:17 [facility] Past Medical History Medical History Prostate cancer Morbid obesity due to excess calories Spinal stenosis Pericarditis (2017) Status post pericardiectomy at [facility]. Polysubstance abuse Clean for over 20 years. No history of IV drug use. Obstructive sleep apnea on CPAP Tobacco use Anxiety Bipolar disorder Hyperlipidemia Chronic obstructive pulmonary disease Osteoarthritis involving multiple joints on both sides of body Liver cirrhosis Surgical History Surgical History History of arthroplasty of right knee History of bilateral hip arthroplasty (2017) History of right inguinal hernia repair (2019) History of pericardiectomy (2017) Family History Family History Other Adopted Social History Social History Social History: Surrogate medical decision maker: Code status: Full code. Smoking packs per day: 0.5 Smoking cigarettes per day: 10.0 Alcohol intake: former Substance use: current Substance use type: marijuana Other substance usage details: Hx polysubstance drug use over 20 yrs ago, no IV drug use Do You Feel Safe in your Home?: Yes Lack of Transportation: No Lack of Food: Sometimes True Current Housing: I Have Housing Concerned About Future Housing: No Difficulty Paying Gas/Electric Bills: No Difficulty Paying for Meds: No Currently Unemployed: No Education: High School Diploma/GED Difficulty w/ Childcare or Family Care: YES Spiritual care concerns: No Exam Narrative: APPEARANCE: No apparent distress. Head: atraumatic. EYES: EOMI, NOSE: Atraumatic NECK: Trachea midline RESPIRATORY: tachypneic, hypoxic on room air, bibasilar crackles CARDIOVASCULAR: RRR, no peripheral edema ABDOMINAL: Distended, nontender MUSCULOSKELETAl: No obvious deformities NEURO: Alert. Moving 4/4 extremities SKIN:: Warm, dry. Normal color PSYCHIATRIC: Normal affect Course Vital Signs Vital signs: Vital Signs Temperature 98.1 F 02/20/25 22:05 Pulse Rate 94 02/20/25 22:05 Respiratory Rate 22 H 02/20/25 22:05 Blood Pressure 160/97 H 02/20/25 22:05 Pulse Oximetry 94 02/20/25 22:05 Oxygen Delivery Nasal Cannula 02/20/25 22:05 Oxygen Flow Rate 2 02/20/25 22:05 Temperature 98.1 F 02/20/25 22:05 Pulse Rate 92 02/21/25 00:31 Respiratory Rate 17 02/21/25 00:31 Blood Pressure 136/109 H 02/21/25 00:31 Pulse Oximetry 99 02/21/25 00:31 Oxygen Delivery Nasal Cannula 02/20/25 22:17 Oxygen Flow Rate 2 02/20/25 22:17 Medical Decision Making [facility] Narrative Medical decision making narrative: -Course: 54-year-old male presenting with elevated blood pressures weight gain and hypoxic respiratory failure. He has crackles on exam. Point of care cardiothoracic ultrasound shows a mildly reduced ejection fraction via EPSS. chest x-ray shows cardiomegaly with pulmonary vascular congestion. BNP elevated at 6000. CT PE interpreted by stat rad as no large or central pulmonary embolism although study limited distally due to motion. Official read will occur in the morning. Patient is on abiraterone which is associated w/ fluid retention/CHF. patient treated with Lasix. Patient will be admitted the hospital further management. viral swabs are pending which will be followed by the primary team. -DDX includes but is not limited to: Congestive heart failure, PE, pneumonia ACS PE -Co-morbidities complicating care: Prostate cancer, history of pericarditis, COPD Vital Signs Vital Signs: Vital Signs Temperature 98.1 F 02/20/25 22:05 Pulse Rate 94 02/20/25 22:05 Respiratory Rate 22 H 02/20/25 22:05 Blood Pressure 160/97 H 02/20/25 22:05 Pulse Oximetry 94 02/20/25 22:05 Oxygen Delivery Nasal Cannula 02/20/25 22:05 Oxygen Flow Rate 2 02/20/25 22:05 Temperature 98.1 F 02/20/25 22:05 Pulse Rate 92 02/21/25 00:31 Respiratory Rate 17 02/21/25 00:31 Blood Pressure 136/109 H 02/21/25 00:31 Pulse Oximetry 99 02/21/25 00:31 Oxygen Delivery Nasal Cannula 02/20/25 22:17 Oxygen Flow Rate 2 02/20/25 22:17 Lab Data 02/20/25 22:47 02/20/25 22:47 Labs: Lab Results 02/20/25 Range/Units 22:47 WBC 11.5 H (4.5-10.0) K/mm3 RBC 3.92 L (4.6-6.20) M/mm3 Hgb 11.8 L (14.0-18.0) g/dL Hct 36.1 L (42.0-52.0) % MCV 92.1 (80-100) fl MCH 30.1 (26-34) pg MCHC 32.7 (32-36) g/dl RDW 14.6 H (11.5-14.5) % Plt Count 235 (150-375) k/mm3 MPV 10.6 H (7.4-10.4) fl Immature Gran % (Auto) 0.6 H (0-0.5) % Neut % (Auto) 82.2 H (45.5-73.1) % Lymph % (Auto) 7.0 L (18.3-44.2) % [place] % (Auto) 7.6 (2.6-8.5) % Eos % (Auto) 2.2 (0-4.4) % Baso % (Auto) 0.4 (0.2-1.2) % Lymph # (Auto) 0.81 L (0.9-3.2) K/mm3 [place] # (Auto) 0.9 H (0.1-0.6) K/mm3 Eos # (Auto) 0.3 (0-0.3) K/mm3 Baso # (Auto) 0.1 (0.0-0.1) K/mm3 Abs Immat Gran (auto) 0.07 H (0.00-0.031) K/mm3 Absolute Neuts (auto) 9.5 H (1.3-6.7) K/mm3 Absolute Nucleated RBC 0.000 (0.0-0.012) K/mm3 Nucleated RBC % 0.0 (0.0-0.2) % Sodium 135 L (137-145) mmol/L Potassium 3.6 (3.4-5.0) mmol/L Chloride 104 (98-107) mmol/L Carbon Dioxide 25 (22-30) mmol/L Anion Gap 6 (4-12) mmol/L BUN 13 (9-20) mg/dL Creatinine 0.65 L (0.7-1.3) mg/dL Estim Creat Clear Calc 140 ml/min Estimated GFR > 60 (59 - ) Glucose 132 H (65-110) mg/dL Calcium 8.7 (8.4-10.2) mg/dL Total Bilirubin 0.5 (0.2-1.3) mg/dL AST 25 (17-59) U/L ALT 25 (6-50) U/L Alkaline Phosphatase 151 H (38-126) U/L NT-Pro-B Natriuret Pep 6380 H (19.9-100) pg/mL Total Protein 7.2 (6.3-8.2) g/dL Albumin 4.0 (3.5-5.1) g/dL Discharge Plan Discharge Clinical Impression: Hypoxic respiratory failure, CHF (congestive heart failure) Patient Disposition: Still a Patient Condition: Stable Instructions: Antibiotic Form Patient Language: Mongolian Prescriptions: No Action prednisone 5 mg tablet 5 mg PO DAILY abiraterone 250 mg tablet 1,000 mg PO DAILY Rx Instructions: must be taken on empty stomach, at least 1 hr before or 2 hrs after a meal/food for 90 days Eligard (6 month) 45 mg syringe 45 mg subcut [id number] tamsulosin [Flomax] 0.4 mg capsule 0.4 mg PO BID Qty: 30 5RF atorvastatin 20 mg tablet See Rx Instructions .ROUTE .COMPLEX Qty: 30 5RF Dose Instruction: TAKE 1 TABLET BY MOUTH EVERY DAY Rx Instructions: TAKE 1 TABLET BY MOUTH EVERY DAY lisinopril 40 mg tablet 40 mg PO DAILY Qty: 30 1RF Follow-up/Referrals: Terrell Muñoz DO [Primary Care Provider, Internal Medicine]
[2025-02-21] MEDS: FUROSEMIDE INJ 40 MG/4 ML VIAL IV PUSH ×2 (01:44→09:18)
[2025-02-21 02:18] LABS: Influenza A QL RT-PCR Negative (Negative); Influenza B QL RT-PCR Negative (Negative); RSV RNA, RT-PCR Negative (Negative); SARS-CoV-2 RNA PCR Negative (Negative)
--- NOTE | 2025-02-21 02:19 | ADMGEN ---
This patient, Rivera Aguilar, was admitted to 2 Medical Room 257-01. Patient/family oriented to hospital policies and general routines including ID bracelet, bed and alarms, visiting hours, pain management, procedures, bathroom and other care routines, personal items, smoking policy, room service/diet, and visiting hours. Information on how to activate the Rapid Response Team has been discussed. Patient/Family are encouraged to report perceived risks to care and to ask questions if they do not understand what they are told or what they should do.
[2025-02-21 02:56] LABS: Cannabinoid Screen Urine Negative (Negative)
--- NOTE | 2025-02-21 04:04 | PM.IMHP ---
H&P: HPI History of Present Illness Date/Time: 02/21/25 04:04 Chief Complaint: Shortness of breath/dyspnea Narrative: This is a 54-year-old male patient who has a history of prostate cancer, hyperlipidemia, tobacco abuse, and hypertension. The patient stated he has had more difficulty breathing over the last 4 -5 days. Especially with exertion. He denies any fever, chills, nausea, vomiting are diarrhea. Patient has a long history of tobacco abuse and obstructive sleep apnea. He has not had any previous history of congestive heart failure. However he has had a past history pericarditis and underwent a pericardiectomy at [facility] in 2016. Chest x-ray was read as cardiomegaly with pulmonary congestion. CTA chest preliminary was read as no large or central pulmonary embolism somewhat limited distally due to motion, consider repeat due to motion artifact, and no acute findings definitely seen. CT abdomen pelvis no acute finding distended bladder. Labs white count 11.5 H&H 11.8 and 36.1. Sodium slightly low at 135. Glucose 132. BNP 6380. Toxicology screen was negative. Serology viral screen negative. The patient was given Lasix in the emergency room and he was placed on oxygen at 2 L per nasal cannula. The patient does not wear oxygen at home. He had dropped down to 89% and with oxygen he came up to 100%. The patient is being admitted to inpatient status on the date of service of 02/21/2025. Review of Systems Constitutional: Constitutional: Reports as per HPI and Reports no additional constitutional complaints Eyes: Eyes: Reports as per HPI and Reports no additional eye complaints ENT: Reports system reviewed and no additional complaints, except as documented and Reports Normal hearing present Cardiovascular: Cardiovascular: Reports no additional cardiovascular complaints Respiratory: Respiratory: Reports as per HPI and Reports no additional respiratory complaints Gastrointestinal: Gastrointestinal: Reports as per HPI and Reports no additional gastrointestinal complaints Musculoskeletal: Musculoskeletal: Reports no additional musculoskeletal complaints Integumentary/Breasts: Skin/Breast: Reports system reviewed and no additional complaints, except as docu Neurologic: Reports system reviewed and no additional complaints, except as documented and Reports Normal hearing present Psychiatric: Psychiatric: Reports no additional psychiatric complaints and Reports as per HPI Hematologic/Lymphatic: Hematologic/Lymphatic: Reports no additional hematologic/lymphatic complaints Allergic/Immunologic: Allergic/Immunologic: Reports no additional allergic/immunologic complaints [facility] Past Medical History Medical History Prostate cancer Morbid obesity due to excess calories Spinal stenosis Pericarditis (2017) Status post pericardiectomy at [facility]. Polysubstance abuse Clean for over 20 years. No history of IV drug use. Obstructive sleep apnea on CPAP Tobacco use Anxiety Bipolar disorder Hyperlipidemia Chronic obstructive pulmonary disease Osteoarthritis involving multiple joints on both sides of body Liver cirrhosis Surgical History Surgical History (Updated 02/21/25 @ 04:31 by Sharon Alberto APRN) H/O cardiac catheterization 01/18/2017Cath ([facility]: LM 30-35%, LAD 30-35% prox-mid portion, LCx <30% stenosis and has 60% bridging mid and mild briding in distal portion, RCA with <30% stenosis; constrictive pericarditis physiology.) - 01/18/2017 History of arthroplasty of right knee History of bilateral hip arthroplasty (2017) History of right inguinal hernia repair (2018) History of pericardiectomy (2016) [facility] 01/18/2017 Family History Family History Other Adopted Social History Social History (Updated 02/22/25 @ 02:58 by Sharon Alberto APRN) Social History: He has 1 child. He used to smok 2 packs of cigarettes a day and now is down to 2 cigarettes a day. Surrogate medical decision maker:none Code status: Full code. Smoking packs per day: 0.5 Smoking cigarettes per day: 10.0 Additional smoking assessment comments: smoke 2 cigarettes since last year and prior was a 2 pack a day for 40 year Alcohol intake: never Substance use: current Substance use type: marijuana Other substance usage details: Hx polysubstance drug use over 20 yrs ago, no IV drug use Do You Feel Safe in your Home?: Yes Lack of Transportation: No Lack of Food: Never True Current Housing: I Have Housing Concerned About Future Housing: No Difficulty Paying Gas/Electric Bills: No Difficulty Paying for Meds: No Currently Unemployed: No Education: High School Diploma/GED Difficulty w/ Childcare or Family Care: No Spiritual care concerns: No Meds Home Medications and Allergies Home Medications ?Medication ?Instructions ?Recorded ?Confirmed ?Type tamsulosin 0.4 mg capsule (Flomax) 0.4 mg PO BID #30 caps 07/14/24 02/21/25 Rx atorvastatin 20 mg tablet See Rx Instructions .Route 10/12/24 02/21/25 Rx .COMPLEX #30 tabs abiraterone 250 mg tablet 1,000 mg PO DAILY 02/05/25 02/21/25 History prednisone 5 mg tablet 5 mg PO DAILY 02/05/25 02/21/25 History leuprolide acetate (6 month) 45 mg 45 mg subcut [id number] 02/08/25 02/21/25 History (6 month) subcutaneous syringe (FlexMinder) calcium 600 mg (as 1 tablet PO DAILY 02/21/25 02/21/25 History carbonate)-vitamin D3 5 mcg (200 unit) tablet (Calcium 600 + D(3)) lisinopril 40 mg tablet 40 mg PO DAILY@1700 02/21/25 02/21/25 History venlafaxine 75 mg capsule,extended 75 mg PO DAILY 02/21/25 02/21/25 History release 24 hr Allergies Allergy/AdvReac Type Severity Reaction Status Date / Time No Known Allergies Allergy Verified 02/21/25 02:39 Vital Signs Vital Signs - 24 hr 02/20/25 22:05 02/20/25 22:17 02/20/25 22:17 Temperature 98.1 F Pulse Rate 94 Respiratory Rate 22 H Blood Pressure 160/97 H Pulse Oximetry 94 89 L 94 Oxygen Delivery Nasal Cannula Room Air Nasal Cannula Oxygen Flow Rate 2 2 02/20/25 22:31 02/21/25 00:31 02/21/25 01:02 Temperature Pulse Rate 85 92 86 Respiratory Rate 22 H 17 21 H Blood Pressure 148/96 H 136/109 H 160/104 H Pulse Oximetry 95 99 99 Oxygen Delivery Oxygen Flow Rate 02/21/25 02:25 02/21/25 02:39 02/21/25 02:45 Temperature 97.6 F Pulse Rate 91 78 Respiratory Rate 22 H Blood Pressure 175/94 H Pulse Oximetry 100 100 Oxygen Delivery Nasal Cannula Oxygen Flow Rate 2 02/21/25 02:48 Temperature 98.0 F Pulse Rate 80 Respiratory Rate 20 Blood Pressure 180/101 H Pulse Oximetry 100 Oxygen Delivery Oxygen Flow Rate Exam Const: General: cooperative, healthy appearing, comfortable, no acute distress, well developed, awake, Physically active, average body habitus and well nourished Nutritional Appearance: average body habitus and well nourished Orientation/consciousness: oriented to person, oriented to place, oriented to time and patient oriented x3 Limitations: no limitations HENMT: Head: normal to inspection, No palpable skull fracture present, normocephalic, atraumatic and abrasion Ears: hearing grossly normal bilaterally Eyes: General: appearance normal, both eyes and all related structures Alignment and Position: alignment normal Periorbital: periorbital findings normal EOM: EOMs intact bilaterally Neck: Neck: normal visual inspection and no lymphadenopathy Chest: Chest palpation & inspection: normal inspection of the chest Resp: Effort & Inspection: normal respiratory effort Auscultation: clear to auscultation bilaterally Percussion: percussion normal Cardio: Palpation: normal PMI Rate: regular rate Rhythm: regular rhythm Heart sounds: S1 normal heart sound present and S2 normal heart sound present Peripheral pulses: Peripheral pulses 2+ throughout GI: Inspection: normal to inspection Percussion: Yes normal to percussion Auscultation: normal bowel sounds Rectal Exam: deferred Back/Spine/Pelvis: Cervical Spine: cervical ROM normal Skin: General skin exam: normal color Lesions: no lesions Rashes: no rashes Trauma: no lacerations or abrasions Wounds: no wounds Hair: normal Nails: normal Neuro: General: oriented to person, oriented to place, oriented to time and patient oriented x3 Cranial nerves: Yes Normal hearing present Cognition (Neuro): normal cognition Speech: normal speech Motor exam (neuro): 5/5 motor strength present throughout Sensory Exam: normal sensation Extrem: General: normal to inspection Right upper extremity: normal to inspection and shoulder/upper arm Left upper extremity: normal to inspection and shoulder/upper arm Right lower extremity: normal to inspection Left lower extremity: normal to inspection Psych: Appearance: grossly normal Mental Status: mental status grossly normal Speech and movement: Normal speech and movement present Affect: normal affect Attitude: cooperative Thought process: Normal thought process present Thought content: Yes Normal thought content present Insight: Good insight present (Psych) Judgement: Good judgement present (Psych) H&P: Results Labs Labs: Short CBC 02/20/25 Range/Units 22:47 WBC 11.5 H (4.5-10.0) K/mm3 Hgb 11.8 L (14.0-18.0) g/dL Hct 36.1 L (42.0-52.0) % Plt Count 235 (150-375) k/mm3 BMP 02/20/25 22:47 Sodium 135 L Potassium 3.6 Chloride 104 Carbon Dioxide 25 BUN 13 Creatinine 0.65 L Glucose 132 H Calcium 8.7 Liver Function 02/20/25 Range/Units 22:47 Total Bilirubin 0.5 (0.2-1.3) mg/dL AST 25 (17-59) U/L ALT 25 (6-50) U/L Alkaline Phosphatase 151 H (38-126) U/L Albumin 4.0 (3.5-5.1) g/dL ECG Interpretation: Heart rate 85 WA 150 QRSd 86 QT 385 QTc 459 --[place]-- P 9 QRS 79 T 137 SINUS RHYTHM SEPTAL MYOCARDIAL INFARCTION , PROBABLY OLD [40+ ms Q WAVE IN V1/V2] No previous ECG available for compari Imaging Chest x-ray: Radiologist's impression: Impressions Chest X-Ray 02/20/25 22:37 IMPRESSION: Cardiomegaly with pulmonary congestion. Assessment and Plan Assessment and plan (1) CHF (congestive heart failure): Code(s): I50.9 - Heart failure, unspecified Status: Acute Assessment and Plan: -an echo has been ordered -scarlett performed on 12/23/2021 was read as a following Summary 1. Transesophageal echocardiogram to assess for endocarditis. 2. Left ventricular chamber dimension is normal. 3. Left ventricular systolic function is normal with an ejection fraction of 60-65%. 4. The left ventricular diastolic function is indeterminate as it was not assessed.. 5. There is trace aortic valve regurgitation. 6. There is mild mitral valve regurgitation. - Dr Conte was consulted. -daily Lasix. -EKG was concerning for old NE. -trending troponins (2) Coronary artery disease: Qualifiers: Associated angina: without angina Coronary Disease-Associated Artery/Lesion type: [place] artery [place] vs. transplanted heart: [place] heart Qualified Code(s): I25.10 - Atherosclerotic heart disease of [place] coronary artery without angina pectoris Code(s): I25.10 - Atherosclerotic heart disease of [place] coronary artery without angina pectoris Status: Acute Assessment and Plan: -cardiac Cath that [facility] on 01/18/2017 was read as a followingCath ([facility]: LM 30-35%, LAD 30-35% prox-mid portion, LCx <30% stenosis and has 60% bridging mid and mild briding in distal portion, RCA with <30% stenosis; constrictive pericarditis physiology.) - 01/18/2017 -Dr Conte cardiology is following -continue with atorvastatin (3) Hypertension: Qualifiers: Hypertension type: primary hypertension Qualified Code(s): I10 - Essential (primary) hypertension Code(s): I10 - Essential (primary) hypertension Status: Acute Assessment and Plan: P.r.n. hydralazine with parameters. -patient recently was started on lisinopril. -current blood pressure 158/87. -the patient is on prednisone which can elevate his blood pressure and can cause some fluid retention as well. - (4) Hyperlipidemia: Qualifiers: Hyperlipidemia type: unspecified Qualified Code(s): E78.5 - Hyperlipidemia, unspecified Code(s): E78.5 - Hyperlipidemia, unspecified Status: Acute Assessment and Plan: -continue with atorvastatin (5) Prostate cancer: Code(s): C61 - Malignant neoplasm of prostate Status: Acute Assessment and Plan: -the patient is on abiraterone 250 mg tablet 1,000?mg?PO?DAILY which is non formulary - he is also on leuprolide acetate (6 month) [Eligard (6 month)] 45 mg syringe 45?mg?[id number] (6) Sleep apnea: Code(s): G47.30 - Sleep apnea, unspecified Status: Acute Assessment and Plan: cpap and bipap auto titrate per home settings. (7) COPD (chronic obstructive pulmonary disease): Qualifiers: COPD type: unspecified COPD Qualified Code(s): J44.9 - Chronic obstructive pulmonary disease, unspecified Code(s): J44.9 - Chronic obstructive pulmonary disease, unspecified Status: Acute Assessment and Plan: -continue p.o. prednisone Plan Tobacco abuse. The patient stated that he had been on 2 packs of cigarettes a day and is down to 2 cigarettes per day. Quality VTE Prophylaxis VTE prophylaxis: mechanical ordered
[2025-02-21 05:26] LABS: Hematocrit 36.1 % (42.0-52.0); Hemoglobin 11.7 g/dL (14.0-18.0); Mean Corpuscular HGB Conc 32.4 g/dl (32-36); Mean Corpuscular Hemoglobin 30.3 pg (26-34); Mean Corpuscular Volume 93.5 fl (80-100); Platelet Count Result 237 k/mm3 (150-375); Red Blood Count 3.86 M/mm3 (4.6-6.20); White Blood Count 8.5 K/mm3 (4.5-10.0)
[2025-02-21 05:35] LABS: Anion Gap 8 mmol/L (4-12); Blood Urea Nitrogen 12 mg/dL (9-20); Calcium 8.8 mg/dL (8.4-10.2); Carbon Dioxide 29 mmol/L (22-30); Chloride 100 mmol/L (98-107); Estimated CRCL calculation 130 ml/min; Estimated Glomerular Filt Rate > 60; Glucose 111 mg/dL (65-110); Potassium 3.9 mmol/L (3.4-5.0); Sodium 137 mmol/L (137-145)
[2025-02-21 06:19] LABS: Troponin I 0.035 ng/mL (0.000-0.034)
[2025-02-21 08:32] LABS: Troponin I 0.038 ng/mL (0.000-0.034)
[2025-02-21] MEDS: TAMSULOSIN HCL 0.4 MG CAPSULE PO ×2 (09:17→21:34)
[2025-02-21] MEDS: VENLAFAXINE HCL XR 75 MG CAP.ER.24H PO (09:17)
[2025-02-21] MEDS: ATORVASTATIN 20 MG TABLET BY MOUTH (09:17)
--- NOTE | 2025-02-21 10:55 | P.CONCA_ITS ---
Assessment and Plan Assessment and plan (1) CHF (congestive heart failure): Code(s): I50.9 - Heart failure, unspecified Status: Acute Assessment and Plan: Unknown type of CHF at this time. NTproBNP 6,380. CXR shows pulm congestion and cardiomegaly. On lasix 40 mg IV daily. Obtain echo. (2) Hypertension: Qualifiers: Hypertension type: primary hypertension Qualified Code(s): I10 - Essential (primary) hypertension Code(s): I10 - Essential (primary) hypertension Status: Acute Assessment and Plan: High. Start Carvedilol 6.25 mg BID. On Lisinopril. (3) Hyperlipidemia: Qualifiers: Hyperlipidemia type: unspecified Qualified Code(s): E78.5 - Hyperlipidemia, unspecified Code(s): E78.5 - Hyperlipidemia, unspecified Status: Acute Assessment and Plan: On Atorvastatin. (4) Coronary artery disease: Qualifiers: Coronary Disease-Associated Artery/Lesion type: [place] artery [place] vs. transplanted heart: [place] heart Associated angina: without angina Q ualified Code(s): I25.10 - Atherosclerotic heart disease of [place] coronary artery without angina pectoris Code(s): I25.10 - Atherosclerotic heart disease of [place] coronary artery without angina pectoris Status: Acute Assessment and Plan: Stable. (5) Tobacco use: Code(s): Z72.0 - Tobacco use Status: Acute Assessment and Plan: Counseled regarding smoking cessation. History of Present Illness History of Present Illness Consult date/time: 02/21/25 10:55 Reason For Visit: chf Narrative: Patient is a 54 yr old man who is my regular cardiology presents to ER with sob. He has a history of CAD, constrictive pericarditis s/p pericardiectomy, hypertension, dyslipidemia, ALFRED on CPAP, COPD, smoking. States in last 5 days he noted BAEZ with minimal exertion and orthopnea. He got rid of pepsi. He can't seem to lose weight. He is using CPAP every night for entire night and sleeping well with it and has no daytime sleepiness. He is able to walk 1 mile now after knee surgery and spinal stenosis. He is down to 2 cigarettes per day from 2 ppd. Nicotine patches caused a rash. He is taking Welbutrin. Denies chest pain, sob, palpitations, edema. Cardiovascular Procedures Braid Pattern Setter:: Cath ([facility]: LM 30-35%, LAD 30-35% prox-mid portion, LCx <30% stenosis and has 60% bridging mid and mild briding in distal portion, RCA with <30% stenosis; constrictive pericarditis physiology.) - 01/18/2017 CV Surgery ([facility]: Pericardiectomy for constrictive pericarditis.) - 01/2017 Echo/MUGA:: 01/02/22 TERRI EF 60-65%, no endocarditis, trace AI, mild MR. Echo (EF 55%, occ bowing of septum toward LV, grade I diastolic dysfunction, mild TR.) - 08/10/2016 Electrophysiology:: 02/08/25 EKG: EKG (Sinus rhythm, RAD, rsr' in v1 or v2, consider rvh or right vcd, borderline st-t wave abnormality- inferior leads.) - 12/13/2017 Stress Tests:: MPI (Lexiscan myoview: Negative for ischemia.) - 02/17/2018 Sleep Study (Titration study for ALFRED.) - 01/19/2018 Review of Systems 2 Review of Systems: All systems reviewed & are unremarkable except as noted in HPI and below Constitutional: Constitutional: Reports as per HPI, Denies chills and Denies fever(s) Cardiovascular: Cardiovascular: Reports as per HPI, Denies chest pain and Denies irregular heart rhythm Respiratory: Respiratory: Reports as per HPI and Reports dyspnea on exertion Gastrointestinal: Gastrointestinal: Reports as per HPI and Denies abdominal pain Genitourinary: Genitourinary: Reports as per HPI and Denies dysuria Musculoskeletal: Musculoskeletal: Reports as per HPI Neurologic: Reports as per HPI, Denies dizziness and Denies syncope [facility] Past Medical History Medical History Prostate cancer Morbid obesity due to excess calories Spinal stenosis Pericarditis (2017) Status post pericardiectomy at [facility]. Polysubstance abuse Clean for over 20 years. No history of IV drug use. Obstructive sleep apnea on CPAP Tobacco use Anxiety Bipolar disorder Hyperlipidemia Chronic obstructive pulmonary disease Osteoarthritis involving multiple joints on both sides of body Liver cirrhosis Surgical History Surgical History (Updated 02/21/25 @ 04:31 by Sharon Alberto APRN) H/O cardiac catheterization 01/18/2017Cath ([facility]: LM 30-35%, LAD 30-35% prox-mid portion, LCx <30% stenosis and has 60% bridging mid and mild briding in distal portion, RCA with <30% stenosis; constrictive pericarditis physiology.) - 01/18/2017 History of arthroplasty of right knee History of bilateral hip arthroplasty (2017) History of right inguinal hernia repair (2019) History of pericardiectomy (2017) [facility] 01/18/2017 Family History Family History Other Adopted Social History Social History (Updated 02/21/25 @ 04:32 by Sharon Alberto APRN) Social History: He has 1 child. He uses smoked 2 packs of cigarettes a day and now is down to 2 cigarettes a day Surrogate medical decision maker: Code status: Full code. Smoking packs per day: 0.5 Smoking cigarettes per day: 10.0 Smoking status: Former smoker Additional smoking assessment comments: smoke 2 cigarettes since last year and prior was a 2 pack a day for 40 year Alcohol intake: never Substance use: current Substance use type: marijuana Other substance usage details: Hx polysubstance drug use over 20 yrs ago, no IV drug use Do You Feel Safe in your Home?: Yes Lack of Transportation: No Lack of Food: Never True Current Housing: I Have Housing Concerned About Future Housing: No Difficulty Paying Gas/Electric Bills: No Difficulty Paying for Meds: No Currently Unemployed: No Education: High School Diploma/GED Difficulty w/ Childcare or Family Care: No Spiritual care concerns: No Meds Home Medications and Allergies Home Medications ?Medication ?Instructions ?Recorded ?Confirmed ?Type tamsulosin 0.4 mg capsule (Flomax) 0.4 mg PO BID #30 c aps 07/14/24 02/21/25 Rx atorvastatin 20 mg tablet See Rx Instructions .Route 0 10/12/24 02/21/25 Rx .COMPLEX #30 tabs abiraterone 250 mg tablet 1,000 mg PO DAILY 02/05/25 1 04/23/24 History prednisone 5 mg tablet 5 mg PO DAILY 02/05/2502/21 History leuprolide acetate (6 month) 45 mg 45 mg subcut Q6MONT HS 02/08/25 02/21/25 History (6 month) subcutaneous syringe (EliDep-Xplorakatie) calcium 600 mg (as 1 tablet PO DAILY 02/21/25 1 04/23/24 History carbonate)-vitamin D3 5 mcg (200 unit) tablet (Calcium 600 + D(3)) lisinopril 40 mg tablet 40 mg PO DAILY@1700 02/21/25 02/21/25 History venlafaxine 75 mg capsule,extended 75 mg PO DAILY 09/1002/21/25 History release 24 hr Allergies Allergy/AdvReac Type Severity Reaction Status Date / Time No Known Allergies Allergy Verified 02/21/25 02:39 Vital Signs Vital Signs - 24 hr 02/20/25 22:05 02/20/25 22:17 02/20/25 22:17 Temperature 98.1 F Pulse Rate 94 Respiratory Rate 22 H Blood Pressure 160/97 H Pulse Oximetry 94 89 L 94 Oxygen Delivery Nasal Cannula Room Air Nasal Cannula Oxygen Flow Rate 2 2 02/20/25 22:31 02/21/25 00:31 02/21/25 01:02 Temperature Pulse Rate 85 92 86 Respiratory Rate 22 H 17 21 H Blood Pressure 148/96 H 136/109 H 160/104 H Pulse Oximetry 95 99 99 Oxygen Delivery Oxygen Flow Rate 02/21/25 02:25 02/21/25 02:39 02/21/25 02:45 Temperature 97.6 F Pulse Rate 91 78 Respiratory Rate 22 H Blood Pressure 175/94 H Pulse Oximetry 100 100 Oxygen Delivery Nasal Cannula Oxygen Flow Rate 2 02/21/25 02:48 02/21/25 04:00 02/21/25 04:04 Temperature 98.0 F Pulse Rate 80 85 Respiratory Rate 20 Blood Pressure 180/101 H Pulse Oximetry 100 97 Oxygen Delivery Nasal Cannula Oxygen Flow Rate 2 02/21/25 04:33 02/21/25 06:05 02/21/25 09:18 Temperature 97.6 F Pulse Rate 68 75 Respiratory Rate 20 16 Blood Pressure 148/87 H Pulse Oximetry 97 97 Oxygen Delivery Autopap Oxygen Flow Rate 02/21/25 09:30 Temperature Pulse Rate Respiratory Rate Blood Pressure Pulse Oximetry 93 Oxygen Delivery Room Air Oxygen Flow Rate Exam 2 Const: General: cooperative, healthy appearing and comfortable Resp: Auscultation: clear to auscultation bilaterally, no crackles, no rales, no rhonchi and no wheezes Cardio: Rate: regular rate Rhythm: regular rhythm Heart sounds: no murmurs Peripheral pulses: dorsalis pedis present GI: GI Palp: No abdominal tenderness and Yes Soft to palpation Neuro: General: oriented to person, oriented to place and oriented to time Extrem: Right lower extremity: no edema Left lower extremity: no edema Results Labs and Meds 02/21/25 05:08 02/21/25 05:08 Lab results: Cardiac Enzymes 02/20/25 02/21/25 02/21/25 Range/Units 22:47 05:08 08:01 AST 25 (17-59) U/L Troponin I 0.035 H* 0.038 H* (0.000-0.034) ng/mL CBC 02/20/25 02/21/25 Range/Units 22:47 05:08 WBC 11.5 H 8.5 (4.5-10.0) K/mm3 RBC 3.92 L 3.86 L (4.6-6.20) M/mm3 Hgb 11.8 L 11.7 L (14.0-18.0) g/dL Hct 36.1 L 36.1 L (42.0-52.0) % Plt Count 235 237 (150-375) k/mm3 Lymph # (Auto) 0.81 L (0.9-3.2) K/mm3 Lares # (Auto) 0.9 H (0.1-0.6) K/mm3 Eos # (Auto) 0.3 (0-0.3) K/mm3 Baso # (Auto) 0.1 (0.0-0.1) K/mm3 Comprehensive Metabolic Panel 02/20/25 02/21/25 Range/Units 22:47 05:08 Sodium 135 L 137 (137-145) mmol/L Potassium 3.6 3.9 (3.4-5.0) mmol/L Chloride 104 100 (98-107) mmol/L Carbon Dioxide 25 29 (22-30) mmol/L BUN 13 12 (9-20) mg/dL Creatinine 0.65 L 0.70 (0.7-1.3) mg/dL Glucose 132 H 111 H (65-110) mg/dL Calcium 8.7 8.8 (8.4-10.2) mg/dL AST 25 (17-59) U/L ALT 25 (6-50) U/L Alkaline Phosphatase 151 H (38-126) U/L Total Protein 7.2 (6.3-8.2) g/dL Albumin 4.0 (3.5-5.1) g/dL Intake and Output 02/20/25 02/21/25 02/21/25 23:59 07:59 15:59 Intake Total 240 100 Output Total 400 Balance -160 100 Intake: Oral 240 100 Output: Urine 400 Patient Weight 02/21/25 23:59 Weight 119.6 kg
--- NOTE | 2025-02-21 13:08 | PHAR ---
Home medication Abiraterone 250mg tablets identified in pharmacy and returned to RN at pharmacy window.
[2025-02-21 13:17] LABS: Troponin I 0.036 ng/mL (0.000-0.034)
[2025-02-21] MEDS: PERFLUTREN LIPID MICROSPHERES 1.5 ML VIAL DILUTED TO 10 ML TOTAL VOLUME IV PUSH (16:09)
--- NOTE | 2025-02-21 16:09 | IVDEFINITY ---
Prior to administration of IV Definity the patient was educated on the risks and benefits of the imaging enhancing agent including potential adverse side effects. The patient verbalized understanding. Allergies were verified. No exclusion criteria were identified and at least one of the following inclusion criteria were met: 1) physician request, 2) patient technically difficult to image (per the [place] [employer]ocardi[employer] guidelines of two or more segments not discernable within the apical view), or 3) questionable left ventricular function. ?
--- NOTE | 2025-02-21 17:39 | PM.IMPN ---
Progress Note: A&P Assessment and Plan (1) CHF (congestive heart failure): Code(s): I50.9 - Heart failure, unspecified Status: Acute Plan Continue Lasix. Cardiology started Coreg 6.25 mg p.o. q.12 hours hours. Monitor blood pressure and heart rate. Pending echocardiogram results. Patient wishes to be full code. SCDs. Time Spent With Patient Time with patient: 25 - 35 minutes Subjective Date/time seen: 02/21/25 17:39 Interval history: Feels his shortness of breath is improved. He can walk around the room now, 70% better. Review of Systems Review of Systems: All systems reviewed & are unremarkable except as noted in HPI and below (Subjective) Exam Const: General: comfortable and no acute distress HENMT: Mouth: Yes moist mucous membranes Eyes: Pupils: Equal, round and reactive pupils present Neck: Neck: supple Resp: Effort & Inspection: normal respiratory effort Auscultation: clear to auscultation bilaterally Cardio: Rate: regular rate Rhythm: regular rhythm GI: Inspection: non-distended GI Palp: Yes Soft to palpation Extrem: Other: Trace/1+ pitting edema bilateral lower extremities Objective Data Vital Signs Vital Signs: Vital Signs - 24 hr 02/20/25 22:05 02/20/25 22:17 02/20/25 22:17 Temperature 98.1 F Pulse Rate 94 Respiratory Rate 22 H Blood Pressure 160/97 H Pulse Oximetry 94 89 L 94 Oxygen Delivery Nasal Cannula Room Air Nasal Cannula Oxygen Flow Rate 2 2 02/20/25 22:31 02/21/25 00:31 02/21/25 01:02 Temperature Pulse Rate 85 92 86 Respiratory Rate 22 H 17 21 H Blood Pressure 148/96 H 136/109 H 160/104 H Pulse Oximetry 95 99 99 Oxygen Delivery Oxygen Flow Rate 02/21/25 02:25 02/21/25 02:39 02/21/25 02:45 Temperature 97.6 F Pulse Rate 91 78 Respiratory Rate 22 H Blood Pressure 175/94 H Pulse Oximetry 100 100 Oxygen Delivery Nasal Cannula Oxygen Flow Rate 2 02/21/25 02:48 02/21/25 04:00 02/21/25 04:04 Temperature 98.0 F Pulse Rate 80 85 Respiratory Rate 20 Blood Pressure 180/101 H Pulse Oximetry 100 97 Oxygen Delivery Nasal Cannula Oxygen Flow Rate 2 02/21/25 04:33 02/21/25 06:05 02/21/25 08:00 Temperature 97.6 F Pulse Rate 68 88 Respiratory Rate 20 16 Blood Pressure 148/87 H Pulse Oximetry 97 97 Oxygen Delivery Autopap Oxygen Flow Rate 02/21/25 09:18 02/21/25 09:30 02/21/25 12:00 Temperature Pulse Rate 75 70 Respiratory Rate Blood Pressure Pulse Oximetry 93 Oxygen Delivery Room Air Oxygen Flow Rate 02/21/25 13:00 Temperature 98.4 F Pulse Rate 87 Respiratory Rate 20 Blood Pressure 148/57 H Pulse Oximetry 96 Oxygen Delivery Oxygen Flow Rate Intake/Output Intake/Output: Intake & Output 02/18/25 02/19/25 02/20/25 02/21/25 22:59 23:59 23:59 23:59 Intake Total 1110 Output Total 1500 Balance -390 Meds/Results Medications: Active Medications Generic Name Dose Route Start Last Admin Trade Name Freq PRN Reason Stop Dose Admin Atorvastatin Calcium 20 mg 02/21/25 09:00 02/21/25 09:17 Atorvastatin 20 Mg Tablet BY MOUTH 20 mg DAILY FRANTZ Administration Carvedilol 6.25 mg 02/21/25 09:00 02/21/25 09:18 Carvedilol 6.25 Mg Tablet PO 6.25 mg Q12HR FRANTZ Administration Furosemide 40 mg 02/21/25 09:00 02/21/25 09:18 Furosemide Inj 40 Mg/4 Ml Vial IV PUSH 40 mg DAILY FRANTZ Administration Hydralazine HCl 10 mg 02/21/25 04:38 Hydralazine Hcl 20 Mg/Ml Vial IV PUSH Q8H PRN Blood Pressure - High Lisinopril 40 mg 02/21/25 17:00 02/21/25 17:12 Lisinopril 20 Mg Tablet PO 40 mg DAILY@1700 FRANTZ Administration Abiraterone 250 Mg 1,000 mg 02/21/25 21:00 Tablet *Home Supply* PO 03/23/25 20:59 HS FRANTZ Prednisone 5 mg 02/21/25 08:00 02/21/25 09:17 Prednisone 5 Mg Tablet PO 5 mg DAILY@0800 FRANTZ Administration Tamsulosin HCl 0.4 mg 02/21/25 09:00 02/21/25 09:17 Tamsulosin Hcl 0.4 Mg Capsule PO 0.4 mg Q12HR FRANTZ Administration Venlafaxine HCl 75 mg 02/21/25 09:00 02/21/25 09:17 Venlafaxine Hcl Xr 75 Mg Cap.Er.24h PO 75 mg DAILY FRANTZ Administration Radiology Results: ITS Impressions Chest X-Ray 02/20/25 22:37 IMPRESSION: Cardiomegaly with pulmonary congestion. Chest/Abdomen/Pelvis CTA 02/21/25 07:08 IMPRESSION: 1. No pulmonary embolus. Sensitivity is mildly decreased by motion artifact. 2. Calcific pericarditis. Labs Labs: Laboratory Results - last 24 hr 02/20/25 02/21/25 02/21/25 22:47 01:37 01:38 WBC 11.5 H RBC 3.92 L Hgb 11.8 L Hct 36.1 L MCV 92.1 MCH 30.1 MCHC 32.7 RDW 14.6 H Plt Count 235 MPV 10.6 H Immature Gran % (Auto) 0.6 H Neut % (Auto) 82.2 H Lymph % (Auto) 7.0 L [place] % (Auto) 7.6 Eos % (Auto) 2.2 Baso % (Auto) 0.4 Lymph # (Auto) 0.81 L [place] # (Auto) 0.9 H Eos # (Auto) 0.3 Baso # (Auto) 0.1 Abs Immat Gran (auto) 0.07 H Absolute Neuts (auto) 9.5 H Absolute Nucleated RBC 0.000 Nucleated RBC % 0.0 Sodium 135 L Potassium 3.6 Chloride 104 Carbon Dioxide 25 Anion Gap 6 BUN 13 Creatinine 0.65 L Estim Creat Clear Calc 140 Estimated GFR > 60 Glucose 132 H Calcium 8.7 Total Bilirubin 0.5 AST 25 ALT 25 Alkaline Phosphatase 151 H Troponin I NT-Pro-B Natriuret Pep 6380 H Total Protein 7.2 Albumin 4.0 Urine Opiates Screen Negative Urine Methadone Screen Negative Ur Barbiturates Screen Negative Ur Phencyclidine Scrn Negative Ur Amphetamine Screen Negative U Benzodiazepines Scrn Negative Urine Cocaine Screen Negative U Cannabinoids Screen Negative Influenza A (RT-PCR) Negative Influenza B (RT-PCR) Negative RSV (RT-PCR) Negative SARS-CoV-2 RNA (RT-PCR) Negative 02/21/25 02/21/25 02/21/25 05:08 08:01 11:05 WBC 8.5 RBC 3.86 L Hgb 11.7 L Hct 36.1 L MCV 93.5 MCH 30.3 MCHC 32.4 RDW 14.4 Plt Count 237 MPV 11.2 H Immature Gran % (Auto) Neut % (Auto) Lymph % (Auto) [place] % (Auto) Eos % (Auto) Baso % (Auto) Lymph # (Auto) [place] # (Auto) Eos # (Auto) Baso # (Auto) Abs Immat Gran (auto) Absolute Neuts (auto) Absolute Nucleated RBC Nucleated RBC % Sodium 137 Potassium 3.9 Chloride 100 Carbon Dioxide 29 Anion Gap 8 BUN 12 Creatinine 0.70 Estim Creat Clear Calc 130 Estimated GFR > 60 Glucose 111 H Calcium 8.8 Total Bilirubin AST ALT Alkaline Phosphatase Troponin I 0.035 H* 0.038 H* 0.036 H* NT-Pro-B Natriuret Pep Total Protein Albumin Urine Opiates Screen Urine Methadone Screen Ur Barbiturates Screen Ur Phencyclidine Scrn Ur Amphetamine Screen U Benzodiazepines Scrn Urine Cocaine Screen U Cannabinoids Screen Influenza A (RT-PCR) Influenza B (RT-PCR) RSV (RT-PCR) SARS-CoV-2 RNA (RT-PCR)
[2025-02-21] MEDS: ABIRATERONE 250 MG 1000 EACH PO (21:36)
[2025-02-22] VITALS (25 sets, daily range): BP systolic 104–185; BP diastolic 54–110; PULSE 68–90; RESP 14–22; TEMP 36.7–36.9; O2SAT 94–100
[2025-02-22 05:53] LABS: Anion Gap 8 mmol/L (4-12); Blood Urea Nitrogen 19 mg/dL (9-20); Calcium 8.9 mg/dL (8.4-10.2); Carbon Dioxide 29 mmol/L (22-30); Chloride 99 mmol/L (98-107); Estimated CRCL calculation 103 ml/min; Estimated Glomerular Filt Rate > 60; Glucose 110 mg/dL (65-110); Potassium 3.4 mmol/L (3.4-5.0); Sodium 136 mmol/L (137-145)
--- NOTE | 2025-02-22 07:40 | P.PNCA_ITS ---
Progress Note: A&P Assessment and Plan (1) CHF (congestive heart failure): Code(s): I50.9 - Heart failure, unspecified Status: Acute Assessment and Plan: Acute systolic heart failure. NTproBNP 6,380. CXR shows pulm congestion and cardiomegaly. 02/21/25 Echo: EF 25-30%, severe LVE, grade I diastolic dysfunction (E/e' 15), mild LAE, mild AI/MR, pericardial calcification but without physiologic evidence of constrictive pericarditis including no ventricular interdependence or dilated IVC. On Lasix 40 mg IV daily. Started Coreg, stop Lisinopril for 36 hours (last dose 02/21/25 evening), and start Entresto tomorrow morning, start Spironolactone 25 mg daily and Jardiance 10 mg daily. Discuss risks/benefits/alternative to LHC and he is agreeable to procedure. Consult HCG for it. Keep NPO for it. Discuss Life vest to prevent sudden cardiac arrest and he does want it prior to discharge. (2) Hypertension: Qualifiers: Hypertension type: primary hypertension Qualified Code(s): I10 - Essential (primary) hypertension Code(s): I10 - Essential (primary) hypertension Status: Acute Assessment and Plan: Improving. Starting BP/HF medication. Monitor. (3) Hyperlipidemia: Qualifiers: Hyperlipidemia type: unspecified Qualified Code(s): E78.5 - Hyperlipidemia, unspecified Code(s): E78.5 - Hyperlipidemia, unspecified Status: Acute Assessment and Plan: On Atorvastatin. (4) Coronary artery disease: Qualifiers: Coronary Disease-Associated Artery/Lesion type: [place] artery [place] vs. transplanted heart: [place] heart Associated angina: without angina Qualified Code(s): I25.10 - Atherosclerotic heart disease of [place] coronary artery without angina pectoris Code(s): I25.10 - Atherosclerotic heart disease of [place] coronary artery without angina pectoris Status: Acute Assessment and Plan: Stable. (5) Tobacco use: Code(s): Z72.0 - Tobacco use Status: Acute Assessment and Plan: Counseled regarding smoking cessation. Subjective Date/time seen: 02/22/25 07:40 Interval history: Reports sob that is improving. No chest pains. Exam Const: General: cooperative, healthy appearing and comfortable Orientation/consciousness: oriented to person, oriented to place and oriented to time Resp: Auscultation: clear to auscultation bilaterally, no crackles, no rales, no rhonchi and no wheezes Cardio: Rate: regular rate Rhythm: regular rhythm Heart sounds: no murmurs Peripheral pulses: dorsalis pedis present Neuro: General: oriented to person, oriented to place and oriented to time Extrem: Right lower extremity: no edema Left lower extremity: no edema Objective Data Vital Signs Vital Signs: Vital Signs - 24 hr 02/21/25 08:00 02/21/25 09:18 02/21/25 09:30 Temperature Pulse Rate 88 75 Respiratory Rate Blood Pressure Pulse Oximetry 93 Oxygen Delivery Room Air 02/21/25 12:00 02/21/25 13:00 02/21/25 16:00 Temperature 98.4 F Pulse Rate 70 87 81 Respiratory Rate 20 Blood Pressure 148/57 H Pulse Oximetry 96 Oxygen Delivery 02/21/25 20:00 02/21/25 20:27 02/21/25 20:52 Temperature 97.9 F Pulse Rate 95 75 69 Respiratory Rate 18 16 Blood Pressure 135/78 Pulse Oximetry 96 96 Oxygen Delivery Autopap 02/21/25 21:28 02/21/25 21:34 02/22/25 00:00 Temperature Pulse Rate 69 76 Respiratory Rate Blood Pressure Pulse Oximetry 96 Oxygen Delivery Autopap 02/22/25 00:43 02/22/25 04:00 02/22/25 05:02 Temperature 98.1 F Pulse Rate 83 78 Respiratory Rate 16 18 Blood Pressure 161/88 H Pulse Oximetry 100 Oxygen Delivery Autopap Intake/Output Intake/Output: Intake & Output 02/19/25 02/20/25 02/21/25 02/22/25 23:59 23:59 23:59 23:59 Intake Total 1580 150 Output Total 2000 300 Balance -420 -150 Meds/Results Medications: Active Medications Generic Name Dose Route Start Last Admin Trade Name Freq PRN Reason Stop Dose Admin Atorvastatin Calcium 20 mg 02/21/25 09:00 02/21/25 09:17 Atorvastatin 20 Mg Tablet BY MOUTH 20 mg DAILY FRANTZ Administration Carvedilol 6.25 mg 02/21/25 09:00 02/21/25 21:34 Carvedilol 6.25 Mg Tablet PO 6.25 mg Q12HR FRANTZ Administration Empagliflozin 10 mg 02/22/25 09:00 Empagliflozin 10 Mg Tablet PO DAILY FRANTZ Furosemide 40 mg 02/21/25 09:00 02/21/25 09:18 Furosemide Inj 40 Mg/4 Ml Vial IV PUSH 40 mg DAILY FRANTZ Administration Hydralazine HCl 10 mg 02/21/25 04:38 Hydralazine Hcl 20 Mg/Ml Vial IV PUSH Q8H PRN Blood Pressure - High Abiraterone 250 Mg 1,000 mg 02/21/25 21:00 02/21/25 21:36 Tablet *Home Supply* PO 03/23/25 20:59 1,000 mg HS FRANTZ Administration Prednisone 5 mg 02/21/25 08:00 02/21/25 09:17 Prednisone 5 Mg Tablet PO 5 mg DAILY@0800 FRANTZ Administration Spironolactone 25 mg 02/22/25 09:00 Spironolactone 25 Mg Tablet PO QAM FRANTZ Tamsulosin HCl 0.4 mg 02/21/25 09:00 02/21/25 21:34 Tamsulosin Hcl 0.4 Mg Capsule PO 0.4 mg Q12HR FRANTZ Administration Venlafaxine HCl 75 mg 02/21/25 09:00 02/21/25 09:17 Venlafaxine Hcl Xr 75 Mg Cap.Er.24h PO 75 mg DAILY FRANTZ Administration Radiology Results: ITS Impressions Chest X-Ray 02/20/25 22:37 IMPRESSION: Cardiomegaly with pulmonary congestion. Chest/Abdomen/Pelvis CTA 02/21/25 07:08 IMPRESSION: 1. No pulmonary embolus. Sensitivity is mildly decreased by motion artifact. 2. Calcific pericarditis. Labs Labs: Laboratory Results - last 24 hr 02/21/25 02/21/25 02/22/25 08:01 11:05 05:07 Sodium 136 L Potassium 3.4 Chloride 99 Carbon Dioxide 29 Anion Gap 8 BUN 19 Creatinine 0.84 Estim Creat Clear Calc 103 Estimated GFR > 60 Glucose 110 Calcium 8.9 Troponin I 0.038 H* 0.036 H*
--- NOTE | 2025-02-22 07:55 | P.CONCA_ITS ---
Assessment and Plan Assessment and plan (1) Acute on chronic systolic and diastolic heart failure, NYHA class 3: Code(s): I50.43 - Acute on chronic combined systolic (congestive) and diastolic (congestive) heart failure Status: Acute (2) Hypoxic respiratory failure: Code(s): J96.91 - Respiratory failure, unspecified with hypoxia Status: Acute (3) Prostate cancer: Code(s): C61 - Malignant neoplasm of prostate Status: Acute (4) Morbid obesity due to excess calories: Code(s): E66.01 - Morbid (severe) obesity due to excess calories Status: Acute (5) COPD (chronic obstructive pulmonary disease): Qualifiers: COPD type: unspecified COPD Qualified Code(s): J44.9 - Chronic obstructive pulmonary disease, unspecified Code(s): J44.9 - Chronic obstructive pulmonary disease, unspecified Status: Acute (6) Obstructive sleep apnea (adult) (pediatric): Code(s): G47.33 - Obstructive sleep apnea (adult) (pediatric) Status: Acute Plan Impression: 1. Patient with known history of prostate cancer on chemotherapy now presents with progressive shortness of breath. BNP is markedly elevated. CT scan of the chest revealed pericardial calcific changes. Negative for pulmonary embolism. Prior median sternotomy is noted. Thoracic lymphadenopathy. Bilateral granulomatous disease and gynecomastia. Chest x-ray showed cardiomegaly with pulmonary congestion. Echocardiogram revealed severely enlarged left ventricle with ejection fraction range of 25-30% as well as diastolic dysfunction. Findings are suggestive of acute on chronic predominantly systolic as well as diastolic heart failure. 2. Known history of morbid obesity with obstructive sleep apnea. 3. Known history of prostate cancer on chemotherapy. Details not known to me. 4. History of pericardiectomy in 2016. CT scan shows calcific changes but no pericardial effusion. 5. History of hyperlipidemia, history of polysubstance abuse 20 years ago, spinal stenosis, hyperlipidemia and bipolar disorder. Patient also COPD. 6. Cirrhosis of liver. Etiology is unclear. However severe cardiomyopathy could be 1 of the components. Recommendation: 1. Currently blood pressure 161/88 and heart rate is 78 per minute. Diuresed over 410 mL overnight. Patient has been evaluated by his primary tool crib clerk Dr. Conte and the request of cardiac catheterization to rule out ischemic cardiomyopathy. Discussed with Dr. Ulloa, checkroom attendant on-call today and will do cardiac catheterization. After the catheterization will continue with diuresis as his BNP is very high. 2. Home medications reviewed. Continue atorvastatin 20 mg daily, lisinopril 40 mg daily, start Lasix 40 mg IV push b.i.d. and carvedilol 6.25 mg b.i.d., Aldactone 25 mg daily for now. Consider switching to Entresto 24-26 the patient can afford it. 3. Continue with the BiPAP at night. 4. Continue cancer chemotherapy. Patient is on leuprolide 45 mg subcu. And prednisone 5 mg daily. Prednisone is not helping this patient in view of fluid retention and cardiomyopathy. Further recommendations to follow. Thank you again for allowing us to participate in care this patient. History of Present Illness History of Present Illness Consult date/time: 02/22/25 07:55 Requesting physician: Nj Conte DO Consult reason: congestive heart failure Reason For Visit: chf Narrative: Patient is a 54-year-old male admitted on 02/20/2025 with shortness of breath Patient has recent diagnosis of prostate cancer is on chemotherapy. This is progressively increasing for last 4-5 days worse on exertion. No complaints of chest pain, fever or chills. No history of hypertension or previous history of cardiac problems including history of myocardial infarction, angina congestive heart failure. Patient has significant weight gain since starting the chemotherapy. Patient has a past medical history significant for pericarditis and underwent pericardiectomy in 2016. No complaints of abdominal pain, nausea vomiting or diarrhea. Patient is morbidly obese and weighs 107 kg with BMI of 35. Patient has a history of chronic obstructive sleep apnea as well as history of liver cirrhosis and hyperlipidemia. Past medical history also significant for polysubstance abuse. Admitting blood pressure was 160/97. Heart rate was 94 per minute. Patient was afebrile and respirations 22 per minute Laboratory data revealed WBC count of 11.5. Hemoglobin is 11.8 platelets are normal Sodium 135, potassium is 3.6, BUN is 13, creatinine 0.65. ProBNP was 6380. Cardiac troponin was 0.035 and was 0.036. This trend is not suggestive of acute coronary syndrome. Admitting EKG revealed normal sinus rhythm with poor R progression in anteroseptal leads. Heart rate was 85 per minute Echocardiogram performed yesterday showed severely enlarged left ventricle with ejection fraction range of 25-30% Diastolic dysfunction is noted. Mildly enlarged left atrium. Mild mitral valve and aortic valve regurgitation. Pericardial calcification is noted without effusion. Patient was examined at the bedside. Patient is awake alert and appears comfortable. No significant shortness of breath orthopnea or leg edema at this time. Denies any complaints of chest pain. Review of Systems 2 Review of Systems: Twelve point review of system was completed. Pertinent positive and negative findings per HPI. Constitutional positive for weakness. Negative for fever or chills. Head and neck negative Pulmonary system positive for shortness of breath. Negative for wheezing or hemoptysis. Cardio vascular positive for shortness of breath operative negative for chest pain, palpitations or dizziness. Gastrointestinal negative for abdominal pain, nausea vomiting or diarrhea Neurovascular, skin and musculoskeletal are negative. [facility] Past Medical History Medical History Prostate cancer Morbid obesity due to excess calories Spinal stenosis Pericarditis (2017) Status post pericardiectomy at [facility]. Polysubstance abuse Clean for over 20 years. No history of IV drug use. Obstructive sleep apnea on CPAP Tobacco use Anxiety Bipolar disorder Hyperlipidemia Chronic obstructive pulmonary disease Osteoarthritis involving multiple joints on both sides of body Liver cirrhosis Surgical History Surgical History (Updated 02/21/25 @ 04:31 by Sharon Alberto APRN) H/O cardiac catheterization 01/18/2017Cath ([facility]: LM 30-35%, LAD 30-35% prox-mid portion, LCx <30% stenosis and has 60% bridging mid and mild briding in distal portion, RCA with <30% stenosis; constrictive pericarditis physiology.) - 01/18/2017 History of arthroplasty of right knee History of bilateral hip arthroplasty (2017) History of right inguinal hernia repair (2019) History of pericardiectomy (2017) [facility] 01/18/2017 Family History Family History Other Adopted Social History Social History (Updated 02/22/25 @ 02:58 by Sharon Alberto APRN) Social History: He has 1 child. He used to smok 2 packs of cigarettes a day and now is down to 2 cigarettes a day. Surrogate medical decision maker:none Code status: Full code. Smoking packs per day: 0.5 Smoking cigarettes per day: 10.0 Smoking status: Former smoker Additional smoking assessment comments: smoke 2 cigarettes since last year and prior was a 2 pack a day for 40 year Alcohol intake: never Substance use: current Substance use type: marijuana Other substance usage details: Hx polysubstance drug use over 20 yrs ago, no IV drug use Do You Feel Safe in your Home?: Yes Lack of Transportation: No Lack of Food: Never True Current Housing: I Have Housing Concerned About Future Housing: No Difficulty Paying Gas/Electric Bills: No Difficulty Paying for Meds: No Currently Unemployed: No Education: High School Diploma/GED Difficulty w/ Childcare or Family Care: No Spiritual care concerns: No Meds Home Medications and Allergies Home Medications ?Medication ?Instructions ?Recorded ?Confirmed ?Type tamsulosin 0.4 mg capsule (Flomax) 0.4 mg PO BID #30 c aps 07/14/24 02/21/25 Rx atorvastatin 20 mg tablet See Rx Instructions .Route 0 10/12/24 02/21/25 Rx .COMPLEX #30 tabs abiraterone 250 mg tablet 1,000 mg PO DAILY 02/05/25 1 04/23/24 History prednisone 5 mg tablet 5 mg PO DAILY 02/05/2502/21 History leuprolide acetate (6 month) 45 mg 45 mg subcut Q6MONT HS 02/08/25 02/21/25 History (6 month) subcutaneous syringe ([employer]) calcium 600 mg (as 1 tablet PO DAILY 02/21/25 1 04/23/24 History carbonate)-vitamin D3 5 mcg (200 unit) tablet (Calcium 600 + D(3)) lisinopril 40 mg tablet 40 mg PO DAILY@1700 02/21/25 02/21/25 History venlafaxine 75 mg capsule,extended 75 mg PO DAILY 09/1002/21/25 History release 24 hr Allergies Allergy/AdvReac Type Severity Reaction Status Date / Time No Known Allergies Allergy Verified 02/21/25 02:39 Vital Signs Vital Signs - 24 hr 02/21/25 08:00 02/21/25 09:18 02/21/25 09:30 Temperature Pulse Rate 88 75 Respiratory Rate Blood Pressure Pulse Oximetry 93 Oxygen Delivery Room Air 02/21/25 12:00 02/21/25 13:00 02/21/25 16:00 Temperature 36.9 C Pulse Rate 70 87 81 Respiratory Rate 20 Blood Pressure 148/57 H Pulse Oximetry 96 Oxygen Delivery 02/21/25 20:00 02/21/25 20:27 02/21/25 20:52 Temperature 36.6 C Pulse Rate 95 75 69 Respiratory Rate 18 16 Blood Pressure 135/78 Pulse Oximetry 96 96 Oxygen Delivery Autopap 02/21/25 21:28 02/21/25 21:34 02/22/25 00:00 Temperature Pulse Rate 69 76 Respiratory Rate Blood Pressure Pulse Oximetry 96 Oxygen Delivery Autopap 02/22/25 00:43 02/22/25 04:00 02/22/25 05:02 Temperature 36.7 C Pulse Rate 83 78 Respiratory Rate 16 18 Blood Pressure 161/88 H Pulse Oximetry 100 Oxygen Delivery Autopap Exam 2 Narrative: Patient examined at the bedside. Patient morbidly obese awake and alert in no apparent distress. Head and neck examination is unremarkable. Head is atraumatic. Sclerae is nonicteric. ENT examination is negative. Neck is supple. There is no JVD or carotid bruit. Thyroid isn't enlarged Lungs reveal decreased air entry bilaterally. There is no wheezing or crepitation. Heart sounds reveal normal S1-S2. Heart sounds are somewhat distant. No significant murmur appreciated. Abdomen is obese without any hepatosplenomegaly bowel sounds are present somewhat distended Extremities reveal no peripheral edema. There is no clubbing or cyanosis. Skin is negative without rash or bruises. Musculoskeletal is negative. Neurovascular intact without any focal neurological signs. Results Labs and Meds 02/21/25 05:08 02/22/25 05:07 Lab results: Cardiac Enzymes 02/21/25 02/21/25 Range/Units 08:01 11:05 Troponin I 0.038 H* 0.036 H* (0.000-0.034) ng/mL Comprehensive Metabolic Panel 02/22/25 Range/Units 05:07 Sodium 136 L (137-145) mmol/L Potassium 3.4 (3.4-5.0) mmol/L Chloride 99 (98-107) mmol/L Carbon Dioxide 29 (22-30) mmol/L BUN 19 (9-20) mg/dL Creatinine 0.84 (0.7-1.3) mg/dL Glucose 110 (65-110) mg/dL Calcium 8.9 (8.4-10.2) mg/dL Intake and Output 02/21/25 02/21/25 02/22/25 15:59 23:59 07:59 Intake Total 520 820 150 Output Total 1100 500 300 Balance -580 320 -150 Intake: Oral 520 820 150 Output: Urine 1100 500 300 Other: # Unmeasured Voids 1 3 Patient Weight 02/22/25 23:59 Weight 107.2 kg
[2025-02-22] MEDS: SPIRONOLACTONE 25 MG TABLET PO (08:14)
--- NOTE | 2025-02-22 11:44 | WPDHPUPDATE1 ---
History and Physical Update Update Date/Time: 02/22/25 11:44 History and Physical has been reviewed, including an updated exam of the patient. There are NO changes in the patient's condition. Risks, benefits, and alternatives have been discussed and questions answered. Patient agrees to proceed with procedure.
--- NOTE | 2025-02-22 11:44 | WPDMODSED ---
Moderate Sedation Note-Pt Data Patient Data Allergies Allergy/AdvReac Type Severity Reaction Status Date / Time No Known Allergies Allergy Verified 02/21/25 02:39 Home Medications ?Medication ?Instructions ?Recorded ?Confirmed ?Type tamsulosin 0.4 mg capsule (Flomax) 0.4 mg PO BID #30 caps 07/14/24 02/21/25 Rx atorvastatin 20 mg tablet See Rx Instructions .Route 10/12/24 02/21/25 Rx .COMPLEX #30 tabs abiraterone 250 mg tablet 1,000 mg PO DAILY 02/05/25 02/21/25 History prednisone 5 mg tablet 5 mg PO DAILY 02/05/25 02/21/25 History leuprolide acetate (6 month) 45 mg 45 mg subcut [id number] 02/08/25 02/21/25 History (6 month) subcutaneous syringe ([employer]) calcium 600 mg (as 1 tablet PO DAILY 02/21/25 02/21/25 History carbonate)-vitamin D3 5 mcg (200 unit) tablet (Calcium 600 + D(3)) lisinopril 40 mg tablet 40 mg PO DAILY@1700 02/21/25 02/21/25 History venlafaxine 75 mg capsule,extended 75 mg PO DAILY 02/21/25 02/21/25 History release 24 hr Current Medications: Active Medications Atorvastatin Calcium (Atorvastatin 20 Mg Tablet) 20 mg BY MOUTH DAILY [facility] Last Admin: 02/22/25 08:13 Dose: Not Given Carvedilol (Carvedilol 6.25 Mg Tablet) 6.25 mg PO Q12HR [facility] Last Admin: 02/22/25 08:12 Dose: 6.25 mg Empagliflozin (Empagliflozin 10 Mg Tablet) 10 mg PO DAILY [facility] Last Admin: 02/22/25 08:14 Dose: Not Given Furosemide (Furosemide Inj 40 Mg/4 Ml Vial) 40 mg IV PUSH BID [facility] Last Admin: 02/22/25 09:38 Dose: Not Given Hydralazine HCl (Hydralazine Hcl 20 Mg/Ml Vial) 10 mg IV PUSH Q8H PRN PRN Reason: Blood Pressure - High Abiraterone 250 Mg (Tablet *Home Supply*) 1,000 mg PO [facility] Stop: 03/23/25 20:59 Last Admin: 02/21/25 21:36 Dose: 1,000 mg Prednisone (Prednisone 5 Mg Tablet) 5 mg PO DAILY@0800 [facility] Last Admin: 02/22/25 08:14 Dose: Not Given Spironolactone (Spironolactone 25 Mg Tablet) 25 mg PO QAM [facility] Last Admin: 02/22/25 08:14 Dose: 25 mg Tamsulosin HCl (Tamsulosin Hcl 0.4 Mg Capsule) 0.4 mg PO Q12HR [facility] Last Admin: 02/22/25 08:15 Dose: Not Given Venlafaxine HCl (Venlafaxine Hcl Xr 75 Mg Cap.Er.24h) 75 mg PO DAILY [facility] Last Admin: 02/22/25 08:15 Dose: Not Given Sedation/Anesthesia: No previous sedation/anesthesia problems (including family history). [facility] Past Medical History Medical History Prostate cancer Morbid obesity due to excess calories Spinal stenosis Pericarditis (2016) Status post pericardiectomy at [facility]. Polysubstance abuse Clean for over 20 years. No history of IV drug use. Obstructive sleep apnea on CPAP Tobacco use Anxiety Bipolar disorder Hyperlipidemia Chronic obstructive pulmonary disease Osteoarthritis involving multiple joints on both sides of body Liver cirrhosis Surgical History Surgical History (Updated 02/21/25 @ 04:31 by Sharon Alberto APRN) H/O cardiac catheterization 01/18/2017Cath ([facility]: LM 30-35%, LAD 30-35% prox-mid portion, LCx <30% stenosis and has 60% bridging mid and mild briding in distal portion, RCA with <30% stenosis; constrictive pericarditis physiology.) - 01/18/2017 History of arthroplasty of right knee History of bilateral hip arthroplasty (2017) History of right inguinal hernia repair (2019) History of pericardiectomy (2017) [facility] 01/18/2017 Family History Family History Other Adopted Social History Social History (Updated 02/22/25 @ 02:58 by Sharon Alberto APRN) Social History: He has 1 child. He used to smok 2 packs of cigarettes a day and now is down to 2 cigarettes a day. Surrogate medical decision maker:none Code status: Full code. Smoking packs per day: 0.5 Smoking cigarettes per day: 10.0 Smoking status: Former smoker Additional smoking assessment comments: smoke 2 cigarettes since last year and prior was a 2 pack a day for 40 year Alcohol intake: never Substance use: current Substance use type: marijuana Other substance usage details: Hx polysubstance drug use over 20 yrs ago, no IV drug use Do You Feel Safe in your Home?: Yes Lack of Transportation: No Lack of Food: Never True Current Housing: I Have Housing Concerned About Future Housing: No Difficulty Paying Gas/Electric Bills: No Difficulty Paying for Meds: No Currently Unemployed: No Education: High School Diploma/GED Difficulty w/ Childcare or Family Care: No Spiritual care concerns: No Mod Sed Physical Exam Physical Exam Pre Procedural Exam: Normal: Lungs, Heart Size, Heart Rate and Heart Rhythm Hours since solid foods: 12 Hours since liquid intake: 12 Mallampati Classification: class III Internal Medicine - PN: Obj Da Vital Signs Vital Signs: Vital Signs - 24 hr 02/21/25 12:00 02/21/25 13:00 02/21/25 16:00 Temperature 36.9 C Pulse Rate 70 87 81 Respiratory Rate 20 Blood Pressure 148/57 H Pulse Oximetry 96 Oxygen Delivery 02/21/25 20:00 02/21/25 20:27 02/21/25 20:52 Temperature 36.6 C Pulse Rate 95 75 69 Respiratory Rate 18 16 Blood Pressure 135/78 Pulse Oximetry 96 96 Oxygen Delivery Autopap 02/21/25 21:28 02/21/25 21:34 02/22/25 00:00 Temperature Pulse Rate 69 76 Respiratory Rate Blood Pressure Pulse Oximetry 96 Oxygen Delivery Autopap 02/22/25 00:43 02/22/25 04:00 02/22/25 05:02 Temperature 36.7 C Pulse Rate 83 78 Respiratory Rate 16 18 Blood Pressure 161/88 H Pulse Oximetry 100 Oxygen Delivery Autopap 02/22/25 08:12 02/22/25 08:17 Temperature Pulse Rate 84 84 Respiratory Rate 18 Blood Pressure Pulse Oximetry 100 Oxygen Delivery Room Air Intake/Output Intake/Output: Intake & Output 02/19/25 02/20/25 02/21/25 02/22/25 23:59 23:59 23:59 23:59 Intake Total 1580 150 Output Total 1999 650 Balance -420 -500 Meds/Results Medications: Active Medications Generic Name Dose Route Start Last Admin Trade Name Yusuf PRN Reason Stop Dose Admin Atorvastatin Calcium 20 mg 02/21/25 09:00 02/22/25 08:13 Atorvastatin 20 Mg Tablet BY MOUTH Not Given DAILY [facility] Carvedilol 6.25 mg 02/21/25 09:00 02/22/25 08:12 Carvedilol 6.25 Mg Tablet PO 6.25 mg Q12HR [facility] Administration Empagliflozin 10 mg 02/22/25 09:00 02/22/25 08:14 Empagliflozin 10 Mg Tablet PO Not Given DAILY [facility] Furosemide 40 mg 02/22/25 09:00 02/22/25 09:38 Furosemide Inj 40 Mg/4 Ml Vial IV PUSH Not Given BID [facility] Hydralazine HCl 10 mg 02/21/25 04:38 Hydralazine Hcl 20 Mg/Ml Vial IV PUSH Q8H PRN Blood Pressure - High Abiraterone 250 Mg 1,000 mg 02/21/25 21:00 02/21/25 21:36 Tablet *Home Supply* PO 03/23/25 20:59 1,000 mg HS [facility] Administration Prednisone 5 mg 02/21/25 08:00 02/22/25 08:14 Prednisone 5 Mg Tablet PO Not Given DAILY@0800 [facility] Spironolactone 25 mg 02/22/25 09:00 02/22/25 08:14 Spironolactone 25 Mg Tablet PO 25 mg QAM [facility] Administration Tamsulosin HCl 0.4 mg 02/21/25 09:00 02/22/25 08:15 Tamsulosin Hcl 0.4 Mg Capsule PO Not Given Q12HR [facility] Venlafaxine HCl 75 mg 02/21/25 09:00 02/22/25 08:15 Venlafaxine Hcl Xr 75 Mg Cap.Er.24h PO Not Given DAILY [facility] Radiology Results: ITS Impressions Chest X-Ray 02/20/25 22:37 IMPRESSION: Cardiomegaly with pulmonary congestion. Chest/Abdomen/Pelvis CTA 02/21/25 07:08 IMPRESSION: 1. No pulmonary embolus. Sensitivity is mildly decreased by motion artifact. 2. Calcific pericarditis. Labs 02/21/25 05:08 02/22/25 05:07 Labs: Laboratory Results - last 24 hr 02/21/25 02/22/25 11:05 05:07 Sodium 136 L Potassium 3.4 Chloride 99 Carbon Dioxide 29 Anion Gap 8 BUN 19 Creatinine 0.84 Estim Creat Clear Calc 103 Estimated GFR > 60 Glucose 110 Calcium 8.9 Troponin I 0.036 H* ASA Classification/Sedation ASA Classification/Sedation ASA Class: III Emergent: No Risks: Risks, benefits and alternatives explained and patient/family accepted plan for sedation. Patient re-evaluated immediately prior to sedation.
--- NOTE | 2025-02-22 11:55 | PC.NURSE ---
To chest pain center via bed.
--- NOTE | 2025-02-22 12:42 | P.PCNCC_ITS ---
Cardiac Cath Procedure Note Date of procedure:: 02/22/25 Performing physician:: CATHETERIZATION LABORATORY REPORT Procedure Date: 02/22/2025 Referring Physician: Dr. Conte Anesthesia: Versed and Fentanyl were ordered and given in my presence at 1213, procedure ended at 1238. Supervision of nurse, Bibiana Trevizo monitored moderate sedation with 2mg Versed and 150mcg Fentanyl was provided for 25 minutes. Pre-op Diagnosis: New onset systolic cardiomyopathy Post-op Diagnosis: New onset systolic cardiomyopathy Procedure(s): Left heart catheterization with coronary angiography Access Site: Right radial artery Brief History and Clinical Indications: All risks, benefits and alternatives to left heart catheterization with or without percutaneous coronary intervention was discussed at length with the pat ient. Risk of complications including but not limited to bleeding, infection, arrhythmia, stroke, worsening kidney function, blood loss, groin hematoma, limb loss, emergency coronary artery bypass grafting, and even were discussed with the patient and all questions were answered. The patient understood and wished to proceed. Time out called, patient name, date of , medical record number, allergies, procedure performed, identify Spanish Medical Interpreter, patient and staff member concurred with accurate data, procedure carried on. Findings: LEFT HEART CATHETERIZATION FINDINGS: 1. Left main: The left main coronary artery has 20-30% ostial stenosis. 2. Left anterior descending: The LAD has a focal area of 20-30% stenosis in its midbody. The remainder of the vessel and its diagonal branches have luminal irregularities. 3. Left circumflex: The left circumflex artery and the main marginal branches have mild luminal irregularities without any significant obstructive angiographic disease. There is mild myocardial bridging. 4. Right coronary artery: The RCA is a large dominant vessel with luminal irregularities. 5. Left ventricle: A. End-diastolic pressure 12 mmHg. B. LV gram deferred. C. No significant gradient across aortic valve on catheter pullback. 6. Opening AO pressure 136/93 and closing AO pressure 130/93 7. Right iliofemoral angiogram: Luminal irregularities were seen in the right external right common iliac arteries. The right common femoral artery and the ostium of the right superficial femoral artery and right profundus are angiographically normal. Description of Procedure: Informed consent signed and placed in the chart. Patient transferred to blood bank laboratory technician room. Prepped and draped in usual sterile fashion. 2% lidocaine was subcutaneously injected in the right wrist. An ultrasound located a very small right radial artery. One attempt was performed to obtain access however there was poor blood return. The needle was withdrawn and manual pressure was held to achieve hemostasis. The procedure was converted to femoral approach at this time. 2% lidocaine was subcutaneously injected in the right groin. Ultrasound located the right common femoral artery which was then accessed with a micropuncture needle and a micropuncture wire was advanced under fluoroscopy. The micropuncture cannula was then placed and exchanged out for a 5F sheath. A JL4 diagnostic catheter engaged the left main coronary artery. A JR4 diagnostic catheter to engage the right coronary artery. Multiple orthogonal angiograms were obtained and reviewed in its entirety. The JR4 diagnostic catheter was then used to cross the aortic valve to obtain LVEDP and pullback gradients. A right iliofemoral angiogram was then performed confirming adequate puncture site for vascular closure device. A 6 [place] Angio-Seal VIP device was used to achieve hemostasis. Assessment: Nonischemic cardiomyopathy Post Operative Condition: Stable No significant blood loss Disposition: Floor Plan: The above findings were discussed with the referring physician. Continue aggressive medical therapy, GDMT, and risk factor modification. Roberto Ulloa Interventional Cardiology
[2025-02-22] MEDS: SODIUM CHLORIDE 0.9% IV 1,000 ML 125 ML IV CONT (13:00)
--- NOTE | 2025-02-22 15:50 | PM.IMPN ---
Progress Note: A&P Assessment and Plan (1) CHF (congestive heart failure): Code(s): I50.9 - Heart failure, unspecified Status: Acute Plan 54-year-old male with history of prostate cancer, hyperlipidemia, tobacco use disorder, hypertension. Patient declines nicotine patch. Reports to me he will now move forward abstinent of tobacco use. I congratulated him. Adverse effects, risk and benefits of medications discussed. Patient no further questions. Cardiac catheterization today. Further recommendations per Cardiology. He is currently saturating well and breathing well on room air. Hope to wean down his prednisone. It appears this was prescribed on 02/05/2025 but I see no plan for further management it has been ongoing. Full code. Time Spent With Patient Time with patient: 25 - 35 minutes Subjective Date/time seen: 02/22/25 15:50 Interval history: Feels improved today. Review of Systems Review of Systems: All systems reviewed & are unremarkable except as noted in HPI and below (Subjective) Exam Const: General: comfortable and no acute distress HENMT: Mouth: Yes moist mucous membranes Eyes: Pupils: Equal, round and reactive pupils present Neck: Neck: supple Resp: Effort & Inspection: normal respiratory effort Auscultation: clear to auscultation bilaterally Cardio: Rate: regular rate Rhythm: regular rhythm GI: Inspection: non-distended GI Palp: Yes Soft to palpation Extrem: Other: Trace/1+ pitting edema bilateral lower extremities Objective Data Vital Signs Vital Signs: Vital Signs - 24 hr 02/21/25 16:00 02/21/25 20:00 02/21/25 20:27 Temperature Pulse Rate 81 95 75 Pulse Rate [Right Pedal (Dorsalis Pedis) Palpation] Respiratory Rate 18 Blood Pressure Pulse Oximetry 96 Oxygen Delivery Autopap 02/21/25 20:52 02/21/25 21:28 02/21/25 21:34 Temperature 97.9 F Pulse Rate 69 69 Pulse Rate [Right Pedal (Dorsalis Pedis) Palpation] Respiratory Rate 16 Blood Pressure 135/78 Pulse Oximetry 96 96 Oxygen Delivery Autopap 02/22/25 00:00 02/22/25 00:43 02/22/25 04:00 Temperature Pulse Rate 76 83 Pulse Rate [Right Pedal (Dorsalis Pedis) Palpation] Respiratory Rate 16 Blood Pressure Pulse Oximetry Oxygen Delivery Autopap 02/22/25 05:02 02/22/25 08:12 02/22/25 08:17 Temperature 98.1 F Pulse Rate 78 84 84 Pulse Rate [Right Pedal (Dorsalis Pedis) Palpation] Respiratory Rate 18 18 Blood Pressure 161/88 H Pulse Oximetry 100 100 Oxygen Delivery Room Air 02/22/25 12:05 02/22/25 13:00 02/22/25 13:00 Temperature Pulse Rate 78 76 Pulse Rate [Right Pedal (Dorsalis Pedis) Palpation] 76 Respiratory Rate 16 Blood Pressure 171/106 H Pulse Oximetry 100 Oxygen Delivery Room Air 02/22/25 13:15 02/22/25 13:15 02/22/25 13:30 Temperature Pulse Rate 77 Pulse Rate [Right Pedal (Dorsalis Pedis) Palpation] 77 81 Respiratory Rate 16 Blood Pressure 172/101 H Pulse Oximetry 94 Oxygen Delivery Room Air 02/22/25 13:30 02/22/25 13:45 02/22/25 13:45 Temperature Pulse Rate 81 82 Pulse Rate [Right Pedal (Dorsalis Pedis) Palpation] 82 Respiratory Rate 17 17 Blood Pressure 185/110 H 185/105 H Pulse Oximetry 100 100 Oxygen Delivery Room Air Room Air 02/22/25 14:00 02/22/25 14:00 02/22/25 14:15 Temperature Pulse Rate 90 89 Pulse Rate [Right Pedal (Dorsalis Pedis) Palpation] 90 Respiratory Rate 20 16 Blood Pressure 184/94 H 161/101 H Pulse Oximetry 100 100 Oxygen Delivery Room Air Room Air 02/22/25 14:15 02/22/25 14:30 02/22/25 14:30 Temperature Pulse Rate 75 Pulse Rate [Right Pedal (Dorsalis Pedis) Palpation] 89 90 Respiratory Rate 20 Blood Pressure 166/98 H Pulse Oximetry 100 Oxygen Delivery Room Air 02/22/25 15:00 02/22/25 15:00 02/22/25 15:30 Temperature Pulse Rate 78 76 Pulse Rate [Right Pedal (Dorsalis Pedis) Palpation] 78 Respiratory Rate 14 16 Blood Pressure 148/77 H 104/54 L Pulse Oximetry 97 97 Oxygen Delivery Room Air Room Air 02/22/25 15:30 Temperature Pulse Rate Pulse Rate [Right Pedal (Dorsalis Pedis) Palpation] 76 Respiratory Rate Blood Pressure Pulse Oximetry Oxygen Delivery Intake/Output Intake/Output: Intake & Output 1102/20/25 02/21/25 02/22/25 23:59 23:59 23:59 23:59 Intake Total 1580 150 Output Total 0393 650 Balance -420 -500 Meds/Results Medications: Active Medications Generic Name Dose Route Start Last Admin Trade Name [place] PRN Reason Stop Dose Admin Atorvastatin Calcium 20 mg 02/21/25 09:00 02/22/25 08:13 Atorvastatin 20 Mg Tablet BY MOUTH Not Given DAILY [facility] Carvedilol 6.25 mg 02/21/25 09:00 02/22/25 08:12 Carvedilol 6.25 Mg Tablet PO 6.25 mg Q12HR [facility] Administration Empagliflozin 10 mg 02/22/25 09:00 02/22/25 08:14 Empagliflozin 10 Mg Tablet PO Not Given DAILY [facility] Furosemide 40 mg 02/22/25 09:00 02/22/25 09:38 Furosemide Inj 40 Mg/4 Ml Vial IV PUSH Not Given BID [facility] Hydralazine HCl 10 mg 02/21/25 04:38 Hydralazine Hcl 20 Mg/Ml Vial IV PUSH Q8H PRN Blood Pressure - High Sodium Chloride 1,000 mls @ 125 mls/hr 02/22/25 12:41 02/22/25 13:00 Normal Saline Iv IV CONT 02/22/25 20:40 125 mls/hr .Q8H ONE Administration Abiraterone 250 Mg 1,000 mg 02/21/25 21:00 02/21/25 21:36 Tablet *Home Supply* PO 03/23/25 20:59 1,000 mg HS [facility] Administration Prednisone 5 mg 02/21/25 08:00 02/22/25 08:14 Prednisone 5 Mg Tablet PO Not Given DAILY@0800 [facility] Spironolactone 25 mg 02/22/25 09:00 02/22/25 08:14 Spironolactone 25 Mg Tablet PO 25 mg QAM [facility] Administration Tamsulosin HCl 0.4 mg 02/21/25 09:00 02/22/25 08:15 Tamsulosin Hcl 0.4 Mg Capsule PO Not Given Q12HR [facility] Venlafaxine HCl 75 mg 02/21/25 09:00 02/22/25 08:15 Venlafaxine Hcl Xr 75 Mg Cap.Er.24h PO Not Given DAILY COUNTS INCLUDE 234 BEDS AT THE [facility] Radiology Results: ITS Impressions Chest X-Ray 02/20/25 22:37 IMPRESSION: Cardiomegaly with pulmonary congestion. Chest/Abdomen/Pelvis CTA 02/21/25 07:08 IMPRESSION: 1. No pulmonary embolus. Sensitivity is mildly decreased by motion artifact. 2. Calcific pericarditis. Labs Labs: Laboratory Results - last 24 hr 02/22/25 05:07 Sodium 136 L Potassium 3.4 Chloride 99 Carbon Dioxide 29 Anion Gap 8 BUN 19 Creatinine 0.84 Estim Creat Clear Calc 103 Estimated GFR > 60 Glucose 110 Calcium 8.9
--- NOTE | 2025-02-22 16:00 | SUR.PHASEII ---
VORB Per Dr. Artemio Yan to end bedrest at 1600.
--- NOTE | 2025-02-22 17:35 | PC.NURSE ---
Transferred to IMU via bed from chest pain center.
--- NOTE | 2025-02-22 17:57 | PC.NURSE ---
This patient, Rivera Aguilar, was transferred from chest pain center to IMU Room 2009-04 at 1739. Patient/family oriented to unit policies and general routines including ID bracelet, bed and alarms, visiting hours, pain management, procedures, bathroom and other care routines, personal items, smoking policy, room service/diet, and visiting hours. Information on how to activate the Rapid Response Team has been discussed. Patient/Family are encouraged to report perceived risks to care and to ask questions if they do not understand what they are told or what they should do.
[2025-02-22] MEDS: FUROSEMIDE INJ 40 MG/4 ML VIAL IV PUSH (18:04)
[2025-02-22] MEDS: TAMSULOSIN HCL 0.4 MG CAPSULE PO (20:05)
[2025-02-22] MEDS: ABIRATERONE 250 MG 1000 EACH PO (20:40)
[2025-02-23] VITALS (9 sets, daily range): BP systolic 142–152; BP diastolic 78–99; PULSE 59–97; RESP 18–20; TEMP 36.6–37; O2SAT 94–98
[2025-02-23 04:27] LABS: Hematocrit 38.4 % (42.0-52.0); Hemoglobin 12.7 g/dL (14.0-18.0); Mean Corpuscular HGB Conc 33.1 g/dl (32-36); Mean Corpuscular Hemoglobin 30.1 pg (26-34); Mean Corpuscular Volume 91.0 fl (80-100); Platelet Count Result 253 k/mm3 (150-375); Red Blood Count 4.22 M/mm3 (4.6-6.20); White Blood Count 6.2 K/mm3 (4.5-10.0)
[2025-02-23 04:47] LABS: Anion Gap 9 mmol/L (4-12); Blood Urea Nitrogen 22 mg/dL (9-20); Calcium 8.9 mg/dL (8.4-10.2); Carbon Dioxide 27 mmol/L (22-30); Chloride 101 mmol/L (98-107); Estimated CRCL calculation 98 ml/min; Estimated Glomerular Filt Rate > 60; Glucose 111 mg/dL (65-110); Magnesium 2.4 mg/dL (1.6-2.3); Potassium 3.7 mmol/L (3.4-5.0); Sodium 137 mmol/L (137-145)
--- NOTE | 2025-02-23 07:56 | PM.PNCARD ---
Progress Note: A&P Assessment and Plan (1) CHF (congestive heart failure): Code(s): I50.9 - Heart failure, unspecified Status: Acute Assessment and Plan: Acute systolic heart failure due to non-ICM. Possibly due to prostate cancer treatment with Abiraterone? Followed by Urologist and oncologist. NTproBNP 6,380. CXR shows pulm congestion and cardiomegaly. 02/21/25 Echo: EF 25-30%, severe LVE, grade I diastolic dysfunction (E/e' 15), mild LAE, mild AI/MR, pericardial calcification but without physiologic evidence of constrictive pericarditis including no ventricular interdependence or dilated IVC. 02/22/25 [facility] with Dr. Ulloa: LM 20-30% and LAD mid 20-30% stenosis. On Lasix 40 mg IV BID. On Coreg, stopped Lisinopril for 36 hours (last dose 02/21/25 evening), and start Entresto this morning, On Spironolactone 25 mg daily and Jardiance 10 mg daily. Change Lasix 40 mg PO daily. Discuss Life vest to prevent sudden cardiac arrest and he does want it prior to discharge. Await placement of life vest. Need f/u with his urologist and oncologist about treatment for prostate cancer and his systolic heart failure could be due to Abiraterone. After he gets life vest, may d/c home and f/u with me in 1 week. (2) Hypertension: Qualifiers: Hypertension type: primary hypertension Qualified Code(s): I10 - Essential (primary) hypertension Code(s): I10 - Essential (primary) hypertension Status: Acute Assessment and Plan: Mildly high but starting BP/HF medication. Monitor. (3) Hyperlipidemia: Qualifiers: Hyperlipidemia type: unspecified Qualified Code(s): E78.5 - Hyperlipidemia, unspecified Code(s): E78.5 - Hyperlipidemia, unspecified Status: Acute Assessment and Plan: On Atorvastatin. (4) Coronary artery disease: Qualifiers: Coronary Disease-Associated Artery/Lesion type: saxman artery [place] vs. transplanted heart: saxman heart Associated angina: without angina Qualified Code(s): I25.10 - Atherosclerotic heart disease of saxman coronary artery without angina pectoris Code(s): I25.10 - Atherosclerotic heart disease of saxman coronary artery without angina pectoris Status: Acute Assessment and Plan: Stable. (5) Tobacco use: Code(s): Z72.0 - Tobacco use Status: Acute Assessment and Plan: Counseled regarding smoking cessation. Subjective Date/time seen: 02/23/25 07:56 Interval history: No chest pains or sob. Right groin cath access site is without hematoma/pain/bleeding/bruit. Exam Const: General: cooperative, healthy appearing and comfortable Orientation/consciousness: oriented to person, oriented to place and oriented to time Resp: Auscultation: clear to auscultation bilaterally, no crackles, no rales, no rhonchi and no wheezes Cardio: Rate: regular rate Rhythm: regular rhythm Heart sounds: no murmurs Peripheral pulses: dorsalis pedis present Neuro: General: oriented to person, oriented to place and oriented to time Extrem: Right lower extremity: no edema Left lower extremity: no edema Objective Data Vital Signs Vital Signs: Vital Signs - 24 hr 02/22/25 08:12 02/22/25 08:17 02/22/25 12:05 Temperature Pulse Rate 84 84 78 Pulse Rate [Right Pedal (Dorsalis Pedis) Palpation] Respiratory Rate 18 Blood Pressure Pulse Oximetry 100 Oxygen Delivery Room Air 02/22/25 13:00 02/22/25 13:00 02/22/25 13:15 Temperature Pulse Rate 76 77 Pulse Rate [Right Pedal (Dorsalis Pedis) Palpation] 76 Respiratory Rate 16 16 Blood Pressure 171/106 H 172/101 H Pulse Oximetry 100 94 Oxygen Delivery Room Air Room Air 02/22/25 13:15 02/22/25 13:30 02/22/25 13:30 Temperature Pulse Rate 81 Pulse Rate [Right Pedal (Dorsalis Pedis) Palpation] 77 81 Respiratory Rate 17 Blood Pressure 185/110 H Pulse Oximetry 100 Oxygen Delivery Room Air 02/22/25 13:45 02/22/25 13:45 02/22/25 14:00 Temperature Pulse Rate 82 90 Pulse Rate [Right Pedal (Dorsalis Pedis) Palpation] 82 Respiratory Rate 17 20 Blood Pressure 185/105 H 184/94 H Pulse Oximetry 100 100 Oxygen Delivery Room Air Room Air 02/22/25 14:00 02/22/25 14:15 02/22/25 14:15 Temperature Pulse Rate 89 Pulse Rate [Right Pedal (Dorsalis Pedis) Palpation] 90 89 Respiratory Rate 16 Blood Pressure 161/101 H Pulse Oximetry 100 Oxygen Delivery Room Air 02/22/25 14:30 02/22/25 14:30 02/22/25 15:00 Temperature Pulse Rate 75 78 Pulse Rate [Right Pedal (Dorsalis Pedis) Palpation] 90 Respiratory Rate 20 14 Blood Pressure 166/98 H 148/77 H Pulse Oximetry 100 97 Oxygen Delivery Room Air Room Air 02/22/25 15:00 02/22/25 15:30 02/22/25 15:30 Temperature Pulse Rate 76 Pulse Rate [Right Pedal (Dorsalis Pedis) Palpation] 78 76 Respiratory Rate 16 Blood Pressure 104/54 L Pulse Oximetry 97 Oxygen Delivery Room Air 02/22/25 16:00 02/22/25 16:00 02/22/25 17:00 Temperature Pulse Rate 80 86 Pulse Rate [Right Pedal (Dorsalis Pedis) Palpation] 80 Respiratory Rate 20 22 H Blood Pressure 143/88 H 162/103 H Pulse Oximetry 98 100 Oxygen Delivery Room Air Room Air 02/22/25 17:00 02/22/25 17:30 02/22/25 17:30 Temperature Pulse Rate 72 Pulse Rate [Right Pedal (Dorsalis Pedis) Palpation] 86 72 Respiratory Rate 20 Blood Pressure 139/89 Pulse Oximetry 97 Oxygen Delivery Room Air 02/22/25 18:00 02/22/25 18:56 02/22/25 20:00 Temperature 98.5 F Pulse Rate 85 83 78 Pulse Rate [Right Pedal (Dorsalis Pedis) Palpation] Respiratory Rate 17 20 Blood Pressure 149/92 H 153/97 H 130/76 Pulse Oximetry 96 98 96 Oxygen Delivery 02/22/25 20:00 02/22/25 20:00 02/22/25 20:04 Temperature Pulse Rate 77 89 Pulse Rate [Right Pedal (Dorsalis Pedis) Palpation] Respiratory Rate Blood Pressure Pulse Oximetry 96 Oxygen Delivery Room Air 02/22/25 22:00 02/22/25 23:15 02/23/25 00:00 Temperature 98.6 F Pulse Rate 86 68 68 Pulse Rate [Right Pedal (Dorsalis Pedis) Palpation] Respiratory Rate 17 18 Blood Pressure 142/78 H Pulse Oximetry 98 98 Oxygen Delivery Autopap 02/23/25 00:00 02/23/25 02:00 02/23/25 04:00 Temperature 98.3 F Pulse Rate 59 L 72 79 Pulse Rate [Right Pedal (Dorsalis Pedis) Palpation] Respiratory Rate 20 Blood Pressure 151/91 H Pulse Oximetry 96 Oxygen Delivery 02/23/25 04:00 02/23/25 04:00 02/23/25 06:00 Temperature Pulse Rate 97 79 Pulse Rate [Right Pedal (Dorsalis Pedis) Palpation] Respiratory Rate Blood Pressure Pulse Oximetry 96 Oxygen Delivery CPAP Intake/Output Intake/Output: Intake & Output 02/20/25 02/21/25 02/22/25 02/23/25 23:59 23:59 23:59 23:59 Intake Total 1580 1568.3 400 Output Total 1999 1350 900 Balance -420 218.3 -500 Meds/Results Medications: Active Medications Generic Name Dose Route Start Last Admin Trade Name Freq PRN Reason Stop Dose Admin Atorvastatin Calcium 20 mg 02/21/25 09:00 02/22/25 08:13 Atorvastatin 20 Mg Tablet BY MOUTH Not Given DAILY FRANTZ Carvedilol 6.25 mg 02/21/25 09:00 02/22/25 20:04 Carvedilol 6.25 Mg Tablet PO 6.25 mg Q12HR FRANTZ Administration Empagliflozin 10 mg 02/22/25 09:00 02/22/25 08:14 Empagliflozin 10 Mg Tablet PO Not Given DAILY FRANTZ Furosemide 40 mg 02/22/25 09:00 02/22/25 18:04 Furosemide Inj 40 Mg/4 Ml Vial IV PUSH 40 mg BID FRANTZ Administration Hydralazine HCl 10 mg 02/21/25 04:38 Hydralazine Hcl 20 Mg/Ml Vial IV PUSH Q8H PRN Blood Pressure - High Abiraterone 250 Mg 1,000 mg 02/21/25 21:00 02/22/25 20:40 Tablet *Home Supply* PO 03/23/25 20:59 1,000 mg HS FRANTZ Administration Prednisone 5 mg 02/22/25 21:00 02/22/25 20:40 Prednisone 5 Mg Tablet PO 5 mg DAILY@2100 FRANTZ Administration Sacubitril/Valsartan 1 tablet 02/23/25 09:00 Sacubitril/Valsartan 49-51 Mg Tablet PO Q12HR FRANTZ Spironolactone 25 mg 02/22/25 09:00 02/22/25 08:14 Spironolactone 25 Mg Tablet PO 25 mg QAM FRANTZ Administration Tamsulosin HCl 0.4 mg 02/21/25 09:00 02/22/25 20:05 Tamsulosin Hcl 0.4 Mg Capsule PO 0.4 mg Q12HR FRANTZ Administration Venlafaxine HCl 75 mg 02/21/25 09:00 02/22/25 08:15 Venlafaxine Hcl Xr 75 Mg Cap.Er.24h PO Not Given DAILY [facility] Radiology Results: ITS Impressions Chest X-Ray 02/20/25 22:37 IMPRESSION: Cardiomegaly with pulmonary congestion. Chest/Abdomen/Pelvis CTA 02/21/25 07:08 IMPRESSION: 1. No pulmonary embolus. Sensitivity is mildly decreased by motion artifact. 2. Calcific pericarditis. Labs Labs: Laboratory Results - last 24 hr 02/23/25 04:06 WBC 6.2 RBC 4.22 L Hgb 12.7 L Hct 38.4 L MCV 91.0 MCH 30.1 MCHC 33.1 RDW 14.5 Plt Count 253 MPV 11.0 H Sodium 137 Potassium 3.7 Chloride 101 Carbon Dioxide 27 Anion Gap 9 BUN 22 H Creatinine 0.89 Estim Creat Clear Calc 98 Estimated GFR > 60 Glucose 111 H Calcium 8.9 Magnesium 2.4 H
[2025-02-23] MEDS: VENLAFAXINE HCL XR 75 MG CAP.ER.24H PO (09:41)
[2025-02-23] MEDS: EMPAGLIFLOZIN 10 MG TABLET PO (09:42)
[2025-02-23] MEDS: ATORVASTATIN 20 MG TABLET BY MOUTH (09:42)
[2025-02-23] MEDS: SACUBITRIL/VALSARTAN 49-51 MG TABLET 1 TABLET PO (09:42)
[2025-02-23] MEDS: SPIRONOLACTONE 25 MG TABLET PO (09:42)
[2025-02-23] MEDS: TAMSULOSIN HCL 0.4 MG CAPSULE PO (09:42)
[2025-02-23] MEDS: FUROSEMIDE 40 MG TABLET PO (09:45)
--- NOTE | 2025-02-23 10:14 | PC.NURSE ---
Voice message left with Shelby, [employer] for LifeVest, requesting LifeVest delivery.
--- NOTE | 2025-02-23 12:41 | P.DS_ITS ---
DS: Admitting Diagnosis Discharge Date 02/23/2025 Admitting Diagnosis Shortness of breath for 5 days DS: Discharge Diagnosis Discharge Diagnosis (1) CHF (congestive heart failure): Code(s): I50.9 - Heart failure, unspecified Status: Acute (2) Hypertension: Qualifiers: Hypertension type: primary hypertension Qualified Code(s): I10 - Essential (primary) hypertension Code(s): I10 - Essential (primary) hypertension Status: Acute DS: Summary Hospital Course Hospital Course: 43-year-old male with obesity class 1, prostate cancer on prednisone 5 mg p.o. q.day, abiraterone, Eligard, tobacco use disorder, hypertension, hyperlipidemia, pericarditis status post pericardiectomy in 2016 at [facility], presents to [facility] ER on 02/21/2025 complaining of shortness of breath for 4-5 days. He is found to be in acute heart failure. Acute systolic heart failure due to non-ICM. Possibly due to prostate cancer treatment with Abiraterone? Followed by Urologist and oncologist. NTproBNP 6,380. CXR shows pulm congestion and cardiomegaly. 02/21/25 Echo: EF 25-30%, severe LVE, grade I diastolic dysfunction (E/e' 15), mild LAE, mild AI/MR, pericardial calcification but without physiologic evidence of constrictive pericarditis including no ventricular interdependence or dilated IVC. 02/22/25 [facility] with Dr. Ulloa: LM 20-30% and LAD mid 20-30% stenosis. In 1 week. Patient is discharged in stable condition on 02/23/2025 to home. He will be discharged on Lasix 40 mg p.o. q.day, his lisinopril has been stopped and he is going to start Entresto. Jardiance 10 mg p.o. q.day. holding off on starting spironolactone due to its interaction with abiraterone. Patient has received LifeVest. He reports he is going to abstain from tobacco use/smoking. He has been congratulated. He has a follow-up with his urologist and oncologist within the week and he has been encouraged to keep these appointments to discuss further actions on prostate cancer medications which may be causing heart failure. 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 Conte. Adverse effects, risk and benefits of medication discussed. All the patient's questions and concerns were answered to satisfaction. He was full code during the admission. Time Spent with Patient Time attestation: Total time spent providing and/or coordinating discharge services: Time spent: Greater than 30 minutes Exam Const: General: comfortable and no acute distress HENMT: Mouth: Yes moist mucous membranes Eyes: Pupils: Equal, round and reactive pupils present Neck: Neck: supple Resp: Effort & Inspection: normal respiratory effort Auscultation: clear to auscultation bilaterally Cardio: Rate: regular rate Rhythm: regular rhythm GI: Inspection: non-distended GI Palp: Yes Soft to palpation Extrem: Other: Trace/1+ pitting edema bilateral lower extremities DS: Data Data Completed and Pending Labs on day of discharge: Labs from last 24 hours 02/23/25 04:06 WBC 6.2 RBC 4.22 L Hgb 12.7 L Hct 38.4 L MCV 91.0 MCH 30.1 MCHC 33.1 RDW 14.5 Plt Count 253 MPV 11.0 H Sodium 137 Potassium 3.7 Chloride 101 Carbon Dioxide 27 Anion Gap 9 BUN 22 H Creatinine 0.89 Estim Creat Clear Calc 98 Estimated GFR > 60 Glucose 111 H Calcium 8.9 Magnesium 2.4 H Discharge Plan Discharge Attending physician on discharge: Yudith Gambino Consulting providers: Nj Conte; Izaiah Bowden Discharging Clinician: Yudith Gambino Patient Disposition: Home Activity: august shower Diet: heart healthy Patient Instructions: Antibiotic Form Patient Language: Swedish Stand Alone Forms: General Discharge Information Follow-up/Referrals: Nj Conte DO [Physician, Cardiology] Referral Note: Follow-up within 1 week Discharge Medications: New carvedilol [Coreg] 6.25 mg Tablet 6.25 mg PO Q12HR Qty: 60 0RF Jardiance 10 mg Tablet 10 mg PO DAILY Qty: 30 0RF furosemide 40 mg Tablet 40 mg PO DAILY Qty: 30 0RF sacubitril-valsartan [Entresto] 49-51 mg Tablet 1 tablet PO Q12HR Qty: 60 0RF Continued prednisone 5 mg tablet 5 mg PO DAILY abiraterone 250 mg tablet 1,000 mg PO DAILY Rx Instructions: must be taken on empty stomach, at least 1 hr before or 2 hrs after a meal/food for 90 days Malvin (6 month) 45 mg syringe 45 mg subcut [id number] venlafaxine 75 mg capsule,extended release 24hr 75 mg PO DAILY calcium carbonate-vitamin D3 [Calcium 600 + D(3)] 600 mg-5 mcg (200 unit) tablet 1 tablet PO DAILY tamsulosin [Flomax] 0.4 mg capsule 0.4 mg PO BID Qty: 30 5RF atorvastatin 20 mg tablet See Rx Instructions .ROUTE .COMPLEX Qty: 30 5RF Dose Instruction: TAKE 1 TABLET BY MOUTH EVERY DAY Rx Instructions: TAKE 1 TABLET BY MOUTH EVERY DAY Discontinued lisinopril 40 mg tablet 40 mg PO DAILY@1700 Date of admission: 02/21/25 01:24 Primary Care Provider: Terrell Muñoz Admitting Provider: Gerardo Bearden Oca Attending physician on admission: Gerardo Bearden Oca Condition: Stable Hospitalist MIPS Heart Failure (Exclusion) Patient has history of Heart Transplant or Left Ventricular Assistive Device?: No IF YES, STOP HERE Heart Failure (Qualifier) Patient has current or prior documentation of LVEF less than or equal to 40%, or mod/servere depressed LVSF?: Yes IF NO, STOP HERE If Yes, Heart Failure (Qualifier) Patient was prescribed or already taking an Angiotensin-Converting Enzyme (ANTONIA) Inhibitor, or Antiotensin Receptor Max (ARB): Yes Patient was prescribed or already taking bisoprolol, carvedilol, or sustained release metoprolol succinate: Yes
== END 2025-02-23 14:19 | disposition home or self-care (01) | DRG 286 ==
LOC: ANHED 02-21 01:26 → ANH2MED 02-21 06:32 → ANHIMU 02-23 11:20 → ANH2MED 02-27 09:55 → ANHIMU 02-27 09:55
PROVIDERS: Internal Medicine; Nurse Practitioner; Admitting Provider Student in an Organized Health Care Education/Training Program; Emergency Provider Emergency Medicine; PCP Internal Medicine; Visit Provider General Practice
PROC: 4A023N7 Measurement of Cardiac Sampling and Pressure, Left Heart, Percutaneous Approach (ICD-10-PCS; CPT 93452; principal; 2025-02-22 12:00)
PROC: 4A023N7 Measurement of Cardiac Sampling and Pressure, Left Heart, Percutaneous Approach (ICD-10-PCS; 2025-02-22 12:00)
DX: I11.0 Hypertensive heart disease with heart failure (principal); I50.21 Acute systolic (congestive) heart failure; I25.10 Atherosclerotic heart disease of native coronary artery without angina pectoris; I42.8 Other cardiomyopathies; C61 Malignant neoplasm of prostate; J44.9 Chronic obstructive pulmonary disease, unspecified; K74.60 Unspecified cirrhosis of liver; E78.5 Hyperlipidemia, unspecified; M48.00 Spinal stenosis, site unspecified; M15.9 Polyosteoarthritis, unspecified; G47.33 Obstructive sleep apnea (adult) (pediatric); F31.9 Bipolar disorder, unspecified; F41.9 Anxiety disorder, unspecified; F17.210 Nicotine dependence, cigarettes, uncomplicated; F19.11 Other psychoactive substance abuse, in remission; Z20.822 Contact with and (suspected) exposure to COVID-19; Z96.651 Presence of right artificial knee joint; Z96.643 Presence of artificial hip joint, bilateral; Z79.69 Long term (current) use of other immunomodulators and immunosuppressants; Z99.89 Dependence on other enabling machines and devices; Z79.52 Long term (current) use of systemic steroids
CPT/HCPCS: 36415; 71045; 71275; 74177; 80048; 80053; 80307; 83036; 83735; 83880; 84439; 84443; 84481; 84484; 85025; 85027; 87637; 93005; 93458; 99285; A9270; C1760; C1769; C1887; C1894; C8929; G0269; J1644; J1938; J2003; J2250; J2305; J3010; J7030; J7040; J7512; Q9957; Q9967

== ENCOUNTER 2025-03-30 07:50 | Outpatient (CLI) | payer MEDICARE, MEDICAID, SELFPAY ==
--- NOTE | 2025-03-30 07:50 | ECHO_ITS ---
Patient Info Name: Rivera Aguilar Age: 54 years : 1970 Gender: Male Ht: 69 in Wt: 265 lbs BSA: 2.47 m2 HR: 75 bpm BP: 143 / 83 mmHg Technical Quality: Fair Exam Date: 03/30/2025 8:04 AM Patient Status: O Admit Date: 03/30/2025 Exam Type: CA echo doppler color flow Complete two-dimensional, color flow and Doppler transthoracic echocardiogram is performed. Metal Punch Press Operator: Elisabet Willson Attending Provider: Nj Conte DO Summary 1. Complete two-dimensional, color flow and Doppler transthoracic echocardiogram is performed. 2. Left ventricular chamber dimension is moderately enlarged. 3. Left ventricular systolic function is moderately globally reduced, estimated at 40-45. 4. There is mild concentric increased left ventricular wall thickness. 5. E/e' 13 is mildly elevated. 6. Left atrial chamber dimension is mildly enlarged. 7. There is trace aortic valve regurgitation. 8. No pulmonary hypertension, estimated pulmonary arterial systolic pressure is 16 mmHg. Left Ventricle E/e' 13 is mildly elevated. Left ventricular chamber dimension is moderately enlarged. Left ventricular systolic function is moderately globally reduced, estimated at 40-45. There is mild concentric increased left ventricular wall thickness. The left ventricular diastolic function is grade I diastolic dysfunction. Right Ventricle Right ventricular chamber dimension is normal. Right ventricular systolic function is normal. Left Atria Left atrial chamber dimension is mildly enlarged. Right Atria Right atrial chamber dimension is normal. Aortic Valve The aortic valve is trileaflet. There is no aortic valve stenosis. There is trace aortic valve regurgitation. Pulmonic Valve There is no pulmonic regurgitation. Mitral Valve There is no mitral valve stenosis. There is no mitral valve regurgitation. Tricuspid Valve There is no tricuspid valve regurgitation. No pulmonary hypertension, estimated pulmonary arterial systolic pressure is 16 mmHg. Pericardium/Pleural There is no pericardial effusion. Inferior Vena Cava Normal inferior vena cava with >50% collapse upon inspiration consistent with normal right atrial pressure, 5 mmHg. Aorta The aortic root size at the sinus of Valsalva is normal. Left Ventricular Outflow Tract Name Value Normal LVOT 2D LVOT Diameter 2.0 cm LVOT Doppler LVOT Peak Velocity 107 cm/s LVOT Peak Gradient 5 mmHg LVOT Mean Gradient 3 mmHg LVOT VTI 22 cm LVOT VTI/AV VTI Ratio 1.1 LVOT Stroke Volume 71 ml LVOT CO 4.6 l/min LVOT CI 1.9 l/min/m2 Pulmonic Valve Name Value Normal RVOT Doppler RVOT Peak Velocity 76 cm/s RVOT Peak Gradient 2 mmHg PV Doppler PV Peak Velocity 155 cm/s PV Peak Gradient 10 mmHg Mitral Valve Name Value Normal MV Diastolic Function MV E Peak Velocity 84 cm/s MV A Peak Velocity 105 cm/s MV E/A 0.8 MV Decel Time (PW) 236 ms Tricuspid Valve Name Value Normal TV Regurgitation Doppler TR Peak Velocity 164 cm/s TR Peak Gradient 11 mmHg Estimated PAP/RSVP RA Pressure 5 mmHg <=5 PA Systolic Pressure 16 mmHg <36 RV Systolic Pressure 16 mmHg <36 Aorta Name Value Normal Ascending Aorta Ao Root Diameter (MM) 3.6 cm Ao Root Diam Index (MM) 1.5 cm/m2 Aortic Valve Name Value Normal AV Doppler AV Peak Velocity 109 cm/s AV Peak Gradient 5 mmHg AV Mean Gradient 3 mmHg AV VTI 20 cm AV Area (Cont Eq VTI) 3.6 cm2 >=3.0 AV Area (Cont Eq Logan) 3.2 cm2 AV DI (Logan) 0.98 AV Regurgitation 2D LVOT Area 3.3 cm2 Ventricles Name Value Normal LV Dimensions 2D/MM IVS Diastolic Thickness (2D) 0.8 cm 0.6-1.0 IVS Diastole Thickness (MM) 0.9 cm 0.6-1.0 LVID Diastole (2D) 5.9 cm 4.2-5.8 LVID Diastole (MM) 6.2 cm 4.2-5.8 LVIW Diastolic Thickness (2D) 1.3 cm 0.6-1.0 LVIW Diastolic Thickness (MM) 1.4 cm 0.6-1.0 LVID Systole (2D) 4.5 cm 2.5-4.0 LVID Systole (MM) 4.3 cm 2.5-4.0 LVOT Diameter 2.0 cm LV Mass (2D Cubed) 263.13 g 88.00-224.00 LV Mass Index (2D Cubed) 106 g/m2 49-115 Relative Wall Thickness (2D) 0.44 <=0.42 LV Mass (MM Cubed) 316.04 g 88.00-224.00 LV Mass Index (MM Cubed) 128 g/m2 49-115 Relative Wall Thickness (MM) 0.44 LV Fractional Shortening/Ejection Fraction 2D/MM LV Fractional Shortening (2D) 24 % 25-43 LV Fractional Shortening (MM) 30 % 25-43 LV EF (MM Teichholz) 57 % LV EF (2D Teichholz) 48 % LV Diastolic Volume (4C MOD) 119 ml LV EF (4C MOD) 51 % LV Diastolic Volume (2C MOD) 105 ml LV EF (2C MOD) 49 % LV Diastolic Volume (BP MOD) 112 ml 62-150 LV Diastolic Volume Index (BP MOD) 45 ml/m2 34-74 LV Systolic Volume (BP MOD) 57 ml 21-61 LV Systolic Volume Index (BP MOD) 23 ml/m2 11-31 LV EF (BP MOD) 49 % 52-72 LV Diastolic Length (4C) 8.9 cm LV Systolic Length (4C) 7.7 cm LV Stroke Volume (4C MOD) 60 ml Atria Name Value Normal LA Dimensions LA Dimension (MM) 4.8 cm 3.0-4.0 LA Volume (4C A-L) 38 ml LA Volume (BP A-L) 43 ml RA Dimensions RA Systolic Major Brownell Length (4C) 5.3 cm 2.1-2.7 RA Area (4C) 15.1 cm2 <=18.0 Report Signatures
[2025-03-30 09:49] LABS: Anion Gap 6 mmol/L (4-12); Blood Urea Nitrogen 19 mg/dL (9-20); Calcium 9.4 mg/dL (8.4-10.2); Carbon Dioxide 25 mmol/L (22-30); Chloride 108 mmol/L (98-107); Cholesterol 132 mg/dL (0-200); Estimated Glomerular Filt Rate > 60; Glucose 92 mg/dL (65-110); HDL Direct 40 mg/dL; Magnesium 2.5 mg/dL (1.6-2.3); Potassium 4.1 mmol/L (3.4-5.0); Sodium 139 mmol/L (137-145); Triglycerides 101 mg/dL (<150)
== END 2025-03-30 07:51 | disposition home or self-care (01) ==
PROVIDERS: Visit Provider Internal Medicine Cardiovascular Disease
DX: I51.9 Heart disease, unspecified (principal); E78.5 Hyperlipidemia, unspecified
CPT/HCPCS: 36415; 80048; 80061; 83735; 93306